=== PATIENT | female | born 1990 | race Two or more races ===

== ENCOUNTER 2024-08-22 18:05 | Outpatient (CLI) | payer MEDICAID, SELFPAY ==
[2024-08-22 18:26] VITALS: BMI 31.1
[2024-08-22 18:32] VITALS: RESP 16; TEMP 36.6
[2024-08-22 18:33] VITALS: BP 123/79; PULSE 98
[2024-08-22 18:36] VITALS: PULSE 94; O2SAT 99
--- NOTE | 2024-08-22 19:23 | OB.TRI.NOTE ---
HPI - General General Date of Admission: 08/22/24 Date of Service: 08/22/24 Chief Complaint: Abdominal pain HPI Narrative YAEL VERMA, is a 34 F who presents presents c/o abdominal pain. Nausea and emesis now. [place]. Patient notes that she has been on methadone this . 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 She states her last 3 years ago she used Percocet intermittently during the but she did not have any withdrawal during the when she was not using Percocet and neither did the . However, between pregnancies her Percocet use escalated and then she began using fentanyl and during this she started in a methadone treatment program in [place]. However 7 days ago she took her last dose of methadone in [place] and started traveling to [place]. She had some Percocet and Xanax that were prescribed for her per her report that she finished about 3 days ago. 2 days ago she had 1 last dose of methadone that she had brought with her and she took that. She took that because she was starting to have some withdrawal symptoms. Patient states she was seen 2 weeks ago for some abdominal pain and kidney stones and threatened labor. Patient reports she was 1 cm and 30% effaced. Patient states she has had care in [place] including 28-week labs and she does not have the results of the 28-week labs but reports that she did do the Glucola challenge and have the blood work drawn. Past medical history significant for colitis but she is not on any treatment for this. Medullary sponge kidney and kidney stones Medications during the include Xanax, methadone and prenatals Maternal Data Information Final KWAKU: 11/02/24 Gestational age: 29 5/7 [facility] Home Medications ?Medication ?Instructions ?Recorded ?Last Taken ?Type alprazolam 0.25 mg tablet (Xanax) 0.25 mg PO BID PRN anxiety 08/22/24 08/20/24 History methadone 40 mg soluble tablet 140 mg PO DAILY 08/22/24 08/20/24 History Allergy/AdvReac Type Severity Reaction Status Date / Time ketorolac (From Toradol) Allergy Intermediate Hives Verified 08/22/24 18:28 Physical Exam Narrative Awake, alert, no acute distress Abdomen soft, nondistended, gravid, mild tenderness suprapubic Extremities trace edema no clubbing or cyanosis NST FHR Rate Baby A Baseline: 140 Variability:: Moderate Accelerations:: 10 x 10 Decelerations:: Variable NST Reactive:: Appropriate for gestational age Uterine Activity:: no regular ctxs Assessment & Plan (1) 29 weeks gestation of : (2) High risk multigravida in third trimester: (3) Medullary sponge kidney: (4) Opioid use disorder: (5) Abdominal pain affecting , antepartum: PLAN: no evidence of PTL. Clinically consistent with opiod withdrawal. Has h/o chronic kidney stones as well. Will discuss w/ MFM to formulate a plan, possible transport to [facility] d/w her no methadone clinic locally, likely will need to be in treatment program with suboxone will need to establish care for OB care Will determine what labs need to be done after discuss w/ MFM
[2024-08-22 20:00] VITALS: BP 121/74; PULSE 90; RESP 16; TEMP 36.9
--- NOTE | 2024-08-22 20:11 | NURSING ---
Pt refusing transfer via [facility]. Pt requesting transport via [facility]
[2024-08-23 00:23] VITALS: PULSE 84; O2SAT 97
== END 2024-08-22 21:28 | disposition home or self-care (01) ==
LOC: WPOUT 18:21 → WP 18:22
PROVIDERS: Visit Provider Obstetrics & Gynecology
DX: O99.891 Other specified diseases and conditions complicating pregnancy (principal); F11.99 Opioid use, unspecified with unspecified opioid-induced disorder; Z3A.29 29 weeks gestation of pregnancy; Q61.5 Medullary cystic kidney; O99.323 Drug use complicating pregnancy, third trimester; O26.893 Other specified pregnancy related conditions, third trimester; R10.9 Unspecified abdominal pain; Z87.442 Personal history of urinary calculi; Z87.19 Personal history of other diseases of the digestive system
CPT/HCPCS: 59025; 59050; 99221; G0378

== ENCOUNTER 2024-12-29 09:57 | Emergency (ER) | payer MEDICAID, SELFPAY ==
[2024-12-29 09:58] VITALS: BP 119/87; PULSE 63; RESP 18; TEMP 37; O2SAT 100; BMI 31.2
[2024-12-29 10:31] LABS: Mucous, Urine 0 SEEN /hpf (<or=2+); Red Blood Cells-Urine 0 SEEN /hpf (0-5)
--- NOTE | 2024-12-29 10:39 | ED.VIS.FEGU ---
HPI HPI - Female History of Present Illness Chief Complaint: Female C/O Informant: patient Narrative Narrative: Patient is a 34-year-old female presenting from urgent care for pelvic pain. She states been going on for the past 3 days. Started as more of a pelvic pressure and discomfort associated with urination but she denies any specific dysuria. Denies any hematuria. States its became more severe with a pinching and stabbing sensation. States the pain is now constant. She went to urgent care where she had a urinalysis that showed 2+ leukocyte esterase but otherwise was not particularly abnormal and given her degree of pain patient was sent to the ER for further evaluation. She states she has been having normal bowel movements. Denies any associated fever, chills, nausea or vomiting. Denies any abnormal vaginal bleeding or discharge. Has not had any recent intercourse. She is 2 months . Notes she has had sex since delivery with 1 partner. She states she does not think she has an STD but is technically possible as I do not live together. She is chronic back pain but denies any acute change in that. Did not taking her symptoms prior to arrival. States she has never anything like this before. No other complaints or concerns reported at this time. [facility] Home Medications Medication Instructions Recorded Last Taken Type alprazolam 0.25 mg tablet (Xanax) 0.25 mg PO BID PRN anxiety 08/22/24 08/20/24 History methadone 40 mg soluble tablet 140 mg PO DAILY 08/22/24 08/20/24 History buprenorphine 8 mg-naloxone 2 mg 0 ea sublingual 12/29/24 Unknown History sublingual film phenazopyridine 200 mg tablet 200 mg PO TID PRN pain 6 doses #6 12/29/24 Unknown Rx (Pyridium) tabs sertraline 100 mg tablet 100 mg PO DAILY 12/29/24 Unknown History sulfamethoxazole 800 1 tab PO BID 5 days #10 tabs 12/29/24 Unknown Rx mg-trimethoprim 160 mg tablet (Bactrim DS) Allergy/AdvReac Type Severity Reaction Status Date / Time ketorolac (From Toradol) Allergy Intermediate Hives Verified 12/29/24 10:06 Social History Smoking Status: Former smoker ROS ROS ED Constitutional Constitutional ED: Denies chills or fever(s) Gastrointestinal Gastrointestinal: Reports abdominal pain; Denies constipation, diarrhea, nausea or vomiting Musculoskeletal Musculoskeletal: Denies arthralgias or myalgias Integumentary Denies rash Neurologic Neurologic: Denies weakness Hematologic/Lymphatic Hematologic/Lymphatic: Denies easy bleeding or easy bruising EXAM Physical Exam Const Vital Signs: 12/29/24 09:58 12/29/24 11:57 12/29/24 13:00 Temperature 98.6 F Temperature Source Oral Pulse Rate 63 77 80 Respiratory Rate 18 16 Blood Pressure 119/87 H 117/73 112/78 Blood Pressure Mean 97 87 89 Pulse Ox 100 97 99 Oxygen Delivery Method Room Air Positive well nourished and well developed General Appearance ED: well developed and NAD HEENT Reports moist mucous membranes Neck supple Chest Wall inspection of chest normal Resp normal respiratory effort and clear to auscultation bilaterally Cardio regular rate and regular rhythm GI soft to palpation, non-distended and no masses Auscultation: normoactive bowel sounds Palpation: tender suprapubic; Negative for guarding Narrative: Chaperoned pelvic exam performed External genitalia normal. On speculum exam there is physiologic white discharge. No cervical motion tenderness but there is tenderness palpation of the bladder and adnexa bilaterally. Back/Spine no CVA tenderness Extremity normal to inspection Neuro oriented x3 Sensorium / Orientation: alert Psych mental status grossly normal Skin no rashes or lesions noted and no wounds MDM MDM MDM Narrative Medical decision making narrative: Patient is evaluated for worsening pelvic pain. She is approximately 2 months . Differential includes urinary tract infection, pyelonephritis, pelvic inflammatory disease, tubo-ovarian abscess, ovarian torsion, ruptured ovarian cyst. She does not report any systemic symptoms overall well-appearing. Vital signs are normal. Patient is on buprenorphine and at baseline. Is given dose of morphine with no significant relief of her pain. Discussed that opioid pain medications will probably be ineffective because of her buprenorphine. She does verbalize understanding of this. Is given Tylenol. CBC shows mild anemia the hemoglobin 11.7 which is nonspecific. She is not any signs of active bleeding. BMP largely normal. Urinalysis does not show any bacteria only 25 leukocyte Estrace. test is negative lower suspicion for ectopic . Pelvic ultrasound obtained which does not show any acute abnormalities. No signs of torsion. No free fluid. Lower suspicion for tubo-ovarian abscess or PID based on pelvic exam and ultrasound. I discussed with patient that the exact cause of her pain is not clear. Workup relatively inconclusive at this time. Patient is offered CT abdomen pelvis for further evaluation but this time states that she would rather just follow-up outpatient. Given her history of medullary sponge disease and pain over her bladder will treat empirically for urinary tract infection even though urinalysis is not particularly impressive for UTI. Will send off her urine culture. Will also prescribe peridium. Patient is given first dose of Bactrim and pretty him in the emergency room. Given return precautions. Counseled on taking Tylenol and she can tolerated NSAIDs at home for pain. 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 Discharged home in stable condition Lab Data Attestation: I reviewed the patient's lab results. Labs: Laboratory Results - last 24 hr 12/29/24 12/29/24 10:26 11:15 WBC 6.8 RBC 4.40 Hgb 11.7 L Hct 36.6 L MCV 83.2 MCH 26.6 L MCHC 32.0 RDW Std Deviation 47.8 H RDW Coeff of Mellissa 15.9 H Plt Count 251 MPV 10.9 Immature Gran % (Auto) 0.300 Neut % (Auto) 61.3 Lymph % (Auto) 28.3 [place] % (Auto) 7.8 Eos % (Auto) 1.6 Baso % (Auto) 0.7 Absolute Neuts (auto) 4.2 Absolute Lymphs (auto) 1.93 Nucleated RBC % 0 Sodium 139 Potassium 4.4 Chloride 103 Carbon Dioxide 27.2 Anion Gap 9 BUN 11 Creatinine 0.64 L Estim Creat Clear Calc 131.19 Est GFR (MDRD) Non-Af 121 BUN/Creatinine Ratio 17.8 Glucose 60 L Calcium 9.5 Urine Color Yellow Urine Clarity Clear Urine pH 6.5 Ur Specific [place] 1.010 Urine Protein Negative Urine Glucose (UA) Normal Urine Ketones Negative Urine Occult Blood Negative Urine Nitrite Negative Urine Bilirubin Negative Urine Urobilinogen Normal Ur Leukocyte Esterase 25 H Urine RBC 0 SEEN Urine WBC 0-5 SEEN Ur Squamous Epith Cells 0-5 SEEN Urine Bacteria 0 SEEN Urine Mucus 0 SEEN Urine Test Negative Radiography Diagnostic Testing: Clinical Impression(s) from Imaging Studies Transvaginal US 12/29/24 11:11 IMPRESSION: No acute abnormality is identified on this pelvic ultrasound. [facility] Dis[facility] Plan Triage Chief Complaint: Female C/O ED Provider: Avis Martel Dx/Rx/DC Orders Clinical Impression: Pelvic pain, Medullary sponge kidney Instructions: ED Pelvic Pain, Unknown Cause Prescriptions: New sulfamethoxazole-trimethoprim [Bactrim DS] 800-160 mg tablet 1 tab PO BID 5 Days Qty: 10 0RF phenazopyridine [Pyridium] 200 mg tablet 200 mg PO TID PRN (Reason: pain) Qty: 6 0RF No Action alprazolam [Xanax] 0.25 mg tablet 0.25 mg PO BID PRN (Reason: anxiety) methadone 40 mg tablet,soluble 140 mg PO DAILY sertraline 100 mg tablet 100 mg PO DAILY buprenorphine-naloxone 8-2 mg film 0 ea sublingual Primary Care Provider: Care Physician,No Primary Referrals: Chrystal Baugh MD [Med Staff - Active Staff] - Care Physician,No Primary [Primary Care Provider] - Activity Restrictions/Additional Instructions: Your urinalysis was not highly consistent with urinary tract infection given your symptoms and your history of medullary sponge kidney will treat you with antibiotics. Urine culture was sent. Take Tylenol as needed for pain. If you can tolerate [id number] ibuprofen/Aleve may also take that for pain. If your symptoms worsen please return the emergency room for further evaluation. Print Language: Turkmen Disposition Disposition: Home, Self Care
[2024-12-29 10:45] LABS: Color, Urine Yellow (Yellow); Glucose, Dipstick Normal (Normal); Ketone-Dipstick Negative (Negative); Leukocyte Esterase-Dipstick 25 /ul (Negative); Nitrite-Dipstick Negative (Negative); Occult Blood-Urine Negative /ul (Negative); Protein-Dipstick Negative (Negative); Specific Gravity, Urine 1.010 (1.002-1.030); Urine Bilirubin Dipstick Negative (Negative)
[2024-12-29 10:57] LABS: Squamous Epithelial Cells - UA 0-5 SEEN /hpf (5-10)
--- NOTE | 2024-12-29 11:11 | US_ITS ---
PROCEDURE: TRANSVAGINAL NON- 12/29/2024 REASON FOR EXAM: PELVIC PAIN TECHNIQUE: TRANSVAGINAL NON- COMPARISON: None FINDINGS: The uterus measures 10.4 x 5.6 x 4.7 cm. The uterus is anteverted. There is no uterine fibroid or mass. The endometrium measures 0.5 cm. Nabothian cysts are noted. The right ovary measures 2.4 x 2.3 x 1.7 cm and shows multiple normal-appearing subcentimeter follicles. The left ovary measures 2.6 x 2.8 x 1.7 cm and has a dominant follicle measuring 1.4 cm. There is normal flow documented in the right and left ovary. No adnexal mass or free fluid is identified. US/Transvaginal Non- IMPRESSION: No acute abnormality is identified on this pelvic ultrasound. Reading Location: [facility]
[2024-12-29 11:24] LABS: Hematocrit 36.6 % (37-47); Hemoglobin 11.7 g/dL (12.0-15.0); Immature Granulocytes Count 0.020 X10^3/uL (0.0-0.0); Mean Corp Hgb Conc 32.0 g/dL (32-36); Mean Corpuscular Volume 83.2 fL (81-99); Mean Platelet Vol. 10.9 fl (6.2-12.0); NRBC Flagged by Analyzer 0 % (0-5); Platelet Count 251 K/mm3 (150-450); RBC Distribution Width CV 15.9 % (11.6-14.6); RBC Distribution Width SD 47.8 fl (35.1-43.9); Red Blood Count 4.40 M/mm3 (4.2-5.4); White Blood Count 6.8 K/mm3 (4.4-11.0)
[2024-12-29 11:26] LABS: Internal QC Validated? YES +Cl - CLEAR BKGD; Pregnancy, Urine Negative Negative
[2024-12-29 11:27] LABS: Record Kit Lot#,Urine Preg 0000962302
[2024-12-29 11:49] LABS: Anion Gap 9 (5-15); BUN 11 mg/dL (4-19); BUN/Creat Ratio 17.8 RATIO (10-20); Calcium,Total 9.5 mg/dL (7.6-11.0); Carbon Dioxide 27.2 mmol/L (21.0-32.0); Chloride 103 mmol/L (98-108); Estimated Creatinine Clearance 131.19 ml/min (50-250); Glucose 60 mg/dL (70-99); Potassium 4.4 mmol/L (3.3-5.1)
[2024-12-29 11:57] VITALS: BP 117/73; PULSE 77; RESP 16; O2SAT 97
[2024-12-29 13:00] VITALS: BP 112/78; PULSE 80; O2SAT 99
[2024-12-29] MEDS: Smz/Tmp Ds Tablet 1 TABLET PO (14:07)
[2024-12-29 14:14] VITALS: BP 127/78; PULSE 78; RESP 16; TEMP 37.1; O2SAT 99
== END 2024-12-29 14:16 | disposition home or self-care (01) ==
PROVIDERS: Emergency Provider Emergency Medicine; Visit Provider Emergency Medicine
DX: R10.2 Pelvic and perineal pain (principal); M54.9 Dorsalgia, unspecified; Z87.891 Personal history of nicotine dependence; G89.29 Other chronic pain; R10.9 Unspecified abdominal pain; Q61.5 Medullary cystic kidney
CPT/HCPCS: 76830; 80048; 81001; 81025; 85025; 87086; 87088; 87210; 87491; 87591; 96374; 96375; 96376; 99283; J2405

== ENCOUNTER 2025-02-04 12:49 | Emergency (ER) | payer MEDICAID, SELFPAY ==
[2025-02-04 12:50] VITALS: BP 114/80; PULSE 77; RESP 16; TEMP 37.4; O2SAT 98; BMI 32.5
[2025-02-04 12:52] VITALS: BP 114/80; PULSE 77; RESP 16; TEMP 37.4; O2SAT 98
--- NOTE | 2025-02-04 13:26 | EX.ED.DYSGE1 ---
HPI History of Present Illness Chief Complaint: Complaint Informant: patient Onset/Context/Timing Onset: Days (4) Context: Gradual Onset Timing: Continuous Quality: Dull, stabbing at times Location: Bilateral flank, right worse than left Worsened by: Nothing Relieved by: Nothing Associated Symptoms Associated Symptoms: Nausea Narrative Narrative: Patient presents with flank pain that has been getting worse over the past 4 days. Patient states it is worse on the right. Patient describes it as dull but stabbing at times. Patient states nothing makes it worse and nothing makes it better. Patient states she has had a history of kidney issues in the past. Patient states she has had ureteral stents placed and removed. Patient states she has had a nephrostomy tube placed and removed in the past. Patient denies any fevers or chills. Patient states she did break into a sweat however. Patient admits to some urinary frequency but denies any dysuria or hematuria. Patient admits to some nausea but denies any vomiting. [facility] Medical History (Updated 02/04/25 @ 16:[address] Neto Boo, ) Medullary sponge kidney Home Medications ?Medication ?Instructions ?Recorded ?Last Taken ?Type alprazolam 0.25 mg tablet (Xanax) 0.25 mg PO BID PRN anxiety 08/22/24 08/20/24 History methadone 40 mg soluble tablet 140 mg PO DAILY 08/22/24 08/20/24 History buprenorphine 8 mg-naloxone 2 mg 0 ea sublingual 12/29/24 Unknown History sublingual film phenazopyridine 200 mg tablet 200 mg PO TID PRN pain 6 doses #6 12/29/24 Unknown Rx (Pyridium) tabs sertraline 100 mg tablet 100 mg PO DAILY 12/29/24 Unknown History sulfamethoxazole 800 1 tab PO BID 5 days #10 tabs 12/29/24 Unknown Rx mg-trimethoprim 160 mg tablet (Bactrim DS) Allergy/AdvReac Type Severity Reaction Status Date / Time ketorolac (From Toradol) Allergy Intermediate Hives Verified 02/04/25 12:49 Surgical History (Updated 02/04/25 @ 13:[address] Neto Boo, DO) H/O insertion of nephrostomy tube H/O placement of ureteral stent Social History Smoking Status: Current some day smoker tobacco type: cigarettes ROS ROS ED Constitutional Constitutional ED: Reports sweats; Denies chills or fever(s) Eyes Eyes: Denies blurry vision or change in vision ENT ENT ED: Reports sore throat; Denies rhinorrhea Cardiovascular Cardiovascular: Denies chest pain or palpitations Respiratory/Chest Respiratory/Chest: Denies cough or dyspnea Gastrointestinal Gastrointestinal: Reports nausea; Denies vomiting Genitourinary Genitourinary ED: Reports urinary frequency; Denies dysuria or hematuria Musculoskeletal Musculoskeletal: Reports back pain; Denies neck pain Integumentary Denies abscess or rash Neurologic Neurologic: Denies headache(s) or weakness Allergic/Immunologic Allergic/Immunologic ED: Denies mouth swelling or urticaria EXAM Physical Exam Const Vital Signs: 02/04/25 12:50 02/04/25 12:52 02/04/25 14:49 Temperature 99.4 F H 99.4 F H 97.7 F L Temperature Source Oral Oral Oral Pulse Rate 77 77 76 Respiratory Rate 16 16 15 Blood Pressure 114/80 114/80 108/72 Blood Pressure Mean 91 91 84 Pulse Ox 98 98 100 Oxygen Delivery Method Room Air Room Air Room Air Positive well nourished and well developed Constitutional Narrative: BMI is 32.6. General Appearance ED: well developed and NAD HEENT Reports moist mucous membranes Neck supple and no JVD Resp normal respiratory effort and clear to auscultation bilaterally Cardio regular rate and regular rhythm GI non-distended Palpation: soft and tender RLQ and RUQ; Negative for guarding or rebound tenderness present Back/Spine no CVA tenderness Extremity normal to inspection Neuro oriented x3, CN's II-XII intact bilaterally and no sensory deficits noted Sensorium / Orientation: alert Motor Exam: strength 5/5 throughout Psych mental status grossly normal MDM MDM MDM Narrative Medical decision making narrative: Differential diagnosis includes ureteral calculus, urinary tract infection, pyelonephritis, ovarian cyst, ectopic , diverticulitis, appendicitis, colitis, and gastroenteritis. CBC will be obtained to assess for leukocytosis and anemia. Comprehensive metabolic profile will be obtained to assess for electrolyte abnormality, renal function, and hepatic function. Serum hCG will be obtained to assess for . Urinalysis will be obtained to assess for urinary tract infection and hematuria. CT scan of the abdomen and pelvis will be obtained to assess for ureteral calculus, pyelonephritis, and ovarian cyst. History & Record Review Additional record(s) reviewed:: Prior outpatient record, Prior ED visit and Prior labs Lab Data Attestation: I reviewed the patient's lab results. Lab results narrative: CBC was reviewed and was within normal limits. Comprehensive metabolic profile was reviewed and was within normal limits. Serum hCG was reviewed and was negative. Urinalysis was reviewed. There is no evidence of urinary tract infection or hematuria. Labs: Laboratory Results - last 24 hr 02/04/25 02/04/25 13:05 13:47 WBC 7.3 RBC 4.47 Hgb 12.1 Hct 37.4 MCV 83.7 MCH 27.1 MCHC 32.4 RDW Std Deviation 47.4 H RDW Coeff of Mellissa 15.5 H Plt Count 145 L MPV 11.4 Immature Gran % (Auto) 0.100 Neut % (Auto) 52.9 Lymph % (Auto) 35.9 [place] % (Auto) 8.1 Eos % (Auto) 1.8 Baso % (Auto) 1.2 H Absolute Neuts (auto) 3.8 Absolute Lymphs (auto) 2.60 Nucleated RBC % 0 Sodium 137 Potassium 4.3 Chloride 103 Carbon Dioxide 22.9 Anion Gap 11 BUN 12 Creatinine 0.61 L Estim Creat Clear Calc 140.62 Est GFR (MDRD) Non-Af 122 BUN/Creatinine Ratio 18.9 Glucose 82 Calcium 9.4 Total Bilirubin 0.18 AST 22 ALT 19 Alkaline Phosphatase 69 Total Protein 7.3 Albumin 4.3 Globulin 3.0 Albumin/Globulin Ratio 1.4 Serum , Qual NEGATIVE Urine Color Yellow Urine Clarity Clear Urine pH 6.5 Ur Specific [place] 1.015 Urine Protein Negative Urine Glucose (UA) Normal Urine Ketones Negative Urine Occult Blood Negative Urine Nitrite Negative Urine Bilirubin Negative Urine Urobilinogen Normal Ur Leukocyte Esterase Negative Urine RBC 0 SEEN Urine WBC 0-5 SEEN Ur Squamous Epith Cells 0-5 SEEN Urine Bacteria 1+ Urine Mucus 0 SEEN Radiography Diagnostic Testing: Clinical Impression(s) from Imaging Studies Abdomen/Pelvis CT 02/04/25 13:33 IMPRESSION: No acute or active inflammatory intra-abdominal pathology identified. Few bilateral subcentimeter nonobstructive renal stones. No ureteral calculi or hydroureteronephrosis on either side. No renal or urinary bladder inflammatory changes. Reading Location: [facility] CT scan of the abdomen pelvis was obtained. There is no acute intra-abdominal abnormality noted. There are few bilateral nonobstructive renal calculi. There is no ureteral calculi or hydronephrosis. There are no inflammatory changes noted. There is no free air or free fluid. This was interpreted by the radiologist and was also independently reviewed by myself. Treatment and Re-Evaluation :: Patient was given IV fluids, morphine, and Zofran. Patient was advised of her findings. Patient was instructed to follow-up with her primary care physician in 5 to 5 days for further evaluation. Patient was instructed to return if worse in any way. Patient agreeable with the plan. All questions were answered. Discharge Plan Triage Chief Complaint: Complaint ED Provider: Neto Boo Dx/Rx/DC Orders Clinical Impression: Acute flank pain, Medullary sponge kidney Instructions: ED Flank Pain with Uncertain Cause Prescriptions: No Action alprazolam [Xanax] 0.25 mg tablet 0.25 mg PO BID PRN (Reason: anxiety) methadone 40 mg tablet,soluble 140 mg PO DAILY sertraline 100 mg tablet 100 mg PO DAILY buprenorphine-naloxone 8-2 mg film 0 ea sublingual sulfamethoxazole-trimethoprim [Bactrim DS] 800-160 mg tablet 1 tab PO BID 5 Days Qty: 10 0RF phenazopyridine [Pyridium] 200 mg tablet 200 mg PO TID PRN (Reason: pain) Qty: 6 0RF Primary Care Provider: Care Physician,No Primary Referrals: Zackery Cote MD [Med Staff - Epidemiology Investigator] - 5-7 Days Care Physician,No Primary [Primary Care Provider] - Print Language: Maori Disposition Disposition: Home, Self Care
--- NOTE | 2025-02-04 13:33 | CT_ITS ---
PROCEDURE: CT ABDOMEN/PELVIS W IV CONT ONLY 02/04/2025 REASON FOR EXAM: FLANK PAIN TECHNIQUE: Procedure Code: [id number] Modality: CT Procedure: ABDOMEN/PELVIS W IV CONT ONLY Coronal and Sagittal reconstructions were provided. CONTRAST: Isovue 300 VOLUME: 98 mL One or more dose reduction techniques were used (e.g., Automated exposure control, adjustment of the mA and/or kV according to patient size, use of iterative reconstruction technique. RADIATION DOSE SUMMARY: DLP: 1170.97 mGycm COMPARISON: None. FINDINGS: Lung bases: Clear. Liver: Unremarkable. Gallbladder: Contracted. No biliary ductal dilatation. Spleen: Unremarkable. Pancreas: Unremarkable. Adrenals: Unremarkable. Kidneys: Symmetric enhancement. Few bilateral subcentimeter nonobstructive renal stones, the largest in the left lower pole measuring 4 mm. No ureteral calculi, perinephric edema or hydroureteronephrosis on either side. Bladder: Unremarkable. No wall thickening or inflammatory changes. Reproductive Organs: Grossly normal appearance of the uterus and adnexae, with small bilateral ovarian cysts/functional follicles. Bowel: Unremarkable. No obstruction or active inflammatory process. Normal appendix. Lymph nodes: No enlarged abdominopelvic lymph nodes. Vasculature: Normal caliber abdominal aorta and IVC. Peritoneum / Retroperitoneum: No free fluid or air. Bones: Unremarkable. CT/Abdomen/Pelvis W IV Cont ONLY IMPRESSION: No acute or active inflammatory intra-abdominal pathology identified. Few bilateral subcentimeter nonobstructive renal stones. No ureteral calculi o r hydroureteronephrosis on either side. No renal or urinary bladder inflammatory changes. Reading Location: [id number]
[2025-02-04 13:51] LABS: Hematocrit 37.4 % (37-47); Hemoglobin 12.1 g/dL (12.0-15.0); Immature Granulocytes Count 0.010 X10^3/uL (0.0-0.0); Mean Corp Hgb Conc 32.4 g/dL (32-36); Mean Corpuscular Volume 83.7 fL (81-99); Mean Platelet Vol. 11.4 fl (6.2-12.0); NRBC Flagged by Analyzer 0 % (0-5); Platelet Count 145 K/mm3 (150-450); RBC Distribution Width CV 15.5 % (11.6-14.6); RBC Distribution Width SD 47.4 fl (35.1-43.9); Red Blood Count 4.47 M/mm3 (4.2-5.4); White Blood Count 7.3 K/mm3 (4.4-11.0)
[2025-02-04 13:53] LABS: Mucous, Urine 0 SEEN /hpf (<or=2+); Red Blood Cells-Urine 0 SEEN /hpf (0-5)
[2025-02-04 13:56] LABS: Color, Urine Yellow (Yellow); Glucose, Dipstick Normal (Normal); Ketone-Dipstick Negative (Negative); Leukocyte Esterase-Dipstick Negative /ul (Negative); Nitrite-Dipstick Negative (Negative); Occult Blood-Urine Negative /ul (Negative); Protein-Dipstick Negative (Negative); Specific Gravity, Urine 1.015 (1.002-1.030); Urine Bilirubin Dipstick Negative (Negative)
[2025-02-04 14:02] LABS: Squamous Epithelial Cells - UA 0-5 SEEN /hpf (5-10)
[2025-02-04] MEDS: 0.9% Normal Saline (1000mL) 1,000 ML 1000 ML IV (14:04)
[2025-02-04 14:21] LABS: AST(SGOT) 22 U/L (<=31); Alanine Aminotransfer ALT/SGPT 19 U/L (<=34); Albumin, Serum 4.3 g/dL (3.5-5.0); Alkaline Phosphatase 69 U/L (35-104); Anion Gap 11 (5-15); BUN 12 mg/dL (4-19); BUN/Creat Ratio 18.9 RATIO (10-20); Calcium,Total 9.4 mg/dL (7.6-11.0); Carbon Dioxide 22.9 mmol/L (21.0-32.0); Chloride 103 mmol/L (98-108); Estimated Creatinine Clearance 140.62 ml/min (50-250); Globulin 3.0 g/dL (2.2-4.2); Glucose 82 mg/dL (70-99); Potassium 4.3 mmol/L (3.3-5.1)
[2025-02-04 14:49] VITALS: BP 108/72; PULSE 76; RESP 15; TEMP 36.5; O2SAT 100
[2025-02-04 15:02] LABS: Internal QC Validated? YES +Cl - CLEAR BKGD; Pregnancy, Serum, hCG Quali. NEGATIVE Negative; Record Kit Lot#, Serum Preg. 962302
[2025-02-04 16:00] VITALS: PULSE 72; RESP 16; O2SAT 98
[2025-02-04 16:26] VITALS: BP 108/72; PULSE 72; RESP 16; TEMP 36.5; O2SAT 98
== END 2025-02-04 16:57 | disposition home or self-care (01) ==
PROVIDERS: Emergency Provider Emergency Medicine; Visit Provider Emergency Medicine
DX: R10.9 Unspecified abdominal pain (principal); Q61.5 Medullary cystic kidney; F17.210 Nicotine dependence, cigarettes, uncomplicated
CPT/HCPCS: 74177; 80053; 81001; 84703; 85025; 96361; 96374; 96375; 99283; Q9967; A4216; J2405

== ENCOUNTER 2025-03-27 11:52 | Emergency (ER) | payer MEDICAID, SELFPAY ==
[2025-03-27 12:04] VITALS: BP 158/100; PULSE 97; RESP 18; TEMP 36.9; O2SAT 100; BMI 35.3
--- OUTSIDE RECORDS SUMMARY | 2025-03-27 12:18 | XMS RPT_ITS | CCD ---
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 Willoughby Attending Provider [phone] Unavailable Primary Care Provider UnavailBAILEE Perales Attending Unavailable Care Physician, No Primary Primary Care Provider Unavailable Dr. Avis Martel DO Emergency Provider Dr. Avis Martel DO Attending Provider Dr. Neto Boo DO Emergency Provider Fartun Licona Attending Unavailable Care Physician, No Primary Primary Care Unava ilable Care Physician, No Primary Primary Care Unava ilable Neto Boo Attending Unavailable Avis Martel Attending Unavailable Care Physician, No Primary Primary Care Unava ilable MANUEL WOODS Attending Unavailable MANUEL WOODS Attending Unavailable MANUEL WOODS Attending Unavailable MANUEL WOODS Attending Unavailable AVE MARIE Admitting Unavailable AVE MARIE Attending Unavailable MARISA العراقي Attending Unavailable CRISP, ILENE Attending Unavailable BRIANNA TIPTON Admitting Unavailable BRIANNA TIPTON Attending Unavailable MANUEL WOODS Attending Unavailable CRISP, Attending Unavailable CRISP, Referring Unavailable CRISP, Attending Unavailable CRISP, Referring Unavailable CRISP, Attending Unavailable CRISP, Referring Unavailable CRISP, Attending Unavailable CRISP, Referring Unavailable AURY ROSARIO Attending Unavailable MANUEL WOODS Attending Unavailable CRISP, IELNE Attending Unavailable MANUEL WOODS Attending Unavailable MANUEL WOODS Attending Unavailable AVE MARIE Admitting Unavailable AVE MARIE Attending Unavailable GEMINI ELISE Admitting Unavailable GEMINI ELISE Attending Unavailable GUADALUPE ORTEGA Consulting Unavailable MANUEL WOODS Consulting Unavailable BRIANNA TIPTON Admitting Unavailable BRIANNA TIPTON Attending Unavailable Allergies Allergy Classification Reported Allergen(s) Allergy Type Date of Onset Reaction(s) Facility (20 sources) Ketorolac trometamol Propensity to adverse reactions 5 [facility] (5 sources) Ketorolac; Translations: [KETOROLAC] Drug Allergy 5 [facility] (20 sources) Ketorolac Allergy to substance 5 [facility] (1 source) Ketorolac Drug Allergy [address] [place] [address] Repository Medications Current Medications Medication Drug Class(es) Dates Sig (Normalized) Sig (Original) acetaminophen 500 mg oral tablet (20 sources) Start: 10-21-2024 End: 10-31-2024 take 2 tablets by mouth every six hours as needed for pain acetaminophen (Tylenol Extra Strength) 500 MG tablet Take 2 tablets (1,000 mg) by mouth every 6 hours as needed for mild pain (1-3) for up to 10 days. 30 tablet 10/21/2024 4:30 PM EDT 10/21/2024 10/31/2024 Active Start: 10-20-2024 End: 10-22-2024 take 1 tablet by mouth every six hours 1,000 mg, Oral, Every 6 hours, First dose (after last modification) on Fri10/20/24 at 1600, Give in addition to any other pain medication ordered at same time for any pain indication. Maximum dose of acetaminophen is 4000 mg from all sources in 24 hours. Alternate ibuprofen and acetaminophen every 3 hours. Give ibuprofen first in the sequence. Start: 10-19-2024 End: 10-20-2024 take 1 tablet by mouth every six hours 650 mg, Oral, Every 6 hours, First dose (after last modification) on Fri10/20/24 at 1000, Give in addition to any other pain medication ordered at same time for any pain indication. Maximum dose of acetaminophen is 4000 mg from all sources in 24 hours. Alternate ibuprofen and acetaminophen every 3 hours. Give ibuprofen first in the sequence. Start: 10-18-2024 End: 10-18-2024 650 mg, Oral, Once, On Fri at 2200, For 1 dose, Maximum dose of acetaminophen is 4000 mg from all sources in 24 hours. Start: 10-18-2024 End: 10-18-2024 1,000 mg, Oral, Once, On Fri10/18/24 at 1245, For 1 dose, Maximum dose of acetaminophen is 4000 mg from all sources in 24 hours. Start: 10-18-2024 End: 10-18-2024 1,000 mg, Oral, Once, On Fri10/18/24 at 1245, For 1 dose, Maximum dose of acetaminophen is 4000 mg from all sources in 24 hours. Start: 10-08-2024 End: 10-08-2024 1,000 mg, Oral, Once, On Fri10/08/24 at 2130, For 1 dose, Maximum dose of acetaminophen is 4000 mg from all sources in 24 hours. Start: 09-24-2024 End: 09-24-2024 1,000 mg, Oral, Once, On Fri09/24/24 at 2245, For 1 dose, Maximum dose of acetaminophen is 4000 mg from all sources in 24 hours. Start: 08-23-2024 End: 08-30-2024 take 1 tablet by mouth every six hours as needed for pain 1,000 mg, Oral, Every 6 hours PRN, mild pain (1-3), Starting on Fri08/23/24 at 0104, Maximum dose of acetaminophen is 4000 mg from all sources in 24 hours. ALPRAZolam 0.25 mg oral tablet (3 sources) Benzodiazepine Start: 08-22-2024 take 1 tablet by mouth twice daily as needed for anxiety Alprazolam (Xanax) 0.25 mg tablet Active 0.25 mg PO TWICE A DAY as needed for anxiety August 22, 2024 12:00am 1.5 ml buprenorphine 200 mg/ml prefilled syringe (20 sources) Partial Opioid Agonist Start: 03-10-2025 End: 04-09-2025 inject 1.5 mL by subcutaneous injection every month buprenorphine ER (Sublocade) 300 MG/1.5ML injection Indications: Severe opioid use disorder on maintenance therapy (HCC) Inject 1.5 mL (1 each) under the skin every month to absorb continually. 1.5 mL 03/10/2025 04/09/2025 Active Start: 08-31-2024 End: 09-07-2024 buprenorphine (Subtex) 8 MG Indications: Severe opioid use disorder (HCC) Place 2.5 tablets (20 mg) under the tongue daily for 7 doses. 18 tablet 08/31/2024 1:45 PM EDT 08/31/2024 09/07/2024 Discontinued Start: 08-30-2024 End: 09-28-2024 buprenorphine SL (SUBUTEX) 8 mg subl 09/21/2024 Active busPIRone hydrochloride 10 mg oral tablet (1 source) Start: 03-10-2025 End: 04-09-2025 take 1 tablet by mouth twice daily busPIRone (Buspar) 10 MG tablet Indications: Anxiety and depression Take 1 tablet (10 mg) by mouth 2 times daily. 60 tablet 03/10/2025 04/09/2025 Active escitalopram 10 mg oral tablet (1 source) Serotonin Reuptake Inhibitor Start: 03-10-2025 End: 04-09-2025 take 1 tablet by mouth once daily escitalopram (Lexapro) 10 MG tablet Indications: Anxiety and depression Take 1 tablet (10 mg) by mouth daily. 30 tablet 03/10/2025 04/09/2025 Active fosfomycin 3000 mg powder for oral solution (12 sources) Start: 10-14-2024 End: 10-22-2024 take 3 g by mouth once fosfomycin (Monurol) 3 g packet Indications: UTI due to extended-spectrum beta lactamase (ESBL) producing Escherichia coli Take 3 g by mouth Once for 1 dose. 3 g 10/14/2024 10/22/2024 Discontinued (Stop taking at discharge) Start: 09-23-2024 End: 09-25-2024 3 g, Oral, Once, On 09/24 at 2245, For 1 dose, Suspected Indication (Select all that apply): Urinary Tract Infection Start: 08-30-2024 End: 08-30-2024 3 g, Oral, Once, On 08/30 at 1545, For 1 dose, Suspected Indication (Select all that apply): Urinary Tract Infection Start: 08-30-2024 End: 08-30-2024 3 g, Oral, Once, On Mon 08/30 at 1545, For 1 dose, Suspected Indication (Select all that apply): Urinary Tract Infection Start: 08-30-2024 End: 08-30-2024 take 3 g by mouth once fosfomycin (Monurol) 3 g pac ket Take 3 g by mouth Once for 1 dose. 3 g 08/30/2024 08/30/2024 Discontinued (Stop taking at discharge) ibuprofen 600 mg oral tablet (8 sources) Nonsteroidal Anti-inflammatory Drug Start: 10-21-2024 End: 11-05-2024 take 1 tablet by mouth every six hours as needed for pain ibuprofen 600 MG tablet Take 1 tablet (600 mg) by mouth every 6 hours as needed for mild pain (1-3) for up to 15 days. 60 tablet 10/21/2024 4:30 PM EDT 10/21/2024 11/05/2024 Active Start: 10-20-2024 End: 10-22-2024 take 1 tablet by mouth every six hours 600 mg, Oral, Every 6 hours, First dose (after last modification) on Fri10/20/24 at 1200, Alternate ibuprofen and acetaminophen every 3 hours. Give ibuprofen first in the sequence. Start: 10-19-2024 End: 10-20-2024 take 1 tablet by mouth every six hours as needed for pain and pain and pain 600 mg, Oral, Every 6 hours PRN, mild pain (1-3), moderate pain (4-6), severe pain (7-10), Starting on Fri10/19/24 at 0014, Alternate ibuprofen and acetaminophen every 3 hours. Give ibuprofen first in the sequence. lidocaine 0.05 mg/mg medicated patch (20 sources) Antiarrhythmic, Amide Local Anesthetic Start: 10-20-2024 End: 10-22-2024 1 patch, TransDERmal, Administer over 12 Hours, 2 times daily, First dose on Fri10/20/24 at 0645, Apply patch to back. Patch may remain in place for up to 12 hours in any 24 hour period. Start: 10-19-2024 End: 10-20-2024 apply 1 dose transdermal route once daily, then apply 1 dose transdermal route every twelve hours 1 patch, TransDERmal, Administer over 12 Hours, Daily, First dose on Fri10/19/24 at 1345, Apply patch to back. Patch may remain in place for up to 12 hours in any 24 hour period. Start: 09-24-2024 End: 09-25-2024 apply 1 dose transdermal route once daily, then apply 1 dose transdermal route every twelve hours 1 patch, TransDERmal, Administer over 12 Hours, Daily, First dose (after last modification) on Fri09/24/24 at 2245, Apply patch to affected area. Patch may remain in place for up to 12 hours in any 24 hour period. Start: 08-30-2024 End: 11-20-2024 apply 1 dose transdermal route once daily, then apply 1 dose transdermal route every twelve hours lidocaine (Lidoderm) 5 % patch Apply 1 patch topically daily for 10 days. Remove & discard patch within 12 hours or as directed by . 10 patch 09/25/2024 10/08/2024 Discontinued (Stop taking at discharge) Start: 08-23-2024 End: 08-30-2024 apply 1 dose transdermal route once daily, then apply 1 dose transdermal route every twelve hours 1 patch, TransDERmal, Administer over 12 Hours, Daily, First dose on Fri08/27/24 at 1845, Apply patch to left leg. Patch may remain in place for up to 12 hours in any 24 hour period. nystatin [id number] unt/ml topical cream (6 sources) Polyene Antifungal Start: 01-07-2025 End: 02-06-2025 nystatin (Mycostatin) cream Apply topically 2 times daily as needed (itching, irritation). 15 g 01/07/2025 02/06/2025 Active Start: 12-04-2024 End: 01-05-2025 nystatin (Mycostatin) cream Apply topically twice a day. 12/04/2024 01/05/2025 Discontinued (Reorder) Start: 12-04-2024 nystatin (MYCO STATIN) cream Apply to affected area two times a day. 30 g 12/04/2024 Active ondansetron 4 mg oral tablet (20 sources) Serotonin-3 Receptor Antagonist Start: 01-07-2025 End: 03-10-2025 take 2 tablets by mouth every eight hours as needed for nausea ondansetron (Zofran) 4 MG tablet Indications: Severe opioid use disorder on maintenance therapy (HCC) Take 2 tablets (8 mg) by mouth every 8 hours as needed for nausea or vomiting. 30 tablet 03/10/2025 Active Start: 08-30-2024 End: 01-05-2025 take 2 tablets by mouth every eight hours as needed for nausea ondansetron (Zofran) 4 MG tablet Indications: Severe opioid use disorder on maintenance therapy (HCC) Take 2 tablets (8 mg) by mouth every 8 hours as needed for nausea or vomiting. 30 tablet 11/22/2024 01/05/2025 Discontinued (Reorder) Start: 08-23-2024 End: 08-30-2024 take 4 mg intravenously every eight hours as needed for nausea and vomiting 4 mg, IntraVENous, Every 8 hours PRN, nausea, vomiting, Starting on 08/23/24 at 0038, 1st Line. If inadequate response within 60 minutes, proceed to next-line agent or contact provider if no further options ordered. Patient should allow tablet to dissolve on tongue. Do not remove from blister pack until just before administering. phenazopyridine hydrochloride 200 mg oral tablet (2 sources) Start: 12-29-2024 take 1 tablet by mouth three times daily as needed for pain Phenazopyridine (Pyridium) 200 mg tablet Active 200 mg PO THREE TIMES A DAY as needed for pain 6 0 December 29, 2024 1:52pm sulfamethoxazole 800 mg / trimethoprim 160 mg oral tablet (2 sources) Dihydrofolate Reductase Inhibitor Antibacterial, Sulfonamide Antimicrobial Start: 12-29-2024 Sulfamethoxazole-Tri methoprim (Bactrim Ds) 800-160 mg tablet Active 1 {tbl} PO TWICE A DAY 10 5 0 December 29, 2024 12:00am Completed/Discontinued Medications Medication Drug Class(es) Dates Sig (Normalized) Sig (Original) aspirin 81 mg chewable tablet (20 sources) Platelet Aggregation Inhibitor, Nonsteroidal Anti-inflammatory Drug Start: 08-30-2024 End: 08-30-2025 aspirin 81 MG chewable tablet Chew 2 tablets (162 mg) daily. 60 tablet 11 08/30/2024 11/22/2024 Discontinued (Stop taking at discharge) benzethonium chloride 2 mg/ml / benzocaine 200 mg/ml topical spray (2 sources) Standardized Chemical Allergen Start: 10-19-2024 End: 10-22-2024 buprenorphine 8 mg / naloxone 2 mg sublingual film (20 sources) Partial Opioid Agonist, Opioid Antagonist Start: 12-29-2024 Buprenorphine-Nalo xone 8-2 mg film Active 0 NMA SL December 29, 2024 12:00am Start: 11-22-2024 End: 04-07-2025 buprenorphine-naloxone (Subo xone) 8-2 MG per sublingual film Indications: Severe opioid use disorder on maintenance therapy (HCC) Place 1 Film under the tongue 2 times daily for 7 days. 14 Film 03/02/2025 03/10/2025 Discontinued (Reorder) Start: 10-20-2024 End: 10-22-2024 2 Film, SubLINGual, Daily, F irst dose (after last modification) on Fri10/20/24 at 0900 Start: 10-19-2024 1 Film, SubLIN Gual, Once, On Fri10/19/24 at 2100, For 1 dose Start: 10-19-2024 End: 11-22-2024 buprenorphine-naloxone (Subo xone) 8-2 MG SL tablet Indications: Severe opioid use disorder on maintenance therapy (HCC) Place 2.5 tablets under the tongue daily for 28 days. 70 tablet 11/22/2024 11/22/2024 Discontinued (Therapy completed) Start: 09-28-2024 End: 10-22-2024 buprenorphine-naloxone (Subo xone) 8-2 MG per sublingual film Indications: Severe opioid use disorder on maintenance therapy (HCC) Place 1 Film under the tongue 2 times daily for 14 days. 28 Film 10/05/2024 10/22/2024 Discontinued (Stop taking at discharge) Start: 08-29-2024 End: 08-30-2024 1 Film, SubLINGual, 2 times daily, First dose on 08/29/24 at 1215 calcium chloride 0.0014 meq/ml / potassium chloride 0.004 meq/ml / sodium chloride 0.103 meq/ml / sodium lactate 0.028 meq/ml injectable solution (8 sources) Start: 10-18-2024 End: 10-22-2024 take 125 mL intravenously every hour 125 mL/hr, IntraVENous, Continuous, Starting on 10/18/24 at 1015, Pre-Delivery Start: 08-29-2024 End: 08-29-2024 500 mL, IntraVENous, at 250 mL/hr, Administer over 2 Hours, Once, On 08/29/24 at 1345, For 1 dose Start: 08-26-2024 End: 08-27-2024 500 mL, IntraVENous, at 250 mL/hr, Administer over 2 Hours, Once, On Fri08/27/24 at 1145, For 1 dose cephalexin 500 mg oral capsule (4 sources) Cephalosporin Antibacterial Start: 08-26-2024 End: 08-30-2024 take 1 capsule by mouth four times daily cephalexin (Keflex) 500 MG capsule Take 1 capsule (500 mg) by mouth 4 times daily for 3 days. 12 capsule 08/30/2024 08/30/2024 Discontinued (Stop taking at discharge) chlordiazePOXIDE hydrochloride 5 mg oral capsule (6 sources) Benzodiazepine Start: 08-25-2024 End: 08-26-2024 take 1 capsule by mouth every six hours 5 mg, Oral, Every 6 hours, First dose (after last modification) on Fri08/25/24 at 1300 Start: 08-24-2024 End: 08-25-2024 take 1 capsule by mouth every six hours 10 mg, Oral, Every 6 hours, First dose (after last modification) on Fri08/24/24 at 1215 Start: 08-23-2024 End: 08-24-2024 take 1 capsule by mouth every six hours 25 mg, Oral, Every 6 hours, First dose on Fri08/23/24 at 1215 chlorhexidine (Hibiclens) 4 % solution 1 Application (2 sources) Start: 10-18-2024 End: 10-19-2024 1 Application, Topical, Daily, First dose on Fri10/18/24 at 1015, Pre-Delivery, Use solution to clean abdomen upon admission then once daily until delivered cyclobenzaprine hydrochloride 10 mg oral tablet (8 sources) Muscle Relaxant Start: 10-20-2024 End: 10-22-2024 take 5 mg by mouth three times daily 5 mg, Oral, 3 times daily, First dose on Fri10/20/24 at 0900 Start: 10-19-2024 End: 10-19-2024 take 5 mg by mouth once 5 mg, Oral, Once, On 10/07 at 1345, For 1 dose Start: 08-27-2024 End: 08-30-2024 take 10 mg by mouth three times daily as needed for muscle spasms 10 mg, Oral, 3 times daily PRN, muscle spasms, Starting on Fri08/27/24 at 1302 Start: 08-23-2024 End: 08-27-2024 take 5 mg by mouth three times daily as needed for muscle spasms 5 mg, Oral, 3 times daily PRN, muscle spasms, Starting on Fri08/23/24 at 0038 dicyclomine hydrochloride 10 mg oral capsule (2 sources) Anticholinergic Start: 08-23-2024 End: 08-30-2024 take 10 mg by mouth four times daily as needed 10 mg, Oral, 4 times daily PRN, GI upset, Starting on Fri08/23/24 at 0038 diphenhydrAMINE hydrochloride 25 mg oral tablet (2 sources) Histamine-1 Receptor Antagonist Start: 08-23-2024 End: 08-30-2024 take 1 tablet by mouth every six hours as needed 25 mg, Oral, Every 6 hours PRN, itching, Starting on Fri08/23/24 at 0038 docusate sodium 100 mg oral capsule (2 sources) Start: 10-19-2024 End: 10-22-2024 take 100 mg by mouth twice daily as needed for constipation 100 mg, Oral, 2 times daily PRN, constipation, Vaginal Delivery, Starting on Fri10/19/24 at 0532, Do not crush or break. 0.4 ml enoxaparin sodium 100 mg/ml prefilled syringe (2 sources) Low Molecular Weight Heparin Start: 08-25-2024 End: 08-30-2024 inject 40 mg by subcutaneous injection every twenty-four hours 40 mg, SubCUTAneous, Every 24 hours, First dose on Fri08/25/24 at 1100, Indication of Use: Prophylaxis-DV T/PE famotidine 20 mg oral tablet (4 sources) Histamine-2 Receptor Antagonist Start: 10-19-2024 End: 10-22-2024 Start: 08-26-2024 End: 08-30-2024 take 20 mg by mouth twice daily 20 mg, Oral, 2 times d aily, First dose on Fri08/26/24 at 1615 ferrous sulfate 325 mg oral tablet (2 sources) Start: 10-19-2024 End: 10-22-2024 hydrOXYzine pamoate 25 mg oral capsule (4 sources) Antihistamine Start: 10-18-2024 End: 10-18-2024 take 25 mg by mouth once 25 mg, Oral, Once, On Fri10/18/24 at 1245, For 1 dose Start: 10-18-2024 End: 10-18-2024 take 25 mg by mouth once 25 mg, Oral, Once, On 06/02 at 1245, For 1 dose Start: 08-23-2024 End: 08-30-2024 take 1 capsule by mouth every six hours as needed for anxiety 25 mg, Oral, Every 6 hours PRN, anxiety, Starting on Fri08/23/24 at 0038 lanolin 1000 mg/ml topical cream (2 sources) Start: 10-19-2024 End: 10-22-2024 levonorgestrel 0.628696 mg/hr intrauterine system (2 sources) Progestin, Progestin-containing Intrauterine Device Start: 10-18-2024 End: 10-18-2024 1 each, IntraUTERine, Once, On Fri10/18/24 at 1145, For 1 dose 1 ml LORazepam 2 mg/ml injection (2 sources) Benzodiazepine Start: 08-27-2024 End: 08-27-2024 1 mg, IntraVENous, Once, On Fri08/27/24 at 1500, For 1 dose, For IV doses dilute dose with 1ml NS. methadone hydrochloride 10 mg/ml oral solution (9 sources) Opioid Agonist Start: 08-25-2024 End: 08-25-2024 take 140 mg by mouth every twenty-four hours 140 mg, Oral, Every 24 hours, First dose (after last modification) on Fri08/25/24 at 0945 Start: 08-23-2024 End: 08-24-2024 take 140 mg by mouth once daily 140 mg, Oral, Daily, F irst dose on Fri08/23/24 at 1030 Start: 08-22-2024 take 1 tablet by once daily Methadone 40 mg tablet,soluble Active 140 mg PO DAILY 0 August 22, 2024 12:00am End: 08-30-2024 methadone (Dolophine) 10 MG tablet Take 140 mg by mouth daily. 08/30/2024 Discontinued (Stop taking at discharge) 1 ml naloxone hydrochloride 0.4 mg/ml injection (4 sources) Opioid Antagonist Start: 10-18-2024 End: 10-22-2024 0.4 mg, IntraVENous, Every 5 min PRN, opioid reversal, respiratory depression, Starting on Fri10/18/24 at 1005, +++ For RR Start: 08-23-2024 End: 08-30-2024 0.4 mg, IntraVENous, Every 5 min PRN, opioid reversal, respiratory depression, Starting on Fri08/23/24 at 1026, +++ For RR ondansetron ODT (Zofran-ODT) disintegrating tablet 4 mg (2 sources) Start: 10-19-2024 End: 10-22-2024 take 1 tablet by mouth every eight hours as needed for nausea and vomiting ondansetron ODT (Zofran-ODT) disintegrating tablet 4 mg oxyCODONE hydrochloride 5 mg oral tablet (9 sources) Opioid Agonist Start: 10-20-2024 End: 11-22-2024 take 1 tablet by mouth every six hours as needed for pain oxyCODONE (Roxicodone) 5 MG immediate release tablet Indications: care following vaginal delivery Take 1 tablet (5 mg) by mouth every 6 hours as needed for severe pain (7-10) for up to 3 days. 12 tablet 10/21/2024 4:30 PM EDT 10/21/2024 11/22/2024 Discontinued (Therapy completed) Start: 10-19-2024 End: 10-19-2024 take 5 mg by mouth once as needed for pain 5 mg, Oral, Once PRN, severe pain (7-10), Starting on Fri10/19/24 at 0532, For 1 dose, , Indications: Acute Pain oxytocin (Pitocin) 30 units in 500 mL infusion (8 sources) Start: 10-18-2024 End: 10-20-2024 125 norberto-units/min (125 mL/ hr), IntraVENous, Continuous PRN, bleeding, Starting on Fri10/18/24 at 2345, For 48 hours, , For Immediate Post Use Only. Give after delivery of placenta and initial 30 unit bolus. Bag 2 of 2: 125cc/hr (125 mu/min) for an additional infusion of 500cc (30 units). Start: 10-18-2024 End: 10-22-2024 1-20 norberto-units/min (1-20 m L/hr), IntraVENous, Continuous, Starting on Fri10/18/24 at 1345, Begin infusion at 1 norberto-unit/min (1 nroberto-unit per min = 1 mL per hour) and increase by 1 norberto-unit/min after 30 minutes. Then increase by 2 norberto-units/min as needed, no faster than every 30 minutes, until labor is achieved. Labor is defined as contractions every 2-3 minutes with cervical changes or [place] units (MVU) greater than 200 in a 10-minute window. Maximum infusion rate: 20 norberto-unit/min. Contact provider if maximum rate does not achieve desired response. Provider may order alternative titration goal or other clinically appropriate goal of titration rate (s). Smaller titration increments of 1 norberto-units/min, not faster than every 30 minutes, may be used when approaching therapeutic goal. Start: 10-18-2024 End: 10-22-2024 1-2 norberto-units/min (1-2 mL/ hr), IntraVENous, Continuous, Starting on Fri10/18/24 at 1145, Begin infusion at 1 norberto-unit/min (1 norberto-unit per min = 1 mL per hour) and increase by 1 norberto-unit/min after 30 minutes. Maintain at 2 norberto-unit/min until judd bulb comes out. Notify provider when judd bulb comes out. Start: 10-18-2024 End: 10-22-2024 250-999 norberto-units/min (250 -999 mL/hr), IntraVENous, Continuous PRN, bleeding, Starting on Fri10/18/24 at 1003, For Immediate Post Use Only. Give after delivery of placenta. Bag 1 of 2: Bolus for bag to infuse at 999 ml/hour for 15 minutes (15 units in 250cc). After initial bolus then decrease rate to 250cc/hr for 1 hour. Then discontinue Vit-Fe Fumarate-FA ( Vitamins) 28-0.8 MG tablet (20 sources) Start: 08-30-2024 End: 11-22-2024 take 1 tablet by mouth once daily Vit-Fe Fumarate-FA ( Vitamins) 28-0.8 MG tablet Take 1 tablet by mouth daily. 30 tablet 11 08/30/2024 11/22/2024 Discontinued (Therapy completed) Start: 08-30-2024 End: 10-22-2024 take 1 tablet by mouth once daily Vit-Fe Fumarate-FA ( Vitamins) 28-0.8 MG tablet Take 1 tablet by mouth daily. 30 tablet 11 08/30/2024 10/22/2024 Discontinued (Stop taking at discharge) Start: 08-30-2024 End: 08-30-2025 take 1 tablet by mouth once daily Vit-Fe Fumarate-FA ( Vitamins) 28-0.8 MG tablet Take 1 tablet by mouth daily. 30 tablet 11 08/30/2024 08/30/2025 Suspended Start: 08-30-2024 End: 08-30-2025 take 1 tablet by mouth once daily Vit-Fe Fumarate-FA ( Vitamins) 28-0.8 MG tablet Take 1 tablet by mouth daily. 30 tablet 11 08/30/2024 08/30/2025 Active vitamin tablet (2 sources) Start: 08-23-2024 End: 08-30-2024 take 1 tablet by mouth once daily 1 tablet, Oral, Daily, First dose on Fri08/23/24 at 0900 promethazine hydrochloride 25 mg oral tablet (2 sources) Phenothiazine Start: 08-23-2024 End: 08-30-2024 take 1 tablet by mouth every six hours as needed for nausea and vomiting 12.5 mg, Oral, Every 6 hours PRN, nausea, vomiting, 2nd line, Starting on Fri08/23/24 at 0038 QUEtiapine 50 mg oral tablet (20 sources) Atypical Antipsychotic Start: 08-30-2024 End: 11-22-2024 take 1 tablet by mouth once daily as needed for sleep QUEtiapine (SEROquel) 50 MG tablet Indications: Anxiety and depression Take 1 tablet (50 mg) by mouth Nightly as needed (Insomnia/sleep). 30 tablet 10/19/2024 11/22/2024 Discontinued (Therapy completed) Start: 08-28-2024 End: 08-30-2024 take 50 mg by mouth once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 small bilateral ovarian cysts/functional follicles. Bowel: Unremarkable. No obstruction or active inflammatory process. Normal appendix. Lymph nodes: No enlarged abdominopelvic lymph nodes. Vasculature: Normal caliber abdominal aorta and IVC. Peritoneum / Retroperitoneum: No free fluid or air. Bones: Unremarkable. CT/Abdomen/Pelvis W IV Cont ONLY IMPRESSION: No acute or active inflammatory intra-abdominal pathology identified. Few bilateral subcentimeter nonobstructive renal stones. No ureteral calculi or hydroureteronephrosis on either side. No renal or urinary bladder inflammatory changes. Reading Location: [id number] CC: Dr. Neto Boo DO; No Primary Care Physician Formula Bottler: Signed Normal [facility] Absolute lymphocyte countOrd ered By: Neto Boo on 02-04-2025 Lymphocytes Auto (Unsp spec) [#/Vol] 2.60 10*3/uL 0.83-4.51 [facility] Absolute neutrophil countOrd ered By: Neto Boo on 02-04-2025 Neutrophils (Bld) [#/Vol] 3.8 10*3/uL 2.0-7.7 [facility] Anion gap in Serum or Plasma Ordered By: Neto Boo on 02-04-2025 Anion gap [Moles/Vol] 11 mmol/L 5-15 [facility] Automated lymphocyte count a s percentage of total leukocytesOrdered By: Neto Boo on 02-04-2025 Lymphocytes/100 WBC Auto (Unsp spec) 35.9 % 19-41 [facility] BUN/creatinine ratioOrdered By: Neto Boo on 02-04-2025 Urea nitrogen/Creatinine [Mass ratio] 18.9 mg/mg 10-20 [facility] Basophil percentageOrdered B y: Neto Boo on 02-04-2025 Basophils/100 WBC (Bld) 1.2 % High 0-[address] [facility] Bilirubin Test strip Ql (U)O rdered By: Neto Boo on 02-04-2025 Bilirubin Ql (U) Negative Negative [facility] Bilirubin, totalOrdered By: Neto Boo on 02-04-2025 Bilirubin [Mass/Vol] 0.18 mg/dL 0.00-1.30 [facility] CBC W/Diff, Automatedon 01-08 Absolute Lymph 2.60 X10 3/uL Normal 0.83-4.51 [facility] Comment on above: Performed By: #### M 100.0500, M8200.2203 #### [facility] Laboratory [address] [place], [address] Absolute Neut 3.8 X10 3/uL Normal 2.0-7.7 [facility] Comment on above: Performed By: #### M 100.0500, M8200.2203 #### [facility] Laboratory [address] [place], [address] Basophils/100 WBC (Bld) 1.2 % High 0-[address] [facility] Comment on above: Performed By: #### M 100.0500, M8200.2202 #### [facility] Laboratory [address] [place], [address] Eosinophils/100 WBC (Bld) 1.8 % Normal 0-5 [facility] Comment on above: Performed By: #### M 100.0500, M8200.2203 #### [facility] Laboratory [address] [place], [address] Erythrocyte distribution width (RBC) [Ratio] 15.5 % High 11.6-14.6 [facility] Comment on above: Performed By: #### M 100.0500, M8200.2203 #### [facility] Laboratory [address] [place], [address] Hematocrit (Bld) [Volume fraction] 37.4 % Normal 37-47 [facility] Comment on above: Performed By: #### M 100.0500, M8200.2203 #### [facility] Laboratory [address] [place], [address] Hemoglobin (Bld) [Mass/Vol] 12.1 g/dL Normal 12.0-15.0 [facility] Comment on above: Performed By: #### M 100.0500, M8200.2202 #### [facility] Laboratory [address] [place], [address] IG% 0.100 Normal 0.0-0.9 [facility] Comment on above: Result Comment: IG% - Immature Granulocytes (promyelocytes, myelocytes and metamyelocytes) > 1% indicates that a LEFT SHIFT is Present. Performed By: #### M 100.0500, M8200.2202 #### [facility] Laboratory [address] [place], [address] Lymphocytes/100 WBC (Bld) 35.9 % Normal 19-41 [facility] Comment on above: Performed By: #### M 100.0500, M8200.2202 #### [facility] Laboratory [address] [place], [address] MCH (RBC) [Entitic mass] 27.1 pg Normal 27.0-32.0 [facility] Comment on above: Performed By: #### M 100.0500, M8200.2202 #### [facility] Laboratory [address] [place], [address] MCHC (RBC) [Mass/Vol] 32.4 g/dL Normal 32-36 [facility] Comment on above: Performed By: #### M 100.0500, M8200.2202 #### [facility] Laboratory [address] [place], [address] MCV (RBC) [Entitic vol] 83.7 fL Normal 81-[address] [facility] Comment on above: Performed By: #### M 100.0500, M8200.220 #### [facility] Laboratory [address] [place], [address] Monocytes/100 WBC (Bld) 8.1 % Normal 0-10 [facility] Comment on above: Performed By: #### M 100.0500, M8200.220 #### [facility] Laboratory [address] [place], [address] Neutrophils/100 WBC (Bld) 52.9 % Normal 47-70 [facility] Comment on above: Performed By: #### 100.0500, M8200.2202 #### [facility] Laboratory [address] [place], [address] Nucleated RBC (Bld) [#/Vol] 0 10*3/uL Normal 0-5 [facility] Comment on above: Performed By: #### M 100.0500, M8200.2202 #### [facility] Laboratory [address] [place], [address] Platelet mean volume (Bld) [Entitic vol] 11.4 fL Normal 6.2-12.0 [facility] Comment on above: Performed By: #### M 100.0500, M8200.2202 #### [facility] Laboratory [address] [place], [address] Platelets (Bld) [#/Vol] 145 10*3/uL Low 150-450 [facility] Comment on above: Performed By: #### M 100.0500, M8200.2202 #### [facility] Laboratory [address] [place], [address] RBC (Bld) [#/Vol] 4.47 10*6/uL Normal 4.2-5.4 [facility] Comment on above: Performed By: #### M 100.0500, M8200.2202 #### [facility] Laboratory [address] [place], [address] RDW SD 47.4 fl High 35.1-43.9 [facility] Comment on above: Performed By: #### M 100.0500, M8200.220 #### [facility] Laboratory [address] [place], [address] WBC (Bld) [#/Vol] 7.3 10*3/uL Normal 4.4-11.[address] [facility] Comment on above: Performed By: #### M 100.0500, M8200.2202 #### [facility] [address] [place], [address] Carbon dioxide, total [Moles /volume] in Central venous bloodOrdered By: Neto Boo on 02-04-2025 CO2 [Moles/Vol] 22.9 mmol/L 21.0-32.0 [facility] Chloride assayOrdered By: Collin oBo on 02-04-2025 Chloride [Moles/Vol] 103 mmol/L 98-108 [facility] Comprehensive Metabolic Prof ilon 02-04-2025 Albumin [Mass/Vol] 4.3 g/dL Normal 3.5-5.[address] [facility] Comment on above: Performed By: #### M 100.0500, M8200.2202 #### [facility] Laboratory [address] [place], [address] Albumin/Globulin [Mass ratio] 1.4 {ratio} Normal 0.9-2.4 [facility] Comment on above: Performed By: #### M 100.0500, M8200.220 #### [facility] Laboratory [address] [place], [address] ALK PHOS 69 U/L Normal 35-104 [facility] Comment on above: Performed By: #### M 100.0500, M8200.220 #### [facility] Laboratory [address] [place], [address] ALT [Catalytic activity/Vol] 19 U/L Normal <=34 [facility] Comment on above: Performed By: #### M 100.0500, M8200.220 #### [facility] Laboratory [address] [place], [address] AST [Catalytic activity/Vol] 22 U/L Normal <=31 [facility] Comment on above: Performed By: #### 100.0500, M8200.220 #### [facility] Laboratory [address] [place], [address] Bilirubin [Mass/Vol] 0.18 mg/dL Normal 0.00-1.30 [facility] Comment on above: Performed By: #### 100.0500, M8200.2202 #### [facility] Laboratory [address] [place], [address] BUN/CRE 18.9 RATIO Normal 10-20 [facility] Comment on above: Performed By: #### M 100.0500, M8200.220 #### [facility] Laboratory [address] [place], [address] Calcium [Mass/Vol] 9.4 mg/dL Normal 7.6-11.[address] [facility] Comment on above: Performed By: #### M 100.0500, M8200.220 #### [facility] Laboratory [address] [place], [address] Chloride [Moles/Vol] 103 mmol/L Normal 98-108 [facility] Comment on above: Performed By: #### M 100.0500, M8200.220 #### [facility] [address] [place], [address] CO2 [Moles/Vol] 22.9 mmol/L Normal 21.0-32.0 [facility] Comment on above: Performed By: #### M 100.0500, M8200.2203 #### [facility] Laboratory [address] [place], [address] Creatinine [Mass/Vol] 0.61 mg/dL Low 0.70-1.20 [facility] Comment on above: Performed By: #### M 100.0500, M8200.2203 #### [facility] Laboratory [address] [place], [address] ECRCL 140.62 ml/min Normal 50-250 [facility] Comment on above: Performed By: #### M 100.0500, M8200.3 #### [facility] Laboratory [address] [place], [address] GAP 11 Normal 5-15 [facility] Comment on above: Performed By: #### M 100.0500, M8200.3 #### [facility] Laboratory [address] [place], [address] GFR/1.73 sq M.predicted among non-blacks MDRD (S/P/Bld) [Vol rate/Area] 122 mL/min/{1.73_m2} Normal >60 [facility] Comment on above: Result Comment: mL/m in/1.73m2 CKD-EPI Creatinine Equation (2020) Performed By: #### M 100.0500, M8200.2202 #### [facility] Laboratory [address] [place], [address] Globulin (S) [Mass/Vol] 3.0 g/dL Normal 2.2-4.2 [facility] Comment on above: Performed By: #### M 100.0500, M8200.2203 #### [facility] Laboratory [address] [place], [address] Glucose [Mass/Vol] 82 mg/dL Normal 70-[address] [facility] Comment on above: Performed By: #### M 100.0500, M8200.2203 #### [facility] [address] [place], [address] Potassium [Moles/Vol] 4.3 mmol/L Normal 3.3-5.1 [facility] Comment on above: Result Comment: Hemo lysis present, Results??could be affected. ?? Performed By: #### M 100.0500, M8200.2203 #### [facility] [address] [place], [address] Sodium [Moles/Vol] 137 mmol/L Normal 133-[address] [facility] Comment on above: Performed By: #### M 100.0500, M8200.2203 #### [facility] Laboratory [address] [place], [address] T PROT 7.3 g/dL Normal 5.9-8.4 [facility] Comment on above: Performed By: #### M 100.0500, M8200.2203 #### [facility] Laboratory [address] [place], [address] Urea nitrogen [Mass/Vol] 12 mg/dL Normal 4-19 [facility] Comment on above: Performed By: #### M 100.0500, M8200.2203 #### [facility] [address] [place], [address] Emergency Department Summary on 02-04-2025 Emergency Department Summary [facility] Medical Records Department [address] [place] [address] Emergency Department Summary 02/04/25 MR#: [id number] Acct: [id number] Name: SKYLAR LANDRY Rep #: [id number] : 1990 34 From: Neto Boo DO PCP: Care Physician,No Primary Status:DEP ER Location: ED HPI History of Present Illness Chief Complaint: Complaint Informant: patient Onset/Context/Timing Onset: Days (4) Context: Gradual Onset Timing: Continuous Quality: Dull, stabbing at times Location: Bilateral flank, right worse than left Worsened by: Nothing Relieved by: Nothing Associated Symptoms Associated Symptoms: Nausea Narrative Narrative: Patient presents with flank pain that has been getting worse over the past 4 days. Patient states it is worse on the right. Patient describes it as dull but stabbing at times. Patient states nothing makes it worse and nothing makes it better. Patient states she has had a history of kidney issues in the past. Patient states she has had ureteral stents placed and removed. Patient states she has had a nephrostomy tube placed and removed in the past. Patient denies any fevers or chills. Patient states she did break into a sweat however. Patient admits to some urinary frequency but denies any dysuria or hematuria. Patient admits to some nausea but denies any vomiting. [facility] Medical History (Updated 02/04/25 @ 16:[address] Neto Boo, ) Medullary sponge kidney Home Medications ???Medication ???Instructions ???Recorded ???Last Taken ???Type alprazolam 0.25 mg tablet (Xanax) 0.25 mg PO BID PRN anxiety 08/20/24 History methadone 40 mg soluble tablet 140 mg PO DAILY 08/22/24 08/20/24 History buprenorphine 8 mg-naloxone 2 mg 0 ea sublingual 12/29/24 Unknown H istory sublingual film phenazopyridine 200 mg tablet 200 mg PO TID PRN pain 6 doses #6 12/29/24 Unknown Rx (Pyridium) tabs sertraline 100 mg tablet 100 mg PO DAILY 12/29/24 Unknown H istory sulfamethoxazole 800 1 tab PO BID 5 days #10 tabs 12/29 Unknown Rx mg-trimethoprim 160 mg tablet (Bactrim DS) Allergy/AdvReac Type Severity Reaction Status Date / Time ketorolac (From Toradol) Allergy Intermediate Hives Verified 02/04/25 12:49 Surgical History (Updated 02/04/25 @ 13:[address] Neto Boo, DO) H/O insertion of nephrostomy tube H/O placement of ureteral stent Social History Smoking Status: Current some day smoker tobacco type: cigarettes ROS ROS ED Constitutional Constitutional ED: Reports sweats; Denies chills or fever(s) Eyes Eyes: Denies blurry vision or change in vision ENT ENT ED: Reports sore throat; Denies rhinorrhea Cardiovascular Cardiovascular: Denies chest pain or palpitations Respiratory/Chest Respiratory/Chest: Denies cough or dyspnea Gastrointestinal Gastrointestinal: Reports nausea; Denies vomiting Genitourinary Genitourinary ED: Reports urinary frequency; Denies dysuria or hematuria Musculoskeletal Musculoskeletal: Reports back pain; Denies neck pain Integumentary Denies abscess or rash Neurologic Neurologic: Denies headache(s) or weakness Allergic/Immunologic Allergic/Immunologic ED: Denies mouth swelling or urticaria EXAM Physical Exam Const Vital Signs: 02/04/25 12:50 02/04/25 12:52 02/04/25 14:49 Temperature 99.4 F H 99.4 F H 97.7 F L Temperature Source Oral Oral Oral Pulse Rate 77 77 76 Respiratory Rate 16 16 15 Blood Pressure 114/80 114/80 108/72 Blood Pressure Mean 91 91 84 Pulse Ox 98 98 100 Oxygen Delivery Method Room Air Room Air Room Air Positive well nourished and well developed Constitutional Narrative: BMI is 32.6. General Appearance ED: well developed and NAD HEENT Reports moist mucous membranes Neck supple and no JVD Resp normal respiratory effort and clear to auscultation bilaterally Cardio regular rate and regular rhythm GI non-distended Palpation: soft and tender RLQ and RUQ; Negative for guarding or rebound tenderness present Back/Spine no CVA tenderness Extremity normal to inspection Neuro oriented x3, CN's II-XII intact bilaterally and no sensory deficits noted Sensorium / Orientation: alert Motor Exam: strength 5/5 throughout Psych mental status grossly normal MDM MDM MDM Narrative Medical decision making narrative: Differential diagnosis includes ureteral calculus, urinary tract infection, pyelonephritis, ovarian cyst, ectopic , diverticulitis, appendicitis, colitis, and gastroenteritis. CBC will be obtained to assess for leukocytosis and anemia. Comprehensive metabolic profile will be obtained to assess for electrolyte abnormality, renal function, and hepatic function. Serum hCG will be o (more content not included)... Normal [facility] Eosinophil percentageOrdered By: Neto Boo on 02-04-2025 Eosinophils/100 WBC (Bld) 1.8 % 0-5 [facility] Erythrocyte distribution wid th ratioOrdered By: Neto Boo on 02-04-2025 Erythrocyte distribution width (RBC) [Ratio] 15.5 % High 11.6-14.6 [facility] Erythrocyte distribution wid th standard deviationOrdered By: Neto Boo on 02-04-2025 Erythrocyte distribution width (RBC) [Ratio] 47.4 fl High 35.1-43.9 [facility] Glomerular filtration rate ( GFR) estimation/1.73 sq m using serum, plasma, or whole bOrdered By: Neto Boo on 02-04-2025 GFR/1.73 sq M.predicted among non-blacks MDRD (S/P/Bld) [Vol rate/Area] 122 mL/min/{1.73_m2} >60 [facility] Comment on above: mL/min/1.73m2 CKD-EP I Creatinine Equation (2020) Hematocrit Auto (Bld) [Volum e fraction]Ordered By: Neto Boo on 02-04-2025 Hematocrit (Bld) [Volume fraction] 37.4 % 37-47 [facility] Hemoglobin measurementOrdere d By: Neto Boo 02-04-2025 Hemoglobin (Bld) [Mass/Vol] 12.1 g/dL 12.0-15.0 [facility] Immature granulocytes/100 WB C Auto (Bld)Ordered By: Neto Boo 02-04-2025 Immature granulocytes/100 WBC (Bld) 0.100 % 0.0-0.9 [facility] Comment on above: IG% - Immature Granu locytes (promyelocytes, myelocytes and metamyelocytes) > 1% indicates that a LEFT SHIFT is Present. Ketones Test strip Ql (U)Ord ered By: Neto Boo on 02-04-2025 Ketones Ql (U) Negative Negative [facility] Laboratory - Chemistry and C hemistry - challengeOrdered By: Neto Boo 02-04-2025 AST [Catalytic activity/Vol] 22 U/L <32 [facility] MCV (mean corpuscular volume ) determinationOrdered By: Neto Boo on 08-29-2025 MCV (RBC) [Entitic vol] 83.7 fL 81-[address] [facility] Mean corpuscular hemoglobin (MCH) determinationOrdered By: Neto Boo on 02-04-2025 MCH (RBC) [Entitic mass] 27.1 pg 27.0-32.0 [facility] Mean corpuscular hemoglobin concentration (MCHC) determinationOrdered By: Neto Boo on 02-04-2025 MCHC (RBC) [Mass/Vol] 32.4 g/dL 32-36 [facility] Mean platelet volume determi nationOrdered By: Neto Boo on 02-04-2025 Platelet mean volume (Bld) [Entitic vol] 11.4 fL 6.2-12.0 [facility] Microscopic analysis of urin e for red blood cells (RBC)Ordered By: Neto Boo on 02-04-2025 Microscopic analysis of urine for red blood cells (RBC) 0 SEEN /hpf 0-5 [facility] Monocyte percentageOrdered B y: Neto Boo on 02-04-2025 Monocytes/100 WBC (Bld) 8.1 % 0-[address] [facility] Mucus LM Ql (Urine sed)Order ed By: Neto Boo on 02-04-2025 Mucus Ql (Urine sed) 0 SEEN /hpf [facility] Neutrophil percentageOrdered By: Neto Boo on 02-04-2025 Neutrophils/100 WBC (Bld) 52.9 % 47-70 [facility] Nitrite Test strip Ql (U)Ord ered By: Neto Boo on 02-04-2025 Nitrite Ql (U) Negative Negative [facility] Nucleated red blood cell per centageOrdered By: Neto Boo on 02-04-2025 Nucleated RBC/100 WBC (Bld) [Ratio] 0 % 0-5 [facility] Platelet countOrdered By: Collin Boo on 02-04-2025 Platelets (Bld) [#/Vol] 145 10*3/uL Low 150-450 [facility] Potassium measurement (mass/ volume)Ordered By: Neto Boo on 02-04-2025 Potassium (Unsp spec) [Mass/Vol] 4.3 mmol/L 3.3-5.1 [facility] Comment on above: Hemolysis present, R esults could be affected. ,Serum,hCG Quali.on 02-04-2025 HCG, SERUM QUAL Negative Normal [facility] Comment on above: Performed By: #### M 100.0500, M8200.2203 #### [facility] Laboratory [address] [place], [address] Protein Test strip Ql (U)Ord ered By: Neto Boo on 02-04-2025 Protein Ql (U) Negative Negative [facility] RBC Auto (Bld) [#/Vol]Ordere d By: Neto Boo on 02-04-2025 RBC (Bld) [#/Vol] 4.47 10*6/uL 4.2-5.4 [facility] Serum beta-hCG test, qualita tiveOrdered By: Neto Boo on 02-04-2025 Beta HCG ( test) Ql Negative [facility] Serum creatinine measurement (mass/volume)Ordered By: Neto Boo on 02-04-2025 Creatinine [Mass/Vol] 0.61 mg/dL Low 0.70-1.20 [facility] Serum globulin measurementOr dered By: Neto Boo on 02-04-2025 Globulin (S) [Mass/Vol] 3.0 g/dL 2.2-4.[address] [facility] Serum glucose measurement (m ass/volume)Ordered By: Neto Boo on 02-04-2025 Glucose [Mass/Vol] 82 mg/dL 70-[address] [facility] Serum or plasma alanine maldonado otransferase (ALT) measurementOrdered By: Neto Boo on 02-04-2025 ALT [Catalytic activity/Vol] 19 U/L <35 [facility] Serum or plasma albumin josefina urement (mass/volume)Ordered By: Neto Boo on 02-04-2025 Albumin [Mass/Vol] 4.3 g/dL 3.5-5.[address] [facility] Serum or plasma albumin/glob ulin mass ratioOrdered By: Neto Boo on 02-04-2025 Albumin/Globulin [Mass ratio] 1.4 {ratio} 0.9-2.4 [facility] Serum or plasma alkaline krys sphatase measurementOrdered By: Neto Boo on 02-04-2025 ALP [Catalytic activity/Vol] 69 U/L 35-104 [facility] Serum or plasma calcium josefina urement (mass/volume)Ordered By: Neto Boo on 02-04-2025 Calcium [Mass/Vol] 9.4 mg/dL 7.6-11.[address] [facility] Serum or plasma urea nitroge n measurement (mass/volume)Ordered By: Neto Boo on 02-04-2025 Urea nitrogen [Mass/Vol] 12 mg/dL 4-19 [facility] Sodium levelOrdered By: Neto Boo on 02-04-2025 Sodium [Moles/Vol] 137 mmol/L 133-[address] [facility] Squamous epithelial cells de tection in urine sediment by light microscopyOrdered By: Neto Boo on 02-04-2025 Epithelial cells.squamous LM Ql (Urine sed) 0-5 SEEN /hpf 5-10 [facility] Total proteinOrdered By: Trina Boo on 02-04-2025 Protein [Mass/Vol] 7.3 g/dL 5.9-8.[address] [facility] Urinalysis, Completeon 02-04 BACTERIA 1+ /hpf Normal None Seen [facility] Comment on above: Order Comment: CLEAN CATCH Performed By: #### M 100.0500, M8200.3 #### [facility] Laboratory [address] [place], [address] EPI,SQUAMOUS 0-5 SEEN Normal 5-10 [facility] Comment on above: Order Comment: CLEAN CATCH Performed By: #### M 100.0500, M8200.2203 #### [facility] Laboratory [address] [place], [address] WBC 0-5 SEEN Normal 0-5 [facility] Comment on above: Order Comment: CLEAN CATCH Performed By: #### M 100.0500, M8200.2203 #### [facility] Laboratory [address] [place], [address] Mucus Ql (Urine sed) 0 SEEN Normal [facility] Comment on above: Order Comment: CLEAN CATCH Performed By: #### M 100.0500, M8200.2203 #### [facility] Laboratory [address] [place], [place], [address] RBC 0 SEEN Normal 0-5 [facility] Comment on above: Order Comment: CLEAN CATCH Performed By: #### M 100.0500, M8200.2203 #### [facility] Laboratory [address] [place], [place], [address] Urine clarityOrdered By: Trina oBo on 02-04-2025 Clarity (U) Clear Clear [facility] Urine color determinationOrd ered By: Neto Boo on 02-04-2025 Color (U) Yellow Yellow [facility] Urine glucose detectionOrder ed By: Neto Boo on 02-04-2025 Glucose Ql (U) Normal mg/dl Normal [facility] Urine leukocyte esterase det ection by dipstickOrdered By: Neto Boo on 02-04-2025 Leukocyte esterase Test strip Ql (U) Negative Negative [facility] Urine pHOrdered By: Neto aguila on 02-04-2025 pH (U) 6.5 [pH] 5.0 - 8.0 [facility] Urine sediment bacteria coun t by microscopy (number/high power field)Ordered By: Neto Boo on 02-04-2025 Bacteria LM.HPF (Urine sed) [#/Area] 1 /[HPF] None Seen [facility] Urine specific gravity measu rementOrdered By: Neto Boo on 02-04-2025 Specific gravity (U) [Rel density] 1.015 1.002-1.030 [facility] Urine urobilinogen measureme ntOrdered By: Neto Boo on 02-04-2025 Urobilinogen Ql (U) Normal mg/dl Normal [facility] White blood cell (WBC) count Ordered By: Neto Boo on 02-04-2025 WBC (Bld) [#/Vol] 7.3 10*3/uL 4.4-11.[address] [facility] White blood cell countOrdere d By: Neto Boo on 02-04-2025 White blood cell count 0-5 SEEN /hpf 0-5 [facility] 36on 01-24-2025 36 New Medications Orde red This Visit Medications ondansetron (Zofran) 4 MG tablet Sig: Take 2 tablets (8 mg) by mouth every 8 hours as needed for nausea or vomiting. Dispense: 30 tablet Refill: 0 [place] [address] [facility] [employer] Operator Staff (supporting Manuel Woods MD)21 hours ago (10:03 AM) Skylar Landry would like to cancel the following appointments: Manuel Woods MD in [facility] ([phone]), 01/26/2025 2:00 PM Comments: I saw Dr. otoole last week and she?s going to give me my injection on the at noon. I wanted to thank you for all the help that you have been and I truly appreciate. [place] [address]on 01-07-2025 36 I sent suboxone and SSRI rx in early [place] [address] Attempted to call he r to discuss. No answer. I can send a Suboxone rx in early but her insurance may not allow her to fill it early. Will try to call her again later to discuss [place] [address] New Medications Orde red This Visit Medications buprenorphine-naloxone (Suboxone) 8-2 MG per sublingual film Sig: Place 1 Film under the tongue 2 times daily for 28 days. Dispense: 56 Film Refill: 0 OK to fill early. Patient is going on vacation. sertraline (Zoloft) 100 MG tablet Sig: Take 1 tablet (100 mg) by mouth daily. Dispense: 30 tablet Refill: 0 [facility] 36on 01-05-2025 36 Last visit 12/20/24 Next visit 01/26/25 [place] [address] Returned call to patient, offered 01/20/25 patient does not return back to [place] until 01/20/25 at midnight. Patient scheduled for 01/26/25 at 2pm. Patient requesting a refill until 01/26/25 appointment. Patient is leaving 01/12/2025 and would like to have medication filled before she leaves so it doesn't have to be sent out of state. Please advise. Normal [facility] 36 Can you reschedule h er for 01/20 when she gets back at 2 pm, and if she can't do that then it has to be 01/26 Normal [facility] 36 Please advise, when patient can be scheduled [facility] 36 Skylar Boateng [facility] [employer] Staff (supporting Manuel Woods MD)6 minutes ago (10:18 AM) Skylar Landry would like to cancel the following appointments: Manuel Woods MD in [facility] ([phone]), 01/17/2025 2:30 PM Comments: I will be out of town and I need to reschedule either for sometime this week for an in person or I can do a virtual for this week and then come and see Dr Tran when I get back into town on the I cannot get through to the office, [facility] Urine Cultureon 12-30-2024 URC Below infection leve l. GNR lactose service attendant cafeteria [place] Count 1000-10,000 [facility] Comment on above: Performed By: #### M 100.2200 #### [facility] Laboratory [facility] [place], [address] Absolute lymphocyte countOrd ered By: Avis Martel on 12-29-2024 Lymphocytes Auto (Unsp spec) [#/Vol] 1.93 10*3/uL 0.83-4.51 [facility] Absolute neutrophil countOrd ered By: Avis Martel on 12-29-2024 Neutrophils (Bld) [#/Vol] 4.2 10*3/uL 2.0-7.7 [facility] Anion gap in Serum or Plasma Ordered By: Avis Martel on 12-29-2024 Anion gap [Moles/Vol] 9 mmol/L 5-15 [facility] Automated lymphocyte count a s percentage of total leukocytesOrdered By: Avis Martel on 12-29-2024 Lymphocytes/100 WBC Auto (Unsp spec) 28.3 % 19-41 [facility] BUN/creatinine ratioOrdered By: Avis Martel on 12-29-2024 Urea nitrogen/Creatinine [Mass ratio] 17.8 mg/mg 10- [facility] Basic Metabolic Profile (BMP )on 12-29-2024 BUN/CRE 17.8 RATIO Normal - [facility] Comment on above: Performed By: #### L 500.2500 #### [facility] Laboratory [address] [place], [address] Calcium [Mass/Vol] 9.5 mg/dL Normal 7.6-11.[address] [facility] Comment on above: Performed By: #### L 500.2500 #### [facility] Laboratory [address] [place], [address] Chloride [Moles/Vol] 103 mmol/L Normal 98-108 [facility] Comment on above: Performed By: #### L 500.2500 #### [facility] Laboratory [address] [place], [address] CO2 [Moles/Vol] 27.2 mmol/L Normal 21.0-32.0 [facility] Comment on above: Performed By: #### L 500.2500 #### [facility] Laboratory [address] [place], [address] Creatinine [Mass/Vol] 0.64 mg/dL Low 0.70-1.20 [facility] Comment on above: Performed By: #### L 500.2500 #### [facility] Laboratory [address] [place], [address] ECRCL 131.19 ml/min Normal 50-250 [facility] Comment on above: Performed By: #### L 500.2500 #### [facility] Laboratory [address] [place], [address] GAP 9 Normal 5-15 [facility] Comment on above: Performed By: #### L 500.2500 #### [facility] Laboratory [address] [place], [address] GFR/1.73 sq M.predicted among non-blacks MDRD (S/P/Bld) [Vol rate/Area] 121 mL/min/{1.73_m2} Normal >60 [facility] Comment on above: Result Comment: mL/m in/1.73m2 CKD-EPI Creatinine Equation (2020) Performed By: #### L 500.2500 #### [facility] Laboratory [address] [place], [address] Glucose [Mass/Vol] 60 mg/dL Low 70-[address] [facility] Comment on above: Performed By: #### L 500.2500 #### [facility] Laboratory [address] [place], [address] Potassium [Moles/Vol] 4.4 mmol/L Normal 3.3-5.1 [facility] Comment on above: Performed By: #### L 500.2500 #### [facility] Laboratory [address] [place], [address] Sodium [Moles/Vol] 139 mmol/L Normal 133-[address] [facility] Comment on above: Performed By: #### L 500.2500 #### [facility] Laboratory [address] [place], [address] Urea nitrogen [Mass/Vol] 11 mg/dL Normal 4-19 [facility] Comment on above: Performed By: #### L 500.2500 #### [facility] Laboratory [address] [place], [address] Basophil percentageOrdered B y: Avis Martel on 12-29-2024 Basophils/100 WBC (Bld) 0.7 % 0-[address] [facility] Bilirubin Test strip Ql (U)O rdered By: Avis Martel on 12-29-2024 Bilirubin Ql (U) Negative Negative [facility] CBC W/Diff, Automatedon 12-08 Absolute Lymph 1.93 X10 3/uL Normal 0.83-4.51 [facility] Comment on above: Performed By: #### L 100.0100 #### [facility] Laboratory [address] [place], [address] Absolute Neut 4.2 X10 3/uL Normal 2.0-7.7 [facility] Comment on above: Performed By: #### L 100.0100 #### [facility] Laboratory [address] [place], [address] Basophils/100 WBC (Bld) 0.7 % Normal 0-[address] [facility] Comment on above: Performed By: #### L 100.0100 #### [facility] Laboratory [address] [place], [address] Eosinophils/100 WBC (Bld) 1.6 % Normal 0-5 [facility] Comment on above: Performed By: #### L 100.0100 #### [facility] Laboratory [address] [place], [address] Erythrocyte distribution width (RBC) [Ratio] 15.9 % High 11.6-14.6 [facility] Comment on above: Performed By: #### L 100.0100 #### [facility] Laboratory [address] [place], [address] Hematocrit (Bld) [Volume fraction] 36.6 % Low 37-47 [facility] Comment on above: Performed By: #### L 100.0100 #### [facility] Laboratory [address] [place], [address] Hemoglobin (Bld) [Mass/Vol] 11.7 g/dL Low 12.0-15.0 [facility] Comment on above: Performed By: #### L 100.0100 #### [facility] Laboratory [address] [place], [address] IG% 0.300 Normal 0.0-0.9 [facility] Comment on above: Result Comment: IG% - Immature Granulocytes (promyelocytes, myelocytes and metamyelocytes) > 1% indicates that a LEFT SHIFT is Present. Performed By: #### L 100.0100 #### [facility] Laboratory [address] [place], [address] Lymphocytes/100 WBC (Bld) 28.3 % Normal 19-41 [facility] Comment on above: Performed By: #### L 100.0100 #### [facility] Laboratory [address] [place], [address] MCH (RBC) [Entitic mass] 26.6 pg Low 27.0-32.0 [facility] Comment on above: Performed By: #### L 100.0100 #### [facility] Laboratory [address] [place], [address] MCHC (RBC) [Mass/Vol] 32.0 g/dL Normal 32-36 [facility] Comment on above: Performed By: #### L 100.0100 #### [facility] Laboratory [address] [place], [address] MCV (RBC) [Entitic vol] 83.2 fL Normal 81-99 [facility] Comment on above: Performed By: #### L 100.0100 #### [facility] Laboratory [address] [place], [address] Monocytes/100 WBC (Bld) 7.8 % Normal 0-10 [facility] Comment on above: Performed By: #### L 100.0100 #### [facility] Laboratory [address] [place], [address] Neutrophils/100 WBC (Bld) 61.3 % Normal 47-70 [facility] Comment on above: Performed By: #### L 100.0100 #### [facility] Laboratory [address] [place], [address] Nucleated RBC (Bld) [#/Vol] 0 10*3/uL Normal 0-5 [facility] Comment on above: Performed By: #### L 100.0100 #### [facility] Laboratory [address] [place], [address] Platelet mean volume (Bld) [Entitic vol] 10.9 fL Normal 6.2-12.0 [facility] Comment on above: Performed By: #### L 100.0100 #### [facility] Laboratory [address] [place], [address] Platelets (Bld) [#/Vol] 251 10*3/uL Normal 150-450 [facility] Comment on above: Performed By: #### L 100.0100 #### [facility] Laboratory [address] [place], [address] RBC (Bld) [#/Vol] 4.40 10*6/uL Normal 4.2-5.4 [facility] Comment on above: Performed By: #### L 100.0100 #### [facility] Laboratory [address] [place], [address] RDW SD 47.8 fl High 35.1-43.9 [facility] Comment on above: Performed By: #### L 100.0100 #### [facility] Laboratory [address] [place], [address] WBC (Bld) [#/Vol] 6.8 10*3/uL Normal 4.4-11.[address] [facility] Comment on above: Performed By: #### L 100.0100 #### [facility] Laboratory [address] [place], [address] Carbon dioxide, total [Moles /volume] in Central venous bloodOrdered By: Avis Martel on 12-29-2024 CO2 [Moles/Vol] 27.2 mmol/L 21.0-32.0 [facility] Chloride assayOrdered By: Nghia Martel on 12-29-2024 Chloride [Moles/Vol] 103 mmol/L 98-108 [facility] Emergency Department Summary on 12-29-2024 Emergency Department Summary [facility] Medical Records Department [address] [place] [address] Emergency Department Summary 12/29/24 MR#: [id number] Acct: [id number] Name: SKYLAR LANDRY Rep #: [id number] : 1990 34 From: Avis Martel DO PCP: Care Physician,No Primary Status:REG ER Location: ED HPI HPI - Female History of Present Illness Chief Complaint: Female C/O Informant: patient Narrative Narrative: Patient is a 34-year-old female presenting from urgent care for pelvic pain. She states been going on for the past 3 days. Started as more of a pelvic pressure and discomfort associated with urination but she denies any specific dysuria. Denies any hematuria. States its became more severe with a pinching and stabbing sensation. States the pain is now constant. She went to urgent care where she had a urinalysis that showed 2+ leukocyte esterase but otherwise was not particularly abnormal and given her degree of pain patient was sent to the ER for further evaluation. She states she has been having normal bowel movements. Denies any associated fever, chills, nausea or vomiting. Denies any abnormal vaginal bleeding or discharge. Has not had any recent intercourse. She is 2 months . Notes she has had sex since delivery with 1 partner. She states she does not think she has an STD but is technically possible as I do not live together. She is chronic back pain but denies any acute change in that. Did not taking her symptoms prior to arrival. States she has never anything like this before. No other complaints or concerns reported at this time. [facility] Home Medications ???Medication ???Instructions ???Recorded ???Last Taken ???Type alprazolam 0.25 mg tablet (Xanax) 0.25 mg PO BID PRN anxiety 08/20/24 History methadone 40 mg soluble tablet 140 mg PO DAILY 08/22/24 08/20/24 History buprenorphine 8 mg-naloxone 2 mg 0 ea sublingual 12/29/24 Unknown H istory sublingual film phenazopyridine 200 mg tablet 200 mg PO TID PRN pain 6 doses #6 12/29/24 Unknown Rx (Pyridium) tabs sertraline 100 mg tablet 100 mg PO DAILY 12/29/24 Unknown H istory sulfamethoxazole 800 1 tab PO BID 5 days #10 tabs 12/29 Unknown Rx mg-trimethoprim 160 mg tablet (Bactrim DS) Allergy/AdvReac Type Severity Reaction Status Date / Time ketorolac (From Toradol) Allergy Intermediate Hives Verified 12/29/24 10:06 Social History Smoking Status: Former smoker ROS ROS ED Constitutional Constitutional ED: Denies chills or fever(s) Gastrointestinal Gastrointestinal: Reports abdominal pain; Denies constipation, diarrhea, nausea or vomiting Musculoskeletal Musculoskeletal: Denies arthralgias or myalgias Integumentary Denies rash Neurologic Neurologic: Denies weakness Hematologic/Lymphatic Hematologic/Lymphatic: Denies easy bleeding or easy bruising EXAM Physical Exam Const Vital Signs: 12/29/24 09:58 12/29/24 11:57 12/29/24 13:00 Temperature 98.6 F Temperature Source Oral Pulse Rate 63 77 80 Respiratory Rate 18 16 Blood Pressure 119/87 H 117/73 112/78 Blood Pressure Mean 97 87 89 Pulse Ox 100 97 99 Oxygen Delivery Method Room Air Positive well nourished and well developed General Appearance ED: well developed and NAD HEENT Reports moist mucous membranes Neck supple Chest Wall inspection of chest normal Resp normal respiratory effort and clear to auscultation bilaterally Cardio regular rate and regular rhythm GI soft to palpation, non-distended and no masses Auscultation: normoactive bowel sounds Palpation: tender suprapubic; Negative for guarding Narrative: Chaperoned pelvic exam performed External genitalia normal. On speculum exam there is physiologic white discharge. No cervical motion tenderness but there is tenderness palpation of the bladder and adnexa bilaterally. Back/Spine no CVA tenderness Extremity normal to inspection Neuro oriented x3 Sensorium / Orientation: alert Psych mental status grossly normal Skin no rashes or lesions noted and no wounds MDM MDM MDM Narrative Medical decision making narrative: Patient is evaluated for worsening pelvic pain. She is approximately 2 months . Differential includes urinary tract infection, pyelonephritis, pelvic inflammatory disease, tubo- ovarian abscess, ovarian torsion, ruptured ovarian cyst. She does not report any systemic symptoms overall well-appearing. Vital signs are normal. Patient is on buprenorphine and at baseline. Is given dose of morphine with no significant relief of her pain. Discussed that opioid pain medications will probably be ineffective because of her buprenorphine. She does verbalize understanding of this. Is gi (more content not included)... Normal [facility] Eosinophil percentageOrdered By: Avis Martel on 12-29-2024 Eosinophils/100 WBC (Bld) 1.6 % 0-5 [facility] Erythrocyte distribution wid th ratioOrdered By: Avis Martel on 12-29-2024 Erythrocyte distribution width (RBC) [Ratio] 15.9 % High 11.6-14.6 [facility] Erythrocyte distribution wid th standard deviationOrdered By: Avis Martel on 12-29-2024 Erythrocyte distribution width (RBC) [Ratio] 47.8 fl High 35.1-43.9 [facility] Glomerular filtration rate ( GFR) estimation/1.73 sq m using serum, plasma, or whole bOrdered By: Avis Martel on 12-29-2024 GFR/1.73 sq M.predicted among non-blacks MDRD (S/P/Bld) [Vol rate/Area] 121 mL/min/{1.73_m2} >60 [facility] Comment on above: mL/min/1.73m2 CKD-EP I Creatinine Equation (2020) Hematocrit Auto (Bld) [Volum e fraction]Ordered By: Avis Martel on 12-29-2024 Hematocrit (Bld) [Volume fraction] 36.6 % Low 37-47 [facility] Hemoglobin measurementOrdere d By: Avis Martel on 12-29-2024 Hemoglobin (Bld) [Mass/Vol] 11.7 g/dL Low 12.0-15.0 [facility] Immature granulocytes/100 WB C Auto (Bld)Ordered By: Avis Martel on 12-29-2024 Immature granulocytes/100 WBC (Bld) 0.300 % 0.0-0.9 [facility] Comment on above: IG% - Immature Granu locytes (promyelocytes, myelocytes and metamyelocytes) > 1% indicates that a LEFT SHIFT is Present. Ketones Test strip Ql (U)Ord ered By: Avis Martel on 12-29-2024 Ketones Ql (U) Negative Negative [facility] [id number] 12-29-2024 M8200.2203 Pending Chlamydia Trachomatis PCR NEGATIVE for Chlamydia trachomatis N. gonorrhoeae PCR Negative for N. gonorrhoeae Normal [facility] Comment on above: Performed By: #### M 100.0500, M8200.2203 #### [facility] Laboratory [place], [address] MCV (mean corpuscular volume ) determinationOrdered By: Avis Martel on 12-29-2024 MCV (RBC) [Entitic vol] 83.2 fL 81-[address] [facility] Mean corpuscular hemoglobin (MCH) determinationOrdered By: Avis Martel on 12-29-2024 MCH (RBC) [Entitic mass] 26.6 pg Low 27.0-32.0 [facility] Mean corpuscular hemoglobin concentration (MCHC) determinationOrdered By: Avis Martel on 12-29-2024 MCHC (RBC) [Mass/Vol] 32.0 g/dL 32-36 [facility] Mean platelet volume determi nationOrdered By: Avis Martel on 12-29-2024 Platelet mean volume (Bld) [Entitic vol] 10.9 fL 6.2-12.0 [facility] Microscopic analysis of urin e for red blood cells (RBC)Ordered By: Avis Martel on 12-29-2024 Microscopic analysis of urine for red blood cells (RBC) 0 SEEN /hpf 0-5 [facility] Monocyte percentageOrdered B y: Avis Martle on 12-29-2024 Monocytes/100 WBC (Bld) 7.8 % 0-[address] [facility] Mucus LM Ql (Urine sed)Order ed By: Avis Martel on 12-29-2024 Mucus Ql (Urine sed) 0 SEEN /hpf [facility] Neutrophil percentageOrdered By: Avis Martel on 12-29-2024 Neutrophils/100 WBC (Bld) 61.3 % 47-70 [facility] Nitrite Test strip Ql (U)Ord ered By: Avis Martel on 12-29-2024 Nitrite Ql (U) Negative Negative [facility] Nucleated red blood cell per centageOrdered By: Avis Martel on 12-29-2024 Nucleated RBC/100 WBC (Bld) [Ratio] 0 % 0-5 [facility] Platelet countOrdered By: Nghia Martel on 12-29-2024 Platelets (Bld) [#/Vol] 251 10*3/uL 150-450 [facility] Potassium measurement (mass/ volume)Ordered By: Avis Martel on 12-29-2024 Potassium (Unsp spec) [Mass/Vol] 4.4 mmol/L 3.3-5.1 [facility] ,Urineon 12-29-2024 Beta HCG ( test) Ql (U) Negative Normal [facility] Comment on above: Result Comment: Very dilute urine specimens, as indicated by a low specific gravity, may not contain traffic representative levels of hCG. If is still suspected, a first morning urine specimen should be collected 48 hours later and tested. Performed By: #### L 400.7600 #### [facility] Laboratory [address] [place] [address], [address] Protein Test strip Ql (U)Ord ered By: Avis Martel on 12-29-2024 Protein Ql (U) Negative Negative [facility] RBC Auto (Bld) [#/Vol]Ordere d By: Avis Martel on 12-29-2024 RBC (Bld) [#/Vol] 4.40 10*6/uL 4.2-5.4 [facility] Serum creatinine measurement (mass/volume)Ordered By: Avis Martel on 12-29-2024 Creatinine [Mass/Vol] 0.64 mg/dL Low 0.70-1.20 [facility] Serum glucose measurement (m ass/volume)Ordered By: Avis Martel on 12-29-2024 Glucose [Mass/Vol] 60 mg/dL Low 70-[address] [facility] Serum or plasma calcium josefina urement (mass/volume)Ordered By: Avis Martel on 12-29-2024 Calcium [Mass/Vol] 9.5 mg/dL 7.6-11.[address] [facility] Serum or plasma urea nitroge n measurement (mass/volume)Ordered By: Avis Martel on 12-29-2024 Urea nitrogen [Mass/Vol] 11 mg/dL 4-19 [facility] Sodium levelOrdered By: Junito Martel on 12-29-2024 Sodium [Moles/Vol] 139 mmol/L 133-[address] [facility] Squamous epithelial cells de tection in urine sediment by light microscopyOrdered By: Avis Martel on 12-29-2024 Epithelial cells.squamous LM Ql (Urine sed) 0-5 SEEN /hpf 5-10 [facility] Transvaginal Non-on 12-29-2024 Transvaginal Non- [facility] [address] [place], [place] [address] Transvaginal Non- MR#: [id number] Acct: [id number] Name: SKYLAR LANDRY Rep #: [id number] : 1990 F 34 From: Dallin Beltran MD PCP: Care Physician,No Primary Status: REG ER Study: Transvaginal Non- Date of Exam: Exam# [id number] Ordering Dr: Avis Martel DO PROCEDURE: TRANSVAGINAL NON- 12/29/2024 REASON FOR EXAM: PELVIC PAIN TECHNIQUE: TRANSVAGINAL NON- COMPARISON: None FINDINGS: The uterus measures 10.4 x 5.6 x 4.7 cm. The uterus is anteverted. There is no uterine fibroid or mass. The endometrium measures 0.5 cm. Nabothian cysts are noted. The right ovary measures 2.4 x 2.3 x 1.7 cm and shows multiple normal-appearing subcentimeter follicles. The left ovary measures 2.6 x 2.8 x 1.7 cm and has a dominant follicle measuring 1.4 cm. There is normal flow documented in the right and left ovary. No adnexal mass or free fluid is identified. US/Transvaginal Non- IMPRESSION: No acute abnormality is identified on this pelvic ultrasound. Reading Location: [facility] CC: Dr. Avis Martel, DO; No Primary Care Physician Formula Bottler: Signed Normal [facility] Trichomonas vaginalis detect ion by wet preparationOrdered By: Avis Martel on 12-29-2024 T. vaginalis Wet prep Ql (Unsp spec) [facility] Urinalysis, Completeon 12-29 WBC 0-5 SEEN Normal 0-5 [facility] Comment on above: Order Comment: CLEAN CATCH Performed By: #### L 400.0001 #### [facility] Laboratory [address] [place], [address] EPI,SQUAMOUS 0-5 SEEN Normal 5-10 [facility] Comment on above: Order Comment: CLEAN CATCH Performed By: #### L 400.0001 #### [facility] Laboratory [address] [place], [address] BACTERIA 0 SEEN Normal None Seen [facility] Comment on above: Order Comment: CLEAN CATCH Performed By: #### L 400.0001 #### [facility] Laboratory [address] [place], [address] Mucus Ql (Urine sed) 0 SEEN Normal [facility] Comment on above: Order Comment: CLEAN CATCH Performed By: #### L 400.0001 #### [facility] Laboratory [address] [place], [address] RBC 0 SEEN Normal 0-5 [facility] Comment on above: Order Comment: CLEAN CATCH Performed By: #### L 400.0001 #### [facility] Laboratory [address] [place], [address] Urine clarityOrdered By: Ermelinda Martel on 12-29-2024 Clarity (U) Clear Clear [facility] Urine color determinationOrd ered By: Avis Martel on 12-29-2024 Color (U) Yellow Yellow [facility] Urine cultureOrdered By: Ermelinda Martel on 12-29-2024 Bacteria identified Cx Nom (U) GNR lactose service attendant cafeteria Abnormal [facility] Urine glucose detectionOrder ed By: Avis Martel on 12-29-2024 Glucose Ql (U) Normal mg/dl Normal [facility] Urine leukocyte esterase det ection by dipstickOrdered By: Avis Martel on 12-29-2024 Leukocyte esterase Test strip Ql (U) 25 /ul High Negative [facility] Urine pHOrdered By: Avis giron on 12-29-2024 pH (U) 6.5 [pH] 5.0 - 8.0 [facility] Urine testOrdered By: Avis Martel on 12-29-2024 HCG ( test) Ql (U) Negative [facility] Comment on above: Very dilute urine sp ecimens, as indicated by a low specificgravity, may not contain traffic representative levels of hCG. If is still suspected, a first morning urinespecimen should be collected 48 hours later and tested. Urine sediment bacteria coun t by microscopy (number/high power field)Ordered By: Avis Martel on 12-29-2024 Bacteria LM.HPF (Urine sed) [#/Area] 0 /[HPF] None Seen [facility] Urine specific gravity measu rementOrdered By: Avis Martel on 12-29-2024 Specific gravity (U) [Rel density] 1.010 1.002-1.030 [facility] Urine urobilinogen measureme ntOrdered By: Avis Martel on 12-29-2024 Urobilinogen Ql (U) Normal mg/dl Normal [facility] Wet Prep Trichamonason 12-29 WP Motile Trichomonas NONE SEEN WBC 2+ Normal [facility] Comment on above: Performed By: #### M 100.0500, M8200.2203 #### [facility] Laboratory [address] [place] [address]. [place], [address] White blood cell (WBC) count Ordered By: Avis Martel on 12-29-2024 WBC (Bld) [#/Vol] 6.8 10*3/uL 4.4-11.[address] [facility] White blood cell countOrdere d By: Avis Martel on 12-29-2024 White blood cell count 0-5 SEEN /hpf 0-5 [facility] Progress Noteon 12-20-2024 Progress Note MEDICATION ASSISTED TREATMENT BUPRENORPHINE FOLLOW-UP VISIT Patient: Skylar Landry __ Patient was seen today via Telehealth by agreement and consent. I used the following Telehealth technology: Audio and video capabilities. Patient location: Patient Location: Home. This patient encounter is appropriate and reasonable under the circumstances: transportation issues and Behavioral Health . The patient has been advised of the potential risks and limitations of this mode of treatment (including but not limited to the absence of in-person examination) and has agreed to be treated in a remote fashion in spite of them. Any and all of the patient's/patient's family's questions on this issue have been answered and I have made no promises or guarantees to the patient. The patient has also been advised to contact this office for worsening conditions or problems, and seek emergency medical treatment and/or call 911 if the patient deems either necessary. The patient stated that they are currently in the [facility]. If the patient is a minor, permission has been obtained by the parent or guardian for the patient to receive medical care at this visit. SUBJECTIVE Chief Complaint Patient presents with Addiction Problem Skylar Landry, a 34 y.o. female, returns for a follow-up medication-assisted treatment appointment. She was discharged from the hospital on 08/30/24. Stabilized on bupe 8 mg BID. Had microinduction process to transfer to bupe from methadone (140 mg). Last methadone dose given on 08/29/24. Dose was increased to 20 mg after hospitalization at [facility]. Now taking 20 mg consistently. Feels she needs to take that amount to deal with night time symptoms she was still experiencing. No longer feels like she is going thru methadone withdrawal. Interim History No issues with Suboxone. Taking as prescribed. No missed doses. Occasional thoughts of using. Remains in contact with who is in early recovery himself but living in [place]. This seems to be impetus for any thoughts/cravings. Denies drug use since leaving hospital. Was abusing benzos and fentanyl prior to coming to hospital. Denies smoking cigarettes/THC at all. Otherwise she is doing great. Has been dealing with URI type symptoms. No official diagnosis. Baby hasn't been sick. She has been excessively fatigued. Has noticied cold extremities recently too. Assessment at [facility] completed. She would be required to switch to Sublocade but doesn't want to do that while or breast feeding so will continue seeing me. She will not engage in their inpatient program. She may enroll in our CD IOP at some point but has unreliable transportation. Lives in a stable environment now. Planning on staying in [place] after delivery. Her MIL is here with her today. [employer] investigated and is closing their investigation. No CSB involvement. Zoloft: describes positive benefit from SSRI. Not taking Seroquel anymore. Denies any negative side effects. Feels Zoloft helps with mood and sleep. Shared decision making regarding the use of these psychotropic medications while made, and she wants to continue Zoloft for now. Denies post depression. MAT Response Dose: Suboxone 20 mg daily. Start Date: 08/23/24. Compliance: Taking as directed. No missed doses. Side Effects: No. Drug Cravings: Yes. Sporadic thoughts Withdrawal Symptoms: No. Ready to Taper Off MAT: No. Substance Use History Sober Date: 08/23/24. Intensive Outpatient Program: never; planning on entering in our CD IOP after delivery. Inpatient Drug Rehab: never. 12-Step Meeting Attendance: never. Psychiatric History Diagnoses: depression, anxiety, bipolar 2, ptsd Medications: zoloft 50 mg Psychiatrist: [facility]. Counselor: denies. Past Medical History Past Medical History: Diagnosis Date Anxiety Colitis Depression Drug use affecting in third trimester 08/28/2024 Adm for detox on PNU from 08/23/23 MAT positive for Benzos, Methadone, Opiates, and fentanyl Patient desired transition off methadone and was discharged with Subutex 8 mg BID Patient to follow with [facility] Needs scheduled for ANFS: NST weekly Indication for care in labor and delivery, antepartum 10/18/2024 Kidney disease Kidney stone Medullary sponge kidney of both kidneys Pain of left lower extremity 08/30/2024 Polysubstance abuse (HCC)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 Jazmyn Practice: Addiction Chief Complaint/Reason for Call: please assist, pt is in a lot of pain and states she spoke with yesterday, she is in pateint Best time of day caller can be reached: any Patient advised that office/PCP has 24-48 business hours to return their call: No [facility] COMPLETE URINALYSIS WITH REF MENG TO CULTUREon 10-20-2024 BACTERIA (#/HPF) IN URINE Few Abnormal Negative [facility] Comment on above: Performed By: #### L [id number] ####Tight Rope Walker: JANAE COLLINS ([id number])[facility] ([facility])[address] [place] [address] BILIRUBIN, TOTAL PRESENCE IN URINE Negative Normal Negative [facility] Comment on above: Performed By: #### L [id number] ####Tight Rope Walker: JANAE COLLINS ([id number])[facility] ([facility])[address] [place] [address] Clarity (U) Clear Normal Clear [facility] Comment on above: Performed By: #### L [id number] ####Tight Rope Walker: JANAE COLLINS ([id number])[facility])[address] [place] [address] Color (U) Colorless Normal Lt. Yellow [facility] Comment on above: Performed By: #### L [id number] ####Tight Rope Walker: JANAE COLLINS ([id number])[facility] ([facility])[address] [place] [address] GLUCOSE (MG/DL) IN URINE Normal Normal Normal (<70 ) [facility] Comment on above: Performed By: #### L [id number] ####Tight Rope Walker: JANAE COLLINS ([id number])[facility] ([facility])[address] [place] [address] HEMOGLOBIN PRESENCE IN URINE 1.0 mg/dL Abnormal Negative [facility] Comment on above: Performed By: #### L [id number] ####Tight Rope Walker: JANAE COLLINS ([id number])[facility] ([facility])[address] [place] [address] Ketones Ql (U) Negative Normal Negative [facility] Comment on above: Performed By: #### L [id number] ####Tight Rope Walker: JANAE COLLINS ([id number])[facility] ([facility])[address] [place] [address] LEUKOCYTE ESTERASE PRESENCE IN URINE BY TEST STRIP 250 Gayle/uL Abnormal Negative [facility] Comment on above: Performed By: #### L [id number] ####Tight Rope Walker: JANAE COLLINS ([id number])[facility] ([facility])[address] [place] [address] [place] MUCUS (#/LPF) IN URINE SEDIMENT Few Normal Negative [facility] Comment on above: Performed By: #### L [id number] ####Tight Rope Walker: JANAE COLLINS ([id number])[facility])[address] [place] [address] NITRITE PRESENCE IN URINE Negative Normal Negative [facility] Comment on above: Performed By: #### L [id number] ####Tight Rope Walker: JANAE COLLINS ([id number])[facility])[address] [place] [address] pH (U) 7.5 [pH] Normal 5.0-8.0 [facility] Comment on above: Performed By: #### L [id number] ####Tight Rope Walker: JANAE COLLINS ([id number])[facility] ([facility])[address] [place] [address] Protein (U) [Mass/Vol] Negative Normal Negative [facility] Comment on above: Performed By: #### L [id number] ####Tight Rope Walker: JANAE COLLINS ([id number])[facility])[address] [place] [address] [place] RBC (#/HPF) IN URINE SEDIMENT 11-25 Abnormal 0-2 [facility] Comment on above: Performed By: #### L [id number] ####Tight Rope Walker: JANAE COLLINS ([id number])[facility])[address] [place] [address] Specific gravity (U) [Rel density] 1.010 Normal 1.005-1.030 [facility] Comment on above: Result Comment: TAMARA Mcdowell COMMENTS: This specimen has been reflexed to urine culture. Performed By: #### L [id number] ####Tight Rope Walker: JANAE COLLINS ([id number])[facility])[address] [place] [address] SQUAMOUS EPITHELIAL CELLS (#/HPF) IN URINE SEDIMENT 3-5 Normal 3-5 [facility] Comment on above: Performed By: #### L [id number] ####Tight Rope Walker: JANAE COLLINS ([id number])[facility] ([facility])[address] [place] [address] UROBILINOGEN (MG/DL) IN URINE Normal Normal Normal (0-1) [facility] Comment on above: Performed By: #### L [id number] ####Tight Rope Walker: JANAE COLLINS ([id number])[facility] ([facility])[address] [place] [address] WBC (LEUKOCYTE) (#/HPF) IN URINE SEDIMENT 11-25 Abnormal 0-5 [facility] Comment on above: Performed By: #### L [id number] ####Tight Rope Walker: JANAE COLLINS ([id number])[facility] ([facility])[address] [place] [address] No Panel Informationon 10-20 Extra Tube Hold for add-ons. [facility] Comment on above: Auto resulted. [facility] Progress Noteon 10-20-2024 Progress Note Evaluated patient at bedside for continued back pain. Upon entering the room patient not in acute distress. States her pain is mostly on her left side, radiates to the right side when she moves or leans against something. The pain started when her epidural was placed in labor, states they were poking her nerves and she still has this sensation which is very painful. She denies fevers/chills. Moderately tender to palpation on exam. Epidural site and back examined which are unremarkable, no bruising or hematoma noted. Neuro exam wnl with normal ROM in upper and lower extremities. Reached out to ADM who recommended PRN oxycodone. Patient initially hesitant to take oxycodone but is now agreeable because the pain is too bad. Dr. Tipton updated. Tylenol also modified to 1000 mg q6h PRN. BP 116/64 Pulse 98 Temp 36.3 ?C (97.3 ?F) (Temporal) Resp 18 Ht 5' 4 (1.626 m) Wt 200 lb (90.7 kg) BMI 34.33 kg/m? [facility] Progress Note Nutrition rescreen completed. Patient assigned a level 1. MARILYN Tinajero [facility] Progress Note VAGINAL DELIVERY POST DAY # 2 Skylar Landry, 34 y.o. This patient was seen & examined today. Complicated by: Problem List[1] Patient doing well,. Endorses increased pain along back. Reports being unable to walk overnight 2/2 pain. Denies fevers, chills, shortness of breath, chest pain, nausea/vomiting, headaches, and vision changes. Lochia light. Voiding spontaneously. Passing flatus, absent bowel movement. Vital Signs: Vitals: 10/19/24 0121 10/19/24 0813 10/19/24200210/20/24 0332 BP: 134/78 122/82 107/69 97/66 BP Location: Right arm Left arm Patient Position: Sitting Lying Pulse: 109 92 103 98 Resp: 18 16 16 20 Temp: 36.6 ?C (97.9 ?F) 36.7 ?C (98.1 ?F) 36.5 ?C (97.7 ?F) 36.2 ?C (97.2 ?F) TempSrc: Temporal Temporal Temporal Temporal SpO2: 99% 100% 100% 98% Weight: Height: Physical Exam: GENERAL APPEARANCE: alert, well-appearing ABDOMEN : soft, non-distended, appropriately tender to palpation EXTREMITIES: no edema or tenderness NEUROLOGIC: A&Ox3, no focal neurological deficits Lab: Lab Results Component Value Date HGB 11.6 (L) 10/18/2024 Lab Results Component Value Date HCT 35.8 10/18/2024 LABOR DELIVERY ??? SCD's ONLY (labor through ambulation) SCD's PLUS Prophylactic Anticoagulation until discharge SCD's PLUS Prophylactic Anticoagulation for 6 weeks SCD's PLUS Therapeutic Anticoagulation for 6 weeks Vaginal Delivery [] BMI >= 40 kg/m2 Delivery All patients Vaginal Delivery [] BMI >= 40 kg/m2 AND [] Antepartum hospitalization >= 72 hours within the past month Delivery 1 Major Risk Factor: [] BMI >= 35 kg/m2 [] Low Risk Thrombophilia [] PPH+RBCs, IR, or operation [] Infection+Antibiotics [] Antepartum hospitalization >= 72 hours within the past month [] PMH: Sickle Cell, SLE, Cardiac Dz, Active IBD, Active Cancer, Nephrotic Syndrome OR 2 Minor Risk Factors: [] Multiple gestation [] Age > 40 [] PPH >= 1,000cc [] (+)FMH of VTE [] Smoker [] Preeclampsia [] BMI >= 40 kg/m2 AND [] Low Risk Thrombophilia OR ANY OF THE FOLLOWING: [] High Risk Thrombophilia without prior VTE [] Low Risk Thrombophilia with (+)FMH of VTE [] Any single prior VTE ANY OF THE FOLLOWING: [] Already on LMWH/UFH [] Multiple prior VTE [] High Risk Thrombophilia with prior VTE Low Risk Thrombophilia: FVL (heterozygous), Prothrombin (heterozygous), Protein C, Protein S High Risk Thrombophilia: FVL (homozygous), Prothrombin (homozygous), FVL+Prothrombin (heterozygous), Antithrombin III, APLS Assessment/Plan: Skylar Landry is PPD # 2 s/p Care - Female - breast feeding - contraception: s/p Liletta post delivery - encourage ambulation - VTE prophylaxis: Not Indicated Uncontrolled Pain - Oxy 5mg give overnight - plan for Lucrecia Tylenol, Ibuprofen - will trial PRN Flexaril, Lidocaine patch this AM Substance Use - Suboxone 16mg daily - Addiction Medicine consulted - plan to follow-up outpatient on 11/22 for MAT Depression Anxiety - mood and behavior appropriate - Seroquel 50mg nightly - Zoloft 50mg daily Disposition: Continue current care. Based on my clinical assessment, this patient is safe for self discharge (does not need transport by wheelchair) if she so chooses. Provider's Name: MD Qing Conner MD 10/20/2024, 6:16 AM [1] Patient Active Problem List Diagnosis Polysubstance abuse (HCC) Anxiety and depression Drug use affecting in third trimester Pain of left lower extremity Urinary tract infection Encounter for monitoring Suboxone maintenance therapy Supervision of high risk due to social problems, third trimester Indication for care in labor and delivery, antepartum Severe opioid use disorder on maintenance therapy (HCC) [facility] URINE CULTUREon 10-20-2024 Bacteria identified Cx Nom (U) URINE CULTURE (A) Reference ESCHERICHIA COLI 10,000-50,000 CFU/mL Escherichia coli (A) This phenotype is suggestive of an ESBL-producing organism. Treatment with beta-lactam antibiotics other than carbapenems may not be effective. Organism: ESCHERICHIA COLI Antibiotic ROCIO Interpretation Status Amoxicillin / Clavulanate R F Ampicillin R F Ampicillin / Sulbactam R F Aztreonam 16 ug/ml R F Cefazolin R F Cefepime R F Ceftriaxone >=64 ug/ml R F Ciprofloxacin >=4 ug/ml R F Ertapenem <=0.12 ug/ml S F Gentamicin <=1 ug/ml S F Levofloxacin >=8 ug/ml R F Meropenem <=0.25 ug/ml S F Nitrofurantoin 128 ug/ml R F Piperacillin / Tazobactam R F Trimethoprim / Sulfamethoxazole >=320 ug/ml R F [ S = SUSCEPTIBLE R = RESISTANT I = INTERMEDIATE S-DD = Susceptible-dose dependent NS = Non-susceptible NO = No Interpretation ] Normal [facility] Comment on above: Performed By: #### L [id number] #### Tight Rope Walker: JAANE COLLINS ([id number]) [facility] ([address] Urinalysis complete panel (U )Ordered By: Elise Christianson on 10-20-2024 Bacteria LM.HPF (Urine sed) [#/Area] Few Abnormal Negative /HPF [facility] Bilirubin Ql (U) Negative Negative mg/dL [facility] Clarity (U) Clear Clear [facility] Color (U) Colorless Lt. Yellow [facility] Epithelial cells.squamous LM.HPF (Urine sed) [#/Area] 3-5 [facility] Glucose Ql (U) Normal Normal (<70) mg/dL [facility] Hemoglobin Ql (U) 1.0 mg/dL Abnormal Negative [facility] Interpretation and review of laboratory results Abnormal [facility] Ketones (U) [Mass/Vol] Negative Negat rio mg/dL [facility] Leukocyte esterase Test strip Ql (U) 250 Abnormal Negative Gayle/uL [facility] Mucus LM.HPF (Urine sed) [#/Area] Few Negative /LPF [facility] Nitrite Ql (U) Negative Negative [facility] pH (U) 7.5 [pH] 5.0 - 8.0 pH [facility] Protein (U) [Mass/Vol] Negative Negat rio mg/dL [facility] RBC LM.HPF (Urine sed) [#/Area] 05-03 Abnormal [facility] Specific gravity (U) [Rel density] 1.01 1.005 - 1.030 [facility] Urobilinogen (U) [Mass/Vol] Normal Normal (0-1) mg/dL [facility] WBC LM.HPF (Urine sed) [#/Area] 05-03 Abnormal [facility] This specimen has be en reflexed to urine culture. [facility] [id number] 10-19-2024 [id number] Spoke to patient aft er delivery regarding MAT Suboxone has been continued while admitted She is requesting to take Suboxone all at once in the AM. Will order 8 mg x 1 tonight to complete today's dose, then 16 mg daily starting in AM. Sent rx to [facility] for Suboxone tablets, Seroquel, and Zoloft. She will need these in hand before discharge. She has follow up in my office for MAT ([address]) on 11/22 @ 2:15 PM Please contact me directly for any issues related to this patients recovery Normal [facility] [id number] Date: 10/19/2024 Name: Skylar Landry : 1990 [facility] Patient Information Primary Caregiver: Self Accompanied by/Relationship: S/O;Family Marital Status: Single Support System: SO/Family Jewish/Cultural Factors: none Activities of Daily Living Communication: See demographics Living Arrangements Current Residence: Private residence Lives With: S/O; Family Support System: S/O; Family Income Information Income Source: Not Employed Financial Resource Strain How hard is it for you to pay for the very basics like food, housing, medical care and heating? N/A Housing Stability In the last 12 months, was there a time when you did not have a steady place to sleep or slept in a alf (including now)? No Transportation Needs Has the lack of Transportation kept you from medical appointments? No In the past 12 months, has the lack of transportation kept you from meetings, work, or from getting things needed for daily living? No Food Insecurity Within the past 12 months, have you worried that your food would run out before you got the money to buy more? No Stress Do you feel stress - tense, restless, nervous, or anxious, or unable to sleep at night because you mind is troubled all the time? Mood stable Referral To Financial Resources: N/A Community Resources: Admission folder given upon admission to PP Unit Social Work:Hx of MILLIE CLP: N/A Medical Information 34 year old admitted for IOL Vaginal delivery. Hx of MILLIE. In [facility] program. Reviewed Eat, Sleep and Console. Discharge Plan Home or Community Resources: Admission folder given upon admission to PP unit Equipment: N/A Education Given: Discussion on the A. B. C's of safe sleep. Always place your baby on his or her back to sleep, use a firm sleep surface and your baby should not sleep in an adult bed, on a couch or chair. Keep soft objects, toys and loose bedding out of your baby's sleep area. Instructed to place infant in hospital crib in room if feeling tired or drowsy for safety. Reviewed depression. It is common to have blues. This is a normal response to many of the hormonal changes, stress and lack of sleep that go with raising a and physically recovering from the . Don't hesitate to talk to your provider with any concerns. There are resources in your home going booklet. To help prevent germs from spreading to you and your baby, make sure everyone washes their hands before they handle your . Avoid crowds, and keep away from sick people, anyone who is sick with a cough or fever, including family members. Post- warning signs information reviewed with patient per nurse with discharge Additional Information: Patient is independent and has insurance. She is prepared with her baby supplies. To be discharged to home. Denies any concerns at this time. Mental Health Services: Resources in discharge folder Equipment: Developmental Delay: N/A Children's Services: Referral by social work [facility] 42 10-19-2024 42 Patient called for latch assistance but upon arrival to room receiving formula. Attempted to latch . opens mouth wide and latched onto left breast but no nutritive sucking noted. becomes shallow then fell asleep at breast. Multiple attempts to latch . Encouraged patient to offer breast first, then pump and supplement if no latch. Encouraged patient to offer 2-10 ml per feeding due to infant less than 24 hours. Patient verbalized understanding. Normal [facility] 42 Patient called for latch assistance. recently received formula about 1 hour ago, about 20 ml. Encouraged patient to call 2-3 hours from last feeding, when infant showing feeding cues. Patient verbalized understanding. Patient received Spectra S2. Reviewed pump with patient during visit. Also reviewed hospital breast pump during visit and observed first few minutes of pumping session. Encouraged patient to pump each time receives formula and use pumped breast milk first. Reviewed feeding plan and goals. Reviewed pump operation, settings frequency and duration. Discussed milk storage guidelines and cleaning of breast pump parts. Towels, basin and dish soap provided to pt for cleaning purposes. All questions answered. Pt verbalizes understanding, and denies questions. Normal [facility] 42 Initial visit with . This is patient's fourth . Patient states she did not breast feed her other infants. Patient shown how to call for a breast pump from [facility]. Patient states infant latched after delivery but latch was painful. has received formula since. Encouraged patient to call for assistance with next feeding. Encouraged patient to wake every three hours to feed. Skin to skin and hand expression in between feeds. Discussed output parameters in the first 24 hours. Patient shown how to call for on wall touch pad. Patient verbalized understanding. Normal [facility] Nursing Noteon 10-19-2024 Nursing Note Patient refusing seroquel 50 mg at this time. Normal [facility] Progress Noteon 10-19-2024 Progress Note VAGINAL DELIVERY POST DAY # 1 Skylar Landry is a 34 y.o. who was seen and examined today. Today she is doing well without any chief complaint. Her lochia is moderate. She denies headache, chest pain, vision changes, and shortness of breath. She is ambulating well. She is tolerating solids. Vital Signs: Vitals: 10/18/24 2330 10/18/24 2345 10/19/24 0000 10/19/24 0121 BP: 121/75 128/77 128/64 134/78 BP Location: Right arm Patient Position: Sitting Pulse: 109 Resp: 18 Temp: 36.6 ?C (97.9 ?F) TempSrc: Temporal SpO2: 99% Weight: Height: Physical Exam: GENERAL APPEARANCE: alert, well appearing, in no apparent distress ABDOMEN : benign non-tender, without masses or organomegaly palpable UTERUS : normal size, well involuted, firm, non-tender EXTREMITIES: no redness or tenderness in the calves or thighs, no edema NEUROLOGIC: alert, oriented, normal speech, no focal findings or movement disorder noted Lab: Lab Results Component Value Date HGB 11.6 (L) 10/18/2024 Lab Results Component Value Date HCT 35.8 10/18/2024 Lab Results Component Value Date ABO A 10/18/2024 ABSCREEN NEG 10/18/2024 RH POS 10/18/2024 No results found for: RUBELLAIGGQT LABOR DELIVERY ??? SCD's ONLY (labor through ambulation) SCD's PLUS Prophylactic Anticoagulation until discharge SCD's PLUS Prophylactic Anticoagulation for 6 weeks SCD's PLUS Therapeutic Anticoagulation for 6 weeks Vaginal Delivery [] BMI >= 40 kg/m2 Delivery All patients Vaginal Delivery [] BMI >= 40 kg/m2 AND [] Antepartum hospitalization >= 72 hours within the past month Delivery 1 Major Risk Factor: [] BMI >= 35 kg/m2 [] Low Risk Thrombophilia [] PPH+RBCs, IR, or operation [] Infection+Antibiotics [] Antepartum hospitalization >= 72 hours within the past month [] PMH: Sickle Cell, SLE, Cardiac Dz, Active IBD, Active Cancer, Nephrotic Syndrome OR 2 Minor Risk Factors: [] Multiple gestation [] Age > 40 [] PPH >= 1,000cc [] (+)FMH of VTE [] Smoker [] Preeclampsia [] BMI >= 40 kg/m2 AND [] Low Risk Thrombophilia OR ANY OF THE FOLLOWING: [] High Risk Thrombophilia without prior VTE [] Low Risk Thrombophilia with (+)FMH of VTE [] Any single prior VTE ANY OF THE FOLLOWING: [] Already on LMWH/UFH [] Multiple prior VTE [] High Risk Thrombophilia with prior VTE Low Risk Thrombophilia: FVL (heterozygous), Prothrombin (heterozygous), Protein C, Protein S High Risk Thrombophilia: FVL (homozygous), Prothrombin (homozygous), FVL+Prothrombin (heterozygous), Antithrombin III, APLS Assessment/Plan: Skylar Landry is a 34 y.o. PPD # 1 s/p at 39w4d Care - Doing well, VSS - Female - breast feeding - Contraception: S/p Postplacental Liletta - Encourage ambulation - VTE Prophylaxis: Not Indicated Hx substance use Admitted to [facility] in august 2024 for detox, at that time MAT + for Benzos, Methadone, Opiates, and Fentanyl - compliant on Subutex 8mg BID - followed in [facility] cent[facility] - MAT on admit +ve only for Subutex Depression/Anxiety - Seroquel 50mg nightly - Zoloft 50mg daily - mood continues to be stable Disposition: Continue current care. Based on my clinical assessment, this patient is safe for self discharge (does not need transport by wheelchair) if she so chooses. Provider's Name: MD Wyatt Conner MD 10/19/2024, 5:41 AM [facility] BLOOD TYPE AND SCREEN GELon 10-18-2024 ABO GROUPING A Normal [facility] Comment on above: Order Comment: Speci men is valid for 3 days - nurse to verify valid specimen. Performed By: #### L [id number] #### Tight Rope Walker: JANAE COLLINS ([id number]) [address] RH TYPE IN BLOOD Positive [facility] Comment on above: Order Comment: Speci men is valid for 3 days - nurse to verify valid specimen. Performed By: #### L [id number] #### Tight Rope Walker: JANAE COLLINS ([id number]) [facility]) [address] [place] [address] Blood type and Crossmatch pa pilar (Bld)on 10-18-2024 ABO group Nom (Bld) A [facility] Blood group antibody screen GEL Ql Negative [facility] D Ag Ql (RBC) Positive [facility] CBC (HEMOGRAM)on 10-18-2024 Erythrocyte distribution width (RBC) [Ratio] 13.4 % Normal 11.5-15.0 [facility] Comment on above: Performed By: #### L [id number] #### Tight Rope Walker: JANAE COLLINS ([id number]) [facility]) [address] [place] [address] Hematocrit (Bld) [Volume fraction] 35.8 % Normal 35.0-47.0 [facility] Comment on above: Performed By: #### L [id number] #### Tight Rope Walker: JANAE COLLINS ([id number]) [facility] ([facility]) [address] [place] [address] Hemoglobin (Bld) [Mass/Vol] 11.6 g/dL Low 11.7-16.0 [facility] Comment on above: Performed By: #### L [id number] #### Tight Rope Walker: JANAE COLLINS ([id number]) [facility]) [address] [place] [address] MCH (RBC) [Entitic mass] 27.0 pg Normal 26.0-34.0 [facility] Comment on above: Performed By: #### L [id number] #### Tight Rope Walker: JANAE COLLINS ([id number]) [facility]) [address] [place] [address] MCHC 32.4 % Normal 30.5-36.0 [facility] Comment on above: Performed By: #### L [id number] #### Tight Rope Walker: JANAE COLLINS ([id number]) [facility]) [address] [place] [address] MCV (RBC) [Entitic vol] 83.4 fL Normal 77.0-99.0 [facility] Comment on above: Performed By: #### L [id number] #### Tight Rope Walker: JANAE COLLINS ([id number]) [facility]) [address] [place] [address] Platelet mean volume (Bld) [Entitic vol] 11.9 fL Normal 9.0-12.7 [facility] Comment on above: Performed By: #### L [id number] #### Tight Rope Walker: JANAE COLLINS ([id number]) [facility] ([facility]) [address] [place] [address] Platelets (Bld) [#/Vol] 188 10*3/uL Normal 140-440 [facility] Comment on above: Performed By: #### L [id number] #### Tight Rope Walker: JANAE COLLINS ([id number]) [facility] ([facility]) [address] [place] [address] RBC (Bld) [#/Vol] 4.29 10*6/uL Normal 3.80-5.20 [facility] Comment on above: Performed By: #### L [id number] #### Tight Rope Walker: JANAE COLLINS ([id number]) [facility] ([facility]) [address] [place] [address] WBC (Bld) [#/Vol] 10.0 10*3/uL Normal 3.6-10.7 [facility] Comment on above: Performed By: #### L [id number] #### Tight Rope Walker: JANAE COLLINS ([id number]) [facility] ([facility]) [address] [place] [address] CBC panel Auto (Bld)on 10-18 Erythrocyte distribution width (RBC) [Ratio] 13.4 % 11.5 - 15.0 % [facility] Hematocrit (Bld) [Volume fraction] 35.8 % 35.0 - 47.0 % [facility] Hemoglobin (Bld) [Mass/Vol] 11.6 g/dL Low 11.7 - 16.0 g/dL [facility] Interpretation and review of laboratory results Abnormal [facility] MCH (RBC) [Entitic mass] 27 pg 26. 0 - 34.0 pg [facility] MCHC (RBC) [Mass/Vol] 32.4 % 30.5 - 36.0 % [facility] MCV (RBC) [Entitic vol] 83.4 fL 77.0 - 99.0 fL [facility] Platelet mean volume (Bld) [Entitic vol] 11.9 fL 9.0 - 12.7 fL [facility] Platelets (Bld) [#/Vol] 188 10*3/uL 140 - 440 10*3/uL [facility] RBC (Bld) [#/Vol] 4.29 10*6/uL 3.80 - 5.2 0 10*6/uL [facility] WBC (Bld) [#/Vol] 10 10*3/uL 3.6 - 10.7 10*3/uL [facility] Labor and Delivery Noteon Labor and Delivery Note ------- Attestation signed by Brianna Tipton MD at 10/19/2024 6:28 AM Procedures or Surgery: I was present for all miranda elements of the procedure or surgery as described in the resident note. Skylar Landry was seen in the Obstetrics ED. Please see chart note for details. Follow up: Keep next scheduled visit Vaginal Delivery Note Department of Obstetrics and Gynecology Patient: Skylar Landry : 1990 Date of delivery: 10/18/24 Pre-operative Diagnosis: Skylar Landry at 39w3d 1. Term 2. History Substance Use 3. 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 Brianna Tipton, Dr. Brandie Brown, Dr. Guillermina Harmon Information: Description: Normal Meconium Noted: Yes: terminal Anesthesia: epidural anesthesia Complications: None Medications Given: None Application and Delivery: Skylar Landry at 39w3d admitted for elective induction of labor. She was known to be GBS negative and received no prophylaxis. Her cervix was found to be 2 cm dilated on admission. She was given a 60 ml judd bulb for cervical ripening. Once the judd bulb expelled, pitocin was titrated per protocol. Artificial rupture of membranes yielded clear fluid. She received an epidural for pain control. She progressed to complete and felt the urge to push. She pushed for approximately 10 minutes. After pushing with contractions the head delivered Cephalic, occiput anterior over an intact perineum. A nuchal cord was present and reduced. The anterior, then posterior shoulder delivered easily and atraumatically followed by the rest of the . The was placed on the maternal abdomen and attended by the RN for evaluation. The was stimulated and dried. The cord was clamped and cut after one minute. The delivery of the placenta was spontaneous and appeared intact. Pitocin was started. The vagina was swept of all clots and debris. The perineum and vagina were evaluated. No lacerations were found. All counts were correct. Mother and baby tolerated procedure well. A Liletta IUD was placed, see separate procedure note. There were no uterotonic medications required during delivery. EBL: 200ml QBL: 200ml VTE Prophylaxis: Not Indicated LABOR DELIVERY ??? SCD's ONLY (labor through ambulation) SCD's PLUS Prophylactic Anticoagulation until discharge SCD's PLUS Prophylactic Anticoagulation for 6 weeks SCD's PLUS Therapeutic Anticoagulation for 6 weeks Vaginal Delivery [] BMI >= 40 kg/m2 Delivery All patients Vaginal Delivery [] BMI >= 40 kg/m2 AND [] Antepartum hospitalization >= 72 hours within the past month Delivery 1 Major Risk Factor: [] BMI >= 35 kg/m2 [] Low Risk Thrombophilia [] PPH+RBCs, IR, or operation [] Infection+Antibiotics [] Antepartum hospitalization >= 72 hours within the past month [] PMH: Sickle Cell, SLE, Cardiac Dz, Active IBD, Active Cancer, Nephrotic Syndrome OR 2 Minor Risk Factors: [] Multiple gestation [] Age > 40 [] PPH >= 1,000cc [] (+)FMH of VTE [] Smoker [] Preeclampsia [] BMI >= 40 kg/m2 AND [] Low Risk Thrombophilia OR ANY OF THE FOLLOWING: [] High Risk Thrombophilia without prior VTE [] Low Risk Thrombophilia with (+)FMH of VTE [] Any single prior VTE ANY OF THE FOLLOWING: [] Already on LMWH/UFH [] Multiple prior VTE [] High Risk Thrombophilia with prior VTE Low Risk Thrombophilia: FVL (heterozygous), Prothrombin (heterozygous), Protein C, Protein S High Risk Thrombophilia: FVL (homozygous), Prothrombin (homozygous), FVL+Prothrombin (heterozygous), Antithrombin III, APLS Specimen: Cord Blood, Cord Gases Blood Type and Rh: A Rubella Immunity Status: Immune BRANDIE BROWN, DO 10/18/2024, 10:41 PM Normal [facility] Laboratory - Drug toxicology Ordered By: Domenico Chaparro on 10-18-2024 Amphetamines Ql (U) Negative Negative [facility] Barbiturates screen method Nom (U) Negative Negative [facility] Benzodiazepines screen method Nom (U) Negative Negative [facility] Cocaine Ql (U) Negative Negative [facility] Ethanol [Mass/Vol] Negative Negative [facility] Methadone Ql (U) Negative Negative [facility] Opiates Screen Ql (U) Negative Negative [facility] Laboratory - Microbiology an d Antimicrobial susceptibilityOrdered By: Sivan Gee on 10-18-2024 Reagin Ab RPR Ql (S) Non-Reactive Nonreactive S [facility] MEDICATION ASSISTED TREATMEN T PANELon 10-18-2024 Amphetamines Ql (U) Negative Normal Negative [facility] Comment on above: Performed By: #### L [id number] #### Tight Rope Walker: JANAE COLLINS ([phone]) [facility] ([facility]) [address] [place] [address] BARBITURATES Negative Normal Negative [facility] Comment on above: Performed By: #### L [id number] #### Tight Rope Walker: JANAE COLLINS ([phone]) [facility] ([facility]) [address] [place] [address] Benzodiazepines Ql (U) Negative Normal Negative [facility] Comment on above: Performed By: #### L [id number] #### Tight Rope Walker: JANAE COLLINS ([phone]) [facility] [address] [place] [address] BUPRENORPHINE SCREEN Positive Abnormal Negative [facility] Comment on above: Performed By: #### L [id number] #### Tight Rope Walker: JANAE COLLINS ([phone]) [facility] [address] [place] [address] Cocaine Ql (U) Negative Normal Negative [facility] Comment on above: Performed By: #### L [id number] #### Tight Rope Walker: JANAE COLLINS ([phone]) [facility] ([facility]) [address] [place] [address] ETHANOL-ETOHO Negative Normal Negative [facility] Comment on above: Result Comment: TAMARA R COMMENTS: The expected value for the drugs listed above is Negative. The following drugs or drug groups have been screened for by Immunoassay at the following thresholds: Amphetamine class(1000ng/mL) Barbituates(200ng/mL) Benzodiazepines(200ng/mL) Cocaine(300ng/mL) Ethanol (50 ng/mL) Methadone(300ng/mL) Opiates(300ng/mL) Oxycodone(100ng/mL) PCP(25ng/mL) Buprenorphine(5ng/mL) THC(50ng/mL) Fentanyl(1ng/mL) Positive results are NOT confirmed by a more specific alternative method unless requested. If confirmation is needed, request confirmation under separate order. NOTE: These results are for medical treatment only. Analysis performed using non-forensic procedures. Performed By: #### L [id number] #### Tight Rope Walker: JANAE COLLINS ([phone]) [facility] [address] [place] [address] FENTANYL Negative Normal Negative [facility] Comment on above: Performed By: #### L [id number] #### Tight Rope Walker: JANAE COLLINS ([phone]) [facility] ([facility]) [address] [place] [address] Methadone Ql (U) Negative Normal Negative [facility] Comment on above: Performed By: #### L [id number] #### Tight Rope Walker: JANAE COLLINS ([phone]) [facility] ([facility]) [address] [place] [address] Opiates Ql (U) Negative Normal Negative [facility] Comment on above: Performed By: #### L [id number] #### Tight Rope Walker: JANAE COLLINS ([phone]) [facility] ([facility]) [address] [place] [address] OXYCODONE/OXYMORPHONE Negative Normal Negative [facility] Comment on above: Performed By: #### L [id number] #### Tight Rope Walker: JANAE COLLINS ([phone]) [facility] [address] [place] [address] PCP Negative Normal Negative [facility] Comment on above: Performed By: #### L [id number] #### Tight Rope Walker: JANAE COLLINS ([phone]) [facility] ([facility]) [address] [place] [address] THC-MTTHC Negative Normal Negative [facility] Comment on above: Performed By: #### L [id number] #### Tight Rope Walker: JANAE COLLINS ([phone]) [facility] ([facility]) [address] [place] [address] No Panel InformationOrdered By: Domenico Chaparro on 10-18-2024 BUPRENORPHINE SCREEN Positive Abnormal Negative [facility] FENTANYL Negative Negative [facility] Interpretation and review of laboratory results Abnormal [facility] OXYCODONE/OXYMORPHONE Negative Negative [facility] PCP Negative Negative [facility] THC Negative Negative [facility] The expected value f or the drugs listed above is Negative. The following drugs or drug groups have been screened for by Immunoassay at the following thresholds: Amphetamine class(1000ng/mL) Barbituates(200ng/mL) Benzodiazepines(200ng/m L) Cocaine(300ng/mL) Ethanol (50 ng/mL) Methadone(300ng/mL) Opiates(300ng/mL) Oxycodone(100ng/mL) PCP(25ng/mL) Buprenorphine(5ng/mL) THC(50ng/mL) Fentanyl(1ng/mL) Positive results are NOT confirmed by a more specific alternative method unless requested. If confirmation is needed, request confirmation under separate order. NOTE: These results are for medical treatment only. Analysis performed using non-forensic procedures. [facility] RPR WITH REFLEX QUANTon 10-07 RPR Non-Reactive Normal Nonreactive [facility] Comment on above: Performed By: #### L [id number] ####Tight Rope Walker: JANAE COLLINS ([phone])[facility] ([facility] Reagin Ab RPR Ql (S)Ordered By: Sivan Gee on 10-18-2024 Interpretation and review of laboratory results Normal [facility] Progress Noteon 10-14-2024 Progress Note Positive urin yamilex philip, previously EBSL. Will send another dose of fosfomycin Normal [facility] 37on 10-12-2024 37 Your Third Trimester: Care Instructions As you enter the final months and weeks of , the reality of having a baby may start to set in. This is a good time to set up a safe nursery and find quality registered nurse maternal child if needed. Doing this stuff ahead of time will allow you to focus on caring for and enjoying your new baby. Your growing baby is putting more pressure on your bladder. So you may need to urinate more often. Hemorrhoids are also common. Pelvic pain and discomfort are unfortunately very common at this stage. But it is important to know when to call your doctor, or come to labor and delivery. Learn about labor Watch for signs of labor. You may be going into labor if: You have about 6 or more contractions in 1 hour, even after you have had a glass of water and are resting. You have a low, dull backache that does not go away when you change your position. You have pain or pressure in your pelvis that comes and goes in a pattern. You have intestinal cramping or flu-like symptoms, with or without diarrhea. You notice an increase or change in your vaginal discharge. Discharge may be heavy, mucus-like, watery, or streaked with blood. Your water breaks. If you think you have labor: Drink 2 or 3 glasses of water or juice. Not drinking enough fluids can cause contractions. Stop what you are doing, and empty your bladder. Then you can lie down on your left side. Contractions can be weak or strong. Record your contractions for an hour. Time a contraction from the start of one contraction to the start of the next one. Single or several strong contractions without a pattern are called Raudel-Cruz contractions. They are practice contractions but not the start of labor. They often stop if you change what you are doing, rest, or hydrate Call your doctor if you have regular contractions. Pay attention to your baby's movements You should feel your baby move several times every day. Your baby now turns less, and kicks and jabs more. Your baby sleeps 20 to 45 minutes at a time and is more active at certain times of day. If your doctor wants you to count your baby's kicks: Empty your bladder, and lie on your side or relax in a comfortable chair. Write down your start time. Pay attention only to your baby's movements. Count any movement except hiccups. After you have counted 10 movements, write down your stop time. Write down how many minutes it took for your baby to move 10 times. If an hour goes by and you have not recorded 10 movements, have something to eat or drink and then count for another hour. If you do not record 10 movements in either hour, call your doctor. Consider Experts recommend that women breastfeed for 1 year or longer. Breast milk may help protect your child from some health problems. Breastfed babies are less likely than formula-fed babies to: Get ear infections, colds, diarrhea, and pneumonia. Be obese or get diabetes later in life. Women who breastfeed have less bleeding after the . Their uteruses also shrink back faster. Some women who breastfeed lose weight faster. Making milk coates calories. can lower your risk of breast cancer, ovarian cancer, and osteoporosis. Decide about circumcision for boys. As you make this decision, it may help to think about your personal, anabaptist, and family traditions. You get to decide if you will keep your son's penis natural or if he will be circumcised. If you decide that you would like to have your baby circumcised, talk with your doctor. You can share your concerns about pain. And you can discuss your preferences for anesthesia. Group B Strep Group B strep infection is caused by a type of bacteria. It's a different kind of bacteria than the kind that causes strep throat. At 36 weeks, you can expect your doctor to collect a Group B Strep Vaginal swab. GBS is a common bacteria that can live in the vagina and rectum. This is not and STD. You may have this kind of bacteria in your body. Sometimes it may cause an infection, but most of the time it doesn't make you sick or cause symptoms. But if you pass the bacteria to your baby during the , it can cause serious health problems for your baby. If you have this bacteria, you will get antibiotics when you are in labor. Antibiotics help prevent problems for a baby. After , doctors will watch and may test your baby. If your baby tests positive for Group B strep, he or she will get antibiotics. If you plan to breastfeed your baby, don't worry. It will be safe to breastfeed. Tell your doctor if you are allergic to any antibiotic. If your water breaks, go to the hospital right away. Tell the doctors and nurses at the hospital that you tested positive for group B strep. Your doctor will give you antibiotics to help protect your baby from infection. What To Expect If you hav (more content not included)... Normal [facility] Progress Noteon 10-12-2024 Progress Note Stable. Continue Zol oft and Seroquel. No SI or HI Normal [facility] Progress Note Stable. Currently taking Subtex 8 mg BID. No recent drug use. Follows with Cent[facility] Had NST today Normal [facility] Progress Note Patient doing well, denies OB sx. Urine collected today s/p tx for E. Coli UTI Passed 1 hour GTT GBS was negative s/p TDAP and COVID vaccine Induction scheduled 10/18 Discussed return precautions Normal [facility] Progress Note Bander Hand- declines Normal [facility] Progress Note --- Attestation signed by Ave Marie MD at 10/13/2024 10:54 AM [facility]: This [facility] by the resident. I reviewed and agree with the care provided by the resident during or immediately following the visit including the patient's medical history, the resident's finding in the physical exam, patient's diagnosis and treatment plan. Assessment and Plan: Supervision of high risk due to social problems, third trimester Patient doing well, denies OB sx. Urine collected today s/p tx for E. Coli UTI Passed 1 hour GTT GBS was negative s/p TDAP and COVID vaccine Induction scheduled 10/18 Discussed return precautions Drug use affecting in third trimester Stable. Currently taking Subtex 8 mg BID. No recent drug use. Follows with Cent[facility] Had NST today Anxiety and depression Stable. Continue Zoloft and Seroquel. No SI or HI Chief Complaint Patient presents with Routine Visit 34 y.o. yo at 38w4d Here today for MARLENY No acute complaints. Reports irregular ctx. Denies DFM/VB/LOF ROS: + pelvic pain PE: Vitals: 10/12/24 1315 BP: 126/77 Pulse: 91 Body mass index is 34.5 kg/m?. PE: Gen: NAD, A&Ox3 HEENT: NC/AT, EOMI Abd: nontender, uterus palpable on exam Skin: warm/dry BLE: without edema, nontender Follow up for induction date 10/18. Normal [facility] Progress Note Patient presents for obstetrical ultrasound 38w4d for Nurse visit Skylar denies Headache Right upper quadrant pain Vision changes Chest pain Shortness of breath Vaginal bleeding Leaking of fluid Contractions LMP (LMP Unknown) 34 y.o. with no concerns today Skylar was instructed to keep her scheduled visit Normal [facility] URINE CULTUREon 10-12-2024 Bacteria identified Cx Nom (U) URINE CULTURE Reference Normal urogenital yari present ESCHERICHIA COLI 10,000-50,000 CFU/mL Escherichia coli (A) This phenotype is suggestive of an ESBL-producing organism. Treatment with beta-lactam antibiotics other than carbapenems may not be effective. Organism: ESCHERICHIA COLI Antibiotic ROCIO Interpretation Status Amoxicillin / Clavulanate R F Ampicillin R F Ampicillin / Sulbactam R F Aztreonam 16 ug/ml R F Cefazolin R F Cefepime R F Ceftriaxone >=64 ug/ml R F Ciprofloxacin >=4 ug/ml R F Ertapenem <=0.12 ug/ml S F Gentamicin <=1 ug/ml S F Levofloxacin >=8 ug/ml R F Meropenem <=0.25 ug/ml S F Nitrofurantoin 128 ug/ml R F Piperacillin / Tazobactam R F Trimethoprim / Sulfamethoxazole >=320 ug/ml R F [ S = SUSCEPTIBLE R = RESISTANT I = INTERMEDIATE S-DD = Susceptible-dose dependent NS = Non-susceptible NO = No Interpretation ] Normal [facility] Comment on above: Performed By: #### L [id number] #### Tight Rope Walker: JANAE COLLINS ([phone]) [facility] ([address] 36on 10-11-2024 36 Name of caller: Trey ibanez Contact phone number: [phone] Relationship to Patient: patient Provider: Dr. العراقي Practice: [facility] Chief Complaint/Reason for Call: Patient called in regarding induction scheduled on 10/18. States she was seen at L&D on 10/08 and was advised to call the office today to see if there is any sooner inductions open for this weekend. Patient requesting call back to discuss. Please Advise Best time of day caller can be reached: any Patient advised that office/PCP has 24-48 business hours to return their call: No Normal [facility] S. agalactiae DNA SANDEE+probe Ql (Unsp spec)on 10-09-2024 Group B Strep Screen Not detected Not Detected [facility] Interpretation and review of laboratory results Normal [facility] Methodology: real-ti me PCR [facility] 36on 10-08-2024 36 S: Patient spoke wit h [facility] nurse regarding laboring- contractions B: Onset of symptoms/concern 15 minutes A: Pt 38w0d Reports having contractions and fluid leaking small amount of clear fluid and white mucus discharge. Contractions are 8 minutes apart and patient was timing from end of one contraction to the beginning of the next. Reports she has a history of quick delivery's one delivery was within 45 mins Denies urge to push, anything hanging out of vagina, bleeding, decreased movement. R: [facility] nurse advise patient to present to L&D and have another adult drive her. Patient in agreement. Reason for Disposition [1] First baby (primipara) AND [2] contractions > 5 minutes apart OR for < 2 hours [1] History of rapid prior delivery AND [2] contractions < 10 minutes apart Protocols used: - [id number] Normal [facility] GROUP B STREP SCREEN BY PCRo n 10-08-2024 GROUP B STREP SCREEN BY PCR GROUP B STREP SCREEN BY PCR Reference Not Detected Not Detected ORDER COMMENTS: Methodology: real-time PCR Normal [facility] Comment on above: Performed By: #### L [id number] #### Tight Rope Walker: JANAE COLLINS ([phone]) [facility] [address] [place] [address] No Panel Informationon 10-08 FERN PATTERN Fern pattern [facility] Interpretation and review of laboratory results Normal [facility] Nitrazine Paper Test POC Negative [facility] POC Nitrazine Lot Number [id number] [facility] Progress Noteon 10-08-2024 Progress Note --- Attestation signed by Ave Marie MD at 10/08/2024 10:20 PM Hospital Care (Independent): I independently saw and evaluated the patient. I agree with the findings and plan of care as documented in the resident's note. Skylar Landry was seen in the Obstetrics ED. Please see chart note for details. Follow up: Keep next scheduled visit Department of Obstetrics and Gynecology Labor and Delivery Triage Note CHIEF CONCERN: r/o Labor/ROM HISTORY OF PRESENT ILLNESS: The patient is a 34 y.o. at 38w0d who presents with the above chief concern. Presenting to triage for contractions that started around 5 this evening and increased dampness in her underwear. She was seen in clinic today and called 2cm per Dr. العراقي. Denies any large gush of fluid. Denies DFM/VB Estimated Due Date: Estimated Date of Delivery: 10/22/24 CARE: Complicated by: anxiety, depression, substance use, UTI DETAILED OB HISTORY: OB History 7 Para 3 Term 2 1 AB 3 Living 3 SAB 1 IAB 2 Ectopic Multiple Live Births 3 Obstetric Comments Plans to formula feed OB History Para Term AB Living 7 3 2 1 3 3 SAB IAB Ectopic Multiple Live Births 1 2 3 # Outcome Date GA Lbr Zen/2nd Weight Sex Type Anes PTL Lv 7 Current 6 01/13/23 35w0d M Vag-Spont RAQUEL Comments: per pt, induced at around 35wks (unsure exact GA) d/t kidney stones Complications: Kidney stone complicating 5 Term 09/19/15 M Vag-Spont EPI RAQUEL 4 Term 09/21/10 M Vag-Spont EPI RAQUEL Comments: Nephrostomy tube during 3 IAB Comments: pt unsure of year, IAB in G2 closely after G1 in 2010 2 IAB Comments: pt unsure of exact year, IAB in G3 1 SAB Comments: pt unsure of exact year, reports miscarriage in G5 Obstetric Comments Plans to formula feed PAST MEDICAL HISTORY: Past Medical History: Diagnosis Date Anxiety Colitis Depression Kidney disease Kidney stone Medullary sponge kidney of both kidneys PAST SURGICAL HISTORY: Past Surgical History: Procedure Laterality Date DILATION AND CURETTAGE (HISTORICAL) 2022 IR NEPHROSTOMY TUBE PLACEMENT STENT INSERTION (HISTORICAL) 2023 kidneys MEDICATIONS: Prior to Admission medications Medication Sig Start Date End Date Taking? Authorizing Provider buprenorphine-naloxone (Suboxone) 8-2 MG per sublingual film Place 1 Film under the tongue 2 times daily for 14 days. 10/05/24 10/19/24 Yes Manuel Woods MD lidocaine (Lidoderm) 5 % patch Apply 1 patch topically daily. Remove & discard patch within 12 hours or as directed by . 08/30/24 Yes Mercedez Villegas DO QUEtiapine (SEROquel) 50 MG tablet Take 1 tablet (50 mg) by mouth Nightly as needed (Insomnia/sleep). 10/05/24 11/04/24 Yes Manuel Woods MD sertraline (Zoloft) 50 MG tablet Take 1 tablet (50 mg) by mouth daily. 10/05/24 11/04/24 Yes Manuel Woods MD aspirin 81 MG chewable tablet Chew 2 tablets (162 mg) daily. Patient not taking: Reported on 10/08/2024 08/30/24 08/30/25 Mercedez Villegas DO lidocaine (Lidoderm) 5 % patch Apply 1 patch topically daily for 10 days. Remove & discard patch within 12 hours or as directed by . 09/25/24 10/05/24 Xu Underwood MD ondansetron (Zofran) 4 MG tablet Take 8 mg by mouth every 8 hours as needed for nausea or vomiting. Patient not taking: Reported on 10/08/2024 Historical Provider, Vit-Fe Fumarate-FA ( Vitamins) 28-0.8 MG tablet Take 1 tablet by mouth daily. Patient not taking: Reported on 10/08/2024 08/30/24 08/30/25 Mercedez Villegas DO buprenorphine-naloxone (Suboxone) 8-2 MG per sublingual film Place 1 Film under the tongue 2 times daily for 7 days. 09/28/24 10/05/24 Manuel Woods MD QUEtiapine (SEROquel) 50 MG tablet Take 1 tablet (50 mg) by mouth Nightly as needed (Insomnia/sleep). 09/14/24 10/05/24 Manuel Woods MD sertraline (Zoloft) 50 MG tablet Take 1 tablet (50 mg) by mouth daily. 09/07/24 10/05/24 Manuel Woods MD REVIEW OF SYSTEMS: Pertinent items are noted in HPI. APPEARANCE: Pain: yes with contractions, overall comfortable between contractions PHYSICAL EXAM: Vital Signs: VS wnl-reviewed/Respiratio ns normal effort Vitals: 10/08/24 1920 BP: 128/80 Pulse: 100 Resp: 18 Temp: 36.9 ?C (98.5 ?F) TempSrc: Oral SpO2: 100% General: alert and oriented, no acute distress Abdomen: soft, NT, ND, no rebound/guarding Uterus: gravid/non-tender Speculum Exam: no pooling of fluid seen, Nitrizine test is negative, Ferning test is negative Membranes: Intact Cervix: /-3, very posterior, thick LE Edema: trace RESULTS: heart rate: Category I Contraction frequency: irregular NST (more content not included)... [facility] Progress Note Doing well, but has been having some contractions SVE /-3 GBS sent Reviewed labor precautions Scheduled for IOL on 10/18/24 [facility] Progress Note ANFS reviewed with patient Scheduled for centering on Friday10/12/24 [facility] Progress Note A supervisor tellers was offe red to be present during her exam. The patient: Declined [facility] Progress Note --- Attestation signed by Kenny Rivas MD at 11/04/2024 2:44 PM (Updated) [facility]: This [facility] by the resident. I reviewed and agree with the care provided by the resident during or immediately following the visit including the patient's medical history, the resident's finding in the physical exam, patient's diagnosis and treatment plan. Assessment and Plan: Drug use affecting in third trimester ANFS reviewed with patient Scheduled for centering on Friday10/12/24 Supervision of high risk due to social problems, third trimester Doing well, but has been having some contractions SVE /-3 GBS sent Reviewed labor precautions Scheduled for IOL on 10/18/24 Chief Complaint Patient presents with Routine Visit 34 y.o. yo at 38w0d Here today for MARLENY No acute complaints. Denies DFM/VB/CTX/LOF ROS: No pelvic pain PE: Vitals: 10/08/24 1245 BP: 111/76 Pulse: 98 Body mass index is 33.47 kg/m?. PE: Gen: NAD, A&Ox3 HEENT: NC/AT, EOMI Abd: nontender, uterus palpable on exam Skin: warm/dry BLE: without edema, non-tender Follow-up 10/12/24 for centering and MARLENY [facility] 36on 10-06-2024 36 S: Patient spoke wit h [facility] nurse regarding problem. B: Onset of symptoms/concern 10/06/2024. A: Patient is x36 weeks . She reports moderate abdominal pain for the past x4 hours, states pain becoming unbearable, feels like baby is moving in weird positions that's making it painful for her. Patient mentions that she's unsure if she's having contractions, feels like she is having some here and there, but nothing too concerning. Patient is ok when she is laying down and not moving, but when she gets up, she becomes short of breath and it's very painful. She has pressure to pelvic and ribs. She denies vaginal bleeding or LOF. Patient unsure of what to do. R: Paged enterprise resource planning consultant provider Dr. White via secure chat- advises If her pain is not relieved by tylenol, heating pad, showering, bathing and other conservative measures she can come to OB triage. Thanks. IF the pain is coming and going it is most likely contractions and she can come in if they are increasing or around every 5 minutes. Informed patient of provider's instructions, she verbalized understanding. No further needs at this time. Patient instructed to call back with new or worsening symptoms. Reason for Disposition [1] MILD abdominal pain (e.g., doesn't interfere with normal activities) or tightening AND [2] constant AND [3] present > 2 hours Protocols used: - Abdominal Pain Greater Than 20 Weeks [id number] Normal [facility] Laboratory - Drug toxicology Ordered By: Vibha Jaimes on 10-05-2024 Amphetamines Ql (U) Negative Negative [facility] Barbiturates screen method Nom (U) Negative Negative [facility] Benzodiazepines screen method Nom (U) Negative Negative [facility] Cocaine Ql (U) Negative Negative [facility] Ethanol [Mass/Vol] Negative Negative [facility] Methadone Ql (U) Negative Negative [facility] Opiates Screen Ql (U) Negative Negative [facility] MEDICATION ASSISTED TREATMEN T PANELon 10-05-2024 Amphetamines Ql (U) Negative Normal Negative [facility] Comment on above: Performed By: #### L [id number] ####Tight Rope Walker: JANAE COLLINS ([id number])[facility] ([facility])[address] [place] [address] BARBITURATES Negative Normal Negative [facility] Comment on above: Performed By: #### L [id number] ####Tight Rope Walker: JANAE COLLINS ([id number])[facility] ([facility])[address] [place] [address] Benzodiazepines Ql (U) Negative Normal Negative [facility] Comment on above: Performed By: #### L [id number] ####Tight Rope Walker: JANAE COLLINS ([id number])[facility])[address] [place] [address] BUPRENORPHINE SCREEN Positive Abnormal Negative [facility] Comment on above: Performed By: #### L [id number] ####Tight Rope Walker: JANAE COLLINS ([id number])[facility] ([facility])[address] [place] [address] Cocaine Ql (U) Negative Normal Negative [facility] Comment on above: Performed By: #### L [id number] ####Tight Rope Walker: JANAE COLLINS ([id number])[facility])[address] [place] [address] ETHANOL-ETOHO Negative Normal Negative [facility] Comment on above: Result Comment: TAMARA R COMMENTS: The expected value for the drugs listed above is Negative. The following drugs or drug groups have been screened for by Immunoassay at the following thresholds: Amphetamine class(1000ng/mL) Barbituates(200ng/mL) Benzodiazepines(200ng/mL) Cocaine(300ng/mL) Ethanol (50 ng/mL) Methadone(300ng/mL) Opiates(300ng/mL) Oxycodone(100ng/mL) PCP(25ng/mL) Buprenorphine(5ng/mL) THC(50ng/mL) Fentanyl(1ng/mL) Positive results are NOT confirmed by a more specific alternative method unless requested. If confirmation is needed, request confirmation under separate order. NOTE: These results are for medical treatment only. Analysis performed using non-forensic procedures. Performed By: #### L [id number] ####Tight Rope Walker: JANAE COLLINS ([id number])[facility])[address] [place] [address] FENTANYL Negative Normal Negative [facility] Comment on above: Performed By: #### L [id number] ####Tight Rope Walker: JANAE COLLINS ([id number])[facility])[address] [place] [address] Methadone Ql (U) Negative Normal Negative [facility] Comment on above: Performed By: #### L [id number] ####Tight Rope Walker: JANAE COLLINS ([id number])[facility])[address] [place] [address] Opiates Ql (U) Negative Normal Negative [facility] Comment on above: Performed By: #### L [id number] ####Tight Rope Walker: JANAE COLLINS ([id number])[facility])[address] [place] [address] OXYCODONE/OXYMORPHONE Negative Normal Negative [facility] Comment on above: Performed By: #### L [id number] ####Tight Rope Walker: JANAE COLLINS ([id number])[facility] ([facility])[address] [place] [address] PCP Negative Normal Negative [facility] Comment on above: Performed By: #### L [id number] ####Tight Rope Walker: JANAE COLLINS ([id number])[facility] ([facility])[address] [place] [address] THC-MTTHC Negative Normal Negative [facility] Comment on above: Performed By: #### L [id number] ####Tight Rope Walker: JANAE COLLINS ([id number])[facility])[address] [place] [address] No Panel InformationOrdered By: Vibha Jaimes on 10-05-2024 BUPRENORPHINE SCREEN Positive Abnormal Negative [facility] FENTANYL Negative Negative [facility] Interpretation and review of laboratory results Abnormal [facility] OXYCODONE/OXYMORPHONE Negative Negative [facility] PCP Negative Negative [facility] THC Negative Negative [facility] The expected value f or the drugs listed above is Negative. The following drugs or drug groups have been screened for by Immunoassay at the following thresholds: Amphetamine class(1000ng/mL) Barbituates(200ng/mL) Benzodiazepines(200ng/m L) Cocaine(300ng/mL) Ethanol (50 ng/mL) Methadone(300ng/mL) Opiates(300ng/mL) Oxycodone(100ng/mL) PCP(25ng/mL) Buprenorphine(5ng/mL) THC(50ng/mL) Fentanyl(1ng/mL) Positive results are NOT confirmed by a more specific alternative method unless requested. If confirmation is needed, request confirmation under separate order. NOTE: These results are for medical treatment only. Analysis performed using non-forensic procedures. [facility] Office Visiton 10-05-2024 Follow-up visit [id number] Skylar Landry 1990 F Date Provider Department Center 10/05/2024 [facility] [place] Family History Problem Relation Age of Onset No Known Problems Paternal Grandmother Cancer Maternal Grandmother Cancer Maternal Grandfather Kidney disease Father Comments: kindey problem unknown Cancer Mother Ovarian cancer Mother Infertility Half-Sister Other Half-Sister Comments: Andrade Mass Other Son Comments: Ear tube placement No Known Problems Son Asthma Son Family Status - Relation Status Age at Paternal Grandfather Paternal Grandmother Alive Maternal Grandmother Maternal Grandfather Father Alive Mother Alive Half-Sister Alive Half-Sister Alive Son Alive Son Alive Son Alive Level of Service:76685 NC OFFICE/OUTPATIENT ESTABLISHED MOD MDM 30 MIN Reason for Visit and Comments: Addiction Problem [977350] [facility] Progress Noteon 10-05-2024 Progress Note Urine specimen collected, labeled and sent to lab. Normal [facility] Progress Note MEDICATION ASSISTED TREATMENT BUPRENORPHINE FOLLOW-UP VISIT Patient: Skylar Landry __ I saw this patient in person at the [facility] program. SUBJECTIVE Chief Complaint Patient presents with Addiction Problem Skylar Landry, a 34 y.o. female, returns for a follow-up medication-assisted treatment appointment. She was discharged from the hospital on 08/30/24. Stabilized on bupe 8 mg BID. Had microinduction process to transfer to bupe from methadone (140 mg). Last methadone dose given on 08/29/24. Dose was increased to 20 mg after hospitalization at [facility]. Now taking 20 mg consistently. Feels she needs to take that amount to deal with night time symptoms she was still experiencing. No longer feels like she is going thru methadone withdrawal. Interim History ~35w5d . Denies any illicit drug use since leaving hospital. Assessment at [facility] completed. She would be required to switch to Sublocade but doesn't want to do that while so will continue seeing me. She will not engage in their inpatient program. She may enroll in our CD IOP after delivery. Was switched to Suboxone instead of Subutex. Wasn't able to come to last visit due to scheduling conflict, and then her home pharmacy didn't have Subutex in stock. She was ok with switch. I called her to discuss. Does not feel it is negatively affecting her recovery. Feels the same, and feels stable. Denies drug use since leaving hospital. Was abusing benzos and fentanyl prior to coming to hospital. Started on opioids at the age of 14 2/2 to CKD/nephrolithiasis. Still deals with kidney stones and pain related to it. Says she had to be induced during previous for this reason. Denies pain now. No longer on Keflex. However, CKD may be reason that methadone/benzos was still positive on UDS. Discussed this with patient at length. She did provide urine sample last visit on 09/21 but it was only sent for culture and not UDS for some reason. I discussed with CM. Denies smoking cigarettes/THC at all. Lives in a stable environment now. Planning on staying in [place] after delivery. Zoloft/Seroquel: describes positive benefit from both. Wants refills today. Denies any negative side effects. Feels they help mood and sleep. Shared decision making regarding the use of these psychotropic medications while made, and she wants to continue them. MAT Response Dose: Subutex 20 mg daily. Start Date: 08/23/24. Compliance: Taking as directed. No missed doses. Side Effects: No. Drug Cravings: No. Withdrawal Symptoms: No. Ready to Taper Off MAT: No. Substance Use History Sober Date: 08/23/24. Intensive Outpatient Program: never; planning on entering in our CD [facility] after delivery. Inpatient Drug Rehab: never. 12-Step Meeting Attendance: never. Psychiatric History Diagnoses: depression, anxiety, bipolar 2, ptsd Medications: zoloft 50 mg, seroquel 50 mg nightly Psychiatrist: denies. Counselor: denies. Past Medical History Past Medical History: Diagnosis Date Anxiety Colitis Depression Kidney disease Kidney stone Medullary sponge kidney of both kidneys Social Drivers of Health Intimate Partner Violence: Not At Risk (09/07/2024) Humiliation, Afraid, Rape, and Kick questionnaire Fear of Current or Ex-Partner: No Emotionally Abused: No Physically Abused: No Sexually Abused: No Social Connections: Socially Isolated (09/07/2024) Social Connection and Isolation Panel [NHANES] Frequency of Communication with Friends and Family: Twice a week Frequency of Social Gatherings with Friends and Family: Never Attends Jewish Services: Never Active Member of Clubs or Organizations: No Attends Club or Organization Meetings: Never Marital Status: Never Alcohol Use: Not At Risk (09/07/2024) AUDIT-C Frequency of Alcohol Consumption: Never Average Number of Drinks: Patient does not drink Frequency of Binge Drinking: Never Tobacco Use: Low Risk (09/24/2024) Patient History Smoking Tobacco Use: Never Smokeless Tobacco Use: Never Passive Exposure: Never Financial Resource Strain: High Risk (09/07/2024) Overall Financial Resource Strain (CARDIA) Difficulty of Paying Living Expenses: Very hard Depression: At risk (08/22/2024) PHQ-2 PHQ-2 Score: 6 Depression: Medium Risk (09/07/2024) Wilbur Depression Scale Last EPDS Total Score: 8 Last EPDS Self Harm Result: Never Stress: No Stress Concern Present (09/07/2024) [place] [employer] - Occupational Stress Questionnaire Feeling of Stress : Not at all Physical Activity: Inactive (09/07/2024) Exercise Vital Sign Days of Exercise per Week: 0 days Minutes of Exercise per Session: 0 min Food Insecurity: Food Insecurity Present (09/07/2024) Hunger Vital Sign Worried A (more content not included)... [facility] Progress Note Patient presents for obstetrical ultrasound 35w6d for Nurse visit Skylar denies Headache Right upper quadrant pain Vision changes Chest pain Shortness of breath Vaginal bleeding Leaking of fluid Contractions There were no vitals taken for this visit. 34 y.o. with no concerns today Skylar was instructed to keep her scheduled visit [facility] 36on 09-29-2024 36 We are unable to petey ch your patient to schedule their therapy. We have made 3 attempts to schedule patient, Skylar Landry. 1st attempt: PR Slides Message/Email sent the date after Referral was received. 2nd attempt: Text message sent 3 days from date Referral was received. 3rd attempt: Telephone attempt 6 days from date Referral was received. 09/29/24 LR [facility] [id number] 29 Addended by: MANUEL THOMAS on: 09/28/2024 12:14 PM Modules accepted: Orders [facility] 36on 09-28-2024 36 Called pharmacy and spoke to travis, switched to suboxone. Called patient and notified her of change. [place] [address] Name of caller: Trey ibanez Contact phone number: [phone] Relationship to Patient: [facility] Provider: Manuel Woods MD Practice: [facility]al [facility] Chief Complaint/Reason for Call: Travis is following up o recent order for buprenorphine (Subtex) 8 MG , stating that they do not carry this medication in stock. Travis states that there is a history of patient getting this from [facility] retail pharmacy, and did not know if patient would like to fill it there, or to have Dr Woods send an order for Suboxone instead. Please advise. Best time of day caller can be reached: any Patient advised that office/PCP has 24-48 business hours to return their call: Yes [place] [address] New Medications Orde red This Visit Medications buprenorphine-naloxone (Suboxone) 8-2 MG per sublingual film Sig: Place 1 Film under the tongue 2 times daily for 7 days. Dispense: 14 Film Refill: 0 Pharmacy didn't carry subutex so switching to suboxone. Pharmacy ok with it. [facility] 36 Spoke to patient jus t now. She is not able to attend [facility] today. Has another doctor's appointment at the same time today. She will come next week, 10/05/24. I will send a 1 week Subutex rx. Of note, [facility] and was told they only prescribe Sublocade, so she will continue seeing me for the time being until she can safely transition to Sublocade post-. She denies relapsing since last visit and has been taking Subutex as prescribed. I'll send rx to [facility]. Also of note, she did come to OB triage on 09/24 - that note was reviewed. Almita, can you cancel today's appointment at [facility] and let ACCOUNTING FILE CLERK know she won't be coming today too. [place] [address] Patient is calling i n checking status of med refill adv patient provider does have 24-48 hours to respond to messages , patient is concerned because the RX runs out today and she is . Patient also stated that she might go to the center program today where provider will be. [facility] 36 Name of caller: Trey Landry Contact phone number: [phone] Relationship to Patient: patient Provider: Dr Woods Practice: [facility] Chief Complaint/Reason for Call: Patient states she is not going to be able to make her appointment today unless it is absolutely necessary as she is an hour away. Patient is calling to check status of buprenorphine (Subtex) 8 MG. Please advise as soon as possible as patient states she will call again in an hour if she has not heard anything. Pharmacy verified Best time of day caller can be reached: Any Patient advised that office/PCP has 24-48 business hours to return their call: Yes [facility] 36on 09-27-2024 36 Medication name: buprenorphine (Subtex) 8 MG Medication dosage: 8 mg (Miligrams Monthly quantity needed: 14 How many day supply requesting: unknown Medication route: oral (PO) Medication administration time(s): Patient Sig: Place 1 tablet (8 mg) under the tongue 2 times daily for 7 days. If taking medication PRN, reason for taking medication: N/A If this is a controlled substance do you receive this or any other controlled medication from any other doctor or facility: No Ordering provider: Dr. Woods Date of last office visit: unknown Date of next office visit: 09/28/2024 Date of last refill: (see medication tab): 09/21/24 Updated/Validated preferred pharmacy: Yes Patient instructed to contact the pharmacy prior to picking up the medication: Yes [facility] 36on 09-24-2024 36 S: Patient spoke tamir [facility] nurse regarding problem. B: Onset of symptoms/concern 09/24/2024. A: Patient is x34 weeks . Patient reports she was seen in office on Friday and she is having severe kidney pain x4 days. Pain is located to bilateral lower back, states she has history of kidney disease, but pain is different. Patient been nauseous daily due to pain, also has pain with urination. Patient checked her labs and seen abnormal urine culture, wants to know if she needs treatment. R: Paged enterprise resource planning consultant provider Dr. White via secure chat- advises Hi there! If she is having n/v with kidney pain she should come to OB triage oh H2 at [facility]. Informed patient of provider's instructions, she verbalized understanding. No further needs at this time. Patient instructed to call back with new or worsening symptoms. Reason for Disposition [1] Caller has URGENT medicine question about med that PCP or specialist prescribed AND [2] triager unable to answer question Protocols used: Medication Question [id number] Normal [facility] CBC (HEMOGRAM)on 09-24-2024 Erythrocyte distribution width (RBC) [Ratio] 13.6 % Normal 11.5-15.0 [facility] Comment on above: Performed By: #### L [id number] #### Tight Rope Walker: JANAE COLLINS ([id number]) [facility]) [address] [place] [address] Hematocrit (Bld) [Volume fraction] 32.3 % Low 35.0-47.0 [facility] Comment on above: Performed By: #### L [id number] #### Tight Rope Walker: JANAE COLLINS ([id number]) [facility]) [address] [place] [address] Hemoglobin (Bld) [Mass/Vol] 10.5 g/dL Low 11.7-16.0 [facility] Comment on above: Performed By: #### L [id number] #### Tight Rope Walker: JANAE COLLINS ([id number]) [facility]) [address] [place] [address] MCH (RBC) [Entitic mass] 27.5 pg Normal 26.0-34.0 [facility] Comment on above: Performed By: #### L [id number] #### Tight Rope Walker: JANAE COLLINS ([id number]) [facility]) [address] [place] [address] MCHC 32.5 % Normal 30.5-36.0 [facility] Comment on above: Performed By: #### L [id number] #### Tight Rope Walker: JANAE [id number]) [facility] [address] [place] [address] MCV (RBC) [Entitic vol] 84.6 fL Normal 77.0-99.0 [facility] Comment on above: Performed By: #### L [id number] #### Tight Rope Walker: JANAE COLLINS ([id number]) [facility] ([facility]) [address] [place] [address] Platelet mean volume (Bld) [Entitic vol] 10.5 fL Normal 9.0-12.7 [facility] Comment on above: Performed By: #### L [id number] #### Tight Rope Walker: JANAE COLLINS ([id number]) [facility] ([facility]) [address] [place] [address] Platelets (Bld) [#/Vol] 272 10*3/uL Normal 140-440 [facility] Comment on above: Performed By: #### L [id number] #### Tight Rope Walker: JANAE COLLINS ([id number]) [facility] ([facility]) [address] [place] [address] RBC (Bld) [#/Vol] 3.82 10*6/uL Normal 3.80-5.20 [facility] Comment on above: Performed By: #### L [id number] #### Tight Rope Walker: JANAE COLLINS ([id number]) [facility] ([facility]) [address] [place] [address] WBC (Bld) [#/Vol] 10.7 10*3/uL Normal 3.6-10.7 [facility] Comment on above: Performed By: #### L [id number] #### Tight Rope Walker: JANAE COLLINS ([id number]) [facility]) [address] [place] [address] CBC panel Auto (Bld)on 09-24 Erythrocyte distribution width (RBC) [Ratio] 13.6 % 11.5 - 15.0 % [facility] Hematocrit (Bld) [Volume fraction] 32.3 % Low 35.0 - 47.0 % [facility] Hemoglobin (Bld) [Mass/Vol] 10.5 g/dL Low 11.7 - 16.0 g/dL [facility] Interpretation and review of laboratory results Abnormal [facility] MCH (RBC) [Entitic mass] 27.5 pg 26. 0 - 34.0 pg [facility] MCHC (RBC) [Mass/Vol] 32.5 % 30.5 - 36.0 % [facility] MCV (RBC) [Entitic vol] 84.6 fL 77.0 - 99.0 fL [facility] Platelet mean volume (Bld) [Entitic vol] 10.5 fL 9.0 - 12.7 fL [facility] Platelets (Bld) [#/Vol] 272 10*3/uL 140 - 440 10*3/uL [facility] RBC (Bld) [#/Vol] 3.82 10*6/uL 3.80 - 5.2 0 10*6/uL [facility] WBC (Bld) [#/Vol] 10.7 10*3/uL 3.6 - 10.7 10*3/uL [facility] COMPREHENSIVE METABOLIC PANE Baron 09-24-2024 Albumin [Mass/Vol] 2.4 g/dL Low 3.5-5.0 [facility] Comment on above: Performed By: #### L [id number] #### Tight Rope Walker: JANAE COLLINS ([id number]) [facility]) [address] [place] [address] ALP [Catalytic activity/Vol] 152 U/L High 40-150 [facility] Comment on above: Performed By: #### L [id number] #### Tight Rope Walker: JANAE COLLINS ([id number]) [facility] ([facility]) [address] [place] [address] ALT [Catalytic activity/Vol] 7 U/L Normal <30 [facility] Comment on above: Performed By: #### L [id number] #### Tight Rope Walker: JANAE COLLINS ([id number]) [facility] ([facility]) [address] [place] [address] Anion gap [Moles/Vol] 11 mmol/L Normal 3-13 [facility] Comment on above: Performed By: #### L [id number] #### Tight Rope Walker: JANAE COLLINS ([id number]) [facility] ([facility]) [address] [place] [address] AST [Catalytic activity/Vol] 17 U/L Normal <34 [facility] Comment on above: Performed By: #### L [id number] #### Tight Rope Walker: JANAE COLLINS ([id number]) [facility]) [address] [place] [address] Bilirubin [Mass/Vol] 0.1 mg/dL Normal <1.2 [facility] Comment on above: Performed By: #### L [id number] #### Tight Rope Walker: JANAE COLLINS ([id number]) [facility] ([facility]) [address] [place] [address] Calcium [Mass/Vol] 8.8 mg/dL Normal 8.4-10.2 [facility] Comment on above: Performed By: #### L [id number] #### Tight Rope Walker: JANAE COLLINS ([id number]) [facility]) [address] [place] [address] [place] Chloride [Moles/Vol] 106 mmol/L Normal 98-107 [facility] Comment on above: Performed By: #### L [id number] #### Tight Rope Walker: JANAE COLLINS ([id number]) [facility] [address] [place] [address] [place] CO2 [Moles/Vol] 16 mmol/L Low 22-29 [facility] Comment on above: Performed By: #### L [id number] #### Tight Rope Walker: JANAE COLLINS ([id number]) [facility] [address] [place] [address] [place] Creatinine [Mass/Vol] 0.60 mg/dL Normal 0.57-1.11 [facility] Comment on above: Performed By: #### L [id number] #### Tight Rope Walker: JANAE [id number]) [facility] ([facility] GLOMERULAR FILTRATION RATE ML/MIN/1.73 SQ M.PREDICTED >90.0 Normal >60.0 [facility] Comment on above: Result Comment: Calc ulation based on the Chronic Kidney Disease Epidemiology Collaboration (CKD-EPI) equation refit without adjustment for race Performed By: #### L [id number] #### Tight Rope Walker: JANAE COLLINS ([id number]) [facility]) [address] [place] [address] Glucose [Mass/Vol] 117 mg/dL High 74-100 [facility] Comment on above: Performed By: #### L [id number] #### Tight Rope Walker: JANAE COLLINS ([id number]) [address] Potassium [Moles/Vol] 3.7 mmol/L Normal 3.5-5.1 [facility] Comment on above: Result Comment: [facility] potassium values may be up to 0.5 mmol/L lower than serum values. Performed By: #### L [id number] #### Tight Rope Walker: JANAE COLLINS ([id number]) [facility]) [address] [place] [address] Protein [Mass/Vol] 6.3 g/dL Low 6.4-8.3 [facility] Comment on above: Performed By: #### L [id number] #### Tight Rope Walker: JANAE COLLINS ([id number]) [place] [address] [place] Sodium [Moles/Vol] 133 mmol/L Low 136-145 [facility] Comment on above: Performed By: #### L [id number] #### Tight Rope Walker: JANAE [id number]) [address] Urea nitrogen [Mass/Vol] 10 mg/dL Normal 8-21 [facility] Comment on above: Performed By: #### L [id number] #### Tight Rope Walker: JANAE [id number]) [facility] [address] [place] [address] Comprehensive metabolic 1998 panelon 09-24-2024 Albumin [Mass/Vol] 2.4 g/dL Low 3.5 - 5.0 g/dL [facility] ALP [Catalytic activity/Vol] 152 U/L High 40 - 150 U/L [facility] ALT [Catalytic activity/Vol] 7 U/L NINF - 30 U/L [facility] Anion gap [Moles/Vol] 11 mmol/L 3 - 13 mmol/L [facility] AST [Catalytic activity/Vol] 17 U/L NINF - 34 U/L [facility] Bilirubin [Mass/Vol] 0.1 mg/dL NINF - 1.2 mg/dL [facility] Calcium [Mass/Vol] 8.8 mg/dL 8.4 - 10. 2 mg/dL [facility] Chloride [Moles/Vol] 106 mmol/L 98 - 10 7 mmol/L [facility] CO2 [Moles/Vol] 16 mmol/L Low 22 - 29 mmol/L [facility] Creatinine [Mass/Vol] 0.6 mg/dL 0.57 - 1.11 mg/dL [facility] GFR/1.73 sq M.predicted (S/P/Bld) [Vol rate/Area] - PINF [facility] Comment on above: Calculation based on the Chronic Kidney Disease Epidemiology Collaboration (CKD-EPI) equation refit without adjustment for race Glucose [Mass/Vol] 117 mg/dL High 74 - 100 mg/dL [facility] Interpretation and review of laboratory results Abnormal [facility] Potassium [Moles/Vol] 3.7 mmol/L 3.5 - 5.1 mmol/L [facility] Comment on above: Plasma potassium mikey ues may be up to 0.5 mmol/L lower than serum values. Protein [Mass/Vol] 6.3 g/dL Low 6.4 - 8.3 g/dL [facility] Sodium [Moles/Vol] 133 mmol/L Low 136 - 145 mmol/L [facility] Urea nitrogen [Mass/Vol] 10 mg/dL 8 - 21 mg/d L [facility] Progress Noteon 09-24-2024 Progress Note --- Attestation signed by Ave Marie MD at 09/25/2024 12:07 AM Hospital Care (Independent): I independently saw and evaluated the patient. I agree with the findings and plan of care as documented in the resident's note. Skylar Landry was seen in the Obstetrics ED. Please see chart note for details. Follow up: Keep next scheduled visit Department of Obstetrics and Gynecology Labor and Delivery Triage Note CHIEF CONCERN: Lower back pain HISTORY OF PRESENT ILLNESS: The patient is a 34 y.o. at 34w2d who presents with the above chief concern. The patient presents with increasingly worse lower back pain. She then said she opened her MyChart and saw that she had a urinary tract infection, called the call center, and was told to present to OB triage for further evaluation. The patient has a history of kidney stones in prior pregnancies. She mentions that she does not have dysuria, she just feels different when she urinates. She has not taken any medicine for her pain. She denies fever/chills, hematuria, decreased movement, contractions Estimated Due Date: Estimated Date of Delivery: 11/03/24 CARE: Complicated by: substance abuse DETAILED OB HISTORY: OB History 7 Para 3 Term 2 1 AB 3 Living 3 SAB 1 IAB 2 Ectopic Multiple Live Births 3 Obstetric Comments Plans to formula feed OB History Para Term AB Living 7 3 2 1 3 3 SAB IAB Ectopic Multiple Live Births 1 2 3 # Outcome Date GA Lbr Zen/2nd Weight Sex Type Anes PTL Lv 7 Current 6 01/13/23 35w0d M Vag-Spont RAQUEL Comments: per pt, induced at around 35wks (unsure exact GA) d/t kidney stones Complications: Kidney stone complicating 5 Term 09/19/15 M Vag-Spont EPI RAQUEL 4 Term 09/21/10 M Vag-Spont EPI RAQUEL Comments: Nephrostomy tube during 3 IAB Comments: pt unsure of year, IAB in G2 closely after G1 in 2010 2 IAB Comments: pt unsure of exact year, IAB in G3 1 SAB Comments: pt unsure of exact year, reports miscarriage in G5 Obstetric Comments Plans to formula feed PAST MEDICAL HISTORY: Past Medical History: Diagnosis Date Anxiety Colitis Depression Kidney disease Kidney stone Medullary sponge kidney of both kidneys PAST SURGICAL HISTORY: Past Surgical History: Procedure Laterality Date DILATION AND CURETTAGE (HISTORICAL) 2022 IR NEPHROSTOMY TUBE PLACEMENT STENT INSERTION (HISTORICAL) 2023 kidneys SOCIAL HISTORY: History of substance abuse MEDICATIONS: Prior to Admission medications Medication Sig Start Date End Date Taking? Authorizing Provider aspirin 81 MG chewable tablet Chew 2 tablets (162 mg) daily. 08/30/24 08/30/25 Yes Mercedez Villegas DO buprenorphine (Subtex) [address] 1 tablet (8 mg) under the tongue 2 times daily for 7 days. 09/21/24 09/28/24 Yes Manuel Woods MD Vit-Fe Fumarate-FA ( Vitamins) 28-0.8 MG tablet Take 1 tablet by mouth daily. 08/30/24 08/30/25 Yes Mercedez Villegas DO QUEtiapine (SEROquel) 50 MG tablet Take 1 tablet (50 mg) by mouth Nightly as needed (Insomnia/sleep). 09/14/24 10/14/24 Yes Manuel Woods MD sertraline (Zoloft) 50 MG tablet Take 1 tablet (50 mg) by mouth daily. 09/07/24 10/07/24 Yes Manuel Woods MD fosfomycin (Monurol) 3 g packet Take 3 g by mouth Once for 1 dose. 09/23/24 09/24/24 Denia Arteaga MD lidocaine (Lidoderm) 5 % patch Apply 1 patch topically daily. Remove & discard patch within 12 hours or as directed by . 08/30/24 Mercedez Villegas DO ondansetron (Zofran) 4 MG tablet Take 8 mg by mouth every 8 hours as needed for nausea or vomiting. Historical Provider, buprenorphine (Subtex) [address] 1 tablet (8 mg) under the tongue 2 times daily for 7 days. 09/14/24 09/21/24 Manuel Woods MD REVIEW OF SYSTEMS: Per HPI APPEARANCE: Pain: No PHYSICAL EXAM: Vital Signs: Vitals: 09/24/24 2127 BP: 127/80 Pulse: 119 Resp: 18 Temp: 37.1 ?C (98.7 ?F) TempSrc: Oral Weight: 200 lb (90.7 kg) Height: 5' 4 (1.626 m) Physical Exam Constitutional: Appearance: Normal appearance. Genitourinary: Vulva normal. Pulmonary: Effort: Pulmonary effort is normal. Abdominal: Tenderness: There is no abdominal tenderness. There is no right CVA tenderness or left CVA tenderness. Neurological: General: No focal deficit present. Mental Status: She is alert. Psychiatric: Mood and Affect: Mood normal. Behavior: Behavior normal. Cervix: Closed RESULTS: heart rate: Category I Contraction frequency: none NST: Reactive Procedures GENERAL LABS: Recent Results (from the past 24 hours) Comprehensive metabolic panel Collection Time: 04 (more content not included)... [facility] 29on 09-21-2024 29 Addended by: MARYCARMEN JAIME on: 09/21/2024 01:49 PM Modules accepted: Orders [facility] 29 Addended by: ROMY ARTEAGA on: 09/23/2024 08:40 AM Modules accepted: Orders [facility] Office Visiton 09-21-2024 Follow-up visit [id number] Skylar Landry 1990 F Date Provider Department Center 09/21/2024 [id number] WOODS [facility] None Family History Problem Relation Age of Onset No Known Problems Paternal Grandmother Cancer Maternal Grandmother Cancer Maternal Grandfather Kidney disease Father Comments: kindey problem unknown Cancer Mother Ovarian cancer Mother Infertility Half-Sister Other Half-Sister Comments: [place] Mass Other Son Comments: Ear tube placement No Known Problems Son Asthma Son Family Status - Relation Status Age at Paternal Grandfather Paternal Grandmother Alive Maternal Grandmother Maternal Grandfather Father Alive Mother Alive Half-Sister Alive Half-Sister Alive Son Alive Son Alive Son Alive Level of Service:63616 NC OFFICE/OUTPATIENT ESTABLISHED MOD MDM 30 MIN Reason for Visit and Comments: Addiction Problem [541427] [facility] Progress Noteon 09-21-2024 Progress Note Doing well Having raudel cruz Request SVE 1, thick, posterior, firm labor precautions provided [facility] Progress Note Continue Subutex 8mg BID per addiction medicine Continue centering [facility] Progress Note ANFS scheduled, reviewed dates with patient [facility] Progress Note Follow up urine cult ure ordered [facility] Progress Note MEDICATION ASSISTED TREATMENT BUPRENORPHINE FOLLOW-UP VISIT Patient: Skylar Landry __ I saw this patient in person at the [facility]. SUBJECTIVE Chief Complaint Patient presents with Addiction Problem Skylar Landry, a 34 y.o. female, returns for a follow-up medication-assisted treatment appointment. She was discharged from the hospital on 08/30/24. Stabilized on bupe 8 mg BID. Had microinduction process to transfer to bupe from methadone (140 mg). Last methadone dose given on 08/29/24. Dose was increased to 20 mg after hospitalization at [facility]. Now taking 20 mg consistently. Feels she needs to take that amount to deal with night time symptoms she was still experiencing. No longer feels like she is going thru methadone withdrawal. Interim History ~33w5d . Denies any illicit drug use since leaving hospital. [facility] to [facility]/22. She may end up going into inpatient treatment there for duration of . Will let our CM know after assessment. However, most likely, will engage in their outpatient counseling program only and continue coming to our [facility] program for MAT. Denies drug use since leaving hospital. Was abusing benzos and fentanyl prior to coming to hospital. Started on opioids at the age of 14 2/2 to CKD/nephrolithiasis. Still deals with kidney stones and pain related to it. Says she had to be induced during previous for this reason. Denies pain now. No longer on Keflex. However, CKD may be reason that methadone/benzos still positive on UDS. Discussed this with patient at length. Denies smoking cigarettes/THC. MAT Response Dose: Subutex 20 mg daily. Start Date: 08/23/24. Compliance: Taking as directed. No missed doses. Side Effects: No. Drug Cravings: Yes. Withdrawal Symptoms: No. Ready to Taper Off MAT: No. Substance Use History Sober Date: 08/23/24. Intensive Outpatient Program: never; planning on entering in our [facility]. Inpatient Drug Rehab: never. 12-Step Meeting Attendance: never. Psychiatric History Diagnoses: depression, anxiety, bipolar 2, ptsd Medications: zoloft 50 mg, seroquel 50 mg nightly Psychiatrist: isabela. Counselor: isabela. Past Medical History Past Medical History: Diagnosis Date Anxiety Colitis Depression Kidney disease Kidney stone Medullary sponge kidney of both kidneys Social Drivers of Health Intimate Partner Violence: Not At Risk (09/07/2024) Humiliation, Afraid, Rape, and Kick questionnaire Fear of Current or Ex-Partner: No Emotionally Abused: No Physically Abused: No Sexually Abused: No Social Connections: Socially Isolated (09/07/2024) Social Connection and Isolation Panel [NHANES] Frequency of Communication with Friends and Family: Twice a week Frequency of Social Gatherings with Friends and Family: Never Attends Jewish Services: Never Active Member of Clubs or Organizations: No Attends Club or Organization Meetings: Never Marital Status: Never Alcohol Use: Not At Risk (09/07/2024) AUDIT-C Frequency of Alcohol Consumption: Never Average Number of Drinks: Patient does not drink Frequency of Binge Drinking: Never Tobacco Use: Low Risk (09/07/2024) Patient History Smoking Tobacco Use: Never Smokeless Tobacco Use: Never Passive Exposure: Never Financial Resource Strain: High Risk (09/07/2024) Overall Financial Resource Strain (CARDIA) Difficulty of Paying Living Expenses: Very hard Depression: At risk (08/22/2024) PHQ-2 PHQ-2 Score: 6 Depression: Medium Risk (09/07/2024) Wilbur Depression Scale Last EPDS Total Score: 8 Last EPDS Self Harm Result: Never Stress: No Stress Concern Present (09/07/2024) [place] [employer] - Occupational Stress Questionnaire Feeling of Stress : Not at all Physical Activity: Inactive (09/07/2024) Exercise Vital Sign Days of Exercise per Week: 0 days Minutes of Exercise per Session: 0 min Food Insecurity: Food Insecurity Present (09/07/2024) Hunger Vital Sign Worried About Running Out of Food in the Last Year: Sometimes true Ran Out of Food in the Last Year: Sometimes true Transportation Needs: Unmet Transportation Needs (09/07/2024) PRAPARE - Transportation Lack of Transportation (Medical): Yes Lack of Transportation (Non-Medical): Yes Housing Stability: High Risk (09/07/2024) Housing Stability Vital Sign Unable to Pay for Housing in the Last Year: Yes Number of Times Moved in the Last Year: 3 Homeless in the Last Year: No Utilities: Not At Risk (09/07/2024) [facility] Utilities Threatened with loss of utilities: No Recent Concern: Utilities - At Risk (08/22/2024) [facility] Utilities Threatened with loss of utilities: Yes OBJECTIVE Last Urine Drug Screen (09/14/24) +benzos, methadone, bupe (benzo confirmation +n (more content not included)... Normal [facility] Progress Note --- Attestation signed by Ave Marie MD at 09/21/2024 2:15 PM [facility]: [facility] by the resident. I reviewed and agree with the care provided by the resident during or immediately following the visit including the patient's medical history, the resident's finding in the physical exam, patient's diagnosis and treatment plan. Assessment and Plan: Urinary tract infection Follow up urine culture ordered Drug use affecting in third trimester ANFS scheduled, reviewed dates with patient Polysubstance abuse ([facility]) ([facility]) Continue Subutex 8mg BID per addiction medicine Continue centering Supervision of high risk due to social problems, third trimester Doing well Having raudel cruz Request SVE 1, thick, posterior, firm labor precautions provided No chief complaint on file. 34 y.o. yo at 33w6d Here today for MARLENY No acute complaints. Denies DFM/VB/CTX/LOF ROS: No pelvic pain PE: BP 107/62 PE: Gen: NAD, A&Ox3 HEENT: NC/AT, EOMI Abd: nontender, uterus palpable on exam Skin: warm/dry BLE: without edema, non-tender ASA Indications High Risk Indication for Daily ASA: N/A Two Moderate Risk Indication for Daily ASA: N/A ASA prescribed: No, Not Indicated 1 week centering , 2 wk MARLENY Normal [facility] Progress Note Patient presents for obstetrical ultrasound 33w6d for Nurse visit Skylar denies Headache Right upper quadrant pain Vision changes Chest pain Shortness of breath Vaginal bleeding Leaking of fluid Contractions There were no vitals taken for this visit. 34 y.o. with no concerns today Skylar was instructed to keep her scheduled visit Normal [facility] URINE CULTUREon 09-21-2024 Bacteria identified Cx Nom (U) URINE CULTURE Reference Normal urogenital yari present ESCHERICHIA COLI >100,000 CFU/mL Escherichia coli (A) This phenotype is suggestive of an ESBL-producing organism. Treatment with beta-lactam antibiotics other than carbapenems may not be effective. Organism: ESCHERICHIA COLI Antibiotic ROCIO Interpretation Status Amoxicillin / Clavulanate R F Ampicillin R F Ampicillin / Sulbactam R F Aztreonam 16 ug/ml R F Cefazolin R F Cefepime R F Ceftriaxone >=64 ug/ml R F Ciprofloxacin >=4 ug/ml R F Ertapenem <=0.12 ug/ml S F Gentamicin <=1 ug/ml S F Levofloxacin >=8 ug/ml R F Meropenem <=0.25 ug/ml S F Nitrofurantoin 128 ug/ml R F Piperacillin / Tazobactam R F Trimethoprim / Sulfamethoxazole >=320 ug/ml R F [ S = SUSCEPTIBLE R = RESISTANT I = INTERMEDIATE S-DD = Susceptible-dose dependent NS = Non-susceptible NO = No Interpretation ] [facility] Comment on above: Performed By: #### L [id number] #### Tight Rope Walker: JANAE COLLINS ([id number]) [facility] ([address] US OB FOLLOW UP TRANSABDOMIN AL APPROACHon 09-21-2024 US OB FOLLOW UP TRANSABDOMINAL APPROACH - OBSTETRICS REPORT (Signed Final 09/21/2024 11:58 am) - PATIENT INFO: ID #: [id number] : [birth year] (34 yrs)(F) Name: SKYLAR GARCÍAITE Visit Date: 09/21/2024 11:36 am - PERFORMED BY: Attending: Eliezer Gonzales MD, HECTOR, FACOG Performed By: Amena Tan RDMS Referred By: ELENA PARK Secondary Phy.: ILENE SZYMANSKI Location: [facility] Visit Type: Outpatient - SERVICE(S) [place] [id number] - INDICATIONS: Opioid dependence, uncomplicated (HCC) F11.20 - VITAL SIGNS: Weight (lb): 196 - EVALUATION: Num Of Fetuses: 1 Heart Rate(bpm): 134 Cardiac Activity: Regular rhythm Lie: Longitudinal Presentation: Cephalic Placenta: Anterior Amniotic Fluid TYREE FV: Within normal limits TYREE Sum(cm) %Tile Largest Pocket(cm) 22.48 85 9.31 RUQ(cm) RLQ(cm) LUQ(cm) LLQ(cm) 9.31 6.03 3.77 3.37 - BIOMETRY: BPD: 88.6 mm G.Age: 35w 6d 92 % OFD: 110.1 mm HC: 319.6 mm G.Age: 36w 0d 70 % AC: 297.4 mm G.Age: 33w 5d 49 % FL: 66 mm G.Age: 34w 0d 43 % LV: 5.12 mm CI: 80.5 % 70 - 86 FL/HC: 20.7 % 19.4 - 21.8 HC/AC: 1.07 0.96 - 1.11 FL/BPD: 74.5 % 71 - 87 FL/AC: 22.2 % 20 - 24 Est. FW: 2380 gm 5 lb 4 oz 51 % - GESTATIONAL AGE: Clinical KWAKU: 33w 6d KWAKU: 11/03/24 U/S Today: 34w 6d KWAKU: 10/27/24 Best: 33w 6d Det. By: Clinical KWAKU KWAKU: 11/03/24 - TARGETED ANATOMY: Central Nervous System Calvarium/Cranial V.: Normal appearance Intracranial Maria Elena: Normal appearance Cavum: Normal appearance Parenchyma: Normal appearance Lateral Ventricles: Normal appearance Choroid Plexus: Normal appearance Cereb./Vermis: Normal appearance Cisterna Magna: Normal appearance Midline Falx: Normal appearance Spine Sacral: Normal appearance Head/Neck Face: Normal appearance Lips: Normal appearance Nasal Bone: Present Palate: Suboptimal views Profile: Normal appearance Orbits/Eyes: Normal appearance Mandible: Suboptimal views Maxilla: Suboptimal views Thorax Thoracic Contour: Normal appearance Lungs: Normal appearance 4 Chamber View: Normal appearance Cardiac Activity: Normal Cardiac Rhythm: Normal Cardiac Situs: Normal appearance Rt Outflow Tract: Normal appearance Lt Outflow Tract: Normal appearance Aortic Arch: Normal appearance Ductal Arch: Normal appearance SVC: Normal appearance Interventr. Septum: Normal appearance Cardiac [place]: Normal appearance Diaphragm: Normal appearance 3 Vessel View: Normal appearance 3 V Trachea View: Normal appearance IVC: Normal Appearance Crossing: Normal appearance Abdomen Ventral Wall: Normal appearance Cord Insertion: Normal appearance Situs: Normal appearance Stomach: Normal appearance Liver: Normal appearance Gallbladder: Normal appearance Lt Kidney: Normal appearance Rt Kidney: Normal appearance Bladder: Normal appearance Adrenals: Normal appearance Bowel: Normal appearance Extremities Rt Humerus: Suboptimal views Rt Forearm: Suboptimal views Rt Hand: Suboptimal views Other Umbilical Cord: Normal 3-vessel Genitalia: Normal appearance Comment: Bilateral ankles - Normal appearance, Bilateral ankles - Sub-optimal views - - Eliezer Gonzales MD, HECTOR, FACOG Electronically Signed Final Report 09/21/2024 11:58 am - IMPRESSION: 1. [place] live intrauterine at 33w 6d. 2. Normal growth; EFW 2380 grams, which is at the 51%tile for gestational age. The AC measures at the 49%tile for gestational age. 3. The amniotic fluid index is 22.48cm, which is within normal limits. 4. Visualized anatomy appears normal as noted above. RECOMMENDATIONS: Follow-up as clinically indicated. Ultrasound is not diagnostic for aneuploidy and will not detect all structural abnormalities, even if multiple exams are performed during a given . Normal ultrasound findings do not guarantee normal outcomes. Normal [facility] US for pregnancyon 5 1. [place] live intrauterine at 33w 6d. 2. Normal growth; EFW 2380 grams, which is at the 51%tile for gestational age. The AC measures at the 49%tile for gestational age. 3. The amniotic fluid index is 22.48cm, which is within normal limits. 4. Visualized anatomy appears normal as noted above. RECOMMENDATIONS: Follow-up as clinically indicated. Ultrasound is not diagnostic for aneuploidy and will not detect all structural abnormalities, even if multiple exams are performed during a given . Normal ultrasound findings do not guarantee normal outcomes. [facility] - OBSTETRICS REPORT (Signed Final 09/21/2024 11:58 am) - PATIENT INFO: ID #: [id number] : [birth year] (34 yrs)(F) Name: SKYLAR GARCÍAITE Visit Date: 09/21/2024 11:36 am - PERFORMED BY: Attending: Eliezer Gonzales MD, HECTOR, FACOG Performed By: Amena Tan RDMS Referred By: ELENA Marcelino Phy.: ILENE SZYMANSKI Location: [facility] Visit Type: Outpatient - SERVICE(S) [place]: [place] [id number] - INDICATIONS: Opioid dependence, uncomplicated (HCC) F11.20 - VITAL SIGNS: Weight (lb): 196 - EVALUATION: Num Of Fetuses: 1 Heart Rate(bpm): 134 Cardiac Activity: Regular rhythm Lie: Longitudinal Presentation: Cephalic Placenta: Anterior Amniotic Fluid TYREE FV: Within normal limits TYREE Sum(cm) %Tile Largest Pocket(cm) 22.48 85 9.31 RUQ(cm) RLQ(cm) LUQ(cm) LLQ(cm) 9.31 6.03 3.77 3.37 - BIOMETRY: BPD: 88.6 mm G.Age: 35w 6d 92 % OFD: 110.1 mm HC: 319.6 mm G.Age: 36w 0d 70 % AC: 297.4 mm G.Age: 33w 5d 49 % FL: 66 mm G.Age: 34w 0d 43 % LV: 5.12 mm CI: 80.5 % 70 - 86 FL/HC: 20.7 % 19.4 - 21.8 HC/AC: 1.07 0.96 - 1.11 FL/BPD: 74.5 % 71 - 87 FL/AC: 22.2 % 20 - 24 Est. FW: 2380 gm 5 lb 4 oz 51 % - GESTATIONAL AGE: Clinical KWAKU: 33w 6d KWAKU: 11/03/24 U/S Today: 34w 6d KWAKU: 10/27/24 Best: 33w 6d Det. By: Clinical KWAKU KWAKU: 11/03/24 - TARGETED ANATOMY: Central Nervous System Calvarium/Cranial V.: Normal appearance Intracranial Maria Elena: Normal appearance Cavum: Normal appearance Parenchyma: Normal appearance Lateral Ventricles: Normal appearance Choroid Plexus: Normal appearance Cereb./Vermis: Normal appearance Cisterna Magna: Normal appearance Midline Falx: Normal appearance Spine Sacral: Normal appearance Head/Neck Face: Normal appearance Lips: Normal appearance Nasal Bone: Present Palate: Suboptimal views Profile: Normal appearance Orbits/Eyes: Normal appearance Mandible: Suboptimal views Maxilla: Suboptimal views Thorax Thoracic Contour: Normal appearance Lungs: Normal appearance 4 Chamber View: Normal appearance Cardiac Activity: Normal Cardiac Rhythm: Normal Cardiac Situs: Normal appearance Rt Outflow Tract: Normal appearance Lt Outflow Tract: Normal appearance Aortic Arch: Normal appearance Ductal Arch: Normal appearance SVC: Normal appearance Interventr. Septum: Normal appearance Cardiac [place]: Normal appearance Diaphragm: Normal appearance 3 Vessel View: Normal appearance 3 V Trachea View: Normal appearance IVC: Normal Appearance Crossing: Normal appearance Abdomen Ventral Wall: Normal appearance Cord Insertion: Normal appearance Situs: Normal appearance Stomach: Normal appearance Liver: Normal appearance Gallbladder: Normal appearance Lt Kidney: Normal appearance Rt Kidney: Normal appearance Bladder: Normal appearance Adrenals: Normal appearance Bowel: Normal appearance Extremities Rt Humerus: Suboptimal views Rt Forearm: Suboptimal views Rt Hand: Suboptimal views Other Umbilical Cord: Normal 3-vessel Genitalia: Normal appearance Comment: (more content not included)... [facility] Carlito Gonzales MD - 09/21/2024 - OBSTETRICS REPORT (Signed Final 09/21/2024 11:58 am) - PATIENT INFO: ID #: [id number] : [birth year] (34 yrs)(F) Name: SKYLAR LANDRY Visit Date: 09/21/2024 11:36 am - PERFORMED BY: Attending: Eliezer Gonzales MD, HECTOR, FACOG Performed By: Amena Tan RDMS Referred By: ELENA Marcelino Phy.: ILENE SZYMANSKI Location: [facility] Visit Type: Outpatient - SERVICE(S) [place]: [place] [address] - INDICATIONS: Opioid dependence, uncomplicated (HCC) F11.20 - VITAL SIGNS: Weight (lb): 196 - EVALUATION: Num Of Fetuses: 1 Heart Rate(bpm): 134 Cardiac Activity: Regular rhythm Lie: Longitudinal Presentation: Cephalic Placenta: Anterior Amniotic Fluid TYREE FV: Within normal limits TYREE Sum(cm) %Tile Largest Pocket(cm) 22.48 85 9.31 RUQ(cm) RLQ(cm) LUQ(cm) LLQ(cm) 9.31 6.03 3.77 3.37 - BIOMETRY: BPD: 88.6 mm G.Age: 35w 6d 92 % OFD: 110.1 mm HC: 319.6 mm G.Age: 36w 0d 70 % AC: 297.4 mm G.Age: 33w 5d 49 % FL: 66 mm G.Age: 34w 0d 43 % LV: 5.12 mm CI: 80.5 % 70 - 86 FL/HC: 20.7 % 19.4 - 21.8 HC/AC: 1.07 0.96 - 1.11 FL/BPD: 74.5 % 71 - 87 FL/AC: 22.2 % 20 - 24 Est. FW: 2380 gm 5 lb 4 oz 51 % - GESTATIONAL AGE: Clinical KWAKU: 33w 6d KWAKU: 11/03/24 U/S Today: 34w 6d KWAKU: 10/27/24 Best: 33w 6d Det. By: Clinical KWAKU KWAKU: 11/03/24 - TARGETED ANATOMY: Central Nervous System Calvarium/Cranial V.: Normal appearance Intracranial Maria Elena: Normal appearance Cavum: Normal appearance Parenchyma: Normal appearance Lateral Ventricles: Normal appearance Choroid Plexus: Normal appearance Cereb./Vermis: Normal appearance Cisterna Magna: Normal appearance Midline Falx: Normal appearance Spine Sacral: Normal appearance Head/Neck Face: Normal appearance Lips: Normal appearance Nasal Bone: Present Palate: Suboptimal views Profile: Normal appearance Orbits/Eyes: Normal appearance Mandible: Suboptimal views Maxilla: Suboptimal views Thorax Thoracic Contour: Normal appearance Lungs: Normal appearance 4 Chamber View: Normal appearance Cardiac Activity: Normal Cardiac Rhythm: Normal Cardiac Situs: Normal appearance Rt Outflow Tract: Normal appearance Lt Outflow Tract: Normal appearance Aortic Arch: Normal appearance Ductal Arch: Normal appearance SVC: Normal appearance Interventr. Septum: Normal appearance Cardiac [place]: Normal appearance Diaphragm: Normal appearance 3 Vessel View: Normal appearance 3 V Trachea View: Normal appearance IVC: Normal Appearance Crossing: Normal appearance Abdomen Ventral Wall: Normal appearance Cord Insertion: Normal appearance Situs: Normal appearance Stomach: Normal appearance Liver: Normal appearance Gallbladder: Normal appearance Lt Kidney: Normal appearance Rt Kidney: Normal appearance Bladder: Normal appearance Adrenals: Normal appearance Bowel: Normal appearance Extremities Rt Humerus: Suboptimal views Rt Forearm: Suboptimal views Rt Hand: Suboptimal views Other Umbilical Cord: Normal 3-vessel Genitalia: Normal appearance Comment: Bilateral ankles - Normal appearance, Bilateral ankles - Sub-optimal views - - Eliezer Gonzales MD, HECTOR, FACOG Electronically Signed Final Report 09/21/2024 11:58 am - IMPRESSION: 1. [place] live intrauterine at 33w 6d. 2. Normal growth; EFW 2380 grams, which is at the 51%tile for gestational age. The AC measures at the 49%tile for gestational age. 3. The amniotic fluid index is 22.48cm, which is within normal limits. 4. Visualized anatomy appears normal as noted above. RECOMMENDATIONS: Follow-up as clinically indicated. Ultrasound is not diagnostic for aneuploidy and will not detect all structural abnormalities, even if multiple exams are performed during a given . Normal ultrasound findings do not guarantee normal outcome (more content not included)... [facility] Study observation (narrative) [facility] US for pregnancyOrdered By: Carlito Gonzales on 09-21-2024 [facility] Work Phone: [phone] 09-15-2024 36 Confirmation of positive UDS done on 09/14/24 for benzodiazepines Fax confirmation scanned into chart Normal [facility] 29on 09-14-2024 29 Addended by: MARYCARMEN JAIME on: 09/14/2024 01:43 PM Modules accepted: Orders Normal [facility] 29 Addended by: PATTI REYES on: 09/15/2024 03:02 PM Modules accepted: Orders Normal [facility] BENZODIAZEPINE CONFIRMATIONo n 09-14-2024 ALPRAZOLAM (UR)-ALPR Not detected Normal Not Detected [facility] Comment on above: Performed By: #### L [id number] #### Tight Rope Walker: JANAE COLLINS ([id number]) [facility]) [address] [place] [address] BENZO. METABOLITES (UR)-METAB Not detected Normal Not Detected [facility] Comment on above: Performed By: #### L [id number] #### Tight Rope Walker: JANAE COLLINS ([id number]) [facility] ([facility]) [address] [place] [address] CHLORDIAZEPOXIDE (UR)-CLDX Not detected Normal Not Detected [facility] Comment on above: Performed By: #### L [id number] #### Tight Rope Walker: JANAE COLLINS ([id number]) [facility] ([facility]) [address] [place] [address] CLONAZEPAM (UR)-CLONA Not detected Normal Not Detected [facility] Comment on above: Performed By: #### L [id number] #### Tight Rope Walker: JANAE COLLINS ([id number]) [facility] ([facility]) [address] [place] [address] DIAZEPAM (UR)-DIAZP Not detected Normal Not Detected [facility] Comment on above: Performed By: #### L [id number] #### Tight Rope Walker: JANAE COLLINS ([id number]) [facility] ([facility]) [address] [place] [address] LORAZEPAM (UR)-LORZ Not detected Normal Not Detected [facility] Comment on above: Performed By: #### L [id number] #### Tight Rope Walker: JANAE COLLINS ([id number]) [facility] [address] [place] [address] NORDIAZEPAM (UR)-MELISSA Detected Normal Not Detected [facility] Comment on above: Performed By: #### L [id number] #### Tight Rope Walker: JANAE COLLINS ([id number]) [facility] ([facility]) [address] [place] [address] OXAZEPAM (UR)-OXAZ Not detected Normal Not Detected [facility] Comment on above: Performed By: #### L [id number] #### Tight Rope Walker: JANAE COLLINS ([id number]) [facility]) [address] [place] [address] REVIEWED BY Frederick Hartman Tech I [facility] Comment on above: Result Comment: TAMARA Mcdowell COMMENTS: The following were tested for in the urine specimen submitted: Alprazolam, Chlordiazepoxide, Clonazepam, Diazepam, Lorazepam, Nordiazepam, and Oxazepam. Specimen confirmed by Gas Chromatography. NOTE: These results are for medical treatment only. Analysis performed using non-forensic procedures. This test has not been cleared by the [place] Food and Drug Administration (FDA). The FDA has determined that such clearance or approval is not necessary. The performance chararcteristics have been determined by the clinical laboratories of [facility]. Performed By: #### L [id number] #### Tight Rope Walker: JANAE COLLINS ([id number]) [facility]) [address] [place] [address] Laboratory - Drug toxicology Ordered By: Luly Lawrence on 09-14-2024 Amphetamines Ql (U) Negative Negative [facility] Barbiturates screen method Nom (U) Negative Negative [facility] Benzodiazepines screen method Nom (U) Positive Abnormal Negative [facility] Cocaine Ql (U) Negative Negative [facility] Ethanol [Mass/Vol] Negative Negative [facility] Methadone Ql (U) Positive Abnormal Negative [facility] Opiates Screen Ql (U) Negative Negative [facility] MEDICATION ASSISTED TREATMEN T PANELon 09-14-2024 Amphetamines Ql (U) Negative Normal Negative [facility] Comment on above: Performed By: #### L [id number] #### Tight Rope Walker: JANAE COLLINS ([id number]) [facility]) [address] [place] [address] BARBITURATES Negative Normal Negative [facility] Comment on above: Performed By: #### L [id number] #### Tight Rope Walker: JANAE COLLINS ([id number]) [facility]) [address] [place] [address] Benzodiazepines Ql (U) Positive Abnormal Negative [facility] Comment on above: Performed By: #### L [id number] #### Tight Rope Walker: JANAE COLLINS ([id number]) [address] BUPRENORPHINE SCREEN Positive Abnormal Negative [facility] Comment on above: Performed By: #### L [id number] #### Tight Rope Walker: JANAE COLLINS ([id number]) [facility]) [address] [place] [address] Cocaine Ql (U) Negative Normal Negative [facility] Comment on above: Performed By: #### L [id number] #### Tight Rope Walker: JANAE COLLINS ([id number]) [address] ETHANOL-ETOHO Negative Normal Negative [facility] Comment on above: Result Comment: TAMARA Mcdowell COMMENTS: The expected value for the drugs listed above is Negative. The following drugs or drug groups have been screened for by Immunoassay at the following thresholds: Amphetamine class(1000ng/mL) Barbituates(200ng/mL) Benzodiazepines(200ng/mL) Cocaine(300ng/mL) Ethanol (50 ng/mL) Methadone(300ng/mL) Opiates(300ng/mL) Oxycodone(100ng/mL) PCP(25ng/mL) Buprenorphine(5ng/mL) THC(50ng/mL) Fentanyl(1ng/mL) Positive results are NOT confirmed by a more specific alternative method unless requested. If confirmation is needed, request confirmation under separate order. NOTE: These results are for medical treatment only. Analysis performed using non-forensic procedures. Performed By: #### L [id number] #### Tight Rope Walker: JANAE COLLINS ([id number]) [facility]) [address] [place] [address] FENTANYL Negative Normal Negative [facility] Comment on above: Performed By: #### L [id number] #### Tight Rope Walker: JANAE COLLINS ([id number]) [facility]) [address] [place] [address] Methadone Ql (U) Positive Abnormal Negative [facility] Comment on above: Performed By: #### L [id number] #### Tight Rope Walker: JANAE COLLINS ([id number]) [facility]) [address] [place] [address] Opiates Ql (U) Negative Normal Negative [facility] Comment on above: Performed By: #### L [id number] #### Tight Rope Walker: JANAE COLLINS ([id number]) [facility] ([facility]) [address] [place] [address] OXYCODONE/OXYMORPHONE Negative Normal Negative [facility] Comment on above: Performed By: #### L [id number] #### Tight Rope Walker: JANAE COLLINS ([id number]) [facility]) [address] [place] [address] PCP Negative Normal Negative [facility] Comment on above: Performed By: #### L [id number] #### Tight Rope Walker: JANAE COLLINS ([id number]) [facility]) [address] [place] [address] THC-MTTHC Negative Normal Negative [facility] Comment on above: Performed By: #### L [id number] #### Tight Rope Walker: JANAE COLLINS ([id number]) [facility]) [address] [place] [address] No Panel InformationOrdered By: Luly Lawrence on 09-14-2024 BUPRENORPHINE SCREEN Positive Abnormal Negative [facility] FENTANYL Negative [facility] Interpretation and review of laboratory results Abnormal [facility] OXYCODONE/OXYMORPHONE Negative Negative [facility] PCP Negative Negative [facility] THC Negative Negative [facility] The expected value f or the drugs listed above is Negative. The following drugs or drug groups have been screened for by Immunoassay at the following thresholds: Amphetamine class(1000ng/mL) Barbituates(200ng/mL) Benzodiazepines(200ng/m L) Cocaine(300ng/mL) Ethanol (50 ng/mL) Methadone(300ng/mL) Opiates(300ng/mL) Oxycodone(100ng/mL) PCP(25ng/mL) Buprenorphine(5ng/mL) THC(50ng/mL) Fentanyl(1ng/mL) Positive results are NOT confirmed by a more specific alternative method unless requested. If confirmation is needed, request confirmation under separate order. NOTE: These results are for medical treatment only. Analysis performed using non-forensic procedures. [facility] Office Visiton 09-14-2024 Follow-up visit [id number] Skylar Landry 1990 F Date Provider Department Center 09/14[facility]2024 [id number] Family History Problem Relation Age of Onset No Known Problems Paternal Grandmother Cancer Maternal Grandmother Cancer Maternal Grandfather Kidney disease Father Comments: kindey problem unknown Cancer Mother Ovarian cancer Mother Infertility Half-Sister Other Half-Sister Comments: And[place] Mass Other Son Comments: Ear tube placement No Known Problems Son Asthma Son Family Status - Relation Status Age at Paternal Grandfather Paternal Grandmother Alive Maternal Grandmother Maternal Grandfather Father Alive Mother Alive Half-Sister Alive Half-Sister Alive Son Alive Son Alive Son Alive Level of Service:65941 NC OFFICE/OUTPATIENT ESTABLISHED MOD MDM 30 MIN Reason for Visit and Comments: Addiction Problem [538761] Normal [facility] Progress Noteon 09-14-2024 Progress Note MEDICATION ASSISTED TREATMENT BUPRENORPHINE FOLLOW-UP VISIT Patient: Skylar Landry __ [facility]. SUBJECTIVE Chief Complaint Patient presents with Addiction Problem Skylar Landry, a 34 y.o. female, returns for a follow-up medication-assisted treatment appointment. She was discharged from the hospital on 08/30/24. Stabilized on bupe 8 mg BID. Had microinduction process to transfer to bupe from methadone (140 mg). Last methadone dose given on 08/29/24. Dose was increased to 20 mg after hospitalization at [facility]. Now taking 20 mg consistently. Feels she needs to take that amount to deal with night time symptoms she was still experiencing. No longer feels like she is going thru methadone withdrawal. Interim History ~32w5d . Denies any illicit drug use since leaving hospital. Assessment at [facility] was rescheduled to 09/22. She may end up going into inpatient treatment there for duration of . Will let our CM know after assessment. Denies drug use since leaving hospital. Started on opioids at the age of14 2/2 to CKD/nephrolithiasis. Still deals with kidney stones and pain related to it. Says she had to be induced during previous for this reason. Denies pain now. No longer on Keflex. Denies smoking cigarettes/THC. Was abusing benzos prior to coming to hospital. M[facility] from [place], [place] for her recovery. Has 2 older children living with family in [place] and she obviously misses them. Anxiety/Depression - tearful today. Taking Zoloft. Wants to establish with counselor. Denies SI/SA. Now says she is taking Seroquel 50 mg nightly. She apparently wasn't taking it at one point after hospitalization but now says she is. Wants refill. Helps with sleep. Denies any side effects. MAT Response Dose: Subutex 20 mg daily. Start Date: 08/23/24. Compliance: Taking as directed. No missed doses. Side Effects: No. Drug Cravings: Yes. Withdrawal Symptoms: No. Ready to Taper Off MAT: No. Substance Use History Sober Date: 08/23/24. Intensive Outpatient Program: never; planning on entering in our [facility]. Inpatient Drug Rehab: never. 12-Step Meeting Attendance: never. Psychiatric History Diagnoses: depression, anxiety, bipolar 2, ptsd Medications: zoloft 50 mg, seroquel 50 mg nightly Psychiatrist: isabela. Counselor: isabela. Past Medical History Past Medical History: Diagnosis Date Anxiety Colitis Depression Kidney disease Kidney stone Medullary sponge kidney of both kidneys Social Drivers of Health Intimate Partner Violence: Not At Risk (09/07/2024) Humiliation, Afraid, Rape, and Kick questionnaire Fear of Current or Ex-Partner: No Emotionally Abused: No Physically Abused: No Sexually Abused: No Social Connections: Socially Isolated (09/07/2024) Social Connection and Isolation Panel [NHANES] Frequency of Communication with Friends and Family: Twice a week Frequency of Social Gatherings with Friends and Family: Never Attends Jewish Services: Never Active Member of Clubs or Organizations: No Attends Club or Organization Meetings: Never Marital Status: Never Alcohol Use: Not At Risk (09/07/2024) AUDIT-C Frequency of Alcohol Consumption: Never Average Number of Drinks: Patient does not drink Frequency of Binge Drinking: Never Tobacco Use: Low Risk (09/07/2024) Patient History Smoking Tobacco Use: Never Smokeless Tobacco Use: Never Passive Exposure: Never Financial Resource Strain: High Risk (09/07/2024) Overall Financial Resource Strain (CARDIA) Difficulty of Paying Living Expenses: Very hard Depression: At risk (08/22/2024) PHQ-2 PHQ-2 Score: 6 Depression: Medium Risk (09/07/2024) Wilbur Depression Scale Last EPDS Total Score: 8 Last EPDS Self Harm Result: Never Stress: No Stress Concern Present (09/07/2024) [place] [employer] - Occupational Stress Questionnaire Feeling of Stress : Not at all Physical Activity: Inactive (09/07/2024) Exercise Vital Sign Days of Exercise per Week: 0 days Minutes of Exercise per Session: 0 min Food Insecurity: Food Insecurity Present (09/07/2024) Hunger Vital Sign Worried About Running Out of Food in the Last Year: Sometimes true Ran Out of Food in the Last Year: Sometimes true Transportation Needs: Unmet Transportation Needs (09/07/2024) PRAPARE - Transportation Lack of Transportation (Medical): Yes Lack of Transportation (Non-Medical): Yes Housing Stability: High Risk (09/07/2024) Housing Stability Vital Sign Unable to Pay for Housing in the Last Year: Yes Number of Times Moved in the Last Year: 3 Homeless in the Last Year: No Utilities: Not At Risk (09/07/2024) [facility] Utilities Threatened with loss of utilities: No Recent Concern: Utilities - At (more content not included)... Normal [facility] Progress Note Pt here for jaya carrero The baby is active. No LOF or bleeding. No contractions. History reviewed - see episode report No nausea or vomiting. PE: See vitals Pt A&OX3, NAD Normal affect Non labored breathing Abd - non tender Ext - No edema Paln- NST and growth scans ordered Reviewed FKC and PTL RTO Normal [facility] MEDICATION ASSISTED TREATMEN T PANELOrdered By: Luly Lawrence on 09-07-2024 Amphetamines Ql (U) Negative Negative [facility] Barbiturates screen method Nom (U) Negative Negative [facility] Benzodiazepines screen method Nom (U) Positive Negative [facility] BUPRENORPHINE SCREEN Positive Negative [facility] Cocaine Ql (U) Negative Negative [facility] Ethanol [Mass/Vol] Negative Negative [facility] FENTANYL Negative Negative [facility] Methadone Ql (U) Positive Negative [facility] Opiates Screen Ql (U) Negative Negative [facility] OXYCODONE/OXYMORPHONE Negative Negative [facility] PCP Negative Negative [facility] THC Negative Negative [facility] The expected value f or the drugs listed above is Negative. The following drugs or drug groups have been screened for by Immunoassay at the following thresholds: Amphetamine class(1000ng/mL) Barbituates(200ng/mL) Benzodiazepines(200ng/m L) Cocaine(300ng/mL) Ethanol (50 ng/mL) Methadone(300ng/mL) Opiates(300ng/mL) Oxycodone(100ng/mL) PCP(25ng/mL) Buprenorphine(5ng/mL) THC(50ng/mL) Fentanyl(1ng/mL) Positive results are NOT confirmed by a more specific alternative method unless requested. If confirmation is needed, request confirmation under separate order. NOTE: These results are for medical treatment only. Analysis performed using non-forensic procedures. [facility] MEDICATION ASSISTED TREATMEN T PANELon 09-07-2024 Amphetamines Ql (U) Negative Normal Negative [facility] Comment on above: Performed By: #### L [id number] ####Tight Rope Walker: JANAE COLLINS ([id number])[facility])[address] [place] [address] BARBITURATES Negative Normal Negative [facility] Comment on above: Performed By: #### L [id number] ####Tight Rope Walker: JANAE COLLINS ([id number])[facility])[address] [place] [address] Benzodiazepines Ql (U) Positive Normal Negative [facility] Comment on above: Performed By: #### L [id number] ####Tight Rope Walker: JANAE COLLINS ([id number])[facility])[address] [place] [address] BUPRENORPHINE SCREEN Positive Normal Negative [facility] Comment on above: Performed By: #### L [id number] ####Tight Rope Walker: JANAE COLLINS ([id number])[facility])[address] [place] [address] Cocaine Ql (U) Negative Normal Negative [facility] Comment on above: Performed By: #### L [id number] ####Tight Rope Walker: JANAE COLLINS ([id number])[address] ETHANOL-ETOHO Negative Normal Negative [facility] Comment on above: Result Comment: TAMARA R COMMENTS: The expected value for the drugs listed above is Negative. The following drugs or drug groups have been screened for by Immunoassay at the following thresholds: Amphetamine class(1000ng/mL) Barbituates(200ng/mL) Benzodiazepines(200ng/mL) Cocaine(300ng/mL) Ethanol (50 ng/mL) Methadone(300ng/mL) Opiates(300ng/mL) Oxycodone(100ng/mL) PCP(25ng/mL) Buprenorphine(5ng/mL) THC(50ng/mL) Fentanyl(1ng/mL) Positive results are NOT confirmed by a more specific alternative method unless requested. If confirmation is needed, request confirmation under separate order. NOTE: These results are for medical treatment only. Analysis performed using non-forensic procedures. Performed By: #### L [id number] ####Tight Rope Walker: JANAE COLLINS ([id number])[facility] ([facility])[address] [place] [address] FENTANYL Negative Normal Negative [facility] Comment on above: Performed By: #### L [id number] ####Tight Rope Walker: JANAE COLLINS ([id number])[facility])[address] [place] [address] Methadone Ql (U) Positive Normal Negative [facility] Comment on above: Performed By: #### L [id number] ####Tight Rope Walker: JANAE COLLINS ([id number])[facility] ([facility])[address] [place] [address] Opiates Ql (U) Negative Normal Negative [facility] Comment on above: Performed By: #### L [id number] ####Tight Rope Walker: JANAE COLLINS ([id number])[facility] ([facility])[address] [place] [address] OXYCODONE/OXYMORPHONE Negative Normal Negative [facility] Comment on above: Performed By: #### L [id number] ####Tight Rope Walker: JANAE COLLINS ([id number])[facility])[address] [place] [address] PCP Negative Normal Negative [facility] Comment on above: Performed By: #### L [id number] ####Tight Rope Walker: JANAE COLLINS ([id number])[facility])[address] [place] [address] THC-MTTHC Negative Normal Negative [facility] Comment on above: Performed By: #### L [id number] ####Tight Rope Walker: JANAE COLLINS ([id number])[facility])[address] [place] [address] Office Visiton 09-07-2024 Follow-up visit [id number] Skylar Landry 1990 F Date Provider Department [facility] 09/07/2024 [facility] None Family History Problem Relation Age of Onset No Known Problems Paternal Grandmother Cancer Maternal Grandmother Cancer Maternal Grandfather Kidney disease Father Comments: kindey problem unknown Cancer Mother Ovarian cancer Mother Infertility Half-Sister Other Half-Sister Comments: Andrade Mass Other Son Comments: Ear tube placement No Known Problems Son Asthma Son Family Status - Relation Status Age at Paternal Grandfather Paternal Grandmother Alive Maternal Grandmother Maternal Grandfather Father Alive Mother Alive Half-Sister Alive Half-Sister Alive Son Alive Son Alive Son Alive Level of Service:04174 NC OFFICE/OUTPATIENT ESTABLISHED MOD MDM 30 MIN Reason for Visit and Comments: Follow-up [735786] Normal [facility] Progress Noteon 09-07-2024 Progress Note Pt here for OB visit . The baby is active. No LOF or bleeding. No contractions. History reviewed - see episode report No nausea or vomiting. PE: See vitals Pt A&OX3, NAD Normal affect Non labored breathing Abd - non tender Ext - No edema Plan- setter automatic spinning lathe today Centering and addiction with Dr. Woods today 3. US and Nob labs complete 4. NST at 32 weeks 5. NOB to be scheduled Normal [facility] Progress Note MEDICATION ASSISTED TREATMENT BUPRENORPHINE FOLLOW-UP VISIT Patient: Skylar Landry __ I saw this patient in person at the [facility]Centering program. SUBJECTIVE Chief Complaint Patient presents with Follow-up Skylar Landry, a 34 y.o. female, returns for a follow-up medication-assisted treatment appointment. She was discharged from the hospital on 08/30/24. Stabilized on bupe 8 mg BID. Had microinduction process to transfer to bupe from methadone (140 mg). Last methadone dose given on 08/29/24. Dose was increased to 20 mg last week. Some days taking 20 mg some days only taking 16. OK with dosage reduction down to 16 mg. Has 4-5 extra tablets remaining she can take if needed. No longer feels like she is going thru methadone withdrawal. Interim History ~31w6d . Have an assessment at [facility] this , 09/09. She may end up going into inpatient treatment there for duration of . Will let our CM know after assessment. Denies drug use since leaving hospital. Started on opioids at the age of12 2/2 to CKD/nephrolithiasis. Still deals with kidney stones and pain related to it. Says she had to be induced during previous for this reason. Denies pain now. No longer on Keflex. Denies smoking cigarettes/THC. Was abusing benzos prior to coming to hospital. Moved to [facility] from [place], [place] for her recovery. Has 2 older children living with family in [place] and she obviously misses them. Anxiety/Depression - tearful today. Taking Zoloft. Wants to establish with counselor. Denies SI/SA. MAT Response Dose: Subutex 20 mg daily. Start Date: 08/23/24. Compliance: Taking as directed. No missed doses. Side Effects: No. Drug Cravings: Yes. Withdrawal Symptoms: No. Ready to Taper Off MAT: No. Substance Use History Sober Date: 08/23/24. Intensive Outpatient Program: never; planning on entering in our [facility]. Inpatient Drug Rehab: never. 12-Step Meeting Attendance: never. Psychiatric History Diagnoses: depression, anxiety, bipolar 2, ptsd Medications: zoloft 50 mg. Psychiatrist: [facility]ana[facility]. Counselor: denies. Past Medical History Past Medical History: Diagnosis Date Anxiety Colitis Depression Kidney disease Kidney stone Medullary sponge kidney of both kidneys Social Drivers of Health Intimate Partner Violence: Not At Risk (08/22/2024) Humiliation, Afraid, Rape, and Kick questionnaire Fear of Current or Ex-Partner: No Emotionally Abused: No Physically Abused: No Sexually Abused: No Social Connections: Not on file Alcohol Use: Not on file Tobacco Use: Low Risk (09/07/2024) Patient History Smoking Tobacco Use: Never Smokeless Tobacco Use: Never Passive Exposure: Never Financial Resource Strain: Not on file Depression: At risk (08/22/2024) PHQ-2 PHQ-2 Score: 6 Depression: Not on file Stress: Not on file Physical Activity: Not on file Food Insecurity: Food Insecurity Present (08/22/2024) Hunger Vital Sign Worried About Running Out of Food in the Last Year: Often true Ran Out of Food in the Last Year: Often true Transportation Needs: Unmet Transportation Needs (08/22/2024) PRAPARE - Transportation Lack of Transportation (Medical): Yes Lack of Transportation (Non-Medical): Yes Housing Stability: High Risk (08/22/2024) Housing Stability Vital Sign Unable to Pay for Housing in the Last Year: Yes Number of Times Moved in the Last Year: 6 Homeless in the Last Year: Yes Utilities: At Risk (08/22/2024) [facility] Utilities Threatened with loss of utilities: Yes OBJECTIVE Last Urine Drug Screen (08/23/24) Negative for illicit drugs & buprenorphine was positive. PHQ Screen Last 3 PHQ-9 Scores No data found in the last 10 encounters. Controlled Substance Monitoring OARRs Reviewed., Possible medication effects, risk of tolerance/dependence & alternative treatments discussed. , Assessed functional status., and Random urine drug screen sent today. Review of Systems Review of Systems Constitutional: Positive for chills and diaphoresis. Gastrointestinal: Positive for bloating and nausea. Psychiatric/Behavioral: Positive for depression and substance abuse. The patient is nervous/anxious. All other systems reviewed and are negative. Vitals There were no vitals taken for this visit. Physical Exam Constitutional: General: She is not in acute distress. Appearance: Normal appearance. She is not ill-appearing. HENT: Mouth/Throat: Mouth: Mucous membranes are moist. Eyes: Extraocular Movements: Extraocular movements intact. Pulmonary: Effort: Pulmonary effort is normal. Neurological: Mental Status: She is alert and oriented to person, place, and time. Psychiatric: Attention and Perception: Attention and perception normal. ASSESSMENT 1. Severe opioid use disorder (HCC) 2. D (more content not included)... Normal [facility] Progress Note desired. Patient plans to formula feed. Did not Bf previous children. Benefits of and baby friendly reviewed. Folder reviewed with patient and all relevant teaching completed. Proof of printed and instructions given to sign up for WIC. TDAP and Flu vaccination encouraged. Patient is active with Mychart. Informed patient on appropriate use of mychart and to not use for medical emergency questions. Informed patient when to seek emergent care and location of OB triage. Transportation is not an issue getting to appointments. Informed patient of provide a ride services through their insurance company. Pt is working on choosing insurance plan. Patient received genetic testing in [place]. VIRGILIO signed for office and hospital. Mailed and faxed records request. May need one more sent for [facility]. Virtual maternity tour completed and hospital information handout given. Future visit appointment scheduled. Pt attending Centering program. All questions answered. Informed pt of [facility] ([facility]), STEFFANY Geller, MANDA at [facility], but a referral is not indicated at this time. SDTX completed and scanned. Reviewed crib/carseat. Normal [facility] 36on 09-01-2024 36 error Normal [facility] Laboratory - Drug toxicology Ordered By: Luly Lawrence on 08-31-2024 Amphetamines Ql (U) Negative Negative [facility] Barbiturates screen method Nom (U) Negative Negative [facility] Benzodiazepines screen method Nom (U) Positive Negative [facility] Cocaine Ql (U) Negative Negative [facility] Ethanol [Mass/Vol] Negative Negative [facility] Methadone Ql (U) Positive Negative [facility] Opiates Screen Ql (U) Negative Negative [facility] MEDICATION ASSISTED TREATMEN T PANELon 08-31-2024 Amphetamines Ql (U) Negative Normal Negative [facility] Comment on above: Performed By: #### L [id number] ####Tight Rope Walker: JANAE COLLINS ([id number])[facility] ([facility])[address] [place] [address] BARBITURATES Negative Normal Negative [facility] Comment on above: Performed By: #### L [id number] ####Tight Rope Walker: JANAE COLLINS ([id number])[facility] ([facility])[address] [place] [address] Benzodiazepines Ql (U) Positive Normal Negative [facility] Comment on above: Performed By: #### L [id number] ####Tight Rope Walker: JANAE COLLINS ([id number])[facility] ([facility])[address] [place] [address] [place] BUPRENORPHINE SCREEN Positive Normal Negative [facility] Comment on above: Performed By: #### L [id number] ####Tight Rope Walker: JANAE COLLINS ([id number])[facility])[address] [place] [address] Cocaine Ql (U) Negative Normal Negative [facility] Comment on above: Performed By: #### L [id number] ####Tight Rope Walker: JANAE COLLINS ([id number])[facility])[address] [place] [address] ETHANOL-ETOHO Negative Normal Negative [facility] Comment on above: Result Comment: ORDE R COMMENTS: The expected value for the drugs listed above is Negative. The following drugs or drug groups have been screened for by Immunoassay at the following thresholds: Amphetamine class(1000ng/mL) Barbituates(200ng/mL) Benzodiazepines(200ng/mL) Cocaine(300ng/mL) Ethanol (50 ng/mL) Methadone(300ng/mL) Opiates(300ng/mL) Oxycodone(100ng/mL) PCP(25ng/mL) Buprenorphine(5ng/mL) THC(50ng/mL) Fentanyl(1ng/mL) Positive results are NOT confirmed by a more specific alternative method unless requested. If confirmation is needed, request confirmation under separate order. NOTE: These results are for medical treatment only. Analysis performed using non-forensic procedures. Performed By: #### L [id number] ####Tight Rope Walker: JANAE COLLINS ([id number])[facility])[address] [place] [address] FENTANYL Positive Normal Negative [facility] Comment on above: Performed By: #### L [id number] ####Tight Rope Walker: JAANE COLLINS ([id number])[facility])[address] [place] [address] Methadone Ql (U) Positive Normal Negative [facility] Comment on above: Performed By: #### L [id number] ####Tight Rope Walker: JANAE COLLINS ([id number])[facility] ([facility])[address] [place] [address] Opiates Ql (U) Negative Normal Negative [facility] Comment on above: Performed By: #### L [id number] ####Tight Rope Walker: JANAE COLLINS ([id number])[facility])[address] [place] [address] OXYCODONE/OXYMORPHONE Negative Normal Negative [facility] Comment on above: Performed By: #### L [id number] ####Tight Rope Walker: JANAE COLLINS ([id number])[facility])[address] [place] [address] PCP Negative Normal Negative [facility] Comment on above: Performed By: #### L [id number] ####Tight Rope Walker: JANAE COLLINS ([id number])[address] THC-MTTHC Negative Normal Negative [facility] Comment on above: Performed By: #### L [id number] ####Tight Rope Walker: JANAE COLLINS ([id number])[address] No Panel InformationOrdered By: Luly Lawrence on 08-31-2024 BUPRENORPHINE SCREEN Positive Negative [facility] FENTANYL Positive Negative [facility] OXYCODONE/OXYMORPHONE Negative Negative [facility] PCP Negative Negative [facility] THC Negative Negative [facility] The expected value f or the drugs listed above is Negative. The following drugs or drug groups have been screened for by Immunoassay at the following thresholds: Amphetamine class(1000ng/mL) Barbituates(200ng/mL) Benzodiazepines(200ng/m L) Cocaine(300ng/mL) Ethanol (50 ng/mL) Methadone(300ng/mL) Opiates(300ng/mL) Oxycodone(100ng/mL) PCP(25ng/mL) Buprenorphine(5ng/mL) THC(50ng/mL) Fentanyl(1ng/mL) Positive results are NOT confirmed by a more specific alternative method unless requested. If confirmation is needed, request confirmation under separate order. NOTE: These results are for medical treatment only. Analysis performed using non-forensic procedures. [facility] Office Visiton 08-31-2024 Follow-up visit [id number] Skylar Landry 1990 F Date Provider Department Center 08/31/2024 [id number]-[id number] [facility]S [facility] None No family history on file Level of Service:48823 NC OFFICE/OUTPATIENT ESTABLISHED MOD MDM 30 MIN Reason for Visit and Comments: Addiction Problem [[id number]] [facility] Progress Noteon 08-31-2024 Progress Note MEDICATION ASSISTED TREATMENT BUPRENORPHINE FOLLOW-UP VISIT Patient: Skylar Landry __ I saw this patient in person at the [facility]Centering program. SUBJECTIVE Chief Complaint Patient presents with Addiction Problem Skylar Landry, a 34 y.o. female, returns for a follow-up medication-assisted treatment appointment. She was discharged from the hospital yesterday. Stabilized on bupe 8 mg BID. Had microinduction process to transfer to bupe from methadone (140 mg). Last methadone dose given on 08/29/24. Still feels like she is having some methadone withdrawal. Interim History ~30w . Denies drug use since leaving hospital. Started on opioids at the age of12 2/2 to CKD/nephrolithiasis. Still deals with kidney stones and pain related to it. Says she had to be induced during previous for this reason. Denies smoking cigarettes/THC. Was abusing benzos prior to coming to hospital. Moved to [facility] from [place], [place] for her recovery. Has 2 older children living with family in [place] and she obviously misses them. Anxiety/Depression - tearful today. Taking Zoloft. Wants to establish with counselor. Denies SI/SA. MAT Response Dose: Subutex 8 mg BID. Start Date: 08/23/24. Compliance: Taking as directed. No missed doses. Side Effects: No. Drug Cravings: Yes. Withdrawal Symptoms: Yes. Ready to Taper Off MAT: No. Substance Use History Sober Date: 08/23/24. Intensive Outpatient Program: never; planning on entering in our [facility]. Inpatient Drug Rehab: never. 12-Step Meeting Attendance: never. Psychiatric History Diagnoses: depression, anxiety, bipolar 2, ptsd Medications: zoloft 50 mg. Psychiatrist: isabela. Counselor: isabela. Past Medical History Past Medical History: Diagnosis Date Anxiety Colitis Depression Kidney disease Kidney stone Social Drivers of Health Intimate Partner Violence: Not At Risk (08/22/2024) Humiliation, Afraid, Rape, and Kick questionnaire Fear of Current or Ex-Partner: No Emotionally Abused: No Physically Abused: No Sexually Abused: No Social Connections: Not on file Alcohol Use: Not on file Tobacco Use: Low Risk (08/22/2024) Patient History Smoking Tobacco Use: Never Smokeless Tobacco Use: Never Passive Exposure: Not on file Financial Resource Strain: Not on file Depression: At risk (08/22/2024) PHQ-2 PHQ-2 Score: 6 Depression: Not on file Stress: Not on file Physical Activity: Not on file Food Insecurity: Food Insecurity Present (08/22/2024) Hunger Vital Sign Worried About Running Out of Food in the Last Year: Often true Ran Out of Food in the Last Year: Often true Transportation Needs: Unmet Transportation Needs (08/22/2024) PRAPARE - Transportation Lack of Transportation (Medical): Yes Lack of Transportation (Non-Medical): Yes Housing Stability: High Risk (08/22/2024) Housing Stability Vital Sign Unable to Pay for Housing in the Last Year: Yes Number of Times Moved in the Last Year: 6 Homeless in the Last Year: Yes Utilities: At Risk (08/22/2024) [facility] Utilities Threatened with loss of utilities: Yes OBJECTIVE Last Urine Drug Screen (08/23/24) Negative for illicit drugs & buprenorphine was positive. PHQ Screen Last 3 PHQ-9 Scores No data found in the last 10 encounters. Controlled Substance Monitoring OARRs Reviewed., Possible medication effects, risk of tolerance/dependence & alternative treatments discussed. , Assessed functional status., and Random urine drug screen sent today. Review of Systems Review of Systems Constitutional: Positive for chills and diaphoresis. Gastrointestinal: Positive for bloating and nausea. Psychiatric/Behavioral: Positive for depression and substance abuse. The patient is nervous/anxious. All other systems reviewed and are negative. Vitals There were no vitals taken for this visit. Physical Exam Constitutional: General: She is not in acute distress. Appearance: Normal appearance. She is not ill-appearing. HENT: Mouth/Throat: Mouth: Mucous membranes are moist. Eyes: Extraocular Movements: Extraocular movements intact. Pulmonary: Effort: Pulmonary effort is normal. Neurological: Mental Status: She is alert and oriented to person, place, and time. Psychiatric: Attention and Perception: Attention and perception normal. Mood and Affect: Affect is tearful. ASSESSMENT 1. Severe opioid use disorder (HCC) 2. Anxiety and depression 3. Drug use affecting in third trimester PLAN Medications Ordered New Medications Ordered This Visit Medications buprenorphine (Subtex) 8 MG Sig: Place 2.5 tablets (20 mg) under the tongue daily for 7 doses. Dispense: 18 tablet Refill: 0 Labs Ordered Orders Placed This Encounter Procedures MEDICATION ASSISTED TREATMENT PANEL Patient Goals (more content not included)... Normal [facility] [id number] 08-30-2024 [id number] Assisted with medication, as medicaid still in process. Per RN Cm, [facility] Cent[facility] program will cover subutex. Spoke to [facility] pharmacist Xu Urbina who states they will approve coverage for keflex, zoloft, and serequel, other meds are over counter and pt would be responsible for these. Spoke to Jose at [facility] [phone] Hospital day 9 at 30 /5 weeks. Patient to be discharge today, [facility]. [facility] [place] to cover Subutex prescription since medicaid has not gone thru. Normal [facility] BLOOD TYPE AND SCREEN GELon 08-30-2024 ABO GROUPING A Normal [facility] Comment on above: Order Comment: HOLD. Specimen is valid for 3 days - nurse to verify valid specimen Performed By: #### L [id number] #### Tight Rope Walker: JANAE COLLINS ([id number]) [facility] ([facility]) [address] [place] [address] RH TYPE IN BLOOD Positive Normal [facility] Comment on above: Order Comment: HOLD. Specimen is valid for 3 days - nurse to verify valid specimen Performed By: #### L [id number] #### Tight Rope Walker: JANAE COLLINS ([id number]) [facility] ([facility]) [address] [place] [address] Blood type and Crossmatch alejandro quezada (Bld)on 08-30-2024 ABO group Nom (Bld) A [facility] Blood group antibody screen GEL Ql Negative [facility] [employer] D Ag Ql (RBC) Positive [facility] Progress Noteon 08-30-2024 Progress Note --- Attestation signed by Huseyin Blanco MD at 08/30/2024 1:37 PM I saw and evaluated the patient. I reviewed the residents evaluation and agree with plan to provide Rx for Subutex with plans to enter the centering program. I did spend --50--minutes coordinating care,providing discussion on patient's medical,psychiatric and chemical dependency history, and discussion of treatment plan ADDICTION MEDICINE PROGRESS NOTE Patient: Skylar Landry __ Problem List: Active Problems: Severe opioid use disorder (HCC) state, incidental Polysubstance abuse (CMS/HCC) (HCC) Anxiety and depression Drug use affecting in third trimester SUBJECTIVE Chief Complaint Patient presents with Other Detox from methadone Last 4 COWS scores per RN assessments 1 - 5 - 6 - 2 Interim History The patient reports she is alright today. She is uncomfortable secondary to the positioning of her fetus. She admits to abdominal pain, mild nausea, and chills since methadone was discontinued and she has only been on Suboxone. However, she denies other withdrawal/physical symptoms. She denies current cravings. Her appetite is intact and she is tolerating fluids. She is sleeping better with the increase in Seroquel. She denies SI/HI/AVH. She intends to follow up with the Centering Program for MAT. Review of Systems Review of Systems Constitutional: Positive for chills. Negative for decreased appetite, diaphoresis and fever. HENT: Negative for congestion. Cardiovascular: Negative for chest pain. Respiratory: Negative for shortness of breath. Musculoskeletal: Negative for muscle cramps, muscle weakness and myalgias. Gastrointestinal: Positive for abdominal pain and nausea. Negative for vomiting. Neurological: Negative for headaches and tremors. Psychiatric/Behavioral: Negative for depression, suicidal ideas and thoughts of violence. The patient does not have insomnia and is not nervous/anxious. OBJECTIVE Vitals Vitals: 08/29/24 1559 08/29/24 2024 08/30/24 0609 08/30/24 0815 BP: 95/65 99/66 93/64 102/64 Pulse: 82 94 90 93 Resp: 16 17 16 16 Temp: 36.9 ?C (98.4 ?F) 36.6 ?C (97.8 ?F) 36.4 ?C (97.6 ?F) 36.8 ?C (98.2 ?F) TempSrc: Temporal Temporal Temporal Temporal SpO2: 98% 98% 97% 98% Weight: Height: Physical Exam Vitals and nursing note reviewed. Constitutional: General: She is not in acute distress. Appearance: She is not ill-appearing or diaphoretic. HENT: Head: Normocephalic and atraumatic. Nose: Nose normal. Mouth/Throat: Mouth: Mucous membranes are moist. Cardiovascular: Rate and Rhythm: Normal rate. Pulmonary: Effort: Pulmonary effort is normal. Abdominal: Tenderness: There is abdominal tenderness. Skin: General: Skin is warm. Neurological: Mental Status: She is alert, oriented to person, place, and time and easily aroused. Motor: No tremor. Psychiatric: Attention and Perception: Attention and perception normal. She does not perceive auditory or visual hallucinations. Mood and Affect: Mood and affect normal. Speech: Speech normal. Behavior: Behavior normal. Behavior is cooperative. Thought Content: Thought content normal. Thought content is not paranoid or delusional. Thought content does not include homicidal or suicidal ideation. Cognition and Memory: Cognition and memory normal. Judgment: Judgment normal. Medications Home Meds Current Outpatient Medications Medication Instructions buprenorphine (SUBTEX) 8 mg, SubLINGual, 2 times daily buprenorphine (SUBTEX) 8 mg, SubLINGual, 2 times daily methadone (DOLOPHINE) 140 mg, Daily QUEtiapine (SEROQUEL) 50 mg, Oral, Nightly PRN [START ON 08/31/2024] sertraline (ZOLOFT) 50 mg, Oral, Daily Scheduled Inpatient Meds buprenorphine-naloxone, 1 Film, SubLINGual, BID cephalexin, 500 mg, Oral, 4x daily enoxaparin, 40 mg, SubCUTAneous, q24h famotidine, 20 mg, Oral, BID Lidocaine, 1 patch, TransDERmal, Daily Lidocaine, 1 patch, TransDERmal, Daily vitamin, 1 tablet, Oral, Daily sertraline, 50 mg, Oral, Daily sodium chloride 0.9%, 10 mL, IntraVENous, 2 times per day PRN Inpatient Meds PRN medications: acetaminophen, cyclobenzaprine, dicyclomine, diphenhydrAMINE, hydrOXYzine pamoate, naloxone, ondansetron, promethazine, QUEtiapine, sodium chloride, sodium chloride 0.9% Continuous Inpatient Infusions Recent Imaging US OB detail anatomy Result Date: 08/23/2024 - OBSTETRICS REPORT (Signed Final 08/23/2024 02:04 pm) - PATIENT INFO: ID #: [id number] : [id number] (32 (more content not included)... Normal [facility] GLUCOSE CHALLENGE SCREEN, [place] EGNANCYon 08-29-2024 Glucose [Mass/Vol] 85 mg/dL Normal <=140 [facility] Comment on above: Result Comment: TAMARA Mcdowell COMMENTS: Values >140 mg/dL constitute a positive screen. Positive screens on patients should be followed by a diagnostic three-hour glucose tolerance test (Glucose Tolerance Test; [id number]). Performed By: #### L [id number] #### Tight Rope Walker: JANAE COLLINS ([phone]) [facility] ([facility]) [address] [place] [address] Laboratory - Chemistry and C hemistry - challengeon 08-29-2024 Glucose 1 Hr post dose glucose [Mass/Vol] 85 mg/dL NINF - 140 mg/dL [facility] No Panel Informationon 08-29 Interpretation and review of laboratory results Normal [facility] Values >140 mg/dL constitute a positive screen. Positive screens on patients should be followed by a diagnostic three-hour glucose tolerance test (Glucose Tolerance Test; CDY759). [facility] Nursing Noteon 08-29-2024 Nursing Note 50 gram glucose drin k given for 1 hr GGT Normal [facility] Progress Noteon 08-29-2024 Progress Note Nutrition update completed. Chart reviewed. Patient to be monitored and followed by the diet field evidence technician. MARILYN Tinajero [facility] Progress Note Chief complaint Chief Complaint Patient presents with Other Detox from methadone Seen for follow up of substance dependence and use and to monitor withdrawals S: Patient seen and examined. Overall symptoms improving. REVIEW OF SYMPTOMS: Patient denies CP or SOB.Denies audio-, visual or tactile hallucinations. Denies dizziness or visual changes. Denies acute pain. Denies rhinorrhea, lacrimation, cough or sore throat. No difficulty ambulating, urinating, swallowing. Denies rash O: Vitals: 08/29/24 0912 BP: 99/67 Pulse: 89 Resp: 16 Temp: 37.1 ?C (98.7 ?F) SpO2: 98% Patient seen and examined. Alert and oriented x 3. NAD. Head: NCAT. Skin: warm, dry Insight and judgement are fair. Denies suicidal or homocidal ideation. Cognition intact. Denies audio, visual or tactile hallucinations. Not responding to internal stimuli, good eye contact. No results found for this or any previous visit (from the past 24 hours). Assessment/Plan: 1- Opioid use disorder the patient was on methadone we discontinued it and we resume the Suboxone after successful titration Today we will put her on 8 mg twice a day and stop the methadone completely 2-benzodiazepine use disorder Patient finished Librium taper Done with the detox from the benzos 3 depression anxiety prescribed Zoloft and Seroquel Will follow Cory Morris MD, MD Addiction Medicine 08/29/2024 at 12:06 PM [facility] MR Lumbar spine WO contrasto n 08-28-2024 Impression: At L4-5 there is a 2-3 mm disc bulge, resulting in slight lateral recess narrowing. Otherwise no central canal stenosis or neural foraminal narrowing at any level. Report Dictated on Electronically Signed By: Rudy Petit MD Electronically Signed Date/Time: 08/28/2024 7:41 AM [facility] Patient Name: SKYLAR LANDRY : 1990 Exam Date/Time: 08/27/2024 16:46 Procedure: MR LUMBAR SPINE WO CONTRAST Ordering Provider: ELISE MEGHAN Reason For Exam: Low back pain for decreased nerve sensitivity and muscle strength Examination: MRI lumbar spine Clinical Indication: Low back pain for decreased nerve sensitivity and muscle strength Comparison: None Findings: Multiplanar multisequence high field strength MRI images were obtained through the lumbar spine without administration of intravenous gadolinium contrast. Five lumbar type vertebra are assumed for purposes of numbering on this examination. The lumbar spine is in normal overall alignment without evidence of spondylolisthesis. The lumbar spine demonstrates grossly normal signal intensity. The conus terminates at a normal L1 level. No abnormal signal is appreciated within the distal cord. T12-L1: No disc bulge or disc protrusion. No central spinal canal stenosis. No neural foraminal narrowing. L1-L2: No disc bulge or disc protrusion. No central spinal canal stenosis. No neural foraminal narrowing. L2-L3: No disc bulge or disc protrusion. No central spinal canal stenosis. No neural foraminal narrowing. L3-L4: No disc bulge or disc protrusion. No central spinal canal stenosis. No neural foraminal narrowing. L4-L5: 2-3 mm disc bulge, resulting in slight lateral recess narrowing. Otherwise no central canal stenosis or neural foraminal narrowing. L5-S1: No disc bulge or disc protrusion. No central spinal canal stenosis. No neural foraminal narrowing. [facility] Rudy Petit MD - 08/28/2024 [facility] Name: [facility] : 1990 [id number] Exam Date/Time: 08/27/2024 16:46 Procedure: MR LUMBAR SPINE WO CONTRAST Ordering Provider: ELISE MEGHAN Reason For Exam: Low back pain for decreased nerve sensitivity and muscle strength Examination: MRI lumbar spine Clinical Indication: Low back pain for decreased nerve sensitivity and muscle strength Comparison: None Findings: Multiplanar multisequence high field strength MRI images were obtained through the lumbar spine without administration of intravenous gadolinium contrast. Five lumbar type vertebra are assumed for purposes of numbering on this examination. The lumbar spine is in normal overall alignment without evidence of spondylolisthesis. The lumbar spine demonstrates grossly normal signal intensity. The conus terminates at a normal L1 level. No abnormal signal is appreciated within the distal cord. T12-L1: No disc bulge or disc protrusion. No central spinal canal stenosis. No neural foraminal narrowing. L1-L2: No disc bulge or disc protrusion. No central spinal canal stenosis. No neural foraminal narrowing. L2-L3: No disc bulge or disc protrusion. No central spinal canal stenosis. No neural foraminal narrowing. L3-L4: No disc bulge or disc protrusion. No central spinal canal stenosis. No neural foraminal narrowing. L4-L5: 2-3 mm disc bulge, resulting in slight lateral recess narrowing. Otherwise no central canal stenosis or neural foraminal narrowing. L5-S1: No disc bulge or disc protrusion. No central spinal canal stenosis. No neural foraminal narrowing. IMPRESSION: Impression: At L4-5 there is a 2-3 mm disc bulge, resulting in slight lateral recess narrowing. Otherwise no central canal stenosis or neural foraminal narrowing at any level. Report Dictated on Electronically Signed By: Rudy Petit MD Electronically Signed Date/Time: 08/28/2024 7:41 AM EDT [facility] MR Lumbar spine WO contrastO rdered By: Rudy Petit on 08-28-2024 [facility] Work Phone: [phone] 08-27-2024 [id number] Met with pt at [facility]. Pt being transitioned now to subutex and will follow with [facility] at [facility] at [place]. States will be able to get up to [facility] weekly. Sw left message with [facility] to check status of medicaid application. [facility] fozev's mother Rosanne will be able to come pick her up at [place]. Sw provided support and encouragement to follow all tx recommendations and OB care. Sw to follow as needed Normal [facility] [phone] Hospital day 6 at 30 /2 weeks. Patient will follow up wit the [facility] for OB and addiction medicine care.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 11.5-15.0 [facility] Comment on above: Performed By: #### L [id number] #### Tight Rope Walker: JANAE COLLINS ([id number]) [facility] ([facility]) [address] [place] [address] Hematocrit (Bld) [Volume fraction] 31.0 % Low 35.0-47.0 [facility] Comment on above: Performed By: #### L [id number] #### Tight Rope Walker: JANAE COLLINS ([id number]) [facility]) [address] [place] [address] Hemoglobin (Bld) [Mass/Vol] 10.5 g/dL Low 11.7-16.0 [facility] Comment on above: Performed By: #### L [id number] #### Tight Rope Walker: JANAE COLLINS ([id number]) [facility] ([facility]) [address] [place] [address] MCH (RBC) [Entitic mass] 28.0 pg Normal 26.0-34.0 [facility] Comment on above: Performed By: #### L [id number] #### Tight Rope Walker: JANAE COLLINS ([id number]) [facility] ([facility]) [address] [place] [address] MCHC 33.9 % Normal 30.5-36.0 [facility] Comment on above: Performed By: #### L [id number] #### Tight Rope Walker: JANAE COLLINS ([id number]) [facility]) [address] [place] [address] MCV (RBC) [Entitic vol] 82.7 fL Normal 77.0-99.0 [facility] Comment on above: Performed By: #### L [id number] #### Tight Rope Walker: JANAE COLLINS ([id number]) [facility] ([facility]) [address] [place] [address] Platelet mean volume (Bld) [Entitic vol] 11.9 fL Normal 9.0-12.7 [facility] Comment on above: Performed By: #### L [id number] #### Tight Rope Walker: JANAE COLLINS ([id number]) [facility]) [address] [place] [address] Platelets (Bld) [#/Vol] 170 10*3/uL Normal 140-440 [facility] Comment on above: Performed By: #### L [id number] #### Tight Rope Walker: JANAE COLLINS ([id number]) [facility]) [address] [place] [address] RBC (Bld) [#/Vol] 3.75 10*6/uL Low 3.80-5.20 [facility] Comment on above: Performed By: #### L [id number] #### Tight Rope Walker: JANAE COLLINS ([id number]) [facility] ([facility]) [address] [place] [address] WBC (Bld) [#/Vol] 13.5 10*3/uL High 3.6-10.7 [facility] Comment on above: Performed By: #### L [id number] #### Tight Rope Walker: JANAE COLLINS ([id number]) [facility]) [address] [place] [address] CBC panel Auto (Bld)on 08-23 Erythrocyte distribution width (RBC) [Ratio] 14.4 % 11.5 - 15.0 % [facility] Hematocrit (Bld) [Volume fraction] 31 % Low 35.0 - 47.0 % [facility] Hemoglobin (Bld) [Mass/Vol] 10.5 g/dL Low 11.7 - 16.0 g/dL [facility] Interpretation and review of laboratory results Abnormal [facility] MCH (RBC) [Entitic mass] 28 pg 26. 0 - 34.0 pg [facility] MCHC (RBC) [Mass/Vol] 33.9 % 30.5 - 36.0 % [facility] MCV (RBC) [Entitic vol] 82.7 fL 77.0 - 99.0 fL [facility] Platelet mean volume (Bld) [Entitic vol] 11.9 fL 9.0 - 12.7 fL [facility] Platelets (Bld) [#/Vol] 170 10*3/uL 140 - 440 10*3/uL [facility] RBC (Bld) [#/Vol] 3.75 10*6/uL Low 3.80 - 5.2 0 10*6/uL [facility] WBC (Bld) [#/Vol] 13.5 10*3/uL High 3.6 - 10.7 10*3/uL [facility] CHLAMYDIA/GONORRHEAon 2024 CHLAMYDIA/GONORRHEA NEISSERIA GONORRHOEA E DNA PROBE Reference Not Detected Not Detected CHLAMYDIA TRACHOMATIS DNA PROBE Reference Not Detected Not Detected ORDER COMMENTS: Methodology: real-time PCR This test is intended for medical purposes only and is not intended for the evaluation of suspected sexual abuse or for other forensic purposes. In certain contexts, culture may be required to meet applicable laws and regulations for diagnosis of C. trachomatis and N. gonorrhoeae infections. Per 2014 CDC recommmendations, this test does not include confirmation of positive results by an alternative nucleic acid target. A negative result does not exclude the possibility of infection. A result of invalid indicates that a new specimen should be collected if clinically indicated. Normal [facility] Comment on above: Performed By: #### L [id number] #### Tight Rope Walker: JANAE COLLINS ([id number]) [facility] ([facility]) [address] [place] [address] COMPREHENSIVE METABOLIC PANE Baron 08-23-2024 Albumin [Mass/Vol] 2.5 g/dL Low 3.5-5.0 [facility] Comment on above: Performed By: #### L [id number] ####Tight Rope Walker: JANAE COLLINS ([id number])[facility] ([facility])[address] [place] [address] ALP [Catalytic activity/Vol] 122 U/L Normal 40-150 [facility] Comment on above: Performed By: #### L [id number] ####Tight Rope Walker: JANAE COLLINS ([id number])[facility] ([facility])[address] [place] [address] ALT [Catalytic activity/Vol] 12 U/L Normal <30 [facility] Comment on above: Performed By: #### L [id number] ####Tight Rope Walker: JANAE COLLINS ([id number])[facility] ([facility])[address] [place] [address] Anion gap [Moles/Vol] 9 mmol/L Normal 3-13 [facility] Comment on above: Performed By: #### L [id number] ####Tight Rope Walker: JNAAE COLLINS ([id number])[facility] ([facility])[address] [place] [address] AST [Catalytic activity/Vol] 18 U/L Normal <34 [facility] Comment on above: Performed By: #### L [id number] ####Tight Rope Walker: JANAE COLLINS ([id number])[facility] ([facility])[address] [place] [address] Bilirubin [Mass/Vol] 0.3 mg/dL Normal <1.2 [facility] Comment on above: Performed By: #### L [id number] ####Tight Rope Walker: JANAE COLLINS ([id number])[facility] ([facility])[address] [place] [address] Calcium [Mass/Vol] 8.6 mg/dL Normal 8.4-10.2 [facility] Comment on above: Performed By: #### L [id number] ####Tight Rope Walker: JANAE COLLINS ([id number])[facility] ([facility])[address] [place] [address] Chloride [Moles/Vol] 104 mmol/L Normal 98-107 [facility] Comment on above: Performed By: #### L [id number] ####Tight Rope Walker: JANAE COLLINS ([id number])[facility])[address] [place] [address] CO2 [Moles/Vol] 21 mmol/L Low 22-29 [facility] Comment on above: Performed By: #### L [id number] ####Tight Rope Walker: JANAE COLLINS ([id number])[facility])[address] [place] [address] Creatinine [Mass/Vol] 0.58 mg/dL Normal 0.57-1.11 [facility] Comment on above: Performed By: #### L [id number] ####Tight Rope Walker: JANAE COLLINS ([id number])[facility] ([facility])[address] [place] [address] GLOMERULAR FILTRATION RATE ML/MIN/1.73 SQ M.PREDICTED >90.0 Normal >60.0 [facility] Comment on above: Result Comment: Calc ulation based on the Chronic Kidney Disease Epidemiology Collaboration (CKD-EPI) equation refit without adjustment for race Performed By: #### L [id number] ####Tight Rope Walker: JANAE COLLINS ([id number])[facility] ([facility])[address] [place] [address] Glucose [Mass/Vol] 84 mg/dL Normal 74-100 [facility] Comment on above: Performed By: #### L [id number] ####Tight Rope Walker: JANAE COLLINS ([id number])[facility])[address] [place] [address] [place] Potassium [Moles/Vol] 3.9 mmol/L Normal 3.5-5.1 [facility] Comment on above: Result Comment: [facility] potassium values may be up to 0.5 mmol/L lower than serum values. Performed By: #### L [id number] ####Tight Rope Walker: JANAE COLLINS ([id number])[facility])[address] [place] [address] Protein [Mass/Vol] 6.4 g/dL Normal 6.4-8.3 [facility] Comment on above: Performed By: #### L [id number] ####Tight Rope Walker: JANAE COLLINS ([id number])[facility] ([facility])[address] [place] [address] Sodium [Moles/Vol] 134 mmol/L Low 136-145 [facility] Comment on above: Performed By: #### L [id number] ####Tight Rope Walker: JANAE COLLINS ([id number])[facility] ([facility])[address] [place] [address] Urea nitrogen [Mass/Vol] 8 mg/dL Normal 8-21 [facility] Comment on above: Performed By: #### L [id number] ####Tight Rope Walker: JANAE COLLINS ([id number])[facility] ([facility])[address] [place] [address] Comprehensive metabolic 1998 panelon 08-23-2024 Albumin [Mass/Vol] 2.5 g/dL Low 3.5 - 5.0 g/dL [facility] ALP [Catalytic activity/Vol] 122 U/L 40 - 150 U/L [facility] ALT [Catalytic activity/Vol] 12 U[facility] - [facility] U/L [facility] Anion gap [Moles/Vol] 9 mmol/L 3 - 13 mmol/L [facility] AST [Catalytic activity/Vol] 18 U/L [facility] - 34 U/L [facility] Bilirubin [Mass/Vol] 0.3 mg/dL NINF - 1.2 mg/dL [facility] Calcium [Mass/Vol] 8.6 mg/dL 8.4 - 10. 2 mg/dL [facility] Chloride [Moles/Vol] 104 mmol/L 98 - 10 7 mmol/L [facility] CO2 [Moles/Vol] 21 mmol/L Low 22 - 29 mmol/L [facility] Creatinine [Mass/Vol] 0.58 mg/dL 0.57 - 1.11 mg/dL [facility] GFR/1.73 sq M.predicted (S/P/Bld) [Vol rate/Area] - PINF [facility] Comment on above: Calculation based on the Chronic Kidney Disease Epidemiology Collaboration (CKD-EPI) equation refit without adjustment for race Glucose [Mass/Vol] 84 mg/dL 74 - 100 mg/dL [facility] Interpretation and review of laboratory results Abnormal [facility] Potassium [Moles/Vol] 3.9 mmol/L 3.5 - 5.1 mmol/L [facility] Comment on above: Plasma potassium mikey ues may be up to 0.5 mmol/L lower than serum values. Protein [Mass/Vol] 6.4 g/dL 6.4 - 8.3 g/dL [facility] Sodium [Moles/Vol] 134 mmol/L Low 136 - 145 mmol/L [facility] Urea nitrogen [Mass/Vol] 8 mg/dL 8 - 21 mg/d L [facility] Consulton 08-23-2024 Consult --- Attestation signed by Cory Morris MD at 08/23/2024 1:10 PM Patient seen and examined by me. Discussed patient with the resident/fellow/MARTHA. Agree with assessment and plan as written. I provided discussion regarding this patient's condition ,chemical dependency, psychiatric and medical history, symptoms and signs , reviewing past detoxification hospitalizations, assessing withdrawal status, evaluating detoxification medications, and discussing lab work and treatment plan ,importance of compliance with the treatment with providing options, as well as documenting on the day of the visit. Cory Morris MD 08/23/24 1:10 PM ADDICTION MEDICINE CONSULTATION H&P Patient: Skylar Landry Admit Date: 08/22/2024 Primary Care Physician: No primary care provider on file. Reason for Consultation: 29 wks , hx fentanyl use, current methadone hasn't taken in 2 days. __ HISTORY OF PRESENT ILLNESS Chief Complaint Patient presents with Other Detox from methadone Skylar Landry is a 34 y.o. year old female with a PMH of kidney stones, colitis, depression, anxiety, that was admitted for withdrawal symptoms as she has been without methadone for a couple days. She is currently 29 weeks . Skylar Landry states that she recently moved from [place], [place] to [place], [place] to be near her partner's family. She was following with [facility] for methadone dosing in [place] and was planning to transfer care to [facility] in [place]. She last dosed on 08/20. She is prescribed 140 mg daily, stating it was increased 1-2 months ago as cravings recently increased. She reports she presented to the ED for kidney pain and has a history of kidney stones, but also needs assistance with her withdrawal symptoms as she has been without methadone. She currently endorses chills, feeling hot, nausea, internal shakiness, and increased anxiety. She initially denies other substance use outside of methadone. After confirming UDS, she admits to using 1.5 g of fentanyl daily and 1 bar of Xanax per day, both last used 2 days ago. She admits to withdrawal symptoms associated from these substances. She denies SI/HI/AVH. On admission, a urine drug screen was positive for fentanyl, methadone, opiates, benzodiazepines, and a serum alcohol level was negative. SUBSTANCE USE HISTORY Brief Substance Use Narrative The patient admits to first using Percocet at age 14 after experiencing kidney stones. She realized it made her feel good and has been using other opiates, notably fentanyl since then. She denies IV drug use. She has history of blackouts associated with her substance use. She has history of overdoses requiring narcan. She denies history of legal problems. She is currently on MAT methadone 140 mg daily through (transitioning care to [place] from [place]). She last dosed on 08/20. She used fentanyl on Sunday 08/20. She admits to using 1 bar of Xanax per day for about 10 years, with the last use being 2 days ago (08/20). Reports history of cannabis use Current Substance Use Alcohol: Denies. Amphetamines: Denies. Benzos: 1 bar of Xanax per day. Cocaine: Denies. Hallucinogens: Denies. Marijuana: Denies. Nicotine: Denies. Opioids: Fentanyl 1.5 g per day, methadone 140 g per day. Treatment History Detoxifications: Reports history. Medication Assisted Treatment: Methadone through . [facility] [] IVDA. [x] Blackouts related to substance use. [] History of withdrawal seizures. [] History of delirium tremens. [x] History of overdoses. [] Legal consequences of substance use. Substance Use Disorder Criteria 2-3 = mild; 4-5 = moderate; 6 or >6 = severe substance use disorder [x] Taking substance in larger amounts and/or for longer than intended. [x] Wanting to cut down or quit but not being able to. [x] Spending a lot of time obtaining the substance. [x] Craving or a strong desire to use substance. [x] Repeatedly doesn't carry out major obligations due to substance use. [x] Using despite recurring social or interpersonal problems. [x] Reducing social, occupational, or recreational activities. [x] Recurrent use in physically hazardous situations. [x] Consistent use despite recurrent physical or psychological difficulties. [x] Tolerance (increased amounts to achieve intoxication or diminished effect). [x] Withdrawal syndrome or the substance is used to avoid withdrawal. REMAINING HISTORY Psychiatric History Current Psychiatrist: Denies Current Medications: Denies Diagnoses: Depression, anxiety, once diagnosed with bipolar disorder (disagrees with this) Previous Medication Tria (more content not included)... Normal [facility] Consult Department of Psychiatry Attending Consult Note Reason for Consult: substance use, depressive symptoms Consulting Physician: Guadalupe Ortega, Ph.D Total Time: 55 minutes IDENTIFYING DATA: The patient is a 34 y.o. female 29 weeks admitted on 08/22/2024 with substance use. History Obtained From: patient, EMR HISTORY OF PRESENT ILLNESS: Pt was asleep, awoke easily, and was alert, oriented, and somewhat participated. Pt non reliable historian at times; changed her responses re: recent substance use (see below); pt reported that she came to [place] from [place] several days ago and ran out of her methadone. Pt does report psychiatric history, and stated that her last psychiatric admission was about 3 years ago. Currently pt denies any SI/HI. At this time, no manic, no psychotic symptoms. Past Psychiatric History: Pt reported previous psychiatric admissions; to me pt vague re: previous suicide attempts, but stated to addiction team multiple past attempts. Pt stated that she was diagnosed with Bipolar disorder in the past (unclear if she was using at that time); hx anxiety/ depression, pt stated that she was not taking any psychotropic medications. Pt is currently not in counseling. Pt reported multiple past traumas. Drug and Alcohol History: Pt reported that she has been on methadone this ; pt stated that she used fentanyl for about 6 months, and then got help early . Pt at first denied any other alcohol and drug use history; pt tox came back positive for opiates, methadone, fentanyl, and benzodiazepines. When asked again re: use, pt stated that she used Xanax a few times, not more than 8 pills in this last week. She denied using fentanyl, but then stated, I was around it and that is why I came to [place]. Social History: Pt reported that she is originally from [place]; she has 3 sons, per pt they are with her grandmother. Pt stated that she has a partner for 1 year; per pt he is still using, and pt came up to [place] and is staying with his parents (he is still in [place]). Pt stated that she is motivated for treatment. MENTAL STATUS EXAM Mental Status Exam: Appearance: hospital gown Behavior: sleepy, somewhat cooperative Activity normal Speech: brief responses Mood: tired , Affect: congruent with mood Associations: goal directed Thought content: within normal limits Thought process: organized Orientation: oriented in all spheres Attention: fair Concentration: fair Insight: fair Judgment: fair Suicidal Intentions: no Suicidal Plan: no Impression : Polysubstance Abuse Anxiety/ Depression, provisional PLAN: Somewhat limited intake due to sleepiness and also pt being a vague historian. Session focused on sobriety issues, decreasing depressive and anxiety symptoms, and supportive intervention. No SI/HI, pt is very future oriented. Discussed with the pt various treatment options including assessment for medications and outpatient follow up. Addiction medicine and Social work following. ER services reviewed. Safety planning was discussed in detail. Pt to call 911 or go directly to nearest ER for any suicidal or homicidal thoughts. D/W pt effects of alcohol and drugs on mood. Encouraged sobriety. Pt voiced understanding of all treatment plans. Thank you for consulting our services. Normal [facility] GROUP B STREP SCREEN BY PCRo n 08-23-2024 GROUP B STREP SCREEN BY PCR GROUP B STREP SCREEN BY PCR Reference Not Detected Not Detected ORDER COMMENTS: Methodology: real-time PCR Normal [facility] Comment on above: Performed By: #### L [id number] #### Tight Rope Walker: JANAE COLLINS ([id number]) [facility] ([facility]) [address] [place] [address] HBV surface Ab IA Qnon 08-23 Interpretation: <8.0 Non-Reactive 8.0-11.9 Equivocal >= 12.0 Ab Detected Note: If an equivocal result is interpreted, an antibody status is unable to be determined. Collect new specimen if clinically indicated. [facility] HEPATITIS B CORE ANTIBODY, T OTAL - BKR QUESTon 08-23-2024 QUEST HEPATITIS B CORE AB TOTAL Non-Reactive Normal Nonreactive [facility] Comment on above: Result Comment: Test Performed by [employer], [employer] [facility], [address] [place] [address] Efrain Hill M.D., Ph.D., Director of Laboratories , [facility] [id number] Performed By: #### L [id number] ####[employer] ([facility])[address] [place] [address] [place] HEPATITIS B SURFACE ANTIBODY on 08-23-2024 HEPATITIS B VIRUS SURFACE AB <8.0 Normal [facility] Comment on above: Result Comment: ORDE R COMMENTS: Interpretation: <8.0 Non-Reactive 8.0-11.9 Equivocal >= 12.0 Ab Detected Note: If an equivocal result is interpreted, an antibody status is unable to be determined. Collect new specimen if clinically indicated. Performed By: #### L [id number] #### Tight Rope Walker: JANAE COLLINS ([phone]) [facility] ([facility]) [address] [place] [address] HEPATITIS B SURFACE ANTIGENo n 08-23-2024 HEPATITIS B VIRUS SURFACE AG Not detected Normal Not Detected [facility] Comment on above: Performed By: #### L [id number] #### Tight Rope Walker: JANAE COLLISN ([phone]) [facility] ([facility]) [address] [place] [address] HEPATITIS C ANTIBODYon 08-23 HCV Ab IA Ql Not detected Normal Not Detected [facility] Comment on above: Result Comment: Shona ents with DETECTED Hepatitis C Ab results should have a new specimen submitted for supplemental testing with a Hepatitis C Quantitative RNA assay (viral load), if clinically indicated. Performed By: #### L [id number] #### Tight Rope Walker: JANAE COLLINS ([phone]) [facility] ([facility]) [address] [place] [address] HIV 1+2 Ab+HIV1 p24 Ag IA Ql on 08-23-2024 Interpretation and review of laboratory results Normal [facility] HIV1,2 COMBO ANTIGEN-ANTIBOD Y SCREENon 08-23-2024 HIV 1,2 COMBO ANTIGEN/ANTIBODY Non-Reactive Normal Nonreactive [facility] Comment on above: Result Comment: The specimen was non-reactive for HIV-1 and HIV-2 antibodies and p24 antigen using an FDA-cleared 4th generation HIV test. Based on this non-reactive screen result, further reflexive testing was not indicated and was, therefore, not performed. Performed By: #### L [id number] #### Tight Rope Walker: JANAE COLLINS ([phone]) [facility] ([facility]) [address] [place] [address] Laboratory - Blood bankon ABO group Nom (Bld) A [facility] D Ag Ql (RBC) Positive [facility] Laboratory - Drug toxicology Ordered By: Monica Ratliff on 08-23-2024 Amphetamines Ql (U) Negative Negative [facility] Barbiturates screen method Nom (U) Negative Negative [facility] Benzodiazepines screen method Nom (U) Positive Negative [facility] Cocaine Ql (U) Negative Negative [facility] Ethanol [Mass/Vol] Negative Negative [facility] Methadone Ql (U) Positive Negative [facility] Opiates Screen Ql (U) Positive Negative [facility] Laboratory - Microbiology an d Antimicrobial susceptibilityon 08-23-2024 HIV 1+2 Ab+HIV1 p24 Ag IA Ql Non-Reactive Nonreactive [facility] Comment on above: The specimen was non -reactive for HIV-1 and HIV-2 antibodies and p24 antigen using an FDA-cleared 4th generation HIV test. Based on this non-reactive screen result, further reflexive testing was not indicated and was, therefore, not performed. HBV surface Ab IA Qn mIU/mL [facility] HBV surface Ag IA Ql Not detected Not Detected [facility] HCV Ab IA Ql Not detected Not Detected [facility] Comment on above: Patients with DETECT ED Hepatitis C Ab results should have a new specimen submitted for supplemental testing with a Hepatitis C Quantitative RNA assay (viral load), if clinically indicated. Laboratory - Microbiology an d Antimicrobial susceptibilityOrdered By: Darcy Null on 08-23-2024 Reagin Ab RPR Ql (S) Non-Reactive Nonreactive S [facility] MEDICATION ASSISTED TREATMEN T PANELon 08-23-2024 Amphetamines Ql (U) Negative Normal Negative [facility] Comment on above: Performed By: #### L [id number] ####Tight Rope Walker: JANAE COLLINS ([id number])[facility] ([facility])[address] [place] [address] BARBITURATES Negative Normal Negative [facility] Comment on above: Performed By: #### L [id number] ####Tight Rope Walker: JANAE COLLINS ([id number])[facility] ([facility])[address] [place] [address] [place] Benzodiazepines Ql (U) Positive Normal Negative [facility] Comment on above: Performed By: #### L [id number] ####Tight Rope Walker: JANAE COLLINS ([id number])[facility] ([facility])[address] [place] [address] BUPRENORPHINE SCREEN Negative Normal Negative [facility] Comment on above: Performed By: #### L [id number] ####Tight Rope Walker: JANAE COLLINS ([id number])[facility] ([facility])[address] [place] [address] Cocaine Ql (U) Negative Normal Negative [facility] Comment on above: Performed By: #### L [id number] ####Tight Rope Walker: JANAE COLLINS ([phone])[facility])[address] [place] [address] ETHANOL-ETOHO Negative Normal Negative [facility] Comment on above: Result Comment: ORDE R COMMENTS: The expected value for the drugs listed above is Negative. The following drugs or drug groups have been screened for by Immunoassay at the following thresholds: Amphetamine class(1000ng/mL) Barbituates(200ng/mL) Benzodiazepines(200ng/mL) Cocaine(300ng/mL) Ethanol (50 ng/mL) Methadone(300ng/mL) Opiates(300ng/mL) Oxycodone(100ng/mL) PCP(25ng/mL) Buprenorphine(5ng/mL) THC(50ng/mL) Fentanyl(1ng/mL) Positive results are NOT confirmed by a more specific alternative method unless requested. If confirmation is needed, request confirmation under separate order. NOTE: These results are for medical treatment only. Analysis performed using non-forensic procedures. Performed By: #### L [id number] ####Tight Rope Walker: JANAE COLLINS ([phone])[facility] ([facility])[address] [place] [address] FENTANYL Positive Normal Negative [facility] Comment on above: Performed By: #### L [id number] ####Tight Rope Walker: JANAE COLLINS ([id number])[facility] ([facility])[address] [place] [address] Methadone Ql (U) Positive Normal Negative [facility] Comment on above: Performed By: #### L [id number] ####Tight Rope Walker: JANAE COLLINS ([id number])[facility] ([facility])[address] [place] [address] Opiates Ql (U) Positive Normal Negative [facility] Comment on above: Performed By: #### L [id number] ####Tight Rope Walker: JANAE COLLINS ([id number])[facility] ([facility])[address] [place] [address] OXYCODONE/OXYMORPHONE Negative Normal Negative [facility] Comment on above: Performed By: #### L [id number] ####Tight Rope Walker: JANAE COLLINS ([id number])[facility])[address] [place] [address] PCP Negative Normal Negative [facility] Comment on above: Performed By: #### L [id number] ####Tight Rope Walker: JANAE COLLINS ([id number])[facility] ([facility])[address] [place] [address] THC-MTTHC Negative Normal Negative [facility] Comment on above: Performed By: #### L [id number] ####Tight Rope Walker: JANAE COLLINS ([id number])[facility] ([facility])[address] [place] [address] N. gonorrhoeae DNA SANDEE+probe Ql (Cervical mucus)on 08-23-2024 C. trachomatis DNA SANDEE+probe Ql (Unsp spec) Not detected Not Detected [facility] Interpretation and review of laboratory results Normal [facility] N gonorrhoeae, DNA Probe Not detected Not Detec luciano [facility] Methodology: real-ti me PCR This test is intended for medical purposes only and is not intended for the evaluation of suspected sexual abuse or for other forensic purposes. In certain contexts, culture may be required to meet applicable laws and regulations for diagnosis of C. trachomatis and N. gonorrhoeae infections. Per 2014 CDC recommmendations, this test does not include confirmation of positive results by an alternative nucleic acid target. A negative result does not exclude the possibility of infection. A result of invalid indicates that a new specimen should be collected if clinically indicated. [facility] No Panel Informationon 08-23 1. [place] live intrauterine at 29w 5d. 2. The estimated weight (EFW) is 1494 grams, which is at the 54% for this gestational age. The AC measures at 51%. 3. The amniotic fluid index is 12.9cm, which is within normal limits. 4. Detailed anatomic evaluation was typical, with limitations as noted in body of report. Limitations are secondary to late gestational age. 5. [facility] 01/14 . RECOMMENDATIONS 1. Plan per inpatient team. 2. Follow up as clinically indicated. Ultrasound is not diagnostic for aneuploidy and will not detect all structural abnormalities, even if multiple exams are performed during a given . Normal ultrasound findings do not guarantee normal outcomes. 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 Tone: Observed F. Movement: Observed Score: 88 F. Breathing: Observed - BIOMETRY: BPD: 75.5 mm G.Age: 30w 2d 56 % OFD: 101.7 mm HC: 282.8 mm G.Age: 31w 0d 54 % AC: 257.6 mm G.Age: 29w 6d 51 % FL: 56.7 mm G.Age: 29w 5d 36 % HUM: 50.2 mm G.Age: 29w 3d 44 % CER: 38.5 mm G.Age: 31w 4d 87 % LV: 2.57 mm CI: 74.2 % 70 - 86 FL/HC: 20.0 % 19.2 - 21.4 HC/AC: 1.10 0.99 - 1.21 FL/BPD: 75.1 % 71 - 87 FL/AC: 22.0 % 20 - 24 Est. FW: 1494 gm 3 lb 5 oz 54 % - GESTATIONAL AGE: Clinical KWAKU: 29w 5d KWAKU: 11/03/24 U/S Today: 30w 2d KWAKU: 10/30/24 Best: 29w 5d Det. By: Clinical KWAKU KWAKU: 11/03/24 - TARGETED ANATOMY: Central Nervous System Calvarium/Cranial V.: Normal appearance Intracranial Maria Elena: Normal appearance Cavum: Suboptimal views Parenchyma: Normal appearance Lateral Ventricles: Normal appearance Choroid Plexus: Normal appearance Cereb./Vermis: Normal appearance Cisterna Magna: Normal appearance Corpus Callosum: Normal appearance Midline Falx: Normal appearance Spine Cervical: Normal appearance Thoracic: Normal appearance Lumbar: Normal appearance Sacral: Suboptimal views Head/Neck Face: Normal appearance Lips: Normal appearance Neck: Normal appearance Nasal Bone: Suboptimal views Palate: Suboptimal views Profile: Suboptimal views Orbits/Eyes: Normal appearance Mandible: Normal appearance Maxilla: Suboptimal views Thorax Thoracic Contour: Normal appearance Lungs: Normal appearance 4 Chamber View: Normal appearance Cardiac Activity: Normal Cardiac Rhythm: Normal Cardiac Situs: Normal appearance Rt Outflow Tract: Suboptimal views Lt Outflow Tract: Suboptimal views Aortic Arch: Normal appearance Ductal Arch: Normal appearance SVC: Normal appearance Interventr. Septum: Suboptimal views Cardiac [place]: Normal appearance Diaphragm: Normal appearance 3 Vessel View: Suboptimal views 3 V Trachea View: Suboptimal views IVC: Normal Appearance Crossing: Suboptimal views Abdomen Ventral Wall: Normal appearance Cord Insertion: Normal appearance Situs: (more content not included)... [facility] Carlito Gonzales MD - 08/23/2024 - OBSTETRICS REPORT (Signed Final 08/23/2024 02:04 pm) - PATIENT INFO: ID #: [id number] : [birth year] (34 yrs)(F) Name: SKYLAR LANDRY Visit Date: 08/23/2024 10:29 am - PERFORMED BY: Attending: Eliezer Gonzales MD, HECTOR, FACOG Performed By: Som Miller Referred By: ELENA PARK Location: [facility] IP Visit Type: Inpatient - Hospital - SERVICE(S) PROVIDED: US Level II complete (Targeted OB) 50538 BPP w/out NST 88581 - INDICATIONS: Drug use complicating , O99.320 unspecified trimester Other psychoactive substance abuse, 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 Tone: Observed F. Movement: Observed Score: 01/14 F. Breathing: Observed - BIOMETRY: BPD: 75.5 mm G.Age: 30w 2d 56 % OFD: 101.7 mm HC: 282.8 mm G.Age: 31w 0d 54 % AC: 257.6 mm G.Age: 29w 6d 51 % FL: 56.7 mm G.Age: 29w 5d 36 % HUM: 50.2 mm G.Age: 29w 3d 44 % CER: 38.5 mm G.Age: 31w 4d 87 % LV: 2.57 mm CI: 74.2 % 70 - 86 FL/HC: 20.0 % 19.2 - 21.4 HC/AC: 1.10 0.99 - 1.21 FL/BPD: 75.1 % 71 - 87 FL/AC: 22.0 % 20 - 24 Est. FW: 1494 gm 3 lb 5 oz 54 % - GESTATIONAL AGE: Clinical KWAKU: 29w 5d KWAKU: 11/03/24 U/S Today: 30w 2d KWAKU: 10/30/24 Best: 29w 5d Det. By: Clinical KWAKU KWAKU: 11/03/24 - TARGETED ANATOMY: Central Nervous System Calvarium/Cranial V.: Normal appearance Intracranial Maria Elena: Normal appearance Cavum: Suboptimal views Parenchyma: Normal appearance Lateral Ventricles: Normal appearance Choroid Plexus: Normal appearance Cereb./Vermis: Normal appearance Cisterna Magna: Normal appearance Corpus Callosum: Normal appearance Midline Falx: Normal appearance Spine Cervical: Normal appearance Thoracic: Normal appearance Lumbar: Normal appearance Sacral: Suboptimal views Head/Neck Face: Normal appearance Lips: Normal appearance Neck: Normal appearance Nasal Bone: Suboptimal views Palate: Suboptimal views Profile: Suboptimal views Orbits/Eyes: Normal appearance Mandible: Normal appearance Maxilla: Suboptimal views Thorax Thoracic Contour: Normal appearance Lungs: Normal appearance 4 Chamber View: Normal appearance Cardiac Activity: Normal Cardiac Rhythm: Normal Cardiac Situs: Normal appearance Rt Outflow Tract: Suboptimal views Lt Outflow Tract: Suboptimal views Aortic Arch: Normal appearance Ductal Arch: Normal appearance SVC: Normal appearance Interventr. Septum: Suboptimal views Cardiac [place]: Normal appearance Diaphragm: Normal appearance 3 Vessel View: Suboptimal views 3 V Trachea View: Suboptimal views IVC: Normal Appearance Crossing: Suboptimal views Abdomen Ventral Wall: Normal appearance Cord Insertion: Normal appearance Situs: Normal appearance Stomach: Normal appearance Lt Kidney: Normal appearance Rt Kidney: Normal appearance Bladder: Normal appearance Extremities Lt Humerus: Normal appearance Rt Humerus: Suboptimal views Lt Forearm: Normal appearance Rt Forearm: Suboptimal views Lt Hand: Normal appearance Rt Hand: Suboptimal views Lt Femur: Normal appearance Rt Femur: Normal appearance Lt Lower Leg: Normal appearance Rt Lower Leg: Normal appearance Lt Foot: Normal appearance Rt Foot: Normal appearance Other Umbilical Cord: Normal 3-vessel Genitalia: Suboptimal views Comment: Renal arteries and Bilateral Ankles - suboptimal views - - Eliezer Gonzales MD, HECTOR, FACOG Electronically Signed Final Report 08/23/2024 02:04 pm - IMPRESSION: 1. [place] live intrauterine at 29w 5d. 2. The estim (more content not included)... [facility] Interpretation and review of laboratory results Normal [facility] Rubella IgG 5.4 0.900 - PINF RFIDeas [employer] Interpretation Table : <0.900 Antibody NOT Detected >=0.900 AND <1.000 Antibody Equivocal >=1.000 Antibody Detected [employer] Extra Tube Hold for add-ons. [facility] Comment on above: Auto resulted. [facility] Radiology Study observation (narrative) [facility] Interpretation and review of laboratory results Normal [facility] No Panel InformationOrdered By: Carlito Gonzales on 08-23-2024 [facility] Work Phone: No Panel InformationOrdered By: Monica Ratliff on 08-23-2024 BUPRENORPHINE SCREEN Negative Negative [facility] FENTANYL Positive Negative [facility] OXYCODONE/OXYMORPHONE Negative Negative [facility] PCP Negative Negative [facility] THC Negative Negative [facility] The expected value f or the drugs listed above is Negative. The following drugs or drug groups have been screened for by Immunoassay at the following thresholds: Amphetamine class(1000ng/mL) Barbituates(200ng/mL) Benzodiazepines(200ng/m L) Cocaine(300ng/mL) Ethanol (50 ng/mL) Methadone(300ng/mL) Opiates(300ng/mL) Oxycodone(100ng/mL) PCP(25ng/mL) Buprenorphine(5ng/mL) THC(50ng/mL) Fentanyl(1ng/mL) Positive results are NOT confirmed by a more specific alternative method unless requested. If confirmation is needed, request confirmation under separate order. NOTE: These results are for medical treatment only. Analysis performed using non-forensic procedures. [facility] Progress Noteon 08-23-2024 Progress Note --- Attestation signed by Carlito Gonzales MD at 08/23/2024 2:12 PM (Updated) Hospital Care (Independent): I independently saw and evaluated the patient. I agree with the findings and plan of care as documented in the resident's note. Skylar Landry is a 34 y.o. at 29w5d who is admitted for treatment of MILLIE. BP 108/67 Pulse 94 Temp 36.3 ?C (97.4 ?F) (Temporal) Resp 16 SpO2 97% MILLIE --patient reports that she has history of substance use disorder, most recently in treatment in [facility]. She reports that she is maintained on methadone 140 mg daily. Notably, the patient has since moved from [place] to [place] and plans to be here for the foreseeable future. Her last dose in [place] was on August 20. 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 She is experiencing some withdrawal symptoms this morning. We will have her seen by the addiction medicine service and otherwise plan for adjuvant therapy. Her goal is to administer her scheduled methadone after confirmation this morning. We will otherwise work to get her a local treatment center for methadone dosing. Her MAT panel was positive for benzos, methadone, opiates and fentanyl. CLP --patient is requesting CLP consult this morning. Likely she does have dual diagnosis and is quite reasonable. Will plan to have her seen by the service this morning. Kidney disorder --I note the patient has a history of medullary sponge kidney. She also has a reported history of nephrolithiasis. She has a nonobstructive 7 mm stone on retroperitoneal ultrasound. Her examination is benign this morning. I am somewhat uncertain that her pain is related to her underlying kidney disease. think that as we gain control of withdrawal symptoms, this will help our diagnostic process. She otherwise has normal creatinine during this admission. FWB -- BPP 01/14; reassuring status thusfar. Candidate for BMZ and magnesium sulfate for neuroprotection if indicated. PPBC --not discussed --we will work to get her prenatals from [place]. [facility] We did draw labs with this admission. Genetic screening deferred pending receipt of records from [place]. Vaccinations --not discussed DVT ppx --okay for Lovenox; SCDs in interim. Mango MOYERA FACOG Maternal- Medicine Maternal Medicine Service Resident Progress Note 08/23/2024 6:21 AM 08/22/2024 Hospital Day: 2 Skylar Landry, 34 y.o. 29w5d Patient has been seen and examined. Pt resting comfortably this AM and not disturbed. Vitals: 08/22/24 2354 08/23/24 0200 08/23/24 0300 08/23/24 0359 BP: 96/60 108/66 Patient Position: Lying Pulse: 96 86 (!) 232 94 Resp: 20 22 Temp: 36.6 ?C (97.8 ?F) 36.4 ?C (97.5 ?F) TempSrc: Temporal Temporal SpO2: 100% 98% FHT: 140, moderate variability Accels: absent Decels: present spontaneous @ 0506 & 0523 Contractions: Rare Physical Exam: Gen: NAD, resting comfortably in bed HEENT: Normocephalic, Atraumatic Resp: No increased WOB, no respiratory distress Card: Regular rate Medications: Current Facility-Administered Medications Medication Dose Route Frequency Provider Last Rate Last Admin acetaminophen (Tylenol) 500 MG tablet - Pyxis ADS Override Pull acetaminophen (Tylenol) tablet 1,000 mg 1,000 mg Oral q6h PRN Lacey Gemma, DO 1,000 mg at 08/23/24 0106 cyclobenzaprine (Flexeril) tablet 5 mg 5 mg Oral TID PRN Lacey Gemma, DO dicyclomine (Bentyl) capsule 10 mg 10 mg Oral 4x daily PRN Lacey Gemma, DO diphenhydrAMINE (BENADryl) tablet/capsule 25 mg 25 mg Oral q6h PRN Lacey Gemma, DO hydrOXYzine pamoate (Vistaril) capsule 25 mg 25 mg Oral q6h PRN Lacey Gemma, DO 25 mg at 08/23/24 0242 ondansetron (Zofran) injection 4 mg 4 mg IntraVENous q8h PRN Lacey Gemma, DO 4 mg at 08/23/24 0348 vitamin tablet 1 tablet Oral Daily Lacey Gemma, DO promethazine (Phenergan) tablet 12.5 mg 12.5 mg Oral q6h PRN Lacey Gemma, DO sodium chloride 0.9 % infusion 5-250 mL/hr IntraVENous PRN Lacey Gemma, DO sodium chloride 0.9% (NS) flush 10 mL 10 mL IntraVENous 2 times per day Lacey Gemma, DO sodium chloride 0.9% (NS) flush 10 mL 10 mL IntraVENous PRN Lacey Gemma, DO Assessment/Plan: Skylar Landry is a 34 y.o. 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 Normal [facility] QUANTIFERON - PLUS PURPLE ASHISH Traore 08-23-2024 MITOGEN MINUS NIL (CALCULATED) 4.69 IU/mL Normal [facility] Comment on above: Performed By: #### L [id number] ####Tight Rope Walker: JANAE COLLINS ([id number])[facility] ([address] NIL 0.04 IU/mL Normal [facility] Comment on above: Result Comment: TAMARA Mcdowell COMMENTS: QuantiFERON-TB Gold Plus is a qualitative indirect chemiluminescence immunoassay test for M tuberculosis infection and is intended for use in conjunction with risk assessment, radiography, and other medical and diagnostic evaluations. The QuantiFERON-TB Gold Plus result is determined by subtracting the Nil value from either TB antigen value. The Mitogen tube serves as a control for the test. The TB1-NIL tube specifically detects CD4+ lymphocyte reactivity; the TB2-NIL tube can detect both CD4+ and CD8+ lymphocyte reactivity. An overall Negative result does not completely rule out TB infection. A false-positive result in the absence of other clinical evidence of TB infection is not uncommon and may be due to infection from some nontuberculosis mycobacteria (M. kansasii, M. szulgai, or M. marinum). Clinical research suggests a QuantiFERON-TB Gold Plus interpretation of Positive with TB1 minus Nil and TB2 minus Nil values <1.00 may represent a false-positive result in the absence of other clinical evidence, especially in low-risk individuals. An overall indeterminate result is inconclusive and should not be viewed as low or intermediate infection. Indeterminate results can be caused by low Mitogen or high Nil values. Low mitogen results may occur due to a low lymphocyte count, reduced lymphocyte activity, inability of the patient's lymphocytes to generate IFN-gamma, or inappropriate handling of the tubes. High values for the Nil tube may occur due to heterophile antibody effects or nonspecific, circulating IFN-gamma in the patient's blood sample. When clinically indicated, indeterminate tests should be repeated on a new specimen. Performed By: #### L [id number] ####Tight Rope Walker: JANAE COLLINS ([id number])[facility])[address] [place] [address] QUANTIFERON - TB GOLD TEST Negative Normal Negative [facility] Comment on above: Performed By: #### L [id number] ####Tight Rope Walker: JANAE COLLINS ([id number])[facility])[address] [place] [address] TB1 MINUS NIL (CALCULATED) 0.00 IU/mL Normal [facility] Comment on above: Performed By: #### L [id number] ####Tight Rope Walker: JANAE COLLINS ([id number])[facility])[address] [place] [address] TB2 MINUS NIL (CALCULATED) 0.01 IU/mL Normal [facility] Comment on above: Performed By: #### L [id number] ####Tight Rope Walker: JANAE COLLINS ([id number])[facility])[address] [place] [address] RPR WITH REFLEX QUANTon 08-07 RPR Non-Reactive Normal Nonreactive [facility] Comment on above: Performed By: #### L [id number] #### Tight Rope Walker: JANAE COLLINS ([id number]) [facility]) [address] [place] [address] [place] RUBELLA ANTIBODY, IGGon 08-07 RUBELLA IMMUNE STATUS (LIAISON XL) 5.400 Normal >=0.900 [facility] Comment on above: Result Comment: TAMARA Mcdowell COMMENTS: Interpretation Table: <0.900 Antibody NOT Detected >=0.900 AND <1.000 Antibody Equivocal >=1.000 Antibody Detected Performed By: #### L [id number] #### Tight Rope Walker: JANAE COLLINS ([id number]) [address] Reagin Ab RPR Ql (S)Ordered By: Darcy Null on 08-23-2024 Interpretation and review of laboratory results Normal [facility] T. vaginalis DNA SANDEE+probe Q l (Genital specimen)on 08-23-2024 Interpretation and review of laboratory results Normal [facility] Trichomonas vaginalis Not detected Not Detected [facility] Methodology: real-ti me PCR A negative result does not completely rule out infection with T. vaginalis. Results should be interpreted in conjunction with other clinical data. This test has not been validated for use with self-collected vaginal swab specimens from patients. This test is intended for medical purposes only and is not intended for the evaluation of suspected sexual abuse or for other forensic purposes. [facility] TRICHOMONAS VAGINALIS PCRon 08-23-2024 TRICHOMONAS VAGINALIS PCR TRICHOMONAS VAGINALIS PCR Reference Not Detected Not Detected ORDER COMMENTS: Methodology: real-time PCR A negative result does not completely rule out infection with T. vaginalis. Results should be interpreted in conjunction with other clinical data. This test has not been validated for use with self-collected vaginal swab specimens from patients. This test is intended for medical purposes only and is not intended for the evaluation of suspected sexual abuse or for other forensic purposes. Normal [facility] Comment on above: Performed By: #### L [id number] #### Tight Rope Walker: JANAE COLLINS ([id number]) [facility]) [address] [place] [address] URINE CULTUREon 08-23-2024 Bacteria identified Cx Nom (U) URINE CULTURE Reference Multiple species present; probable contamination; repeat suggested [ S = SUSCEPTIBLE R = RESISTANT I = INTERMEDIATE S-DD = Susceptible-dose dependent NS = Non-susceptible NO = No Interpretation ] Normal [facility] Comment on above: Performed By: #### L [id number] #### Tight Rope Walker: JANAE COLLINS ([id number]) [facility]) [address] [place] [id number] [facility] US BIOPHYSICAL PROFILE WO NON STRESS TESTINGon 08-23-2024 US BIOPHYSICAL PROFILE WO NON STRESS TESTING - OBSTETRICS REPORT (Signed Final 08/23/2024 02:04 pm) - PATIENT INFO: ID #: [id number] : [birth year] (34 yrs)(F) Name: SKYLAR GARCÍAITE Visit Date: 08/23/2024 10:29 am - PERFORMED BY: Attending: Eliezer Gonzales MD, HECTOR, FACOG Performed By: Som Miller Referred By: ELENA PARK Location: [facility] IP Visit Type: Inpatient - Hospital - SERVICE(S) PROVIDED: US Level II complete (Targeted OB) 84669 BPP w/out NST 82094 - INDICATIONS: Drug use complicating , O99.320 unspecified trimester Other psychoactive substance abuse, 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 Tone: Observed F. Movement: Observed Score: 01/14 F. Breathing: Observed - BIOMETRY: BPD: 75.5 mm G.Age: 30w 2d 56 % OFD: 101.7 mm HC: 282.8 mm G.Age: 31w 0d 54 % AC: 257.6 mm G.Age: 29w 6d 51 % FL: 56.7 mm G.Age: 29w 5d 36 % HUM: 50.2 mm G.Age: 29w 3d 44 % CER: 38.5 mm G.Age: 31w 4d 87 % LV: 2.57 mm CI: 74.2 % 70 - 86 FL/HC: 20.0 % 19.2 - 21.4 HC/AC: 1.10 0.99 - 1.21 FL/BPD: 75.1 % 71 - 87 FL/AC: 22.0 % 20 - 24 Est. FW: 1494 gm 3 lb 5 oz 54 % - GESTATIONAL AGE: Clinical KWAKU: 29w 5d KWAKU: 11/03/24 U/S Today: 30w 2d KWAKU: 10/30/24 Best: 29w 5d Det. By: Clinical KWAKU KWAKU: 11/03/24 - TARGETED ANATOMY: Central Nervous System Calvarium/Cranial V.: Normal appearance Intracranial Maria Elena: Normal appearance Cavum: Suboptimal views Parenchyma: Normal appearance Lateral Ventricles: Normal appearance Choroid Plexus: Normal appearance Cereb./Vermis: Normal appearance Cisterna Magna: Normal appearance Corpus Callosum: Normal appearance Midline Falx: Normal appearance Spine Cervical: Normal appearance Thoracic: Normal appearance Lumbar: Normal appearance Sacral: Suboptimal views Head/Neck Face: Normal appearance Lips: Normal appearance Neck: Normal appearance Nasal Bone: Suboptimal views Palate: Suboptimal views Profile: Suboptimal views Orbits/Eyes: Normal appearance Mandible: Normal appearance Maxilla: Suboptimal views Thorax Thoracic Contour: Normal appearance Lungs: Normal appearance 4 Chamber View: Normal appearance Cardiac Activity: Normal Cardiac Rhythm: Normal Cardiac Situs: Normal appearance Rt Outflow Tract: Suboptimal views Lt Outflow Tract: Suboptimal views Aortic Arch: Normal appearance Ductal Arch: Normal appearance SVC: Normal appearance Interventr. Septum: Suboptimal views Cardiac [place]: Normal appearance Diaphragm: Normal appearance 3 Vessel View: Suboptimal views 3 V Trachea View: Suboptimal views IVC: Normal Appearance Crossing: Suboptimal views Abdomen Ventral Wall: Normal appearance Cord Insertion: Normal appearance Situs: Normal appearance Stomach: Normal appearance Lt Kidney: Normal appearance Rt Kidney: Normal appearance Bladder: Normal appearance Extremities Lt Humerus: Normal appearance Rt Humerus: Suboptimal views Lt Forearm: Normal appearance Rt Forearm: Suboptimal views Lt Hand: Normal appearance Rt Hand: Suboptimal views Lt Femur: Normal appearance Rt Femur: Normal appearance Lt Lower Leg: Normal appearance Rt Lower Leg: Normal appearance Lt Foot: Normal appearance Rt Foot: Normal appearance Other Umbilical Cord: Normal 3-vessel Genitalia: Suboptimal views Comment: Renal arteries and Bilateral Ankles - suboptimal views - - Eliezer Gonzales MD, HECTOR, FACOG Electronically Signed Final Report 08/23/2024 02:04 pm - IMPRESSION: 1. [place] live intrauterine at 29w 5d. 2. The estimated weight (EFW) is 1494 grams, which is at the 54% for this gestational age. The AC measures at 51%. 3. The amn (more content not included)... Normal [facility] US OB DETAIL ANATOMY T RANSABDOMINALon 08-23-2024 US OB DETAIL ANATOMY TRANSABDOMINAL - OBSTETRICS REPORT (Signed Final 08/23/2024 02:04 pm) - PATIENT INFO: ID #: [id number] : [birth year] (34 yrs)(F) Name: SKYLAR LANDRY Visit Date: 08/23/2024 10:29 am - PERFORMED BY: Attending: Eliezer Gonzales MD, HECTOR, FACOG Performed By: Som Miller Referred By: ELENA PARK Location: [facility] IP Visit Type: Inpatient - Hospital - SERVICE(S) PROVIDED: Level II complete (Targeted OB) 60845 BPP w/out NST 46292 - INDICATIONS: Drug use complicating , O99.320 unspecified trimester Other psychoactive substance abuse, 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 Tone: Observed F. Movement: Observed Score: 01/14 F. Breathing: Observed - BIOMETRY: BPD: 75.5 mm G.Age: 30w 2d 56 % OFD: 101.7 mm HC: 282.8 mm G.Age: 31w 0d 54 % AC: 257.6 mm G.Age: 29w 6d 51 % FL: 56.7 mm G.Age: 29w 5d 36 % HUM: 50.2 mm G.Age: 29w 3d 44 % CER: 38.5 mm G.Age: 31w 4d 87 % LV: 2.57 mm CI: 74.2 % 70 - 86 FL/HC: 20.0 % 19.2 - 21.4 HC/AC: 1.10 0.99 - 1.21 FL/BPD: 75.1 % 71 - 87 FL/AC: 22.0 % 20 - 24 Est. FW: 1494 gm 3 lb 5 oz 54 % - GESTATIONAL AGE: Clinical KWAKU: 29w 5d KWAKU: 11/03/24 U/S Today: 30w 2d KWAKU: 10/30/24 Best: 29w 5d Det. By: Clinical KWAKU KWAKU: 11/03/24 - TARGETED ANATOMY: Central Nervous System Calvarium/Cranial V.: Normal appearance Intracranial Maria Elena: Normal appearance Cavum: Suboptimal views Parenchyma: Normal appearance Lateral Ventricles: Normal appearance Choroid Plexus: Normal appearance Cereb./Vermis: Normal appearance Cisterna Magna: Normal appearance Corpus Callosum: Normal appearance Midline Falx: Normal appearance Spine Cervical: Normal appearance Thoracic: Normal appearance Lumbar: Normal appearance Sacral: Suboptimal views Head/Neck Face: Normal appearance Lips: Normal appearance Neck: Normal appearance Nasal Bone: Suboptimal views Palate: Suboptimal views Profile: Suboptimal views Orbits/Eyes: Normal appearance Mandible: Normal appearance Maxilla: Suboptimal views Thorax Thoracic Contour: Normal appearance Lungs: Normal appearance 4 Chamber View: Normal appearance Cardiac Activity: Normal Cardiac Rhythm: Normal Cardiac Situs: Normal appearance Rt Outflow Tract: Suboptimal views Lt Outflow Tract: Suboptimal views Aortic Arch: Normal appearance Ductal Arch: Normal appearance SVC: Normal appearance Interventr. Septum: Suboptimal views Cardiac [place]: Normal appearance Diaphragm: Normal appearance 3 Vessel View: Suboptimal views 3 V Trachea View: Suboptimal views IVC: Normal Appearance Crossing: Suboptimal views Abdomen Ventral Wall: Normal appearance Cord Insertion: Normal appearance Situs: Normal appearance Stomach: Normal appearance Lt Kidney: Normal appearance Rt Kidney: Normal appearance Bladder: Normal appearance Extremities Lt Humerus: Normal appearance Rt Humerus: Suboptimal views Lt Forearm: Normal appearance Rt Forearm: Suboptimal views Lt Hand: Normal appearance Rt Hand: Suboptimal views Lt Femur: Normal appearance Rt Femur: Normal appearance Lt Lower Leg: Normal appearance Rt Lower Leg: Normal appearance Lt Foot: Normal appearance Rt Foot: Normal appearance Other Umbilical Cord: Normal 3-vessel Genitalia: Suboptimal views Comment: Renal arteries and Bilateral Ankles - suboptimal views - - G Wayne Gonzales MD, HECTOR, FACOG Electronically Signed Final Report 08/23/2024 02:04 pm - IMPRESSION: 1. [place] live intrauterine at 29w 5d. 2. The estimated weight (EFW) is 1494 grams, which is at the 54% for this gestational age. The AC measures at 51%. 3. The amn (more content not included)... Normal [facility] US RETROPERITONEALon 025 US RETROPERITONEAL [facility] 1990 [id number] Exam Date/Time: 08/23/2024 01:17 Procedure: US RETROPERITONEAL Ordering Provider: ELISE MEGHAN Reason For Exam: Right CVA ttp Exam type: Ultrasound retroperitoneum. CLINICAL INDICATION: Right CVA ttp COMPARISON: None Technique: Grayscale sonographic images were obtained of the kidneys and bladder. Color Doppler was utilized. FINDINGS: Right Kidney: Size: 10.1 x 4.7 x 5.3 cm Renal Parenchyma: Normal echogenicity and cortical thickness. Hydronephrosis: None Renal Calculi: None Left Kidney: Size: 10.1 x 5.1 x 4.6 cm Renal Parenchyma: Normal echogenicity and cortical thickness. Hydronephrosis: None Renal Calculi: Echogenic focus noted in the lateral pole measuring 7 mm. Obscured due to overlying gravid uterus. IMPRESSION: No acute sonographic process identified. Nonobstructive left renal calculus measuring up to 7 mm. Limited visualization of the bladder due to gravid uterus. Report Dictated on Electronically Signed By: Frandy Lynch MD Electronically Signed Date/Time: 08/23/2024 5:07 AM EDT [facility] US Retroperitoneumon 025 No acute sonographic process identified. Nonobstructive left renal calculus measuring up to 7 mm. Limited visualization of the bladder due to gravid uterus. Report Dictated on Electronically Signed By: Frandy Lynch MD Electronically Signed Date/Time: 08/23/2024 5:07 AM EDT [facility] Patient Name: SKYLAR LANDRY : 1990 Exam Date/Time: 08/23/2024 01:17 Procedure: US RETROPERITONEAL Ordering Provider: ELISE MEGHAN Reason For Exam: Right CVA ttp Exam type: Ultrasound retroperitoneum. CLINICAL INDICATION: Right CVA ttp COMPARISON: None Technique: Grayscale sonographic images were obtained of the kidneys and bladder. Color Doppler was utilized. FINDINGS: Right Kidney: Size: 10.1 x 4.7 x 5.3 cm Renal Parenchyma: Normal echogenicity and cortical thickness. Hydronephrosis: None Renal Calculi: None Left Kidney: Size: 10.1 x 5.1 x 4.6 cm Renal Parenchyma: Normal echogenicity and cortical thickness. Hydronephrosis: None Renal Calculi: Echogenic focus noted in the lateral pole measuring 7 mm. Obscured due to overlying gravid uterus. [facility] Frandy Lynch MD - 08/23/2024 Patient Name: SKYLAR LANDRY : 1990 Exam Date/Time: 08/23/2024 01:17 Procedure: US RETROPERITONEAL Ordering Provider: ELISE MEGHAN Reason For Exam: Right CVA ttp Exam type: Ultrasound retroperitoneum. CLINICAL INDICATION: Right CVA ttp COMPARISON: None Technique: Grayscale sonographic images were obtained of the kidneys and bladder. Color Doppler was utilized. FINDINGS: Right Kidney: Size: 10.1 x 4.7 x 5.3 cm Renal Parenchyma: Normal echogenicity and cortical thickness. Hydronephrosis: None Renal Calculi: None Left Kidney: Size: 10.1 x 5.1 x 4.6 cm Renal Parenchyma: Normal echogenicity and cortical thickness. Hydronephrosis: None Renal Calculi: Echogenic focus noted in the lateral pole measuring 7 mm. Obscured due to overlying gravid uterus. IMPRESSION: No acute sonographic process identified. Nonobstructive left renal calculus measuring up to 7 mm. Limited visualization of the bladder due to gravid uterus. Report Dictated on Electronically Signed By: Frandy Lynch MD Electronically Signed Date/Time: 08/23/2024 5:07 AM EDT [facility] Study [facility]narrative) [facility] RetroperitoneumOrdered By : Frandy Lynch on 08-23-2024 [employer] Work Phone: OB Triage Physician Noteon 0 08-22-2024 OB Triage Physician Note [facility] Medical Records Department [address] [place] [address] OB Triage Physician Note 08/22/241922 MR#: [id number] Acct: [id number] Name: SKYLAR LANDRY Rep #: [id number] : 1990 34 From: Fartun Licona MD PCP: Care Physician,No Primary Status:REG CLI Y Location: AB538-0 HPI - General General Date of Admission: 08/22/24 Date of Service: 08/22/24 Chief Complaint: Abdominal pain HPI Narrative SKYLAR LANDRY, is a 34 F who presents presents c/o abdominal pain. Nausea and emesis now. [place]. Patient notes that she has been on methadone this . 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 She states her last 3 years ago she used Percocet intermittently during the but she did not have any withdrawal during the when she was not using Percocet and neither did the . However, between pregnancies her Percocet use escalated and then she began using fentanyl and during this she started in a methadone treatment program in [place]. However 7 days ago she took her last dose of methadone in [place] and started traveling to [place]. She had some Percocet and Xanax that were prescribed for her per her report that she finished about 3 days ago. 2 days ago she had 1 last dose of methadone that she had brought with her and she took that. She took that because she was starting to have some withdrawal symptoms. Patient states she was seen 2 weeks ago for some abdominal pain and kidney stones and threatened labor. Patient reports she was 1 cm and 30% effaced. Patient states she has had care in [place] including 28-week labs and she does not have the results of the 28-week labs but reports that she did do the Glucola challenge and have the blood work drawn. Past medical history significant for colitis but she is not on any treatment for this. Medullary sponge kidney and kidney stones Medications during the include Xanax, methadone and prenatals Maternal Data Information Final KWAKU: 11/02/24 Gestational age: 29 5/7 [facility] Home Medications ???Medication ???Instructions ???Recorded ???Last Taken ???Type alprazolam 0.25 mg tablet (Xanax) 0.25 mg PO BID PRN anxiety 08/20/24 History methadone 40 mg soluble tablet 140 mg PO DAILY 08/22/24 08/20/24 History Allergy/AdvReac Type Severity Reaction Status Date / Time ketorolac (From Toradol) Allergy Intermediate Hives Verified 08/22/24 18:28 Physical Exam Narrative Awake, alert, no acute distress Abdomen soft, nondistended, gravid, mild tenderness suprapubic Extremities trace edema no clubbing or cyanosis NST FHR Rate Baby A Baseline: 140 Variability:: Moderate Accelerations:: 10 x 10 Decelerations:: Variable NST Reactive:: Appropriate for gestational age Uterine Activity:: no regular ctxs Assessment Plan (1) 29 weeks gestation of : (2) High risk multigravida in third trimester: (3) Medullary sponge kidney: (4) Opioid use disorder: (5) Abdominal pain affecting , antepartum: PLAN: no evidence of PTL. Clinically consistent with opiod withdrawal. Has h/o chronic kidney stones as well. Will discuss w/ MFM to formulate a plan, possible transport to [facility] d/w her no methadone clinic locally, likely will need to be in treatment program with suboxone will need to establish care for OB care Will determine what labs need to be done after discuss w/ MFM 08/22/[id number] Date Fartun Licona MD Cosigner Signature (if applicable): Date CC: Dr. Fartun Licona MD; No Primary Care Physician Signed Normal [facility] Vital Signs Date Time Vital Sign Value Performing Clinician Facility 02-04-2025 16:26-0400 Body temperature 97.7 [degF] No Primary Care Physician [facility] 02-04-2025 16:26-0400 Diastolic blood pressure 72 mm[Hg] No Primary Care Physician [facility] 02-04-2025 16:26-0400 Heart rate 72 /min No Primary Care Physician [facility] 02-04-2025 16:26-0400 Respiratory rate 16 /min No Primary Care Physician [facility] 02-04-2025 16:26-0400 SaO2% (BldA) [Mass fraction] 98 % No Primary Care Physician [facility] 02-04-2025 16:26-0400 Systolic blood pressure 108 mm[Hg] No Primary Care Physician [facility] 02-04-2025 12:50-0400 Body height 162.56 cm No Primary Care Physician [facility] 02-04-2025 12:50-0400 Body mass index (BMI) [Ratio] 32.5 kg/m2 No Primary Care Physician [facility] 02-04-2025 12:50-0400 Body weight 86.13 kg No Primary Care Physician [facility] 12-29-2024 14:14-0400 Body temperature 98.7 [degF] No Primary Care Physician [facility] 12-29-2024 14:14-0400 Diastolic blood pressure 78 mm[Hg] No Primary Care Physician [facility] 12-29-2024 14:14-0400 Heart rate 78 /min No Primary Care Physician [facility] 12-29-2024 14:14-0400 Respiratory rate 16 /min No Primary Care Physician [facility] 12-29-2024 14:14-0400 SaO2% (BldA) [Mass fraction] 99 % No Primary Care Physician [facility] 12-29-2024 14:14-0400 Systolic blood pressure 127 mm[Hg] No Primary Care Physician [facility] 12-29-2024 09:58-0400 Body height 162.56 cm No Primary Care Physician [facility] 12-29-2024 09:58-0400 Body mass index (BMI) [Ratio] 31.2 kg/m2 No Primary Care Physician [facility] 12-29-2024 09:58-0400 Body weight 82.58 kg No Primary Care Physician [facility] 12-04-2024 12:38-0400 Body temperature 97.5 [degF] Bailee Susie KENNEL MANAGER DOG TRACK.CONFERENCE SERVICES COORDINATOR Work Phone: [facility] 12-04-2024 12:38-0400 Body weight 89 kg Bailee Susie KENNEL MANAGER DOG TRACK.CONFERENCE SERVICES COORDINATOR Work Phone: [facility] 12-04-2024 12:38-0400 Diastolic blood pressure 88 mm[Hg] Bailee Susie KENNEL MANAGER DOG TRACK.CONFERENCE SERVICES COORDINATOR Work Phone: [facility] 12-04-2024 12:38-0400 Heart rate 75 /min Bailee Susie KENNEL MANAGER DOG TRACK.CONFERENCE SERVICES COORDINATOR Work Phone: [facility] 12-04-2024 12:38-0400 Respiratory rate 20 /min Bailee Susie KENNEL MANAGER DOG TRACK.CONFERENCE SERVICES COORDINATOR Work Phone: [facility] 12-04-2024 12:38-0400 SaO2% (BldA) [Mass fraction] 100 % Bailee Susie KENNEL MANAGER DOG TRACK.CONFERENCE SERVICES COORDINATOR Work Phone: [facility] 12-04-2024 12:38-0400 Systolic blood pressure 122 mm[Hg] Bailee Susie CONFERENCE SERVICES COORDINATOR Work Phone: [facility] 10-21-2024 20:55-0400 Body temperature 97.39 [degF] Brianna Tipton MD Work Phone: [facility] 10-21-2024 20:55-0400 Diastolic blood pressure 83 mm[Hg] Brianna Tipton MD Work Phone: [facility] 10-21-2024 20:55-0400 Heart rate 100 /min Brianna Tipton MD Work Phone: [facility] 10-21-2024 20:55-0400 Respiratory rate 18 /min Brianna Tipton MD Work Phone: [facility] 10-21-2024 20:55-0400 SaO2% (BldA) [Mass fraction] 100 % Brianna Tipton MD Work Phone: [facility] 10-21-2024 20:55-0400 Systolic blood pressure 124 mm[Hg] Brianna Tipton MD Work Phone: [facility] 10-18-2024 10:30-0400 Body height 162.6 cm Brianna Tipton MD Work Phone: [facility] 10-18-2024 10:30-0400 Body mass index (BMI) [Ratio] 34.33 kg/m2 Brianna Tipton MD Work Phone: [facility] [employer] 10-18-2024 10:30-0400 Body weight 90.72 kg Brianna Tipton MD Work Phone: [facility] 10-12-2024 13:15-0400 Body mass index (BMI) [Ratio] 34.5 kg/m2 Aury Rosario DO Work Phone: [facility] [employer] 10-12-2024 13:15-0400 Body weight 91.17 kg Aury oRsario DO Work Phone: [facility] [employer] 10-12-2024 13:15-0400 Diastolic blood pressure 77 mm[Hg] Aury Rosario DO Work Phone: [facility] [employer] 10-12-2024 13:15-0400 Heart rate 91 /min Aury Rosario DO Work Phone: [facility] [employer] 10-12-2024 13:15-0400 Systolic blood pressure 126 mm[Hg] Aury Rosario DO Work Phone: [facility] [employer] 10-08-2024 19:20-0400 Body temperature 98.49 [degF] Ave Marie MD Work Phone: [facility] [employer] 10-08-2024 19:20-0400 Diastolic blood pressure 80 mm[Hg] Ave Marie MD Work Phone: [facility] [employer] 10-08-2024 19:20-0400 Heart rate 100 /min Ave Marie MD Work Phone: [facility] [employer] 10-08-2024 19:20-0400 Respiratory rate 18 /min Ave Marie MD Work Phone: [facility] [employer] 10-08-2024 19:20-0400 SaO2% (BldA) [Mass fraction] 100 % Ave Marie MD Work Phone: [facility] [employer] 10-08-2024 19:20-0400 Systolic blood pressure 128 mm[Hg] Ave Marie MD Work Phone: [facility] [employer] 10-08-2024 12:45-0400 Body mass index (BMI) [Ratio] 33.47 kg/m2 Marisa Panko DO Work Phone: [facility] [employer] 10-08-2024 12:45-0400 Body weight 88.45 kg Marisa Panko DO Work Phone: [facility] [employer] 10-08-2024 12:45-0400 Diastolic blood pressure 76 mm[Hg] Marisa Panko DO Work Phone: [facility] [employer] 10-08-2024 12:45-0400 Heart rate 98 /min Marisa Panko DO Work Phone: [facility] [employer] 10-08-2024 12:45-0400 Systolic blood pressure 111 mm[Hg] Marisa Panko DO Work Phone: [facility] [employer] 09-24-2024 21:27-0400 Body height 162.[address] Marie MD Work Phone: [facility] [employer] 09-24-2024 21:27-0400 Body mass index (BMI) [Ratio] 34.33 kg/m2 Ave Marie MD Work Phone: [facility] [employer] 09-24-2024 21:27-0400 Body temperature 98.71 [degF] Ave Marie MD Work Phone: [facility] [employer] 09-24-2024 21:27-0400 Body weight 90.[address] Marie MD Work Phone: [facility] [employer] 09-24-2024 21:27-0400 Diastolic blood pressure 80 mm[Hg] Ave Marie MD Work Phone: [facility] [employer] 09-24-2024 21:27-0400 Heart rate 119 /min Ave Marie MD Work Phone: [facility] [employer] 09-24-2024 21:27-0400 Respiratory rate 18 /min Ave Marie MD Work Phone: [facility] [employer] 09-24-2024 21:27-0400 Systolic blood pressure 127 mm[Hg] Ave Marie MD Work Phone: [facility] [employer] 09-14-2024 12:55-0400 Body mass index (BMI) [Ratio] 33.64 kg/m2 Ilene Blaine KENNEL MANAGER DOG TRACK - CONFERENCE SERVICES COORDINATOR Work Phone: [facility] [employer] 09-14-2024 12:55-0400 Body weight 88.91 kg Ilene Blaine KENNEL MANAGER DOG TRACK - CONFERENCE SERVICES COORDINATOR Work Phone: [facility] [employer] 09-14-2024 12:55-0400 Diastolic blood pressure 72 mm[Hg] Ilene Blaine KENNEL MANAGER DOG TRACK - CONFERENCE SERVICES COORDINATOR Work Phone: [facility] [employer] 09-14-2024 12:55-0400 Heart rate 81 /min Ilene Blaine KENNEL MANAGER DOG TRACK - CONFERENCE SERVICES COORDINATOR Work Phone: [facility] [employer] 09-14-2024 12:55-0400 Systolic blood pressure 119 mm[Hg] Ilene Blaine KENNEL MANAGER DOG TRACK - CONFERENCE SERVICES COORDINATOR Work Phone: [facility] [employer] 09-07-2024 12:24-0400 Body mass index (BMI) [Ratio] 32.6 kg/m2 Ilene Blaine KENNEL MANAGER DOG TRACK - CONFERENCE SERVICES COORDINATOR Work Phone: [facility] 09-07-2024 12:24-0400 Body weight 86.14 kg Ilene Blaine KENNEL MANAGER DOG TRACK - CONFERENCE SERVICES COORDINATOR Work Phone: [facility] [employer] 09-07-2024 12:24-0400 Diastolic blood pressure 72 mm[Hg] Ilene Blaine KENNEL MANAGER DOG TRACK - CONFERENCE SERVICES COORDINATOR Work Phone: [facility] [employer] 09-07-2024 12:24-0400 Heart rate 91 /min Ilene Blaine KENNEL MANAGER DOG TRACK - CONFERENCE SERVICES COORDINATOR Work Phone: [facility] [employer] 09-07-2024 12:24-0400 Systolic blood pressure 112 mm[Hg] Ilene Blaine KENNEL MANAGER DOG TRACK - CONFERENCE SERVICES COORDINATOR Work Phone: [facility] [employer] 09-07-2024 11:06-0400 Body mass index (BMI) [Ratio] 32.44 kg/m2 Destiny Valdezc KENNEL MANAGER DOG TRACK - CONFERENCE SERVICES COORDINATOR Work Phone: [facility] [employer] 09-07-2024 11:06-0400 Body weight 85.73 kg Destiny Reza KENNEL MANAGER DOG TRACK - CONFERENCE SERVICES COORDINATOR Work Phone: [facility] [employer] 09-07-2024 11:06-0400 Diastolic blood pressure 73 mm[Hg] Destiny Kelloggc KENNEL MANAGER DOG TRACK - CONFERENCE SERVICES COORDINATOR Work Phone: [facility] 09-07-2024 11:06-0400 Heart rate 86 /min Destiny Kelloggc KENNEL MANAGER DOG TRACK - CONFERENCE SERVICES COORDINATOR Work Phone: [facility] [employer] 09-07-2024 11:06-0400 Systolic blood pressure 108 mm[Hg] Destiny Cobb KENNEL MANAGER DOG TRACK - CONFERENCE SERVICES COORDINATOR Work Phone: [facility] 08-30-2024 13:35-0400 Heart rate 97 /min Gemini Elise DO Work Phone: [facility] 08-30-2024 12:26-0400 Body temperature 98.1 [degF] Gemini Elise DO Work Phone: [facility] 08-30-2024 12:26-0400 Diastolic blood pressure 68 mm[Hg] Gemini Elise DO Work Phone: [facility] 08-30-2024 12:26-0400 Respiratory rate 16 /min Gemini Elise DO Work Phone: [facility] 08-30-2024 12:26-0400 SaO2% (BldA) [Mass fraction] 99 % Gemini Elise DO Work Phone: [facility] 08-30-2024 12:26-0400 Systolic blood pressure 107 mm[Hg] Gemini Elise DO Work Phone: [facility] 08-25-2024 17:25-0400 Body height 162.6 cm Gemini Elise DO Work Phone: [facility] 08-25-2024 17:25-0400 Body mass index (BMI) [Ratio] 31.41 kg/m2 Gemini Elise DO Work Phone: [facility] [employer] 08-25-2024 17:25-0400 Body weight 83.01 kg Gemini Elise DO Work Phone: [facility] 08-22-2024 20:00-0400 Body temperature 98.5 [degF] No Primary Care Physician [facility] 08-22-2024 20:00-0400 Diastolic blood pressure 74 mm[Hg] No Primary Care Physician [facility] 08-22-2024 20:00-0400 Heart rate 90 /min No Primary Care Physician [facility] 08-22-2024 20:00-0400 Respiratory rate 16 /min No Primary Care Physician [facility] 08-22-2024 20:00-0400 Systolic blood pressure 121 mm[Hg] No Primary Care Physician [facility] 08-22-2024 18:36-0400 SaO2% (BldA) [Mass fraction] 99 % No Primary Care Physician [facility] 08-22-2024 18:26-0400 Body height 162.56 cm No Primary Care Physician [facility] 08-22-2024 18:26-0400 Body mass index (BMI) [Ratio] 31.1 kg/m2 No Primary Care Physician [facility] 08-22-2024 18: Body weight 82.46 kg No Primary Care Physician [facility] Encounters Encounter Date Encounter Type Care Provider Facility Start: 03-10-2025 End: 03-10-2025 ambulatory [facility] [employer] [facility] Start: 03-10-2025 End: 03-10-2025 Office outpatient visit 25 minutes Manuel Woods MD Work Phone: [employer] Comment on above: Encounter for monito ring Suboxone maintenance therapy (Primary Dx); Severe opioid use disorder on maintenance therapy (HCC); Severe opioid use disorder, in early remission (HCC); Anxiety and depression Start: 03-02-2025 End: 03-02-2025 Radha Woods MD Work Phone: [employer] Comment on above: Encounter for monito ring Suboxone maintenance therapy (Primary Dx); Severe opioid use disorder on maintenance therapy (HCC) Start: 03-01-2025 End: 03-01-2025 [facility] Start: 02-04-2025 End: 02-04-2025 Emergency department patient visit No Primary Care Physician -Emergency Department Work Phone: Start: 01-24-2025 End: 01-24-2025 Radha Woods MD Work Phone: [employer] Comment on above: Severe opioid use di sorder on maintenance therapy (HCC) Start: 01-07-2025 End: 01-07-2025 Radha Woods MD Work Phone: [employer] Comment on above: Severe opioid use di sorder on maintenance therapy (HCC); Anxiety and depression Start: 01-05-2025 End: 01-07-2025 Radha Woods MD Work Phone: [employer] Comment on above: Severe opioid use di sorder on maintenance therapy (HCC); Anxiety and depression Start: 12-29-2024 End: 12-29-2024 Emergency department patient visit No Primary Care Physician -Emergency Department Work Phone: Start: 12-20-2024 End: 12-20-2024 Office outpatient visit 25 minutes Manuel Woods MD Work Phone: [facility] [employer] Comment on above: Encounter for monito ring Suboxone maintenance therapy (Primary Dx); Severe opioid use disorder on maintenance therapy (HCC); Severe opioid use disorder, in early remission (HCC); Anxiety and depression Start: 12-20-2024 End: 12-20-2024 ambulatory [facility] Start: 12-04-2024 End: 12-04-2024 Patient encounter procedure Bailee Richards JUMANA Work Phone: [facility] Comment on above: Nipple pain (Primary Dx) Start: 12-04-2024 End: 12-04-2024 ambulatory BAILEE RICHARDS Facility:[facility] Start: 11-22-2024 End: 11-22-2024 Office outpatient visit 25 minutes Manuel Woods MD Work Phone: [facility] [employer] Comment on above: Encounter for monito ring Suboxone maintenance therapy (Primary Dx); Severe opioid use disorder on maintenance therapy (HCC); Severe opioid use disorder, in early remission (HCC); Anxiety and depression Start: 11-22-2024 End: 11-22-2024 ambulatory MANUELACACIA WOODS [facility] Start: 10-22-2024 End: 10-23-2024 ambulatory BRIANNA TIPTON [facility] Start: 10-22-2024 End: 10-23-2024 Subsequent hospital visit by physician Brianna Tipton MD Work Phone: [facility] Start: 10-20-2024 End: 11-23-2024 Telephone encounter [facility] Start: 10-18-2024 End: 10-21-2024 Evaluation and management of inpatient Brianna Tipton MD Work Phone: [facility] Comment on above: care foll owing vaginal delivery (Primary Dx); Anxiety and depression; Severe opioid use disorder on maintenance therapy (HCC) Start: 10-14-2024 End: 10-14-2024 Orders Only Aury Rosario DO Work Phone: [facility] [place] [facility] [place] Comment on above: UTI due to extended- spectrum beta lactamase (ESBL) producing Escherichia coli (Primary Dx) Start: 10-12-2024 End: 10-12-2024 ambulatory [facility] Start: 10-12-2024 End: 10-12-2024 Office outpatient visit 15 minutes Aury Rosario Work Phone: [facility] [place] [facility] [place] Comment on above: Acute cystitis witho ut hematuria (Primary Dx); Supervision of high risk due to social problems, third trimester; Drug use affecting in third trimester; Anxiety and depression Start: 10-12-2024 End: 10-12-2024 Subsequent hospital visit by physician Ilene Douglass CNP Work Phone: [facility] Comment on above: 31 weeks gestation o f Start: 10-12-2024 End: 10-12-2024 ambulatory [facility] Start: 10-11-2024 End: 10-18-2024 Telephone encounter Marisa العراقي DO Work Phone: [facility] [place] [facility] [place] Comment on above: Scheduled Induction Start: 10-08-2024 End: 10-08-2024 Subsequent hospital visit by physician Ave Marie MD Work Phone: [facility] OB Triage H2 Start: 10-08-2024 End: 10-12-2024 Patient encounter procedure Catalina Tipton RN [facility] Start: 10-08-2024 End: 10-08-2024 Office outpatient visit 15 minutes Marisa العراقي DO Work Phone: [facility] [place] [facility] [place] Comment on above: Supervision of high risk due to social problems in third trimester (Primary Dx); Drug use affecting in third trimester Start: 10-08-2024 End: 10-12-2024 ambulatory Catalina Tipton RN [facility] Start: 10-06-2024 End: 11-03-2024 ambulatory Sohan Archuleta RN [facility] Start: 10-06-2024 End: 11-03-2024 Patient encounter procedure Sohan Archuleta RN [facility] Start: 10-05-2024 End: 10-05-2024 Office outpatient visit 25 minutes Maneul Woods MD Work Phone: [facility] [place] Comment on above: Encounter for monito ring Suboxone maintenance therapy (Primary Dx); Severe opioid use disorder on maintenance therapy (HCC); Anxiety and depression; Drug use affecting in third trimester Start: 10-05-2024 End: 10-05-2024 ambulatory [facility] Start: 10-05-2024 End: 10-05-2024 Subsequent hospital visit by physician Ilene Ninop TK Douglass CNP Work Phone: [facility] Comment on above: 31 weeks gestation o f Start: 09-29-2024 End: 09-29-2024 Telephone encounter Gemini Elise DO Work Phone: [facility] Clinical Communication Start: 09-28-2024 End: 10-06-2024 Refill Manuel Woods MD Work Phone: [facility] [place] Comment on above: Severe opioid use di sorder on maintenance therapy (HCC) Medication Problem Start: 09-24-2024 End: 09-25-2024 Subsequent hospital visit by physician Ave Marie MD Work Phone: [facility] OB Triage H2 Start: 09-24-2024 End: 10-18-2024 ambulatory Sohan Archuleta RN [facility] Communication Start: 09-24-2024 End: 10-18-2024 Patient encounter procedure Sohan Archuleta RN [facility] Clinical Communication Start: 09-21-2024 End: 09-21-2024 ambulatory MANUEL WOODS [facility] Start: 09-21-2024 End: 09-21-2024 [facility] [place] Comment on above: Urinary tract infect ion without hematuria, site unspecified (Primary Dx); Drug use affecting in third trimester; Anxiety and depression; Polysubstance abuse (HCC) Start: 09-21-2024 End: 09-21-2024 Office outpatient visit 25 minutes Manuel Woods MD Work Phone: [facility] [place] [facility] [place] Comment on above: Encounter for monito ring Suboxone maintenance therapy (Primary Dx); Severe opioid use disorder on maintenance therapy (HCC); Drug use affecting in third trimester; Severe opioid use disorder (HCC); Urinary tract infection without hematuria, site unspecified Start: 09-21-2024 End: 09-21-2024 ambulatory [facility] Start: 09-21-2024 End: 09-21-2024 Subsequent hospital visit by physician Ilene Szymanski KENNEL MANAGER DOG TR[employer] Work Phone: [facility] Comment on above: 31 weeks gestation o f 31 weeks gestation o f ; Severe opioid use disorder (HCC) Start: 09-15-2024 End: 09-15-2024 Orders Only Ilene Blaine KENNEL MANAGER DOG TRACK [employer] Work Phone: [facility] [place] [facility] [place] Comment on above: Severe opioid use di sorder (HCC) (Primary Dx) Start: 09-14-2024 End: 09-14-2024 Office outpatient visit 10 minutes Ilene Blaine [employer] Work Phone: [facility] [place] [facility] [place] Comment on above: 32 weeks gestation o f (Primary Dx); care, subsequent in third trimester 32 weeks gestation o f (Primary Dx); care, subsequent in third trimester; Supervision of high risk due to social problems in third trimester Start: 09-14-2024 End: 09-14-2024 Office outpatient visit 25 minutes Manuel Woods MD Work Phone: [facility] [place] [facility] [place] Comment on above: Encounter for monito ring Suboxone maintenance therapy (Primary Dx); Anxiety and depression; Severe opioid use disorder (HCC); Drug use affecting in third trimester Start: 09-14-2024 End: 09-14-2024 ambulatory [facility] Start: 09-07-2024 End: 09-07-2024 ambulatory [facility] Start: 09-07-2024 End: 09-07-2024 Office outpatient visit 10 minutes Ilene Szymanski KENNEL MANAGER DOG TRACK - CONFERENCE SERVICES COORDINATOR Work Phone: [facility] [employer] Comment on above: 31 weeks gestation o f (Primary Dx) Start: 09-07-2024 End: 09-07-2024 Office outpatient visit 25 minutes Manuel Woods MD Work Phone: [facility] [employer] Comment on above: Severe opioid use di sorder (HCC) (Primary Dx); Drug use affecting in third trimester; Anxiety and depression Start: 09-07-2024 End: 09-07-2024 Office outpatient visit 5 minutes Destiny Cobb KENNEL MANAGER DOG TRACK [employer] Work Phone: [facility] Comment on above: GA: [id number] Start: 09-07-2024 End: 09-07-2024 ambulatory [facility] Start: 08-31-2024 End: 08-31-2024 Office outpatient visit 25 minutes Manuel Woods MD Work Phone: [facility] [employer] Comment on above: Severe opioid use di sorder (HCC) (Primary Dx); Anxiety and depression; Drug use affecting in third trimester Start: 08-31-2024 End: 08-31-2024 ambulatory [facility] Start: 08-30-2024 End: 09-01-2024 Telephone encounter Elena Park DO Work Phone: [facility] [employer] Start: 08-22-2024 End: 08-30-2024 Evaluation and management of inpatient Gemini Bragg Mariana DO Work Phone: [facility] Unit [facility] Comment on above: Substance abuse affe cting , antepartum (HCC) (Primary Dx); Drug use affecting in third trimester; Anxiety and depression; Pain of left lower extremity Start: 08-22-2024 End: 08-22-2024 ambulatory No Primary Care Physician [facility] Work Phone: Start: 08-22-2024 End: 08-22-[address] Fartun Licona MD [facility] Work Phone: Procedures Date Procedure Procedure Detail Performing Clinician Start: 02-04-2025 Urnls dip stick/tabl et reagent auto microscopy No Primary Care Physician Start: 02-04-2025 Computed tomography of abdomen and pelvis with intravenous contrast No Primary Care Physician Start: 02-04-2025 Estimated creatinine clearance No Primary Care Physician Start: 12-29-2024 End: 12-29-2024 Polymerase chain reaction analysis No Primary Care Physician Start: 12-29-2024 Trichomonas vaginali s detection No Primary Care Physician Start: 12-29-2024 Urine culture No Primar y Care Physician Start: 12-29-2024 Estimated creatinine clearance No Primary Care Physician Start: 12-29-2024 Transvaginal echography No Primary Care Physician Start: 12-29-2024 Urnls dip stick/tabl et reagent auto microscopy No Primary Care Physician Start: 11-22-2024 MEDICATION ASSISTED TREATMENT PANEL Manuel Woods MD Work Phone: Start: 10-20-2024 URINE HOLD CUP Natasha Lorenz MD Work Phone: Start: 10-20-2024 Urnls dip stick/tabl et reagent auto microscopy Natasha Lorenz MD Work Phone: Start: 10-18-2024 MEDICATION ASSISTED TREATMENT PANEL Lacey Gemma DO Work Phone: Start: 10-18-2024 Antibody screen MANUEL QUEEN Comment on above: Order Comment: Speci men is valid for 3 days - nurse to verify valid specimen. Performed By: #### L [id number] #### Tight Rope Walker: JANAE COLLINS ([id number]) [facility] ([facility]) [address] [place] [address] Start: 10-18-2024 Blood count complete automated Lacey Gemma DO Work Phone: Start: 10-18-2024 Blood typing serologic abo Lacey Flower DO Work Phone: Start: 10-08-2024 Fern test Sabina zurita DO Work Phone: Start: 10-08-2024 Ph body fluid not el sewhere specified Sabina Dawkins DO Work Phone: Start: 10-08-2024 Iadna streptococcus group b amplified probe tq Marisa العراقي DO Work Phone: Start: 10-05-2024 MEDICATION ASSISTED TREATMENT PANEL Manuel Woods MD Work Phone: Start: 09-24-2024 Comprehensive metabo lic panel Xu Underwood MD Work Phone: Start: 09-21-2024 Us preg uterus real time f/u trnsabdl per fetus Ilene Blaine KENNEL MANAGER DOG TRACK - CONFERENCE SERVICES COORDINATOR Work Phone: Start: 09-14-2024 MEDICATION ASSISTED TREATMENT PANEL Manuel Woods MD Work Phone: Start: 09-07-2024 MEDICATION ASSISTED TREATMENT PANEL Manuel Woods MD Work Phone: Start: 08-31-2024 MEDICATION ASSISTED TREATMENT PANEL Manuel Woods MD Work Phone: Start: 08-30-2024 Antibody screen MANUEL QUEEN Comment on above: Order Comment: HOLD. Specimen is valid for 3 days - nurse to verify valid specimen Performed By: #### L [id number] #### Tight Rope Walker: JANAE COLLINS ([id number]) [facility] ([facility]) [address] [place] [address] Start: 08-30-2024 Blood typing serologic abo Gemini Elise DO Work Phone: Start: 08-29-2024 Glucose post glucose dose Nae Freed DO Work Phone: Start: 08-27-2024 Mri spinal canal lum bar w/o contrast material Mercedez Nwagwu DO Work Phone: Start: 08-26-2024 Antibody screen MANUEL QUEEN Comment on above: Order Comment: HOLD. Specimen is valid for 3 days - nurse to verify valid specimen Performed By: #### L [id number] #### Tight Rope Walker: JANAE COLLINS ([id number]) [facility] ([facility]) [address] [place] [address] Start: 08-26-2024 Blood typing serolog ic rh (d) Lacey Gemma DO Work Phone: Start: 08-23-2024 QUANTIFERON - PLUS G REEN TUBE Elena Park DO Work Phone: Start: 08-23-2024 QUANTIFERON - PLUS P URPLE TUBE Elena Park DO Work Phone: Start: 08-23-2024 QUANTIFERON - PLUS Y ELLOW TUBE Elena Park DO Work Phone: Start: 08-23-2024 QUANTIFERON - PLUS VELEZ TUBE Elena Park DO Work Phone: Start: 08-23-2024 QUANTIFERON TB GOLD Trina cka Park DO Work Phone: Start: 08-23-2024 Ecg routine ecg w/le ast 12 lds trcg only w/o i&r Nakia Cronin DO Work Phone: Start: 08-23-2024 Us preg uterus w/det ail maria elena 1st gestation Lacey Gemma DO Work Phone: Start: 08-23-2024 Culture bacterial quanttative colony count urine Lacey Gemma DO Work Phone: Start: 08-23-2024 MEDICATION ASSISTED TREATMENT PANEL Lacey Gemma DO Work Phone: Start: 08-23-2024 URINE HOLD CUP Lacey Ge mma DO Work Phone: Start: 08-23-2024 Blood count complete automated Lacey Gemma DO Work Phone: Start: 08-23-2024 Antibody screen MANUEL QUEEN Comment on above: Order Comment: HOLD. Specimen is valid for 3 days - nurse to verify valid specimen Performed By: #### L [id number] #### Tight Rope Walker: JANAE COLLINS ([id number]) [facility] ([facility]) [address] [place] [address] Start: 08-23-2024 ABO and Rh group [Ty pe] in Blood by Confirmatory method Lacey Flower DO Work Phone: Start: 08-23-2024 Blood typing serologic abo Lacey Flower DO Work Phone: Start: 08-23-2024 Comprehensive metabo lic panel Lacey Flower DO Work Phone: Start: 08-23-2024 End: 08-23-2024 Iaad ia hepatitis b surface antigen Lacey MosleyMagic Wheels DO Work Phone: Start: 08-23-2024 Us retroperitoneal r eal time w/image complete Lacey Flower DO Work Phone: Plan of Treatment Date Care Activity Detail Author Start: 2067 RSV Immunization for Adults (1 - 1-dose 75+ series) RSV Immunization for Adults (1 - 1-dose 75+ series) [facility] [employer] Start: 2042 Zoster Vaccines (1 of 2) Zoster Vacc corinna (1 of 2) [facility] Start: 08-23-2034 DTaP/Tdap/Td Vaccine s (2 - Td or Tdap) DTaP/Tdap/Td Vaccines (2 - Td or Tdap) [facility] Start: 08-23-2034 Urine microalbumin profile DTaP,Tdap,Td Vaccine (2 - Td or Tdap) [facility] Start: 04-20-2025 Depression Monitoring Depression Mon [facility] [employer] Start: 04-07-2025 End: 04-07-2025 Patient encounter procedure 04/07/2025 1:30 PM EDT Office Visit [facility] [employer] [address] [place] [address] Manuel Woods MD [address] [place] [address] [facility] [employer] Start: 03-15-2025 End: 03-15-2025 Patient encounter procedure 03/15/2025 1:45 PM EDT Office Visit [facility] [place] [address] [place] [id number] Destiny Cobb, KENNEL MANAGER DOG TRACK - CONFERENCE SERVICES COORDINATOR [address] [place] [address] [facility] [place] [place] Start: 03-10-2025 End: 03-10-2026 MEDICATION ASSISTED TREATMENT PANEL MEDICATION ASSISTED TREATMENT PANEL Lab Routine Encounter for monitoring Suboxone maintenance therapy Expected: 03/10/2025 (Approximate), Expires: 03/10/2026 [facility] Work Phone: Comment on above: Expected: 03/10/2025 (Approximate), Expires: 03/10/2026 Start: 03-02-2025 End: 03-02-2026 MEDICATION ASSISTED TREATMENT PANEL MEDICATION ASSISTED TREATMENT PANEL Lab Routine Encounter for monitoring Suboxone maintenance therapy Expected: 03/02/2025 (Approximate), Expires: 03/02/2026 [facility] [employer] [facility] Work Phone: Comment on above: Expected: 03/02/2025 (Approximate), Expires: 03/02/2026 Start: 02-23-2025 Depression Monitoring Depression [facility] Start: 02-07-2025 Influenza vaccination S [facility] Start: 02-04-2025 [facility] Start: 01-26-2025 End: 01-26-2025 Patient encounter procedure 01/26/2025 2:00 PM EDT Office Visit [facility] [place] [address] [place] [address] Manuel Woods MD [address] [place] [address] [facility] [place] Start: 01-17-2025 End: 01-17-2025 Patient encounter procedure 01/17/2025 2:30 PM EDT Office Visit [facility] [place] [address] [place] [address] Manuel Woods MD [address] [place] [address] [facility] Start: 12-29-2024 Chlamydia/Neisseria (PCR) Chlamydia/Neisseria (PCR) [facility] Start: 12-29-2024 End: 12-29-2024 [facility] Start: 12-29-2024 Polymerase chain reaction analysis [facility] Start: 12-20-2024 End: 12-20-2024 Telemedicine consultation with patient 12/20/2024 2:15 PM EDT Telemedicine [facility] [address] [place] [address] Manuel Woods MD [address] [place] [address] [facility] Start: 12-20-2024 End: 12-20-2025 MEDICATION ASSISTED TREATMENT PANEL MEDICATION ASSISTED TREATMENT PANEL Lab Routine Encounter for monitoring Suboxone maintenance therapy Expected: 12/20/2024 (Approximate), Expires: 12/20/2025 [facility] [employer] Work Phone: Comment on above: Expected: 12/20/2024 (Approximate), Expires: 12/20/2025 Start: 11-22-2024 End: 11-22-2024 Patient encounter procedure 11/22/2024 2:15 PM EDT Office Visit [facility] [address] [place] [address] Manuel Woods MD [address] [place] [address] [facility] Start: 11-22-2024 End: 11-22-2025 [facility] and [facility]ab[facility] Work Phone: Comment on above: Expected: 11/22/2024 (Approximate), Expires: 11/22/2025 Start: 11-02-2024 End: 11-02-2024 Patient encounter procedure 11/02/2024 11:30 AM EDT Appointment [facility] [address] [place] [phone] BlaineIlene, KENNEL MANAGER DOG TRACK - CONFERENCE SERVICES COORDINATOR [address] [place] [address] [facility] Start: 10-26-2024 End: 10-26-2024 Patient encounter procedure 10/26/2024 11:00 AM EDT Appointment [facility] [address] [place] [phone] BlaineIlene, KENNEL MANAGER DOG TRACK - CONFERENCE SERVICES COORDINATOR [address] [place] [address] [facility] Start: 10-25-2024 End: 10-25-2024 Patient encounter procedure 10/25/2024 11:30 AM EDT Appointment [facility] [address] [place] [phone] BlaineIlene, KENNEL MANAGER DOG TRACK - CONFERENCE SERVICES COORDINATOR [address] [place] [address] [facility] Start: 10-19-2024 End: 10-19-2024 Patient encounter procedure [facility] Start: 10-18-2024 End: 10-18-2024 Patient encounter procedure 10/18/2024 11:30 AM EDT Appointment [facility] [address] [place] [phone] BlaineIlene, KENNEL MANAGER DOG TRACK - CONFERENCE SERVICES COORDINATOR [address] [place] [address] [facility] Start: 10-12-2024 End: 10-12-2024 Patient encounter procedure [facility] Start: 10-11-2024 End: 10-11-2024 Patient encounter procedure 10/11/2024 11:30 AM EDT Appointment [facility] [address] [place] [phone] Ilene Szymanski, KENNEL MANAGER DOG TRACK - CONFERENCE SERVICES COORDINATOR [address] [place] [address] [facility] Start: 10-05-2024 End: 10-05-2025 MEDICATION ASSISTED TREATMENT [facility] Work Phone: Comment on above: Expected: 10/05/2024 (Approximate), Expires: 10/05/2025 Start: 10-05-2024 End: 10-05-2024 Patient encounter procedure [facility] Start: 10-04-2024 End: 10-04-2024 Patient encounter procedure 10/04/2024 11:30 AM EDT Appointment [facility] [address] [place] [phone] Ilene Szymanski, KENNEL MANAGER DOG TRACK - CONFERENCE SERVICES COORDINATOR [address] [place] [address] [facility] Start: 09-28-2024 End: 09-28-2024 Patient encounter procedure [facility] Start: 09-27-2024 End: 09-27-2024 Patient encounter procedure 09/27/2024 11:30 AM EDT Appointment [facility] [address] [phone] Ilene Szymanski, KENNEL MANAGER DOG TRACK - CONFERENCE SERVICES COORDINATOR [address] [place] [address] [facility] Start: 09-21-2024 End: 09-21-2024 Patient encounter procedure [facility] Start: 09-20-2024 End: 09-20-2024 Patient encounter procedure 09/20/2024 11:30 AM EDT Appointment [facility] [address] [place] [phone] Ilene Szymanski, KENNEL MANAGER DOG TRACK - CONFERENCE SERVICES COORDINATOR [address] [place] [address] [facility] Start: 09-15-2024 End: 09-15-2025 BENZODIAZEPINE CONFIRMATION [facility] Work Phone: Comment on above: Expected: 09/15/2024 (Approximate), Expires: 09/15/2025 Start: 09-13-2024 End: 09-13-2024 Patient encounter procedure 09/13/2024 11:30 AM EDT Appointment [facility] [address] [place] [phone] Ilene Szymanski, KENNEL MANAGER DOG TRACK - CONFERENCE SERVICES COORDINATOR [address] [place], [place] [id number] [facility] Start: 09-07-2024 End: 09-07-2024 Patient encounter procedure 09/07/2024 12:00 PM EDT Office Visit [facility] [place] [place] [facility] [place] [address] [place] [phone] [facility] [place] [facility] [place] Start: 09-07-2024 End: 09-07-2024 ambulatory 09/07/2024 11:00 AM EDT Initial [facility] [place] [facility] [place] [address] [place] [phone] [facility] [place] [facility] [place] Start: 08-31-2024 End: 08-31-2024 Patient encounter procedure 08/31/2024 12:00 PM EDT Office Visit [facility] [place] [facility] [place] [address] [place] [phone] [facility] Start: 08-22-2024 Nonstress test [facility] Start: 08-22-2024 Obstetric monitoring [facility] Start: 08-22-2024 Vital signs measurements [facility] Start: 08-22-2024 [facility] Start: 08-22-2024 Patient discharge [facility] Start: 02-08-2024 Influenza vaccination Influenza Vacc ine (#1) [facility] Start: 2022 Screening for malign ant neoplasm of cervix [facility] Start: 2013 Screening for malign ant neoplasm of cervix [facility] Start: 2011 Hepatitis B Vaccine (1 of 3 - 19+ 3-dose series) Hepatitis B Vaccine (1 of 3 - 19+ 3-dose series) [facility] Start: 2011 Hepatitis B Vaccines (1 of 3 - 19+ 3-dose series) Hepatitis B Vaccines (1 of 3 - 19+ 3-dose series) [facility] Start: 2010 Anxiety Screening Anxiety Screening [facility] Start: 2010 Depression Screening Depression Scre ening [facility] Start: 2010 HIV screening HIV Screening [facility] Start: 2005 Varicella vaccination Varicell a Vaccines (1 of 2 - 13+ 2-dose series) [facility] Start: 1993 MMR Vaccines (1 of 1 - Standard series) MMR Vaccines (1 of 1 - Standard series) [facility] End: 08-24-2024 Bacteria identified in Urine by Culture [facility] Work Phone: Comment on above: STAT (Lab) for 1 Occ urrences starting 08/24/2024 until 08/24/2024, 1 completed Once for 1 Occurrenc es starting 08/24/2024 until 08/24/2024, 1 completed Bacteria identified in Urine by Culture [facility] Work Phone: Comment on above: Ordered: 09/21/2024 Bacteria identified in Urine by Culture Urine culture Microbiology Routine Acute cystitis without hematuria 10/12/2024 2:36 PM EDT [facility] Work Phone: End: 10-20-2024 Bacteria identified in Urine by Culture [facility] Work Phone: Comment on above: STAT (Lab) for 1 Occ urrences starting 10/20/2024 until 10/20/2024 Once for 1 Occurrenc es starting 10/20/2024 until 10/20/2024, 1 completed End: 12-07-2024 Nonstress test nonstress test Procedures Routine 31 weeks gestation of Once a week for 8 Occurrences starting 09/07/2024 until 12/07/2024 [facility] Comment on above: Once a week for 8 Oc currences starting 09/07/2024 until 12/07/2024 End: 09-21-2024 Nonstress test nonstress test Procedures Routine 31 weeks gestation of Once for 1 Occurrences starting 09/21/2024 until 09/21/2024 [employer] Work Phone: Comment on above: Once for 1 Occurrenc es starting 09/21/2024 until 09/21/2024 End: 10-05-2024 Nonstress test nonstress test Procedures Routine 31 weeks gestation of Once for 1 Occurrences starting 10/05/2024 until 10/05/2024 [employer] Work Phone: Comment on above: Once for 1 Occurrenc es starting 10/05/2024 until 10/05/2024 End: 10-12-2024 Nonstress test nonstress test Procedures Routine 31 weeks gestation of Once for 1 Occurrences starting 10/12/2024 until 10/12/2024 [employer] Work Phone: Comment on above: Once for 1 Occurrenc es starting 10/12/2024 until 10/12/2024 Patient Education [facility] Work Phone: Patient referral [facility] Work Phone: Streptococcus agalac tiae DNA [Presence] in Unspecified specimen by SANDEE with probe detection Group B Strep Screen PCR Microbiology Routine Supervision of high risk due to social problems in third trimester 10/08/2024 3:03 PM EDT [employer] Work Phone: Urine culture [facility] End: 08-24-2024 Urine Hold Cup Urine Hold Cup Lab STAT Once for 1 Occurrences starting 08/24/2024 until 08/24/2024 [facility] [employer] Comment on above: Once for 1 Occurrenc es starting 08/24/2024 until 08/24/2024 End: 01-07-2025 US for US OB follow up transabdominal approach Imaging Routine 31 weeks gestation of Every 4 weeks for 2 Occurrences starting 09/07/2024 until 01/07/2025 [employer] Work Phone: Comment on above: Every 4 weeks for 2 Occurrences starting 09/07/2024 until 01/07/2025 End: 01-15-2025 US for US OB follow up transabdominal approach Imaging Routine Severe opioid use disorder (HCC) Every 4 weeks for 2 Occurrences starting 09/15/2024 until 01/15/2025 [employer] Work Phone: Comment on above: Every 4 weeks for 2 Occurrences starting 09/15/2024 until 01/15/2025 End: 09-21-2024 US for US OB follow up transabdominal approach Imaging Routine 31 weeks gestation of Once for 1 Occurrences starting 09/21/2024 until 09/21/2024 [employer] Work Phone: Comment on above: Once for 1 Occurrenc es starting 09/21/2024 until 09/21/2024 Immunizations Immunization Date Immunization Notes Care Provider Fa [facility] 10-19-2024 diphtheria, tetanus toxoids and acellular pertussis vaccine, unspecified formulation Brianna Tipton MD Work Phone: [facility] [employer] 10-19-2024 measles, mumps and r ubella virus vaccine Brianna Tipton MD Work Phone: [facility] [employer] 08-23-2024 COVID-19, mRNA, LNP- S, PF, 50 mcg/0.5 mL Gemini Elise DO Work Phone: [facility] [employer] 08-23-2024 tetanus toxoid, redu victoriano diphtheria toxoid, and acellular pertussis vaccine, adsorbed Gemini Elise DO Work Phone: [facility] [employer] Payers Date Payer Category Payer Medicaid [id number] 2024 Self-pay 2024 Medicaid [id number] 2024 Medicaid HMO [id number] 2024 Medicaid [id number] Unknown [id number] Unknown [id number] Unknown [id number] Social History Date Type Detail Facility Start: 08-22-2024 End: 09-07-2024 Tobacco smoking status NHIS Never smoked tobacco [facility] Start: 08-22-2024 End: 09-07-2024 Tobacco use and exposure Smokeless tobacco non-user [facility] Start: 08-23-2024 End: 12-20-2024 Alcoholic beverage intake Ex-drinker (finding) [facility] Start: 08-22-2024 End: 10-18-2024 History of Social function [facility] Start: 08-22-2024 End: 10-18-2024 [facility] [employer] [facility] Has the [employer], or [employer] threatened to shut off services in your home in past 12Mo Yes [facility] Within the last year , have you been afraid of your partner or ex-partner? No [facility] (I/We) worried wheth er (my/our) food would run out before (I/we) got money to buy more. Often true [facility] In the past 12 month s, has lack of transportation kept you from medical appointments or from getting medications? Yes [facility] Start: 01-30-2024 [place] Start: 1990 Sex assigned at Not on file S [facility] Start: 08-22-2024 End: 08-22-2024 Sex Female (finding) [facility] Work Phone: Start: 1990 Sex Assigned At Female [facility] Are you now , , , , never or living with a partner? Never [facility] How often to you hav e a drink containing alcohol? Never [facility] How hard is it for y ou to pay for the very basics like food, housing, medical care, and heating Very hard [facility] Do you feel stress - tense, restless, nervous, or anxious, or unable to sleep at night because your mind is troubled all the time - these days [OSQ] Not at all [facility] (I/We) worried wheth er (my/our) food would run out before (I/we) got money to buy more. Sometimes true [facility] (I/We) worried wheth er (my/our) food would run out before (I/we) got money to buy more. Never true [facility] Start: 12-29-2024 Tobacco smoking stat [facility] Ex-smoker (finding) [facility] Start: 02-04-2025 Tobacco smoking stat [facility] Current some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 discussed with patient that the exact cause of her pain is not clear. Workup relatively inconclusive at this time. Patient is offered CT abdomen pelvis for further evaluation but this time states that she would rather just follow-up outpatient. Given her history of medullary sponge disease and pain over her bladder will treat empirically for urinary tract infection even though urinalysis is not particularly impressive for UTI. Will send off her urine culture. Will also prescribe peridium. Patient is given first dose of Bactrim and pretty him in the emergency room. Given return precautions. Counseled on taking Tylenol and she can tolerated NSAIDs at home for pain. 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 Discharged home in stable condition Lab Data Attestation: I reviewed the patient's lab results. Labs: Laboratory Results - last 24 hr 12/29/24 12/29/24 10:26 11:15 WBC 6.8 RBC 4.40 Hgb 11.7 L Hct 36.6 L MCV 83.2 MCH 26.6 L MCHC 32.0 RDW Std Deviation 47.8 H RDW Coeff of Mellissa 15.9 H Plt Count 251 MPV 10.9 Immature Gran % (Auto) 0.300 Neut % (Auto) 61.3 Lymph % (Auto) 28.3 Rabun % (Auto) 7.8 Eos % (Auto) 1.6 Baso % (Auto) 0.7 Absolute Neuts (auto) 4.2 Absolute Lymphs (auto) 1.93 Nucleated RBC % 0 Sodium 139 Potassium 4.4 Chloride 103 Carbon Dioxide 27.2 Anion Gap 9 BUN 11 Creatinine 0.64 L Estim Creat Clear Calc 131.19 Est GFR (MDRD) Non-Af 121 BUN/Creatinine Ratio 17.8 Glucose 60 L Calcium 9.5 Urine Color Yellow Urine Clarity Clear Urine pH 6.5 Ur Specific Western 1.010 Urine Protein Negative Urine Glucose (UA) Normal Urine Ketones Negative Urine Occult Blood Negative Urine Nitrite Negative Urine Bilirubin Negative Urine Urobilinogen Normal Ur Leukocyte Esterase 25 H Urine RBC 0 SEEN Urine WBC 0-5 SEEN Ur Squamous Epith Cells 0-5 SEEN Urine Bacteria 0 SEEN Urine Mucus 0 SEEN Urine Test Negative Radiography Diagnostic Testing: Clinical Impression(s) from Imaging Studies Transvaginal US 12/29/24 11:11 IMPRESSION: No acute abnormality is identified on this pelvic ultrasound. Reading Location: [facility] Discharge Plan Triage Chief Complaint: Female C/O ED Provider: Avis Martel Dx/Rx/DC Orders Clinical Impression: Pelvic pain, Medullary sponge kidney Instructions: ED Pelvic Pain, Unknown Cause Prescriptions: New sulfamethoxazole-trimethoprim [Bactrim DS] 800-160 mg tablet 1 tab PO BID 5 Days Qty: 10 0RF phenazopyridine [Pyridium] 200 mg tablet 200 mg PO TID PRN (Reason: pain) Qty: 6 0RF No Action alprazolam [Xanax] 0.25 mg tablet 0.25 mg PO BID PRN (Reason: anxiety) methadone 40 mg tablet,soluble 140 mg PO DAILY sertraline 100 mg tablet 100 mg PO DAILY buprenorphine-naloxone 8-2 mg film 0 ea sublingual Primary Care Provider: Care Physician,No Primary Referrals: Chrystal Baugh MD [Med Staff - Active Staff] - Care Physician,No Primary [Primary Care Provider] - Activity Restrictions/Additional Instructions: Your urinalysis was not highly consistent with urinary tract infection given your symptoms and your history of medullary sponge kidney will treat you with antibiotics. Urine culture was sent. Take Tylenol as needed for pain. If you can tolerate [id number] ibuprofen/Aleve may also take that for pain. If your symptoms worsen please return the emergency room for further evaluation. Print Language: Cuban Disposition Disposition: Home, Self Care What to do if you have Problems For any increased pain, shortness of breath, bleeding, nausea or vomiting, chestpain, or any unexpected problems, contact your Primary Care Provider. Call [facility] ([phone]) or report to the closest Emergency Room. Call 911 if necessary. 12/29/24 [id number] <Electronically signed by Avis Martel DO> Cosigner Signature (if applicable): CC: No Primary Care Physician ~ Signed [facility] Work Phone: [phone]) 223-634507-23-2025 Discharge summary [facility] Medical Records Department [address] [place] [address] Emergency Department Summary 12/29/24 MR#: [id number] Acct: [id number] Name: SKYLAR LANDRY Rep #: [id number] : 1990 34 From: Avis [place] PCP: Care Physician,No Primary Status :REG ER Location: ED HPI HPI - Female History of Present Illness Chief Complaint: Female C/O Informant: patient Narrative Narrative: Patient is a 34-year-old female presenting from urgent care for pelvic pain. She states been going on for the past 3 days. Started as more of a pelvic pressure and discomfort associated with urination but she denies any specific dysuria. Denies any hematuria. States its became more severe with a pinching and stabbing sensation. States the pain is now constant. She went to urgent care where she had a urinalysis that showed 2+ leukocyte esterase but otherwise was not particularly abnormal and given her degree of pain patient was sent to the ER for further evaluation. She states she has been having normal bowel movements. Denies any associated fever, chills, nausea or vomiting. Denies anyabnormal vaginal bleeding or discharge. Has not had any recent intercourse. She is 2 months . Notes she has had sex since delivery with 1 partner. She states she does not think she has an STD butis technically possible as I do not live together. She is chronic back pain but denies any acute change in that. Did not taking her symptoms prior to arrival. States shehas never anything like this before. No other complaints or concerns reported at this time. [facility] Home Medications ?Medication ?Instructions ?Recorded ?Last Taken ?Type alprazolam 0.25 mg tablet (Xanax) 0.25 mg PO BID PRN a nxiety 08/22/24 08/20/24 History methadone 40 mg soluble tablet 140 mg PO DAILY 5 08/20/24 History buprenorphine 8 mg-naloxone 2 mg 0 ea sublingual 12/29 Unknown History sublingual film phenazopyridine 200 mg tablet 200 mg PO TID PRN pain 6 doses #6 12/29/24 Unknown Rx (Pyridium) tabs sertraline 100 mg tablet 100 mg PO DAILY 12/29/24 Unk nown History sulfamethoxazole 800 1 tab PO BID 5 days #10 tabs 12/29/24 Unknown Rx mg-trimethoprim 160 mg tablet (Bactrim DS) Allergy/AdvReac Type Severity Reaction Status Date / Time ketorolac (From Toradol) Allergy Intermediate Hives Verified 12/29/24 10:06 Social History Smoking Status: Former smoker ROS ROS ED Constitutional Constitutional ED: Denies chills or fever(s) Gastrointestinal Gastrointestinal: Reports abdominal pain; Denies constipation, diarrhea, nausea or vomiting Musculoskeletal Musculoskeletal: Denies arthralgias or myalgias Integumentary Denies rash Neurologic Neurologic: Denies weakness Hematologic/Lymphatic Hematologic/Lymphatic: Denies easy bleeding or easy bruising EXAM Physical Exam Const Vital Signs: 12/29/24 09:58 12/29/24 11:57 12/29/24 13:00 Temperature 98.6 F Temperature Source Oral Pulse Rate 63 77 80 Respiratory Rate 18 16 Blood Pressure 119/87 H 117/73 112/78 Blood Pressure Mean 97 87 89 Pulse Ox 100 97 99 Oxygen Delivery Method Room Air Positive well nourished and well developed General Appearance ED: well developed and NAD HEENT Reports moist mucous membranes Neck supple Chest Wall inspection of chest normal Resp normal respiratory effort and clear to auscultation bilaterally Cardio regular rate and regular rhythm GI soft to palpation, non-distended and no masses Auscultation: normoactive bowel sounds Palpation: tender suprapubic; Negative for guarding Narrative: Chaperoned pelvic exam performed External genitalia normal. On speculum exam there is physiologic white discharge. No cervical motion tenderness but there is tenderness palpation of the bladder and adnexa bilaterally. Back/Spine no CVA tenderness Extremity normal to inspection Neuro oriented x3 Sensorium / Orientation: alert Psych mental status grossly normal Skin no rashes or lesions noted and no wounds MDM MDM MDM Narrative Medical decision making narrative: Patient is evaluated for worsening pelvic pain. She is approximately 2 months . Differential includes urinary tract infection, pyelonephritis, pelvic inflammatory disease, tubo-ovarian abscess, ovarian torsion, ruptured ovarian cyst. She does not report any systemic symptoms overall well-appearing. Vital signs are normal. Patient is on buprenorphine and at baseline. Is given dose of morphine with no significant relief of her pain. Discussed that opioid pain medications will probably be ineffective because of her buprenorphine. She does verbalize understanding of this. Is given Tylenol. CBC shows mild anemia the hemoglobin 11.7 which is nonspecific. She is not any signs of active bleeding. BMP largely normal. Urinalysis does not show any bacteria only 25 leukocyte Estrace. Pregnancytest is negative lower suspicion for ectopic . Pelvic ultrasound obtained which does not show any acuteabnormalities. No signs of torsion. No free fluid. Lower suspicion for tubo-ovarian abscess or PID based on pelvic exam and ultrasound. I discussed with patient that the exact cause of her pain is not clear. Workup relatively inconclusive at this time. Patient is offered CT abdomen pelvis for further evaluation but this time states that she would rather just follow-up outpatient. Given her history of medullary sponge disease and pain over her bladder will treat empirically for urinary tract infection even though urinalysis is not particularly impressive for UTI. Will send offher urine culture. Will also prescribe peridium. Patient is given first dose of Bactrim and pretty him in the emergency room. Given return precautions. Counseled on taking Tylenol and she can tolerated NSAIDs at home for pain. 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 Discharged home in stable condition Lab Data Attestation: I reviewed the patient's lab results. Labs: Laboratory Results - last 24 hr 12/29/24 12/29/24 10:26 11:15 WBC 6.8 RBC 4.40 Hgb 11.7 L Hct 36.6 L MCV 83.2 MCH 26.6 L MCHC 32.0 RDW Std Deviation 47.8 H RDW Coeff of Mellissa 15.9 H Plt Count 251 MPV 10.9 Immature Gran % (Auto) 0.300 Neut % (Auto) 61.3 Lymph % (Auto) 28.3 Rabun % (Auto) 7.8 Eos % (Auto) 1.6 Baso % (Auto) 0.7 Absolute Neuts (auto) 4.2 Absolute Lymphs (auto) 1.93 Nucleated RBC % 0 Sodium 139 Potassium 4.4 Chloride 103 Carbon Dioxide 27.2 Anion Gap 9 BUN 11 Creatinine 0.64 L Estim Creat Clear Calc 131.19 Est GFR (MDRD) Non-Af 121 BUN/Creatinine Ratio 17.8 Glucose 60 L Calcium 9.5 Urine Color Yellow Urine Clarity Clear Urine pH 6.5 Ur Specific Western 1.010 Urine Protein Negative Urine Glucose (UA) Normal Urine Ketones Negative Urine Occult Blood Negative Urine Nitrite Negative Urine Bilirubin Negative Urine Urobilinogen Normal Ur Leukocyte Esterase 25 H Urine RBC 0 SEEN Urine WBC 0-5 SEEN Ur Squamous Epith Cells 0-5 SEEN Urine Bacteria 0 SEEN Urine Mucus 0 SEEN Urine Test Negative Radiography Diagnostic Testing: Clinical Impression(s) from Imaging Studies Transvaginal US 12/29/24 11:11 IMPRESSION: No acute abnormality is identified on this pelvic ultrasound. Reading Location: [facility] Discharge Plan Triage Chief Complaint: Female C/O ED Provider: Avis Martel Dx/Rx/DC Orders Clinical Impression: Pelvic pain, Medullary sponge kidney Instructions: ED Pelvic Pain, Unknown Cause Prescriptions: New sulfamethoxazole-trimethoprim [Bactrim DS] 800-160 mg tablet 1 tab PO BID 5 Days Qty: 10 0RF phenazopyridine [Pyridium] 200 mg tablet 200 mg PO TID PRN (Reason: pain) Qty: 6 0RF No Action alprazolam [Xanax] 0.25 mg tablet 0.25 mg PO BID PRN (Reason: anxiety) methadone 40 mg tablet,soluble 140 mg PO DAILY sertraline 100 mg tablet 100 mg PO DAILY buprenorphine-naloxone 8-2 mg film 0 ea sublingual Primary Care Provider: Care Physician,No Primary Referrals: Chrystal Baugh MD [Med Staff - Active Staff] - Care Physician,No Primary [Primary Care Provider] - Activity Restrictions/Additional Instructions: Your urinalysis was not highly consistent with urinary tract infection given your symptoms and yourhistory of medullary sponge kidney will treat you with antibiotics. Urine culture was sent. Take Tylenol as needed for pain. If you can tolerate [id number] ibuprofen/Aleve may also take that for pain. If your symptoms worsen please return the emergency room for further evaluation. Print Language: Cuban Disposition Disposition: Home, Self Care What to do if you have Problems For any increased pain, shortness of breath, bleeding, nausea or vomiting, chestpain, or any unexpected problems, contact your Primary Care Provider. Call [employer] [facility] ([phone]) or report tothe closest Emergency Room. Call 911 if necessary. 12/29/24 1358 Cosigner Signature (if applicable): CC: No Primary Care Physician ~ Signed [facility]07-23-2025 Radiology Diagnostic study note [facility] Imaging Services [address] [place] [address] Transvaginal Non- MR#: [id number] Acct: [id number] Name: SKYLAR LANDRY Rep #: [id number] : 1990 F 34 From: Bradley Beltran MD PCP: Care Physician,No Primary Status: REG ER Study:Transvaginal Non- Date of Exam: 12/29/24 Exam# [id number] Ordering Dr: Estela Martel DO PROCEDURE: TRANSVAGINAL NON- 12/29/2024 REASON FOR EXAM: PELVIC PAIN TECHNIQUE: TRANSVAGINAL NON- COMPARISON: None FINDINGS: The uterus measures 10.4 x 5.6 x 4.7 cm. The uterus is anteverted. There is nouterine fibroid or mass. The endometrium measures 0.5 cm. Nabothian cysts are noted. The right ovary measures 2.4 x 2.3 x 1.7 cm and shows multiple normal-appearing subcentimeter follicles. The left ovary measures 2.6 x 2.8 x 1.7 cm and has a dominant follicle measuring 1.4 cm. There is normal flow documented inthe right and left ovary. No adnexal mass or free fluid is identified. US/Transvaginal Non- IMPRESSION: No acute abnormality is identified on this pelvic ultrasound. Reading Location: [facility] CC: Dr. Avis Martel DO; No Primary Care Physician ~ Formula Bottler: Signed [facility]07-14-2025 History of Present illness Narrative* Manuel Woods MD - 12/20/2024 2:15 PM EDT Images from the original note were not included. MEDICATION ASSISTED TREATMENT BUPRENORPHINE FOLLOW-UP VISIT Patient: Skylar Landry __ Patient was seen today via Telehealth by agreement and consent. I used the following Telehealth technology: Audio and video capabilities. Patient location: [place] Patient Location: Home. This patient encounter is appropriate and reasonable under the circumstances: transportation issues and Behavioral Health . The patient has been advised of the potential risks and limitations of this mode of treatment (including but not limited to the absence of in-person examination) and has agreed to be treated in a remote fashion in spite of them. Any and all of the patient's/patient's family's questions on this issue have been answered and I have made no promises or guarantees to the patient. The patient has also been advised to contact this office for worsening conditions or problems, and seek emergency medical treatment and/or call 911 if the patient deems either necessary. The patient stated that they are currently in the [facility]. If the patient is a minor, permission has been obtained by theparent or guardian for the patient to receive medical care at this visit. SUBJECTIVE Chief Complaint Patient presents with Addiction Problem Skylar Landry, a 34 y.o. female, returns for a follow-up medication-assisted treatment appointment. She was discharged from the hospital on 08/30/24. Stabilized on bupe 8 mg BID. Had microinduction process to transfer to bupe from methadone (140 mg). Last methadone dose given on 08/29/24. Dose was increased to 20 mg after hospitalization at [facility]. Now taking 20 mg consistently. Feels she needs to take that amount to deal with night time symptoms she was still experiencing. No longer feels like she is going thru methadone withdrawal. Interim History No issues with Suboxone. Taking as prescribed. No missed doses. Occasional thoughts of using. Remains in contact with who is in early recovery himself but living in [place]. This seems to be impetus for any thoughts/cravings. Denies drug use since leaving hospital. Was abusing benzos and fentanyl prior to coming to hospital. Denies smoking cigarettes/THC at all. Otherwise she is doing great. Has been dealing with URI type symptoms. No official diagnosis. Baby hasn't been sick. She has beenexcessively fatigued. Has noticied cold extremities recently too. Assessment at [facility] completed. She would be required to switch to Sublocade but doesn't want to do that while or breast feeding so will continue seeing me. She will not engage in their inpatient program. She may enroll in our [facility] IOP at some point but has unreliable transportation. Lives in a stable environment now. Planning on staying in [place] after delivery. Her MIL is here withher today. [facility] investigated and is closing their investigation. No CSB involvement. Zoloft: describes positive benefit from SSRI. Not taking Seroquel anymore. Denies any negative sideeffects. Feels Zoloft helps with mood and sleep. Shared decision making regarding the use of these psychotropic medications while made, and she wants to continue Zoloft for now. Denies post depression. MAT Response Dose: Suboxone 20 mg daily. Start Date: 08/23/24. Compliance: Taking as directed. No missed doses. Side Effects: No. Drug Cravings: Yes. Sporadic thoughts Withdrawal Symptoms: No. Ready to Taper Off MAT: No. Substance Use History Sober Date: 08/23/24. Intensive Outpatient Program: never; planning on entering in our [facility] IOP after delivery. Inpatient Drug Rehab: never. 12-Step Meeting Attendance: never. Psychiatric History Diagnoses: depression, anxiety, bipolar 2, ptsd Medications: zoloft 50 mg Psychiatrist: isabela. Counselor: isabela. Past Medical History Past Medical History: Diagnosis Date Anxiety Colitis Depression Drug use affecting in third trimester 08/28/2024 Adm for detox on PNU from 08/23/23 MAT positive for Benzos, Methadone, Opiates, and fentanyl Patientdesired transition off methadone and was discharged with Subutex 8 mg BID Patient to follow with [facility] Needs scheduled for ANFS: NST weekly Indication for care in labor and delivery, antepartum 10/18/2024 Kidney disease Kidney stone Medullary sponge kidney of both kidneys Pain of left lower extremity 08/30/2024 Polysubstance abuse (HCC) 08/23/2024 Supervision of high risk due to social problems, third trimester 09/21/2024 34 y.o. , dating by: OB Labs: Rh ?Pos ?Neg Antibody ?Pos ?Neg Rubella ?Immune ?Nonimmune RPR?Reactive ?NonReactive HIV ?Reactive ?NonReactive Hep B ?Pos ?Neg Hep C ?Pos ?Neg GC/CT/Trich ?Pos ?Neg Urine Cx ?Pos ?Neg ESBL, followup ordered Pap ?No Urinary tract infection 08/30/2024 Positive clulture for 50-90K E coli resistant to cefazolin, ESBL news producer - 08/24 Abx stewardship recommended switching to fosfomycin 3g x1 Need to follow up susceptibilities Social Drivers of Health Intimate Partner Violence: Patient Unable To Answer (10/18/2024) Humiliation, Afraid, Rape, and Kick questionnaire Fear of Current or Ex-Partner: Patient unable to answer Emotionally Abused: Patient unable to answer Physically Abused: Patient unable to answer Sexually Abused: Patient unable to answer Social Connections: Socially Isolated (09/07/2024) Social Connection and Isolation Panel [NHANES] Frequency of Communication with Friends and Family: Twice a week Frequency of Social Gatherings with Friends and Family: Never Attends Jewish Services: Never Active Member of Clubs or Organizations: No Attends Club or Organization Meetings: Never Marital Status: Never Alcohol Use: Not At Risk (09/07/2024) AUDIT-C Frequency of Alcohol Consumption: Never Average Number of Drinks: Patient does not drink Frequency of Binge Drinking: Never Tobacco Use: Low Risk (10/08/2024) Patient History Smoking Tobacco Use: Never Smokeless Tobacco Use: Never Passive Exposure: Never Financial Resource Strain: High Risk (09/07/2024) Overall Financial Resource Strain (CARDIA) Difficulty of Paying Living Expenses: Very hard Depression: Not at risk (10/18/2024) PHQ-2 PHQ-2 Score: 0 Recent Concern: Depression - At risk (08/22/2024) PHQ-2 PHQ-2 Score: 6 Depression: Medium Risk (09/07/2024) Wilbur Depression Scale Last EPDS Total Score: 8 Last EPDS Self Harm Result: Never Stress: No Stress Concern Present (09/07/2024) [place] [employer] - Occupational Stress Questionnaire Feeling of Stress : Not at all Physical Activity: Inactive (09/07/2024) Exercise Vital Sign Days of Exercise per Week: 0 days Minutes of Exercise per Session: 0 min Food Insecurity: No Food Insecurity (10/18/2024) Hunger Vital Sign Worried About Running Out of Food in the Last Year: Never true Ran Out of Food in the Last Year: Never true Recent Concern: Food Insecurity - Food Insecurity Present (09/07/2024) Hunger Vital Sign Worried About Running Out of Food in the Last Year: Sometimes true Ran Out of Food in the Last Year: Sometimes true Transportation Needs: No Transportation Needs (10/18/2024) PRAPARE - Transportation Lack of Transportation (Medical): No Lack of Transportation (Non-Medical): No Recent Concern: Transportation Needs - Unmet Transportation Needs (09/07/2024) PRAPARE - Transportation Lack of Transportation (Medical): Yes Lack of Transportation (Non-Medical): Yes Housing Stability: High Risk (10/18/2024) Housing Stability Vital Sign Unable to Pay for Housing in the Last Year: No Number of Times Moved in the Last Year: 4 Homeless in the Last Year: No Utilities: Not At Risk (10/18/2024) [facility] Utilities Threatened with loss of utilities: No Recent Concern: Utilities - At Risk (08/22/2024) [facility] Utilities Threatened with loss of utilities: Yes OBJECTIVE Last Urine Drug Screen (11/22/24) +buprenorphine. (09/14/24) +benzos, methadone, bupe (benzo confirmation +nordiazepam). Denies using any benzos since leaving hospital. UDS has been consistent for benzos/methadone since leaving hospital, but she has denied additional use use. Likely still lingering in body given CKD. Will order confirmation test today if still positive. PHQ Screen Last 3 PHQ-9 Scores No data found in the last 10 encounters. Controlled Substance Monitoring OARRs Reviewed., Possible medication effects, risk of tolerance/dependence & alternative treatments discussed. , Assessed functional status., and Random urine drug screen sent today. Review of Systems Review of Systems Constitutional: Positive for malaise/fatigue. All other systems reviewed and are negative. Vitals LMP (LMP Unknown) Physical Exam Constitutional: General: She is not in acute distress. Appearance: Normal appearance. She is not ill-appearing. HENT: Mouth/Throat: Mouth: Mucous membranes are moist. Eyes: Extraocular Movements: Extraocular movements intact. Pulmonary: Effort: Pulmonary effort is normal. Neurological: Mental Status: She is alert and oriented to person, place, and time. Psychiatric: Attention and Perception: Attention and perception normal. ASSESSMENT 1. Encounter for monitoring Suboxone maintenance therapy 2. Severe opioid use disorder on maintenance therapy (HCC) 3. Severe opioid use disorder, in early remission (HCC) 4. Anxiety and depression PLAN Medications Ordered New Medications Ordered This Visit Medications nystatin (Mycostatin) cream Sig: Apply topically twice a day. sertraline (Zoloft) 100 MG tablet Sig: Take 1 tablet (100 mg) by mouth daily. Dispense: 30 tablet Refill: 0 buprenorphine-naloxone (Suboxone) 8-2 MG per sublingual film Sig: Place 1 Film under the tongue 2 times daily for 28 days. Dispense: 56 Film Refill: 0 Labs Ordered Orders Placed This Encounter Procedures MEDICATION ASSISTED TREATMENT PANEL Standing Status: Future Expected Date: 12/20/2024 Expiration Date: 12/20/2025 Patient Goals Continue 12-step meeting attendance (goal of 2 per week). Actively communicate with sponsor. Take medication as directed. Report any negative side effects or missed doses. Report any illicit drug use to myself/my staff. Keep medicine out of the reach of children. Follow-up with recommended level of care. Enroll in outpatient counseling program thru [facility] when able. Interventions in Session Discussed patient's progress in their 12-step program. Discussed progress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 upon arrival to room receiving formula. Attempted to latch infant. opens mouth wide and latched onto left breast but no nutritive sucking noted. becomes shallow then fell asleep at breast. Multiple attempts to latch . Encouraged patient to offer breast first, then pump and supplement infant if no latch. Encouraged patient to offer 2-10 ml per feeding due to infant less than 24 hours. Patient verbalized understanding. * Note - Jamison Washington RN - 10/19/2024 4:40 PM EDT Patient called for latch assistance. recently received formula about 1 hour ago, about 20 ml. Encouraged patient to call 2-3 hours from last feeding, when showing feeding cues. Patient verbalized understanding. Patient received Spectra S2. Reviewed pump with patient during visit. Also reviewed hospital breastpump during visit and observed first few minutes of pumping session. Encouraged patient to pump each time receives formula and use pumped breast milk first. Reviewed feeding plan and goals. Reviewed pump operation, settings frequency and duration. Discussed milk storage guidelines and cleaning of breast pump parts. Towels, basin and dish soap provided to pt for cleaning purposes. All questions answered. Pt verbalizes understanding, and denies questions. * Note - Jamison Washington RN - 10/19/2024 3:25 PM EDT Initial visit with . This is patient's fourth infant. Patient states she did not breast feed her other infants. Patient shown how to call for a breast pump from [facility]. Patient states latched after delivery but latch was painful. has received formula since. Encouraged patient to call for assistance with next feeding. Encouraged patient to wake infant every three hours to feed. Skin to skin and hand expression in between feeds. Discussed output parameters in the first 24 hours. Patient shown how to call for on wall touch pad. Patient verbalized understanding. * Care Coordination - Manuel Woods MD - 10/19/2024 12:27 PM EDT Spoke to patient after delivery regarding MAT Suboxone has been continued while admitted She is requesting to take Suboxone all at once in the AM. Will order 8 mg x 1 tonight to complete today's dose, then 16 mg daily starting in AM. Sent rx to [facility] for Suboxone tablets, Seroquel, and Zoloft. She will need these in hand before discharge. She has follow up in my office for MAT ([address]) on 11/22 @ 2:15 PM Please contact me directly for any issues related to this patients recovery * Care Coordination - Almita Reeder RN - 10/19/2024 11:01 AM EDT Date: 10/19/2024 Name: Skylar Landry : 1990 [facility] Patient Information Primary Caregiver: Self Accompanied by/Relationship: S/O;Family Marital Status: Single Support System: SO/Family Jewish/Cultural Factors: none Activities of Daily Living Communication: See demographics Living Arrangements Current Residence: Private residence Lives With: S/O; Family Support System: S/O; Family Income Information Income Source: Not Employed Financial Resource Strain How hard is it for you to pay for the very basics like food, housing, medical care and heating? N/A Housing Stability In the last 12 months, was there a time when you did not have a steady place to sleep or slept in ashelter (including now)? No Transportation Needs Has the lack of Transportation kept you from medical appointments? No In the past 12 months, has the lack of transportation kept you from meetings, work, or from gettingthings needed for daily living? No Food Insecurity Within the past 12 months, have you worried that your food would run out before you got the money to buy more? No Stress Do you feel stress - tense, restless, nervous, or anxious, or unable to sleep at night because you mind is troubled all the time? Mood stable Referral To Financial Resources: N/A Community Resources: Admission folder given upon admission to PP Unit Social Work:Hx of MILLIE CLP: N/A Medical Information 34 year old admitted for IOL Vaginal delivery. Hx of MILLIE. In [facility] program. Reviewed Eat, Sleep and Console. Discharge Plan Home or Community Resources: Admission folder given upon admission to PP unit Equipment: N/A Education Given: Discussion on the A. B. C's of safe sleep. Always place your baby on his or her back to sleep, use a firm sleep surface and your baby should not sleep in an adult bed, on a couch or chair. Keep soft objects, toys and loose bedding out of your baby's sleep area. Instructed to place in hospital crib in room if feeling tired or drowsy for infant safety. Reviewed depression. It is common to have blues. This is a normal response to many of the hormonal changes, stress and lack of sleep that go with raising a and physically recovering from the . Don't hesitate to talk to your provider with any concerns. There are resources in your home going booklet. To help prevent germs from spreading to you and your baby, make sure everyone washes their hands before they handle your . Avoid crowds, and keep away from sick people, anyone who is sick with a cough or fever, including family members. Post- warning signs informationreviewed with patient per nurse with discharge Additional Information: Patient is independent and has insurance. She is prepared with her baby supplies. To be discharged to home. Denies any concerns at this time. Mental Health Services: Resources in discharge folder Equipment: Developmental Delay: N/A Children's Services: Referral by social work * L&D Delivery Note - Brandei Brown DO - 10/18/2024 10:41 PM EDT Images from the original note were not included. Vaginal Delivery Note Department of Obstetrics and Gynecology Patient: Skylar Landry : 1990 Date of delivery: 10/18/24 Pre-operative Diagnosis: Skylar [id number] at 39w3d 1. Term 2. History Substance Use 3. 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 Brianna Tipton, Dr. Brandie Brown, Dr. Guillermina Harmon Infant Information: Description: Normal Meconium Noted: Yes: terminal Anesthesia: epidural anesthesia Complications: None Medications Given: None Application and Delivery: Skylar Self133 at 39w3d admitted for elective induction of labor. She was known to be GBSnegative and received no prophylaxis. Her cervix was found to be 2 cm dilated on admission. She wasgiven a 60 ml judd bulb for cervical ripening. Once the judd bulb expelled, pitocin was titrated per protocol. Artificial rupture of membranes yielded clear fluid. She received an epidural for paincontrol. She progressed to complete and felt the urge to push. She pushed for approximately 10 minutes. After pushing with contractions the head delivered Cephalic, occiput anterior over an intact perineum. A nuchal cord was present and reduced. The anterior, then posterior shoulder delivered easily and atraumatically followed by the rest of the . The infant was placed on the maternal abdomen and attended by the RN for evaluation. The was stimulated and dried. The cord was clamped and cut after one minute. The delivery of the placenta was spontaneous and appeared intact. Pitocin was started. The vagina was swept of all clots and debris. The perineum and vagina were evaluated. No lacerations were found. All counts were correct. Motherand baby tolerated procedure well. A Liletta IUD was placed, see separate procedure note. There were no uterotonic medications required during delivery. EBL: 200ml QBL: 200ml VTE Prophylaxis: Not Indicated LABOR DELIVERY ??? SCD's ONLY (labor through ambulation) SCD's PLUS Prophylactic Anticoagulation until discharge SCD's PLUS Prophylactic Anticoagulation for 6 weeks SCD's PLUS Therapeutic Anticoagulation for 6 weeks Vaginal Delivery [] BMI >= 40 kg/m2 Delivery All patients Vaginal Delivery [] BMI >= 40 kg/m2 AND [] Antepartum hospitalization >= 72 hours within the past month Delivery 1 Major Risk Factor: [] BMI >= 35 kg/m2 [] Low Risk Thrombophilia [] PPH+RBCs, IR, or operation [] Infection+Antibiotics [] Antepartum hospitalization >= 72 hours within the past month [] PMH: Sickle Cell, SLE, Cardiac Dz, Active IBD, Active Cancer, Nephrotic Syndrome OR 2 Minor Risk Factors: [] Multiple gestation [] Age > 40 [] PPH >= 1,000cc [] (+)FMH of VTE [] Smoker [] Preeclampsia [] BMI >= 40 kg/m2 AND [] Low Risk Thrombophilia OR ANY OF THE FOLLOWING: [] High Risk Thrombophilia without prior VTE [] Low Risk Thrombophilia with (+)FMH of VTE [] Any single prior VTE ANY OF THE FOLLOWING: [] Already on LMWH/UFH [] Multiple prior VTE [] High Risk Thrombophilia with prior VTE Low Risk Thrombophilia: FVL (heterozygous), Prothrombin (heterozygous), Protein C, Protein S High Risk Thrombophilia: FVL (homozygous), Prothrombin (homozygous), FVL+Prothrombin (heterozygous), Antithrombin III, APLS Specimen: Cord Blood, Cord Gases Blood Type and Rh: A Rubella Immunity Status: Immune BRANDIE BROWN DO 10/18/2024, 10:41 PM Cosigned by Brianna Tipton MD at 10/19/2024 6:28 AM EDT Associated attestation - Brianna Tipton MD - 10/19/2024 6:28 AM EDT Procedures or Surgery: I was present for all miranda elements of the procedure or surgery as described in the resident note. Skylar Landry was seen in the Obstetrics ED. Please see chart note for details. Follow up: Keep next scheduled visit documented in this [facility] Delivery Discharge Summary Admission on 10/18/2024 9:29 AM Reason for admission: IOL - RR Intrapartum Course: Skylar Landry is a 34y s/p uncomplicated at 39w4d admitted for IOL-RR. Labor induced with Judd Balloon, oxytocin, and AROM. Patient progressed to complete and delivered. A Liletta IUD was placed after . course was complicated by uncontrolled pain. ADM was consulted for history of substance abuse and recommended oxycodone prn. Her pain was better controlled on PPD#3. Stable for discharge at this time. 39w4d PC-01 Indications for Delivery: Was patient delivered between 37w0d - 43w5laohbr? No Surgical Operations & Procedures: Date of delivery: 10/18/24 Delivery Type: Vaginal, Spontaneous Delivery Anesthesia: Epidural Laceration(s): n/a Delivery Complications: none EBL: 200 cc Pertinent Findings & Procedures: Information for the patient's : Kevin Landry [[id number]] female 7 lb 3.7 oz (3.28 kg)Apgars: Information for the patient's : Kevin Landry [[id number]] Course: Uncomplicated Infant: Without abnormality Blood Type/Rh: A Antibody Screen: Beg Rubella: Vaccine given post Contraception: IUD : yes VTE Prophylaxis: Not Indicated Meds: Medication List START taking these medications acetaminophen 500 MG tablet Commonly known as: Tylenol Extra Strength Take 2 tablets (1,000 mg) by mouth every 6 hours as needed for mild pain (1-3) for up to 10 days. buprenorphine-naloxone 8-2 MG SL tablet Commonly known as: Suboxone Place 2 tablets under the tongue daily. Replaces: buprenorphine-naloxone 8-2 MG per sublingual film ibuprofen 600 MG tablet Take 1 tablet (600 mg) by mouth every 6 hours as needed for mild pain (1-3) for up to 15 days. oxyCODONE 5 MG immediate release tablet Commonly known as: Roxicodone Take 1 tablet (5 mg) by mouth every 6 hours as needed for severe pain (7-10) for up to 3 days. CHANGE how you take these medications lidocaine 5 % patch Commonly known as: Lidoderm Apply 1 patch topically Daily as needed for mild pain (1-3). Remove & discard patch within 12 hours or as directed by MD. What changed: when to take this reasons to take this CONTINUE taking these medications QUEtiapine 50 MG tablet Commonly known as: SEROquel Take 1 tablet (50 mg) by mouth Nightly as needed (Insomnia/sleep). sertraline 50 MG tablet Commonly known as: Zoloft Take 1 tablet (50 mg) by mouth daily. STOP taking these medications aspirin 81 MG chewable tablet buprenorphine-naloxone 8-2 MG per sublingual film Commonly known as: Suboxone Replaced by: buprenorphine-naloxone 8-2 MG SL tablet fosfomycin 3 g packet Commonly known as: Monurol ondansetron 4 MG tablet Commonly known as: Zofran Vitamins 28-0.8 MG tablet Where to Get Your Medications These medications were sent to [facility] [address] [place] [address] Hours: Friday to Friday 10 am to 6 pm acetaminophen 500 MG tablet buprenorphine-naloxone 8-2 MG SL tablet ibuprofen 600 MG tablet lidocaine 5 % patch oxyCODONE 5 MG immediate release tablet QUEtiapine 50 MG tablet sertraline 50 MG tablet Activity: Activity as tolerated Diet: Regular diet If a patient meets criteria for hypertension, make sure the following are done prior to discharge: [] Order a blood pressure kit through [facility] (or the patient's own pharmacy on the weekend) [] Order the blood pressure log through [facility] [] Place a telephone encounter for a 72 hour blood pressure check. Specify that this will be a virtual visit. [] Include blood pressure dot phrase (.sumobhypertension) in discharge instructions [x] Check here if the patient does NOT meet criteria for hypertension Follow up Care: Follow up appointment in 4 weeks with [facility] Condition on discharge: Stable Discharge to: Home Discharge date: 10/21/24 Discharge Dx: s/p , Opioid use disorder on Subutex, Depresson/Anxiety, Uncontrolled pain(resolved) Instructions to Patient:: Pelvic Rest (no intercourse, tampons, douching, etc) x 6 weeks Specific discharge instruction printed Indication for care in labor and delivery, antepartum [O75.9] Problem List[1] Comments: Home care, Follow-up care and control were reviewed. Signs and symptoms of mastitis and Post Depression were reviewed. The patient is to notify her physician if any of these occur. Sabina Dawkins DO on 10/21/2024 at 2:51 PM [1] Patient Active Problem List Diagnosis Polysubstance abuse (HCC) Anxiety and depression Drug use affecting in third trimester Pain of left lower extremity Urinary tract infection Encounter for monitoring Suboxone maintenance therapy Supervision of high risk due to social problems, thi (more content not included)...[facility]05-15-2025 Hospital course Narrative* Sabina Dawkins DO - 10/21/2024 2:41 PM EDT Images from the original note were not included. Department of Obstetrics and Gynecology Delivery Discharge Summary Admission on 10/18/2024 9:29 AM Reason for admission: IOL - RR Intrapartum Course: Skylar Landry is a 34y s/p uncomplicated at 39w4d admitted for IOL-RR. Labor induced with Judd Balloon, oxytocin, and AROM. Patient progressed to complete and delivered. A Liletta IUD was placed after . course was complicated by uncontrolled pain.ADM was consulted for history of substance abuse and recommended oxycodone prn. Her pain was bettercontrolled on PPD#3. Stable for discharge at this time. 39w4d PC-01 Indications for Delivery: Was patient delivered between 37w0d - [id number]? No Surgical Operations & Procedures: Date of delivery: 10/18/24 Delivery Type: Vaginal, Spontaneous Delivery Anesthesia: Epidural Laceration(s): n/a Delivery Complications: none EBL: 200 cc Pertinent Findings & Procedures: Information for the patient's : Kevin Landry [[id number]] female 7 lb 3.7 oz (3.28 kg)Apgars: Information for the patient's : Kevin Landry [[id number]] Course: Uncomplicated : Without abnormality Blood Type/Rh: A Antibody Screen: Beg Rubella: Vaccine given post Contraception: IUD : yes VTE Prophylaxis: Not Indicated Meds: Medication List START taking these medications acetaminophen 500 MG tablet Commonly known as: Tylenol Extra Strength Take 2 tablets (1,000 mg) by mouth every 6 hours as needed for mild pain (1-3) for up to 10 days. buprenorphine-naloxone 8-2 MG SL tablet Commonly known as: Suboxone Place 2 tablets under the tongue daily. Replaces: buprenorphine-naloxone 8-2 MG per sublingual film ibuprofen 600 MG tablet Take 1 tablet (600 mg) by mouth every 6 hours as needed for mild pain (1-3) for up to 15 days. oxyCODONE 5 MG immediate release tablet Commonly known as: Roxicodone Take 1 tablet (5 mg) by mouth every 6 hours as needed for severe pain (7-10) for up to 3 days. CHANGE how you take these medications lidocaine 5 % patch Commonly known as: Lidoderm Apply 1 patch topically Daily as needed for mild pain (1-3). Remove & discard patch within 12 hours or as directed by MD. What changed: when to take this reasons to take this CONTINUE taking these medications QUEtiapine 50 MG tablet Commonly known as: SEROquel Take 1 tablet (50 mg) by mouth Nightly as needed (Insomnia/sleep). sertraline 50 MG tablet Commonly known as: Zoloft Take 1 tablet (50 mg) by mouth daily. STOP taking these medications aspirin 81 MG chewable tablet buprenorphine-naloxone 8-2 MG per sublingual film Commonly known as: Suboxone Replaced by: buprenorphine-naloxone 8-2 MG SL tablet fosfomycin 3 g packet Commonly known as: Monurol ondansetron 4 MG tablet Commonly known as: Zofran Vitamins 28-0.8 MG tablet Where to Get Your Medications These medications were sent to [facility] [address] [place], [place] [id number] Hours: Friday to Friday 10 am to 6 pm acetaminophen 500 MG tablet buprenorphine-naloxone 8-2 MG SL tablet ibuprofen 600 MG tablet lidocaine 5 % patch oxyCODONE 5 MG immediate release tablet QUEtiapine 50 MG tablet sertraline 50 MG tablet Activity: Activity as tolerated Diet: Regular diet If a patient meets criteria for hypertension, make sure the following are done prior to discharge: [] Order a blood pressure kit through [facility] (or the patient's own pharmacy on the weekend) [] Order the blood pressure log through [facility] [] Place a telephone encounter for a 72 hour blood pressure check. Specify that this will be a virtual visit. [] Include blood pressure dot phrase (.sumobhypertension) in discharge instructions [x] Check here if the patient does NOT meet criteria for hypertension Follow up Care: Follow up appointment in 4 weeks with [facility] Condition on discharge: Stable Discharge to: Home Discharge date: 10/21/24 Discharge Dx: s/p , Opioid use disorder on Subutex, Depresson/Anxiety, Uncontrolled pain(resolved) Instructions to Patient:: Pelvic Rest (no intercourse, tampons, douching, etc) x 6 weeks Specific discharge instruction printed Indication for care in labor and delivery, antepartum [O75.9] Problem List[1] Comments: Home care, Follow-up care and control were reviewed. Signs and symptoms of mastitis and Post Depression were reviewed. The patient is to notify her physician if any of these occur. Sabina Dawkins DO on 10/21/2024 at 2:51 PM [1] Patient Active Problem List Diagnosis Polysubstance abuse (HCC) Anxiety and depression Drug use affecting in third trimester Pain of left lower extremity Urinary tract infection Encounter for monitoring Suboxone maintenance therapy Supervision of high risk due to social problems, third trimester Indication for care in labor and delivery, antepartum Severe opioid use disorder on maintenance therapy (HCC) Cosigned by Felecia Olivo DO at 10/21/2024 6:05 PM EDT documented in this [facility]05-15-2025 Note* Care Coordination - KAEL Richard - 10/21/2024 10:34 AM EDT Follow up call to [facility] to check status of referral. Spoke to Cat Floyd who states referral opened and assigned to Angelia Rousseauhon [phone]. Sw called and spoke to worker. She will reach out to mother of baby/mob and likely come meet with her later today. Sw met with mob at bedside to inform her that referral was opened and someone would be in contact with her. Sw provided mob with name and number of worker. DO NOT DC UNTIL [id number] Note* Care Coordination - KAEL Richard - 10/21/2024 10:34 AM EDT Follow up call to [facility] to check status of referral. Spoke to Cat Floyd who states referral opened and assigned to Angelia Streetwthon [phone]. Jossie called and spoke to worker. She will reach out to mother of baby/mob and likely come meet with her later today. Sw met with mob at bedside to inform her that referral was opened and someone would be in contact with her. Sw provided mob with name and number of worker. DO NOT DC UNTIL [id number] NoteFollow up call to [facility] to check status of referral. Spoke to Cat Floyd who states referral opened and assigned to Angelia Streetwthon [phone]. Sw called and spoke to worker. She will reach out to mother of baby/mob and likely come meet with her later today. Jossie met with mob at bedside to inform her that referral was opened and someone would be in contact with her. Jossie provided mob with name and number of worker. DO NOT DC UNTIL [facility]05-15-2025 History of Present illness Narrative* Sabina Dawkins, - 10/21/2024 5:45 AM EDT Images from the original note were not included. VAGINAL DELIVERY POST DAY # 3 Skylar Garcíaite, 34 y.o. This patient was seen & examined today. Her was complicated by: Problem List[1] Today she is doing well. She reports significant improvement in her pain this morning, rated 3/10. Denies any issue with urination. Her lochia is light. She denies Headache, Chest Pain, Vision Changes, and Shortness of Breath. She is ambulating well. She is tolerating solids. Vital Signs: Vitals: 10/19/24200210/20/24 0332 10/20/24 0756 10/20/242003 BP: 107/69 97/66 116/64 104/70 BP Location: Left arm Right arm Patient Position: Lying Sitting Pulse: 103 98 98 98 Resp: 16 20 18 17 Temp: 36.5 C (97.7 F) 36.2 C (97.2 F) 36.3 C (97.3 F) 36.2 C (97.1 F) TempSrc: Temporal Temporal Temporal Temporal SpO2: 100% 98% 99% 95% Weight: Height: Physical Exam: GENERAL APPEARANCE: alert, well appearing, in no apparent distress ABDOMEN : benign non-tender, without masses or organomegaly palpable NEUROLOGIC: alert, oriented, normal speech, no focal findings or movement disorder noted UTERUS : normal size, well involuted, firm, non-tender Lab: Lab Results Component Value Date HGB 11.6 (L) 10/18/2024 Lab Results Component Value Date HCT 35.8 10/18/2024 A+ LABOR DELIVERY ??? SCD's ONLY (labor through ambulation) SCD's PLUS Prophylactic Anticoagulation until discharge SCD's PLUS Prophylactic Anticoagulation for 6 weeks SCD's PLUS Therapeutic Anticoagulation for 6 weeks Vaginal Delivery [] BMI >= 40 kg/m2 Delivery All patients Vaginal Delivery [] BMI >= 40 kg/m2 AND [] Antepartum hospitalization >= 72 hours within the past month Delivery 1 Major Risk Factor: [] BMI >= 35 kg/m2 [] Low Risk Thrombophilia [] PPH+RBCs, IR, or operation [] Infection+Antibiotics [] Antepartum hospitalization >= 72 hours within the past month [] PMH: Sickle Cell, SLE, Cardiac Dz, Active IBD, Active Cancer, Nephrotic Syndrome OR 2 Minor Risk Factors: [] Multiple gestation [] Age > 40 [] PPH >= 1,000cc [] (+)FMH of VTE [] Smoker [] Preeclampsia [] BMI >= 40 kg/m2 AND [] Low Risk Thrombophilia OR ANY OF THE FOLLOWING: [] High Risk Thrombophilia without prior VTE [] Low Risk Thrombophilia with (+)FMH of VTE [] Any single prior VTE ANY OF THE FOLLOWING: [] Already on LMWH/UFH [] Multiple prior VTE [] High Risk Thrombophilia with prior VTE Low Risk Thrombophilia: FVL (heterozygous), Prothrombin (heterozygous), Protein C, Protein S High Risk Thrombophilia: FVL (homozygous), Prothrombin (homozygous), FVL+Prothrombin (heterozygous), Antithrombin III, APLS Assessment/Plan: Skylar Landry is PPD # 3 s/p Care - Female - breast feeding - Contraception: S/p Postplacental Liletta - Encourage ambulation - VTE Prophylaxis: Not Indicated Uncontrolled Pain - ADM recommend PRN oxycodone 5mg q6hr PRN - tylenol 1000mg q6hr - Motrin 600mg q6hr - pain this morning has significantly improved since yesterday, rated 3/10 pain and located along lower back - UA showing possible UTI, will wait for culture to start treatment if indicated Substance use - ADM following - Subutex 16mg daily - follow up with ADM on 11/22 scheduled Depression/Anxiety - mood stable - continue seroquel 50mg nightly - continue zoloft 50mg daily Disposition: Potential for discharge today if pain continues to be well controlled Provider's Name: MD Sabina Conner DO 10/21/2024, 5:53 AM [1] Patient Active Problem List Diagnosis Polysubstance abuse (HCC) Anxiety and depression Drug use affecting in third trimester Pain of left lower extremity Urinary tract infection Encounter for monitoring Suboxone maintenance therapy Supervision of high risk due to social problems, third trimester Indication for care in labor and delivery, antepartum Severe opioid use disorder on maintenance therapy (HCC) Cosigned by Felecia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 more? No Stress Do you feel stress - tense, restless, nervous, or anxious, or unable to sleep at night because you mind is troubled all the time? Mood stable Referral To Financial Resources: N/A Community Resources: Admission folder given upon admission to PP Unit Social Work:Hx of MILLIE CLP: N/A Medical Information 34 year old admitted for IOL Vaginal delivery. Hx of MILLIE. In [facility] program. Reviewed Eat, Sleep and Console. Discharge Plan Home or Community Resources: Admission folder given upon admission to PP unit Equipment: N/A Education Given: Discussion on the A. B. C's of safe sleep. Always place your baby on his or her back to sleep, use a firm sleep surface and your baby should not sleep in an adult bed, on a couch or chair. Keep soft objects, toys and loose bedding out of your baby's sleep area. Instructed to place infant in hospital crib in room if feeling tired or drowsy for safety. Reviewed depression. It is common to have blues. This is a normal response to many of the hormonal changes, stress and lack of sleep that go with raising a and physically recovering from the . Don't hesitate to talk to your provider with any concerns. There are resources in your home going booklet. To help prevent germs from spreading to you and your baby, make sure everyone washes their hands before they handle your . Avoid crowds, and keep away from sick people, anyone who is sick with a cough or fever, including family members. Post- warning signs informationreviewed with patient per nurse with discharge Additional Information: Patient is independent and has insurance. She is prepared with her baby supplies. To be discharged to home. Denies any concerns at this time. Mental Health Services: Resources in discharge folder Equipment: Developmental Delay: N/A Children's Services: [facility] social work [id number] Discharge [facility]* Discharge Instructions* Wyatt Pineda MD - 10/19/2024 6:13 AM EDT Images from the original note were not included. Thank you for allowing us to care of you at [facility]. This time can be one of many emotional ups and downs and many changes in your life. In these first weeks try to take good care of yourself because you will likely feel very tired. It may take 4 to 6 weeks to feel like yourself again, and possibly longer if you had a . FOLLOW-UP: Your follow-up care is a miranda part of your treatment and safety. Follow-up with your OB providerin 4weeks or as specified by your OB provider. If you had high blood pressure, visit your OB provider within 3-5 days after being home. Most women's blood pressure will return to pre- levels after delivery. However, some patients continueto have problems with their blood pressure, and some even get worse. Very high blood pressure can lead to seizures or stroke which can be life threatening. If ordered by your provider, take your blood pressure at home and call your OB provider if you have a high reading. Your OB provider can write you a prescription for a blood pressure monitor if you do not have one. Be sure to make and go to all appointments, and call your OB provider if you are having problems. It's also a good idea to know your test results and keep a list of the medicines you take. BLEEDING Vaginal bleeding will decrease in amount over the next few weeks. Bleeding may machine operator hop picker and then decrease again around 7-10 days . Use pads instead of tampons for the bloody flow that may last as long as 2 weeks. You will notice that as your activity increases, your flow may increase. Call your provider if you are saturating one maxi pad in an hour & passing large clots for 3 hours or more. ACTIVITY NO SEXUAL activity for 6 weeks or until advised by your OB provider; Nothing in vagina: intercourse, tampons, or douching. Begin to think about your reproductive life plan. Talk to your OB provider about if and when you would like to get in the future. The recommendation for safe pregnancyspacing is 18-24 months. Showering is okay; NO tub baths, swimming, or hot tubs. Gradually increase your activity. Resume exercise regimen only after advised by your )OB provider. Avoid lifting anything heavier than ten pounds or a gallon of milk for six weeks. Avoid driving 1 week for vaginal delivery and 2 weeks for section, or longer if you are onprescription pain medicine unless otherwise instructed by your OB provider. Rise slowly from a lying to sitting and then a standing position. Climb stairs carefully. You may feel tired or have a lack of energy. You may continue your vitamin to replenish nutrients post-delivery. Nap when whenever you can to catch up on sleep. EMOTIONS You may feel shirley, sad, teary, & overwhelmed for the first 2 weeks ; however, feelings of depression may occur any time within the first year after delivery. Contact your OBprovider if you feel you may be showing signs of depression, or have thoughts of harmingyourself or or anyone.. WOUND CARE For Vaginal Delivery: Shower daily, and cleanse your perineum (bottom) with mild soap from front to back. Use the plasticsquirt bottle until bleeding stops each time you use the restroom instead of wiping with toilet paper. Ease soreness of hemorrhoids and the area between your vagina and rectum with ice compresses or witch ho pads. If used, stitches will dissolve in 4-6 weeks on their own. You may use a sitz bath or soak in a clean tub with drain open and water running for comfort. Kegel exercises will help restore bladder control. To do these tighten your muscles as if you were stopping your urine flow. Hold for a few seconds and then relax. Do these throughout the day. For Section Delivery: Keep your incision clean and dry. If you had steri-strips you may remove these once they start falling off. If you have ryanne they need to be removed 3-10 daysafter delivery. If you have steri-strips, remove after 7 - 10 days. Do not wear clothing that irritates the incision line. If your incision is in a crease that is not dry, use a hair-dryer to dry the area 3 times a day. If you develop fever, shaking chills, redness, swelling, drainage or discharge from your wound, or if your wound looks like it is coming apart call your provider immediately. BREAST CARE If you develop a warm, red, tender area on your breast or develop a fever contact your OB provider.If your breasts become engorged ask your provider because treatment can vary according to your needs. DIET & CONSTIPATION Eat a well-balanced diet focusing on foods high in fiber and protein such as: whole grain cereals and breads, fruits and vegetables and legumes (eg, beans, lentils) Drink 8-10 glasses of fluids daily, especially water. Limit caffeine. To avoid constipation you may take a mild rngi-nlb-biwrytu stool softener (such as colace) as recommended by your OB provider. SWELLING Try to keep your legs elevated when you are sitting or lying down. Stay hydrated and take walks. If you had high blood pressure, weigh yourself at the same time each day. Write down your weight and take the record to your OB provider appointment. MEDICATIONS Take all medications prescribed for you exactly as ordered. Don't take any drugs not prescribed to you or over the counter medicines unless recommended by yourprovider. Don't smoke. WHEN TO CALL THE OB PROVIDER Signs of infection, including fever and chills Increased bleeding: soaking more than one pad an hour or passing clots the size of an egg or larger. Wounds that become red, swollen or drain pus Vaginal discharge that smells foul New pain, swelling, or tenderness in your legs Pain that you can't control with the medications you've been given Pain, burning, urgency or frequency of urination, or persistent bleeding in the urine Cough, shortness of breath, or serious difficulty catching your breath Chest pain or pain in the upper right area of your belly Headache (very painful) or vision changes like blurry or double vision, seeing spots or 'auras' Swelling that is worse or weight gain of more than 3 pounds in 3 days Depression, suicidal thoughts, or feelings of harming someone else Breasts that are hot, red and accompanied by fever Any cracking or bleeding from the nipple or areola (the dark-colored area of the breast) SAVE YOUR LIFE: Get Care for these POST- Warning Signs: Call 911 if you have: Pain in chest Obstructed breathing or shortness of breath Seizures Thoughts of hurting yourself or your baby Call your healthcare provider if you have: (if you can't reach your healthcare provider, call 911 or go to an emergency room) Bleeding, soaking through one pad/hour, or blood clots the size of an egg or bigger Incision that is not healing Red or swollen leg, that is painful or warm to touch Temperature of 100.4 F or higher Headache that does not get better, even after taking medicine, or bad headache with vision changes. Contact your healthcare provider and tell them: I delivered on and I am having ____(specific warning signs) In case of an emergency, call 911 immediately. documented in this [facility]05-12-2025 Note Attestation signed by Brianna Tipton MD at 10/19/2024 6:28 AM Procedures or Surgery: I was present for all miranda elements of the procedure or surgery as described in the resident note. Skylar Frantz was seen in the Obstetrics ED. Please see chart note for details. Follow up: Keep next scheduled visit Immediate IUD Insertion Procedure Note Pre-operative Diagnosis: ; Desires Long Acting Reversible Contraception Post-operative Diagnosis: same Indications: undesired fertility Procedure Details Pt immediately and elects for immediate placement of Liletta IUD. Pt received comprehensive counseling regarding risks, benefits, alternatives to Liletta IUD including but not limited to risk of uterine perforation, cervical laceration, IUD expulsion at a higher rate of approximately 25% in the immediate period, abnormal bleeding, cramping, IUD malplacement requiring possible further surgery, uterine infection, and in the rare case of an increased risk of ectopic . Patient requests to proceed with IUD placement, and informed consent was signed. Under sterile conditions and after confirming no contraindications to IUD placement, a ring forcep was used to grasp the IUD along the vertical stem carefully not to place too much force on the device. The device was inserted to the level of the fundus and was confirmed under US guidance. Forceps were then turned 90 degrees and swept to the uterine side wall, and slowly removed with care to not dislodge the device. Strings were trimmed to approximately 10 cm prior to insertion. IUD Information: Liletta IUD Lot #: [id number] Exp Date: 09/2028 Condition: Stable Complications: None Plan: The patient was advised to call for any fever or for prolonged or severe pain or bleeding. She was advised to use OTC analgesics as needed for mild to moderate pain. She will follow up in 2-4 weeks for follow up and IUD surveillance. She is instructed to adhere to pelvic rest for [address] Tipton was present for the procedure. BRANDIE BROWN DO 10/18/2024, 10:44 [facility] [id number] Procedure note* Brandie Brown DO - 10/18/2024 10:44 PM EDT Immediate IUD Insertion Procedure Note Pre-operative Diagnosis: ; Desires Long Acting Reversible Contraception Post-operative Diagnosis: same Indications: undesired fertility Procedure Details Pt immediately and elects for immediate placement of Liletta IUD. Pt receivedcomprehensive counseling regarding risks, benefits, alternatives to Liletta IUD including but not limited to risk of uterine perforation, cervical laceration, IUD expulsion at a higher rate of approxi mately 25% in the immediate period, abnormal bleeding, cramping, IUD malplacement requiring possible further surgery, uterine infection, and in the rare case of an increased riskof ectopic . Patient requests to proceed with IUD placement, and informed consent was signed. Under sterile conditions and after confirming no contraindications to IUD placement, a ring forcep was used to grasp the IUD along the vertical stem carefully not to place too much force on the device. The device was inserted to the level of the fundus and was confirmed under US guidance. Forceps were then turned 90 degrees and swept to the uterine side wall, and slowly removed with care to not dislodge the device. Strings were trimmed to approximately 10 cm prior to insertion. IUD Information: Osvaldo IUD Lot #: [id number] Exp Date: 09/2028 Condition: Stable Complications: None Plan: The patient was advised to call for any fever or for prolonged or severe pain or bleeding. She was advised to use OTC analgesics as needed for mild to moderate pain. She will follow up in 2-4 weeks for follow up and IUD surveillance. She is instructed to adhere to pelvic rest for [address] Tipton was present for the procedure. BRANDIE BROWN DO 10/18/2024, 10:44 PM Cosigned by Brianna Tipton MD at 10/19/2024 6:28 AM EDT Associated attestation - Brianna Tipton MD - 10/19/2024 6:28 AM EDT Procedures or Surgery: I was present for all miranda elements of the procedure or surgery as described in the resident note. Skylar Frantz was seen in the Obstetrics ED. Please see chart note for details. Follow up: [phone] 344-236005-12-2025 Procedure note* Brandie Brown DO - 10/18/2024 10:44 PM EDT Immediate IUD Insertion Procedure Note Pre-operative Diagnosis: ; Desires Long Acting Reversible Contraception Post-operative Diagnosis: same Indications: undesired fertility Procedure Details Pt immediately and elects for immediate placement of Liletta IUD. Pt receivedcomprehensive counseling regarding risks, benefits, alternatives to Liletta IUD including but not limited to risk of uterine perforation, cervical laceration, IUD expulsion at a higher rate of approxi mately 25% in the immediate period, abnormal bleeding, cramping, IUD malplacement requiring possible further surgery, uterine infection, and in the rare case of an increased riskof ectopic . Patient requests to proceed with IUD placement, and informed consent was signed. Under sterile conditions and after confirming no contraindications to IUD placement, a ring forcep was used to grasp the IUD along the vertical stem carefully not to place too much force on the device. The device was inserted to the level of the fundus and was confirmed under US guidance. Forceps were then turned 90 degrees and swept to the uterine side wall, and slowly removed with care to not dislodge the device. Strings were trimmed to approximately 10 cm prior to insertion. IUD Information: Liletta IUD Lot #: [id number] Exp Date: 09/2028 Condition: Stable Complications: None Plan: The patient was advised to call for any fever or for prolonged or severe pain or bleeding. She was advised to use OTC analgesics as needed for mild to moderate pain. She will follow up in 2-4 weeks for follow up and IUD surveillance. She is instructed to adhere to pelvic rest for [address] Tipton was present for the procedure. BRANDIE BROWN DO 10/18/2024, 10:44 PM Cosigned by Brianna Tipton MD at 10/19/2024 6:28 AM EDT Associated attestation - Brianna Tipton MD - 10/19/2024 6:28 AM EDT Procedures or Surgery: I was present for all miranda elements of the procedure or surgery as described in the resident note. Skylar Landry was seen in the Obstetrics ED. Please see chart note for details. Follow up: Keep next scheduled visit documented in this [facility]05-12-2025 Labor and delivery summary note* L&D Delivery Note - Brandie Brown DO - 10/18/2024 10:41 PM EDT Images from the original note were not included. Vaginal Delivery Note Department of Obstetrics and Gynecology Patient: Skylar Landry : 1990 Date of delivery: 10/18/24 Pre-operative Diagnosis: Skylar Hernandez at 39w3d 1. Term 2. History Substance Use 3. 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 Brianna Tipton, Dr. Brandie Brown, Dr. Guillermina Harmon Infant Information: Description: Normal Meconium Noted: Yes: terminal Anesthesia: epidural anesthesia Complications: None Medications Given: None Application and Delivery: Skylar [id number] at 39w3d admitted for elective induction of labor. She was known to be GBSnegative and received no prophylaxis. Her cervix was found to be 2 cm dilated on admission. She wasgiven a 60 ml judd bulb for cervical ripening. Once the judd bulb expelled, pitocin was titrated per protocol. Artificial rupture of membranes yielded clear fluid. She received an epidural for paincontrol. She progressed to complete and felt the urge to push. She pushed for approximately 10 minutes. After pushing with contractions the head delivered Cephalic, occiput anterior over an intact perineum. A nuchal cord was present and reduced. The anterior, then posterior shoulder delivered easily and atraumatically followed by the rest of the . The was placed on the maternal abdomen and attended by the RN for evaluation. The was stimulated and dried. The cord was clamped and cut after one minute. The delivery of the placenta was spontaneous and appeared intact. Pitocin was started. The vagina was swept of all clots and debris. The perineum and vagina were evaluated. No lacerations were found. All counts were correct. Motherand baby tolerated procedure well. A Liletta IUD was placed, see separate procedure note. There were no uterotonic medications required during delivery. EBL: 200ml QBL: 200ml VTE Prophylaxis: Not Indicated LABOR DELIVERY ??? SCD's ONLY (labor through ambulation) SCD's PLUS Prophylactic Anticoagulation until discharge SCD's PLUS Prophylactic Anticoagulation for 6 weeks SCD's PLUS Therapeutic Anticoagulation for 6 weeks Vaginal Delivery [] BMI >= 40 kg/m2 Delivery All patients Vaginal Delivery [] BMI >= 40 kg/m2 AND [] Antepartum hospitalization >= 72 hours within the past month Delivery 1 Major Risk Factor: [] BMI >= 35 kg/m2 [] Low Risk Thrombophilia [] PPH+RBCs, IR, or operation [] Infection+Antibiotics [] Antepartum hospitalization >= 72 hours within the past month [] PMH: Sickle Cell, SLE, Cardiac Dz, Active IBD, Active Cancer, Nephrotic Syndrome OR 2 Minor Risk Factors: [] Multiple gestation [] Age > 40 [] PPH >= 1,000cc [] (+)FMH of VTE [] Smoker [] Preeclampsia [] BMI >= 40 kg/m2 AND [] Low Risk Thrombophilia OR ANY OF THE FOLLOWING: [] High Risk Thrombophilia without prior VTE [] Low Risk Thrombophilia with (+)FMH of VTE [] Any single prior VTE ANY OF THE FOLLOWING: [] Already on LMWH/UFH [] Multiple prior VTE [] High Risk Thrombophilia with prior VTE Low Risk Thrombophilia: FVL (heterozygous), Prothrombin (heterozygous), Protein C, Protein S High Risk Thrombophilia: FVL (homozygous), Prothrombin (homozygous), FVL+Prothrombin (heterozygous), Antithrombin III, APLS Specimen: Cord Blood, Cord Gases Blood Type and Rh: A Rubella Immunity Status: Immune BRANDIE BROWN DO 10/18/2024, 10:41 PM Cosigned by Brianna Tipton MD at 10/19/2024 6:28 AM EDT Associated attestation - Brianna Tipton MD - 10/19/2024 6:28 AM EDT Procedures or Surgery: I was present for all miranda elements of the procedure or surgery as described in the resident note. Skylar Landry was seen in the Obstetrics ED. Please see chart note for details. Follow up: Keep [id number] NotePatient: Skylar Landry Procedure Information Anesthesia Start Date/Time: 10/18/24 1445 Procedure: Labor Analgesia Relevant Problems Neuro/Psych (+) Anxiety and depression Other (+) Supervision of high risk due to social problems, third trimester Clinical information reviewed: Allergies Meds Physical Exam Airway Mallampati: II TM distance: >3 FB Neck ROM: full Mouth Open: normal Cardiovascular Dental dentition normal Pulmonary Abdominal shrimp peeling machine tender Evaluation Anesthesia Plan patient is NPO appropriate Any family history or previous problems with anesthesia no ASA 2 epidural Any family history or previous problems with anesthesia no The patient is not a current smoker. Anesthetic plan and risks discussed with patient. Additional Equipment [facility]05-12-2025 NoteEpidural Block Time Out: 10/18/2024 2:49 PM Patient location during procedure: OB Start time: 10/18/2024 2:45 PM End time: 10/18/2024 3:49 PM Reason for block: labor analgesia Staffing Performed: TRANSPORT COMPANY MANAGER Resident/TRANSPORT COMPANY MANAGER: Deborah Fernandez APRN - MAMI Other Staff: Rosalba Rubalcava CRNA Preanesthetic Checklist Completed: patient identified, IV checked, site marked, risks and benefits discussed, surgical consent, monitors and equipment checked, pre-op evaluation, timeout performed, IV bolus and anesthesia consent given Block Placement Patient position: sitting Prep: ChloraPrep Sterility prep: cap, drape, gloves, hand and mask Sedation level: no sedation Patient monitoring: continuous pulse oximetry Approach: midline Location: lumbar Lumbar location: L3-L4 Epidural Loss of resistance technique: saline Guidance: landmark technique Needle Needle type: Exaprotectvaldo Needle gauge: 17 G Needle length: 9 cm Needle insertion depth: 7 cm Catheter type: multi-orifice Catheter size: 19 G Catheter at skin depth: 12 cm Catheter securement method: clear occlusive dressing, liquid medical adhesive, surgical tape and stabilization device Test dose: negative Medications Administered lidocaine-EPINEPHrine (Xylocaine W/EPI) 1.5 %-[id number] injection - Epidural 3 mL - 10/18/2024 3:31:00 PM ropivacaine (Naropin) 0.2 % epidural bolus - Epidural 10 mL - 10/18/2024 3:35:00 PM Assessment Sensory level: T10 Block outcome: pain improved Number of attempts: 3 or more Procedure assessment: patient tolerated procedure well with no immediate complications Additional Notes Attempted x2 by Noe Rubalcava, unsuccessful, encountering bone. Attempted x1 by me at level L3-4 [facility] NoteLabor Progress Note Date: 10/18/2024 Time: 12:26 PM Subjective: Skylar Landry is a 34 y.o. female at 39w3d admitted for IOL-RR Complications: Substance Use SVE on admission: GBS: []Pos [x]Neg []Unknown Cx: FHT: Category 1 Mariano Colon: irregular FHT: Baseline of 120s with Moderate variability, accelerations Present. No clinically significant decelerations present. Interventions: FB placed at this time. LD pitocin ordered. Last BP: normotensive. out at this time per RN. Regular Pitocin ordered and to be titrated. LD Pit currently at 2 ml/hr. FHT with periods of off the monitor, overall reassuring with moderate variability and accels present. Contractions irregular. BP NT. Plan to assess for AROM at next SVE. Late note due to patient care. Patient now with epidural. Pit at 4 ml/hr, continue titrating. BP NT. Soumya q2-4min. FHT cat II for intermittent decels, FHT overall reassuring with moderate variability and accels present. AROM not yet performed due to acuity on floor. Will sign out to night team shortly. Cx: FHT: Cat I Mariano Colon:q 3-5 mins A/P: 1. IOL-RR: Cat I FHT with baseline 130, moderate variability, spontaneous accelerations, and no decelerations. BP normotensive since last note time. Pitocin at 6 cc/hr, continue to titrate per protocol. Patient comfortable with epidural. AROM'd for clear fluid at this time. [facility] STEPHANIE, 10/18/2024 7:31 PM Cx:6/80/-3 per RN FHT: Cat II Mariano Colon:q 2 mins A/P: 1. IOL-RR: Cat II FHT due to intermittent variable decelerations over past 30 minutes, remains reassuring with baseline 140, moderate variability, spontaneous accelerations. BP normotensive since last note time. Pitocin at 8 cc/hr, continue to titrate per protocol. Will continue position changes, anticipate continued cervical change. [facility] SANDOVALNA STEPHANIE, 10/18/2024 9:04 PM Cx:9-10/100/-2 FHP: defer FHT: CatII Mariano Colon:2min FHR Cat II 2/2 intermittent variable decelerations but overall reassuring with a baseline of 140s 's, moderate variability, accelerations present. Pitocin at 8cc/hr. Continue to titrate per protocol. BP's normotensive. Will recheck in approximately 30 minutes or earlier if patient feels increasing pressure. Continue to monitor. [facility] Guillermina Harmon, 10/18/2024 9:57 PM Pt delivered, see delivery not for more details.[facility] 10-18-2024 History and physical note* Sabina Dawkins DO - 10/18/2024 10:37 AM EDT Obstetrical History and Physical CHIEF CONCERN: IOL-RR HISTORY OF PRESENT ILLNESS: The patient is a 34 y.o. at 39w3d Patient presents with a chief complaint as above and is being admitted for induction Denies DFM/VB/LOF/STRICKLAND/EpigastricPain/Visual changes Estimated Due Date: Estimated Date of Delivery: 10/22/24 CARE: Complications: See below PAST OB HISTORY: OB History Para Term AB Living 7 3 2 1 3 3 SAB IAB Ectopic Multiple Live Births 1 2 3 # Outcome Date GA Lbr Zen/2nd Weight Sex Type Anes PTL Lv 7 Current 6 01/13/23 35w0d M Vag-Spont RAQUEL Comments: per pt, induced at around 35wks (unsure exact GA) d/t kidney stones Complications: Kidney stone complicating 5 Term 09/19/15 M Vag-Spont EPI RAQUEL 4 Term 09/21/10 M Vag-Spont EPI RAQUEL Comments: Nephrostomy tube during 3 IAB Comments: pt unsure of year, IAB in G2 closely after G1 in 2010 2 IAB Comments: pt unsure of exact year, IAB in G3 1 SAB Comments: pt unsure of exact year, reports miscarriage in G5 Obstetric Comments Plans to formula feed Detailed OB History G1 SAB G2 IAB G3 IAB G4 TSVD G5 TSVD G6 (induction due to kidney stone) G7 Current Past Medical History: Past Medical History: Diagnosis Date Anxiety Colitis Depression Kidney disease Kidney stone Medullary sponge kidney of both kidneys Past Surgical History: Past Surgical History: Procedure Laterality Date DILATION AND CURETTAGE (HISTORICAL) 2022 IR NEPHROSTOMY TUBE PLACEMENT STENT INSERTION (HISTORICAL) 2023 kidneys Allergies: Ketorolac and Toradol [ketorolac tromethamine] Medications Prior to Admission: Medications Prior to Admission Medication Sig Dispense Refill Last Dose/Taking buprenorphine-naloxone (Suboxone) 8-2 MG per sublingual film Place 1 Film under the tongue 2 times daily for 14 days. 28 Film 0 10/17/2024 Morning QUEtiapine (SEROquel) 50 MG tablet Take 1 tablet (50 mg) by mouth Nightly as needed (Insomnia/sleep). 30 tablet 0 10/17/2024 Evening sertraline (Zoloft) 50 MG tablet Take 1 tablet (50 mg) by mouth daily. 30 tablet 0 10/17/2024 Morning aspirin 81 MG chewable tablet Chew 2 tablets (162 mg) daily. (Patient not taking: Reported on 10/18/2024) 60 tablet 11 Unknown [] fosfomycin (Monurol) 3 g packet Take 3 g by mouth Once for 1 dose. 3 g 0 lidocaine (Lidoderm) 5 % patch Apply 1 patch topically daily. Remove & discard patch within 12 hours or as directed by MD. (Patient not taking: Reported on 10/18/2024) 30 patch 2 Unknown ondansetron (Zofran) 4 MG tablet Take 8 mg by mouth every 8 hours as needed for nausea or vomiting.(Patient not taking: Reported on 10/18/2024) Unknown Vit-Fe Fumarate-FA ( Vitamins) 28-0.8 MG tablet Take 1 tablet by mouth daily. (Patient not taking: Reported on 10/18/2024) 30 tablet 11 Unknown REVIEW OF SYSTEMS: Const: Negative HEENT: Negative Resp: Negative CVS: Negative GI: Negative : Negative MSK: Negative Breast: Negative Skin: Negative Heme/Lymph:Negative Endo: Negative Neuro: Negative Psych: Negative PHYSICAL EXAM: Vitals: 10/18/24 1030 BP: 114/71 Pulse: 101 Resp: 20 Temp: 37.1 C (98.8 F) TempSrc: Oral SpO2: 99% Weight: 200 lb (90.7 kg) Height: 5' 4 (1.626 m) General appearance: awake, alert, cooperative, no apparent distress, and appears stated age Neurologic: Awake, alert, oriented to name, place and time. Lungs: No increased work of breathing, good air exchange Abdomen: Soft, non tender, gravid, consistent with her gestational age Cervix: 2/70/-3 Contraction frequency: irritable toco Labs: CBC: Lab Results Component Value Date WBC 10.0 10/18/2024 RBC 4.29 10/18/2024 HGB 11.6 (L) 10/18/2024 HCT 35.8 10/18/2024 MCV 83.4 10/18/2024 MCH 27.0 10/18/2024 MCHC 32.4 10/18/2024 RDW 13.4 10/18/2024 PLT 188 10/18/2024 MPV 11.9 10/18/2024 Blood Type: A + Group B Strep: Lab Results Component Value Date GROUPBSTREP Not Detected 10/08/2024 Fetus: EFW: 2380 gm 5 lb 4 oz 51% with AC 49% per 09/21 US Presentation: vertex by U/S Mckeon Score: 4 0 1 2 3 Position Posterior Mid Anterior - Consistency Firm Medium Soft - Effacement 0-30% 40-50% 60-70% 80% or > Dilation 0cm 1-2cm 3-4cm 5cm or > Station -3 -2 -1, 0 +1, +2 LABOR DELIVERY ??? SCD's ONLY (labor through ambulation) SCD's PLUS Prophylactic Anticoagulation until discharge SCD's PLUS Prophylactic Anticoagulation for 6 weeks SCD's PLUS Therapeutic Anticoagulation for 6 weeks Vaginal Delivery [] BMI >= 40 kg/m2 Delivery All patients Vaginal Delivery [] BMI >= 40 kg/m2 AND [] Antepartum hospitalization >= 72 hours within the past month Delivery 1 Major Risk Factor: [] BMI >= 35 kg/m2 [] Low Risk Thrombophilia [] PPH+RBCs, IR, or operation [] Infection+Antibiotics [] Antepartum hospitalization >= 72 hours within the past month [] PMH: Sickle Cell, SLE, Cardiac Dz, Active IBD, Active Cancer, Nephrotic Syndrome OR 2 Minor Risk Factors: [] Multiple gestation [] Age > 40 [] PPH >= 1,000cc [] (+)FMH of VTE [] Smoker [] Preeclampsia [] BMI >= 40 kg/m2 AND [] Low Risk Thrombophilia OR ANY OF THE FOLLOWING: [] High Risk Thrombophilia without prior VTE [] Low Risk Thrombophilia with (+)FMH of VTE [] Any single prior VTE ANY OF THE FOLLOWING: [] Already on LMWH/UFH [] Multiple prior VTE [] High Risk Thrombophilia with prior VTE Low Risk Thrombophilia: FVL (heterozygous), Prothrombin (heterozygous), Protein C, Protein S High Risk Thrombophilia: FVL (homozygous), Prothrombin (homozygous), FVL+Prothrombin (heterozygous), Antithrombin III, APLS ASSESSMENT AND PLAN: IOL-RR Admission: Admit to L&D FHR: Category 1 Celestone: not indicated Pain control plan: desires epidural Delivery Plan: FB, Pitocin, AROM GBS: GBS negative, No indication for GBS prophylaxis LARC: Liletta IUD consented and ordered Intrapartum SCDs: Not Indicated VTE Prophylaxis: Not Indicated Hx substance use - [facility] august 2024 for detox, at that time MAT + for Benzos, Methadone, Opiates, and Fentanyl - compliant on Subutex 8mg BID - followed in [facility] centering - MAT consented for and collected on admission Depression/Anxiety - Seroquel 50mg nightly - Zoloft 50mg daily - mood stable on admission Discussed with Dr Neil, who agrees with plan. Sabina Dawkins DO 10/18/2024, 11:08 AM Cosigned by Brianna Tipton MD at 10/18/2024 11:49 AM EDT [id number] NoteObstetrical History and Physical CHIEF CONCERN: IOL-RR HISTORY OF PRESENT ILLNESS: The patient is a 34 y.o. at 39w3d Patient presents with a chief complaint as above and is being admitted for induction Denies DFM/VB/LOF/STRICKLAND/EpigastricPain/Visual changes Estimated Due Date: Estimated Date of Delivery: 10/22/24 CARE: Complications: See below PAST OB HISTORY: OB History Para Term AB Living 7 3 2 1 3 3 SAB IAB Ectopic Multiple Live Births 1 2 3 # Outcome Date GA Lbr Zen/2nd Weight Sex Type Anes PTL Lv 7 Current 6 01/13/23 35w0d M Vag-Spont RAQUEL Comments: per pt, induced at around 35wks (unsure exact GA) d/t kidney stones Complications: Kidney stone complicating 5 Term 09/19/15 M Vag-Spont EPI RAQUEL 4 Term 09/21/10 M Vag-Spont EPI RAQUEL Comments: Nephrostomy tube during 3 IAB Comments: pt unsure of year, IAB in G2 closely after G1 in 2010 2 IAB Comments: pt unsure of exact year, IAB in G3 1 SAB Comments: pt unsure of exact year, reports miscarriage in G5 Obstetric Comments Plans to formula feed Detailed OB History G1 SAB G2 IAB G3 IAB G4 TSVD G5 TSVD G6 (induction due to kidney stone) G7 Current Past Medical History: Past Medical History: Diagnosis Date Anxiety Colitis Depression Kidney disease Kidney stone Medullary sponge kidney of both kidneys Past Surgical History: Past Surgical History: Procedure Laterality Date DILATION AND CURETTAGE (HISTORICAL) 2022 IR NEPHROSTOMY TUBE PLACEMENT STENT INSERTION (HISTORICAL) 2023 kidneys Allergies: Ketorolac and Toradol [ketorolac tromethamine] Medications Prior to Admission: Medications Prior to Admission Medication Sig Dispense Refill Last Dose/Taking buprenorphine-naloxone (Suboxone) 8-2 MG per sublingual film Place 1 Film under the tongue 2 times daily for 14 days. 28 Film 0 10/17/2024 Morning QUEtiapine (SEROquel) 50 MG tablet Take 1 tablet (50 mg) by mouth Nightly as needed (Insomnia/sleep). 30 tablet 0 10/17/2024 Evening sertraline (Zoloft) 50 MG tablet Take 1 tablet (50 mg) by mouth daily. 30 tablet 0 10/17/2024 Morning aspirin 81 MG chewable tablet Chew 2 tablets (162 mg) daily. (Patient not taking: Reported on 10/18/2024) 60 tablet 11 Unknown [] fosfomycin (Monurol) 3 g packet Take 3 g by mouth Once for 1 dose. 3 g 0 lidocaine (Lidoderm) 5 % patch Apply 1 patch topically daily. Remove & discard patch within 12 hours or as directed by MD. (Patient not taking: Reported on 10/18/2024) 30 patch 2 Unknown ondansetron (Zofran) 4 MG tablet Take 8 mg by mouth every 8 hours as needed for nausea or vomiting. (Patient not taking: Reported on 10/18/2024) Unknown Vit-Fe Fumarate-FA ( Vitamins) 28-0.8 MG tablet Take 1 tablet by mouth daily. (Patient not taking: Reported on 10/18/2024) 30 tablet 11 Unknown REVIEW OF SYSTEMS: Const: Negative HEENT: Negative Resp: Negative CVS: Negative GI: Negative : Negative MSK: Negative Breast: Negative Skin: Negative Heme/Lymph:Negative Endo: Negative Neuro: Negative Psych: Negative PHYSICAL EXAM: Vitals: 10/18/24 1030 BP: 114/71 Pulse: 101 Resp: 20 Temp: 37.1 ?C (98.8 ?F) TempSrc: Oral SpO2: 99% Weight: 200 lb (90.7 kg) Height: 5' 4 (1.626 m) General appearance: awake, alert, cooperative, no apparent distress, and appears stated age Neurologic: Awake, alert, oriented to name, place and time. Lungs: No increased work of breathing, good air exchange Abdomen: Soft, non tender, gravid, consistent with her gestational age Cervix: 2/70/-3 Contraction frequency: irritable toco Labs: CBC: Lab Results Component Value Date WBC 10.0 10/18/2024 RBC 4.29 10/18/2024 HGB 11.6 (L) 10/18/2024 HCT 35.8 10/18/2024 MCV 83.4 10/18/2024 MCH 27.0 10/18/2024 MCHC 32.4 10/18/2024 RDW 13.4 10/18/2024 PLT 188 10/18/2024 MPV 11.9 10/18/2024 Blood Type: A + Group B Strep: Lab Results Component Value Date GROUPBSTREP Not Detected 10/08/2024 Fetus: EFW: 2380 gm 5 lb 4 oz 51% with AC 49% per 09/21 US Presentation: vertex by U/S Mckeon Score: 4 0 1 2 3 Position Posterior Mid Anterior - Consistency Firm Medium Soft - Effacement 0-30% 40-50% 60-70% 80% or > Dilation 0cm 1-2cm 3-4cm 5cm or > Station -3 -2 -1, 0 +1, +2 LABOR DELIVERY ??? SCD's ONLY (labor through ambulation) SCD's PLUS Prophylactic Anticoagulation until discharge SCD's PLUS Prophylactic Anticoagulation for 6 weeks SCD's PLUS Therapeutic Anticoagulation for 6 weeks Vaginal Delivery [] BMI >= 40 kg/m2 Delivery All patients Vaginal Delivery [] BMI >= 40 kg/m2 AND [] Antepartum hospitalization >= 72 hours within the past month Delivery 1 Major Risk Factor: [] BMI >= 35 kg/m2 [] Low Risk Thrombophilia [] PPH+RBCs, IR, or operation [] Infection+A (more content not included)...[facility]05-12-2025 History and physical note* Sabina Dawkins DO - 10/18/2024 10:37 AM EDT Obstetrical History and Physical CHIEF CONCERN: IOL-RR HISTORY OF PRESENT ILLNESS: The patient is a 34 y.o. at 39w3d Patient presents with a chief complaint as above and is being admitted for induction Denies DFM/VB/LOF/STRICKLAND/EpigastricPain/Visual changes Estimated Due Date: Estimated Date of Delivery: 10/22/24 CARE: Complications: See below PAST OB HISTORY: OB History Para Term AB Living 7 3 2 1 3 3 SAB IAB Ectopic Multiple Live Births 1 2 3 # Outcome Date GA Lbr Zen/2nd Weight Sex Type Anes PTL Lv 7 Current 6 01/13/23 35w0d M Vag-Spont RAQUEL Comments: per pt, induced at around 35wks (unsure exact GA) d/t kidney stones Complications: Kidney stone complicating 5 Term 09/19/15 M Vag-Spont EPI RAQUEL 4 Term 09/21/10 M Vag-Spont EPI RAQUEL Comments: Nephrostomy tube during 3 IAB Comments: pt unsure of year, IAB in G2 closely after G1 in 2010 2 IAB Comments: pt unsure of exact year, IAB in G3 1 SAB Comments: pt unsure of exact year, reports miscarriage in G5 Obstetric Comments Plans to formula feed Detailed OB History G1 SAB G2 IAB G3 IAB G4 TSVD G5 TSVD G6 (induction due to kidney stone) G7 Current Past Medical History: Past Medical History: Diagnosis Date Anxiety Colitis Depression Kidney disease Kidney stone Medullary sponge kidney of both kidneys Past Surgical History: Past Surgical History: Procedure Laterality Date DILATION AND CURETTAGE (HISTORICAL) 2022 IR NEPHROSTOMY TUBE PLACEMENT STENT INSERTION (HISTORICAL) 2023 kidneys Allergies: Ketorolac and Toradol [ketorolac tromethamine] Medications Prior to Admission: Medications Prior to Admission Medication Sig Dispense Refill Last Dose/Taking buprenorphine-naloxone (Suboxone) 8-2 MG per sublingual film Place 1 Film under the tongue 2 times daily for 14 days. 28 Film 0 10/17/2024 Morning QUEtiapine (SEROquel) 50 MG tablet Take 1 tablet (50 mg) by mouth Nightly as needed (Insomnia/sleep). 30 tablet 0 10/17/2024 Evening sertraline (Zoloft) 50 MG tablet Take 1 tablet (50 mg) by mouth daily. 30 tablet 0 10/17/2024 Morning aspirin 81 MG chewable tablet Chew 2 tablets (162 mg) daily. (Patient not taking: Reported on 10/18/2024) 60 tablet 11 Unknown [] fosfomycin (Monurol) 3 g packet Take 3 g by mouth Once for 1 dose. 3 g 0 lidocaine (Lidoderm) 5 % patch Apply 1 patch topically daily. Remove & discard patch within 12 hours or as directed by MD. (Patient not taking: Reported on 10/18/2024) 30 patch 2 Unknown ondansetron (Zofran) 4 MG tablet Take 8 mg by mouth every 8 hours as needed for nausea or vomiting.(Patient not taking: Reported on 10/18/2024) Unknown Vit-Fe Fumarate-FA ( Vitamins) 28-0.8 MG tablet Take 1 tablet by mouth daily. (Patient not taking: Reported on 10/18/2024) 30 tablet 11 Unknown REVIEW OF SYSTEMS: Const: Negative HEENT: Negative Resp: Negative CVS: Negative GI: Negative : Negative MSK: Negative Breast: Negative Skin: Negative Heme/Lymph:Negative Endo: Negative Neuro: Negative Psych: Negative PHYSICAL EXAM: Vitals: 10/18/24 1030 BP: 114/71 Pulse: 101 Resp: 20 Temp: 37.1 C (98.8 F) TempSrc: Oral SpO2: 99% Weight: 200 lb (90.7 kg) Height: 5' 4 (1.626 m) General appearance: awake, alert, cooperative, no apparent distress, and appears stated age Neurologic: Awake, alert, oriented to name, place and time. Lungs: No increased work of breathing, good air exchange Abdomen: Soft, non tender, gravid, consistent with her gestational age Cervix: 2/70/-3 Contraction frequency: irritable toco Labs: CBC: Lab Results Component Value Date WBC 10.0 10/18/2024 RBC 4.29 10/18/2024 HGB 11.6 (L) 10/18/2024 HCT 35.8 10/18/2024 MCV 83.4 10/18/2024 MCH 27.0 10/18/2024 MCHC 32.4 10/18/2024 RDW 13.4 10/18/2024 PLT 188 10/18/2024 MPV 11.9 10/18/2024 Blood Type: A + Group B Strep: Lab Results Component Value Date GROUPBSTREP Not Detected 10/08/2024 Fetus: EFW: 2380 gm 5 lb 4 oz 51% with AC 49% per 09/21 US Presentation: vertex by U/S Mckeon Score: 4 0 1 2 3 Position Posterior Mid Anterior - Consistency Firm Medium Soft - Effacement 0-30% 40-50% 60-70% 80% or > Dilation 0cm 1-2cm 3-4cm 5cm or > Station -3 -2 -1, 0 +1, +2 LABOR DELIVERY ??? SCD's ONLY (labor through ambulation) SCD's PLUS Prophylactic Anticoagulation until discharge SCD's PLUS Prophylactic Anticoagulation for 6 weeks SCD's PLUS Therapeutic Anticoagulation for 6 weeks Vaginal Delivery [] BMI >= 40 kg/m2 Delivery All patients Vaginal Delivery [] BMI >= 40 kg/m2 AND [] Antepartum hospitalization >= 72 hours within the past month Delivery 1 Major Risk Factor: [] BMI >= 35 kg/m2 [] Low Risk Thrombophilia [] PPH+RBCs, IR, or operation [] Infection+Antibiotics [] Antepartum hospitalization >= 72 hours within the past month [] PMH: Sickle Cell, SLE, Cardiac Dz, Active IBD, Active Cancer, Nephrotic Syndrome OR 2 Minor Risk Factors: [] Multiple gestation [] Age > 40 [] PPH >= 1,000cc [] (+)FMH of VTE [] Smoker [] Preeclampsia [] BMI >= 40 kg/m2 AND [] Low Risk Thrombophilia OR ANY OF THE FOLLOWING: [] High Risk Thrombophilia without prior VTE [] Low Risk Thrombophilia with (+)FMH of VTE [] Any single prior VTE ANY OF THE FOLLOWING: [] Already on LMWH/UFH [] Multiple prior VTE [] High Risk Thrombophilia with prior VTE Low Risk Thrombophilia: FVL (heterozygous), Prothrombin (heterozygous), Protein C, Protein S High Risk Thrombophilia: FVL (homozygous), Prothrombin (homozygous), FVL+Prothrombin (heterozygous), Antithrombin III, APLS ASSESSMENT AND PLAN: IOL-RR Admission: Admit to L&D FHR: Category 1 Celestone: not indicated Pain control plan: desires epidural Delivery Plan: FB, Pitocin, AROM GBS: GBS negative, No indication for GBS prophylaxis LARC: Osvaldo IUD consented and ordered Intrapartum SCDs: Not Indicated VTE Prophylaxis: Not Indicated Hx substance use - admitted [facility] august 2024 for detox, at that time MAT + for Benzos, Methadone, Opiates, and Fentanyl - compliant on Subutex 8mg BID - followed in [facility] centering - MAT consented for and collected on admission Depression/Anxiety - Seroquel 50mg nightly - Zoloft 50mg daily - mood stable on admission Discussed with Dr Tipton, who agrees with plan. Sabina Dawkins DO 10/18/2024, 11:08 AM Cosigned by Brianna Tipton MD at 10/18/2024 11:49 AM EDT documented in this [facility]05-08-2025 History of Present illness Narrative* Aury Rosario DO - 10/14/2024 8:16 AM EDT Positive urin culture, previously EBSL. Will send another dose of fosfomycin documented in this [facility]05-06-2025 Evaluation + Plan note* Assessment & Plan Note - Aury Rosario DO - 10/12/2024 2:15 PM EDT Associated Problem(s): Anxiety and depression Stable. Continue Zoloft and Seroquel. No SI or HI [id number] Evaluation + Plan note* Assessment & Plan Note - Aury Rosario DO - 10/12/2024 2:15 PM EDTAssociated Problem(s): Drug use affecting in third trimester Stable. Currently taking Subtex 8 mg BID. No recent drug use. Follows with [facility] Had NST today [facility] [id number] Miscellaneous Notes* Assessment & Plan Note - Aury Rosario DO - 10/12/2024 2:15 PM EDTAssociated Problem(s): Anxiety and depression Stable. Continue Zoloft and Seroquel. No SI or HI * Assessment & Plan Note - Aury Rosario DO - 10/12/2024 2:15 PM EDT Associated Problem(s): Drug use affecting in third trimester Stable. Currently taking Subtex 8 mg BID. No recent drug use. Follows with [facility] Had NST today * Assessment & Plan Note - Aury Rosario DO - 10/12/2024 2:14 PM EDT Associated Problem(s): Supervision of high risk due to social problems, third trimester Patient doing well, denies OB sx. Urine collected today s/p tx for E. Coli UTI Passed 1 hour GTT GBS was negative s/p TDAP and COVID vaccine Induction scheduled 10/18 Discussed return precautions documented in this [facility]05-06-2025 Evaluation + Plan note* Assessment & Plan Note - Aury Rosario DO - 10/12/2024 2:14 PM EDT Associated Problem(s): Supervision of high risk due to social problems, third trimester Patient doing well, denies OB sx. Urine collected today s/p tx for E. Coli UTI Passed 1 hour GTT GBS was negative s/p TDAP and COVID vaccine Induction scheduled 10/18 Discussed return precautions [facility] [id number] History of Present illness Narrative* Silvia Larry MA - 10/12/2024 12:45 PM EDT Bander Hand- declines documented in this [facility]05-06-2025 Instructions* Patient Instructions* Aury Rosario, DO - 10/12/2024 12:45 PM EDT Your Third Trimester: Care Instructions As you enter the final months and weeks of , the reality of having a baby may start to setin. This is a good time to set up a safe nursery and find quality registered nurse maternal child if needed. Doing this stuff ahead of time will allow you to focus on caring for and enjoying your new baby. Your growing baby is putting more pressure on your bladder. So you may need to urinate more often. Hemorrhoids arealso common. Pelvic pain and discomfort are unfortunately very common at this stage. But it is important to know when to call your doctor, or come to labor and delivery. Learn about labor Watch for signs of labor. You may be going into labor if: You have about 6 or more contractions in 1 hour, even after you have had a glass of water and are resting. You have a low, dull backache that does not go away when you change your position. You have pain or pressure in your pelvis that comes and goes in a pattern. You have intestinal cramping or flu-like symptoms, with or without diarrhea. You notice an increase or change in your vaginal discharge. Discharge may be heavy, mucus-like, watery, or streaked with blood. Your water breaks. If you think you have labor: Drink 2 or 3 glasses of water or juice. Not drinking enough fluids can cause contractions. Stop what you are doing, and empty your bladder. Then you can lie down on your left side. Contractions can be weak or strong. Record your contractions for an hour. Time a contraction from the start of one contraction to the start of the next one. Single or several strong contractions without a pattern are called [place]-C[place] contractions. Theyare practice contractions but not the start of labor. They often stop if you change what you are doing, rest, or hydrate Call your doctor if you have regular contractions. Pay attention to your baby's movements You should feel your baby move several times every day. Your baby now turns less, and kicks and jabs more. Your baby sleeps 20 to 45 minutes at a time and is more active at certain times of day. If your doctor wants you to count your baby's kicks: Empty your bladder, and lie on your side or relax in a comfortable chair. Write down your start time. Pay attention only to your baby's movements. Count any movement except hiccups. After you have counted 10 movements, write down your stop time. Write down how many minutes it took for your baby to move 10 times. If an hour goes by and you have not recorded 10 movements, have something to eat or drink and then count for another hour. If you do not record 10 movements in either hour, call your doctor. Consider Experts recommend that women breastfeed for 1 year or longer. Breast milk may help protect your child from some health problems. Breastfed babies are less likelythan formula-fed babies to: Get ear infections, colds, diarrhea, and pneumonia. Be obese or get diabetes later in life. Women who breastfeed have less bleeding after the . Their uteruses also shrink back faster. Some women who breastfeed lose weight faster. Making milk coates calories. can lower your risk of breast cancer, ovarian cancer, and osteoporosis. Decide about circumcision for boys. As you make this decision, it may help to think about your personal, anabaptist, and family traditions. You get to decide if you will keep your son's penis natural or if he will be circumcised. If you decide that you would like to have your baby circumcised, talk with your doctor. You can share your concerns about pain. And you can discuss your preferences for anesthesia. Group B Strep Group B strep infection is caused by a type of bacteria. It's a different kind of bacteria than thekind that causes strep throat. At 36 weeks, you can expect your doctor to collect a Group B Strep Vaginal swab. GBS is a common bacteria that can live in the vagina and rectum. This is not and STD. You may have this kind of bacteria in your body. Sometimes it may cause an infection, but most of the time it doesn't make you sick or cause symptoms. But if you pass the bacteria to your baby duringthe , it can cause serious health problems for your baby. If you have this bacteria, you will get antibiotics when you are in labor. Antibiotics help preventproblems for a baby. After , doctors will watch and may test your baby. If your baby tests positive for Group B strep, he or she will get antibiotics. If you plan to breastfeed your baby, don't worry. It will be safe to breastfeed. Tell your doctor if you are allergic to any antibiotic. If your water breaks, go to the hospital right away. Tell the doctors and nurses at the hospital that you tested positive for group B strep. Your doctor will give you antibiotics to help protect yourbaby from infection. What To Expect If you haven't already had the Tdap shot during this , talk to your doctor about getting it. It will help protect your against pertussis infection (Whooping Cough). If there are indications, your doctor may discuss getting repeat ultrasounds or NSTs (non-stress test) to monitor how baby is doing during this time. An NST is a test that checks your baby's heartbeat patterns. It can show heart rate changes when the baby moves. It also shows changes when you have contractions, if you're having them. A heart rate that speeds up when the baby moves means thebaby is getting enough oxygen. Follow-up care is a miranda part of your treatment and safety. Be sure to make and go to all appointments, and call your doctor if you are having problems. It's also a good idea to know your test resultsand keep a list of the medicines you take. When to call your doctor Call 911 anytime you think you may need emergency care. For example, call if: You have severe vaginal bleeding. You have sudden, severe pain in your belly. You passed out (lost consciousness). You have a seizure. You see or feel the umbilical cord. You think you are about to deliver your baby and can't make it safely to the hospital. Call your doctor now or seek immediate medical care if: You have vaginal bleeding. You have belly pain. You have a fever. You have symptoms of preeclampsia, such as: Sudden swelling of your face, hands, or feet. New vision problems (such as dimness, blurring, or seeing spots). A severe headache. You have a sudden release of fluid from your vagina. (You think your water broke.) You think that you may be in labor. This means that you've had at least 6 contractions in an hour. You notice that your baby has stopped moving or is moving much less than normal. You have symptoms of a urinary tract infection. These may include: Pain or burning when you urinate. A frequent need to urinate without being able to pass much urine. Pain in the flank, which is just below the rib cage and above the waist on either side of the back. Blood in your urine. documented in [facility]05-06-2025 Talisha Landry, a at 38w4d with an KWAKU of 10/22/2024, by Ultrasound, was seen at [facility] for a nonstress test. Reason for Non-Stress Test 1 : Other (Comment) (Substance abuse) Variability in Waveform for Non-Stress Test 1: Moderate Decelerations in Non-Stress Test 1: None Accelerations in Non-Stress Test 1: Yes Acoustic Stimulator for Non-Stress Test 1: No Baseline Heart Rate for Non-Stress Test 1: 135 BPM Uterine Irritability for Non-Stress Test 1: No Contractions in Non-Stress Test 1: Not present Interpretation of Non-Stress Test 1: Reactive Comments on Non-Stress Test 1: fetus very active beginning of NST remained active throughout [facility]05-06-2025 Procedure note* Erendira Valerio RN - 10/12/2024 11:00 AM EDTProcedure(s): NONSTRESS TEST Skylar Landry, a at 38w4d with an KWAKU of 10/22/2024, by Ultrasound, was seen at [facility] for a nonstress test. Reason for Non-Stress Test 1 : Other (Comment) (Substance abuse) Variability in Waveform for Non-Stress Test 1: Moderate Decelerations in Non-Stress Test 1: None Accelerations in Non-Stress Test 1: Yes Acoustic Stimulator for Non-Stress Test 1: No Baseline Heart Rate for Non-Stress Test 1: 135 BPM Uterine Irritability for Non-Stress Test 1: No Contractions in Non-Stress Test 1: Not present Interpretation of Non-Stress Test 1: Reactive Comments on Non-Stress Test 1: fetus very active beginning of NST remained active throughout NST [facility] [id number] Procedure note* Erendira Valerio RN - 10/12/2024 11:00 AM EDTProcedure(s): NONSTRESS TEST Skylar Landry, a at 38w4d with an KWAKU of 10/22/2024, by Ultrasound, was seen at [facility] for a nonstress test. Reason for Non-Stress Test 1 : Other (Comment) (Substance abuse) Variability in Waveform for Non-Stress Test 1: Moderate Decelerations in Non-Stress Test 1: None Accelerations in Non-Stress Test 1: Yes Acoustic Stimulator for Non-Stress Test 1: No Baseline Heart Rate for Non-Stress Test 1: 135 BPM Uterine Irritability for Non-Stress Test 1: No Contractions in Non-Stress Test 1: Not present Interpretation of Non-Stress Test 1: Reactive Comments on Non-Stress Test 1: fetus very active beginning of NST remained active throughout NST documented in this encounterSThe Jewish [id number] Telephone encounter Note* Telephone Encounter - Berkley Abad - 10/11/2024 11:59 AM EDT Name of caller: Skylar Contact phone number: [phone] Relationship to Patient: patient Provider: Dr. العراقي Practice: [facility] Chief Complaint/Reason for Call: Patient called in regarding induction scheduled on 10/18. States she was seen at L&D on 10/08 and was advised to call the office today to see if there is any sooner inductions open for this weekend. Patient requesting call back to discuss. Please Advise Best time of day caller can be reached: any Patient advised that office/PCP has 24-48 business hours to return their call: No [facility] [id number] Miscellaneous Notes* Telephone Encounter - Berkley Abad - 10/11/2024 11:59 AM EDT Name of caller: Skylar Contact phone number: [phone] Relationship to Patient: patient Provider: Dr. العراقي Practice: [facility] Chief Complaint/Reason for Call: Patient called in regarding induction scheduled on 10/18. States she was seen at L&D on 10/08 and was advised to call the office today to see if there is any sooner inductions open for this weekend. Patient requesting call back to discuss. Please Advise Best time of day caller can be reached: any Patient advised that office/PCP has 24-48 business hours to return their call: No documented in this [facility]05-02-2025 NotePt given discharge instructions and education. Pt verbalizes understanding and agrees with plan of care. Denies questions at this time. Pt in no acute distress. Pt discharged home ambulatory.[facility]05-02-2025 Nurse Note* Armida Espinal RN - 10/08/2024 9:48 PM EDT Pt given discharge instructions and education. Pt verbalizes understanding and agrees with plan of care. Denies questions at this time. Pt in no acute distress. Pt discharged home ambulatory. [facility] [id number] Nurse Note* Armida Espinal RN - 10/08/2024 9:48 PM EDT Pt given discharge instructions and education. Pt verbalizes understanding and agrees with plan of care. Denies questions at this time. Pt in no acute distress. Pt discharged home ambulatory. documented in this [facility]05-02-2025 Hospital Discharge instructions* Discharge Instructions* Sabina Dawkins DO - 10/08/2024 9:37 PM EDT Follow up appointment with your doctor/loan review manager - Keep next scheduled appointment Activity - Normal Activity Call your doctor/loan review manager if you have: - leaking fluid - vaginal bleeding - regular contractions: Every 5 minutes or closer for one hour - decreased movement - worsening abdominal (belly) pain - headache, blurry vision, increased swelling, upper abdominal pain If you are going home with contractions that are uncomfortable/painful- we recommend these coping strategies: rhythmic breathing, hydrotherapy, imagery or visualization, gentle massage, walking and changing your position. Treatment Verification: Skylar Landry was assessed on Labor and Delivery for a relatedvisit on 10/08/24 . Sabina Dawkins DO [facility] documented in this [facility]05-02-2025 History of Present illness Narrative* Sabina Dawkins DO - 10/08/2024 7:43 PM EDT Department of Obstetrics and Gynecology Labor and Delivery Triage Note CHIEF CONCERN: r/o Labor/ROM HISTORY OF PRESENT ILLNESS: The patient is a 34 y.o. at 38w0d who presents with the above chief concern. Presenting to triage for contractions that started around 5 this evening and increased dampness in her underwear. She was seen in clinic today and called 2cm per Dr. العراقي. Denies any large gush of fluid. Denies DFM/VB Estimated Due Date: Estimated Date of Delivery: 10/22/24 CARE: Complicated by: anxiety, depression, substance use, UTI DETAILED OB HISTORY: OB History 7 Para 3 Term 2 1 AB 3 Living 3 SAB 1 IAB 2 Ectopic Multiple Live Births 3 Obstetric Comments Plans to formula feed OB History Para Term AB Living 7 3 2 1 3 3 SAB IAB Ectopic Multiple Live Births 1 2 3 # Outcome Date GA Lbr Zen/2nd Weight Sex Type Anes PTL Lv 7 Current 6 01/13/23 35w0d M Vag-Spont RAQUEL Comments: per pt, induced at around 35wks (unsure exact GA) d/t kidney stones Complications: Kidney stone complicating 5 Term 09/19/15 M Vag-Spont EPI RAQUEL 4 Term 09/21/10 M Vag-Spont EPI RAQUEL Comments: Nephrostomy tube during 3 IAB Comments: pt unsure of year, IAB in G2 closely after G1 in 2010 2 IAB Comments: pt unsure of exact year, IAB in G3 1 SAB Comments: pt unsure of exact year, reports miscarriage in G5 Obstetric Comments Plans to formula feed PAST MEDICAL HISTORY: Past Medical History: Diagnosis Date Anxiety Colitis Depression Kidney disease Kidney stone Medullary sponge kidney of both kidneys PAST SURGICAL HISTORY: Past Surgical History: Procedure Laterality Date DILATION AND CURETTAGE (HISTORICAL) 2022 IR NEPHROSTOMY TUBE PLACEMENT STENT INSERTION (HISTORICAL) 2023 kidneys MEDICATIONS: Prior to Admission medications Medication Sig Start Date End Date Taking? Authorizing Provider buprenorphine-naloxone (Suboxone) 8-2 MG per sublingual film Place 1 Film under the tongue 2 times daily for 14 days. 10/05/24 10/19/24 Yes Manuel Woods MD lidocaine (Lidoderm) 5 % patch Apply 1 patch topically daily. Remove & discard patch within 12 hours or as directed by . 08/30/24 Yes Mercedez Villegas DO QUEtiapine (SEROquel) 50 MG tablet Take 1 tablet (50 mg) by mouth Nightly as needed (Insomnia/sleep). 10/05/24 11/04/24 Yes Manuel Woods MD sertraline (Zoloft) 50 MG tablet Take 1 tablet (50 mg) by mouth daily. 10/05/24 11/04/24 Yes Manuel Woods MD aspirin 81 MG chewable tablet Chew 2 tablets (162 mg) daily. Patient not taking: Reported on 10/08/2024 08/30/24 08/30/25 Mercedez Villegas DO lidocaine (Lidoderm) 5 % patch Apply 1 patch topically daily for 10 days. Remove & discard patch within 12 hours or as directed by . 09/25/24 10/05/24 Xu Underwood MD ondansetron (Zofran) 4 MG tablet Take 8 mg by mouth every 8 hours as needed for nausea or vomiting. Patient not taking: Reported on 10/08/2024 Historical Provider, Vit-Fe Fumarate-FA ( Vitamins) 28-0.8 MG tablet Take 1 tablet by mouth daily. Patient not taking: Reported on 10/08/2024 08/30/24 08/30/25 Mercedez Villegas DO buprenorphine-naloxone (Suboxone) 8-2 MG per sublingual film Place 1 Film under the tongue 2 times daily for 7 days. 09/28/24 10/05/24 Manuel Woods MD QUEtiapine (SEROquel) 50 MG tablet Take 1 tablet (50 mg) by mouth Nightly as needed (Insomnia/sleep). 09/14/24 10/05/24 Manuel Woods MD sertraline (Zoloft) 50 MG tablet Take 1 tablet (50 mg) by mouth daily. 09/07/24 10/05/24 Manuel Woods MD REVIEW OF SYSTEMS: Pertinent items are noted in HPI. APPEARANCE: Pain: yes with contractions, overall comfortable between contractions PHYSICAL EXAM: Vital Signs: VS wnl-reviewed/Respirations normal effort Vitals: 10/08/24 1920 BP: 128/80 Pulse: 100 Resp: 18 Temp: 36.9 C (98.5 F) TempSrc: Oral SpO2: 100% General: alert and oriented, no acute distress Abdomen: soft, NT, ND, no rebound/guarding Uterus: gravid/non-tender Speculum Exam: no pooling of fluid seen, Nitrizine test is negative, Ferning test is negative Membranes: Intact Cervix: 2/70/-3, very posterior, thick LE Edema: trace RESULTS: heart rate: Category I Contraction frequency: irregular NST: Reactive GENERAL LABS: Recent Results (from the past 24 hours) POCT Fern Test Collection Time: 10/08/24 7:41 PM Result Value Ref Range FERN PATTERN Fern pattern absent POCT nitrazine paper test manually resulted Collection Time: 10/08/24 7:41 PM Result Value Ref Range Nitrazine Paper Test POC Negative (pH <= 6.5) POC Nitrazine Lot Number [id number] TRIAGE COURSE: Presenting for contractions and possible leakage of fluid. Vertex on BSUS. Speculum exam negative pooling/nitrazine/ferning. Cervix unchanged from exam today in office. Offered 2 hour recheck as patient lives about 1 hour away from hospital. Patient accepts 2 hour recheck. Unchanged on 2hr recheck, Cat I and reactive tracing. Scheduled for IOL 10/18/24. Reviewed triage precautions. Tylenol given. Stable for discharge. ESSION: False Labor Patient seen and evaluated and plan discussed with in house Triage Attending Dr. Marie DISPOSITION: Discharge to Home Cosigned by Ave Marie MD at 10/08/2024 10:20 PM EDT Associated attestation - Ave Marie MD - 10/08/2024 10:20 PM EDT Hospital Care (Independent): I independently saw and evaluated the patient. I agree with the findings and plan of care as documented in the resident's note. Skylar Landry was seen in the Obstetrics ED. Please see chart note for details. Follow up: Keep next scheduled visit documented in this encounterSThe Jewish [id number] Telephone encounter Note* Telephone Encounter - Catalina Tipton RN - 10/08/2024 5:24 PM EDT S: Patient spoke with [facility] nurse regarding laboring- contractions B: Onset of symptoms/concern 15 minutes A: Pt 38w0d Reports having contractions and fluid leaking small amount of clear fluid and white mucus discharge. Contractions are 8 minutes apart and patient was timing from end of one contraction tothe beginning of the next. Reports she has a history of quick delivery's one delivery was within 45mins Denies urge to push, anything hanging out of vagina, bleeding, decreased movement. R: [facility] nurse advise patient to present to L&D and have another adult drive her. Patient in agreement. Reason for Disposition [1] First baby (primipara) AND [2] contractions > 5 minutes apart OR for < 2 hours [1] History of rapid prior delivery AND [2] contractions < 10 minutes apart Protocols used: - [id number] [facility] [id number] Miscellaneous Notes* Telephone Encounter - Catalina Tipton RN - 10/08/2024 5:24 PM EDT S: Patient spoke with [facility] nurse regarding laboring- contractions B: Onset of symptoms/concern 15 minutes A: Pt 38w0d Reports having contractions and fluid leaking small amount of clear fluid and white mucus discharge. Contractions are 8 minutes apart and patient was timing from end of one contraction tothe beginning of the next. Reports she has a history of quick delivery's one delivery was within 45mins Denies urge to push, anything hanging out of vagina, bleeding, decreased movement. R: [facility] nurse advise patient to present to L&D and have another adult drive her. Patient in agreement. Reason for Disposition [1] First baby (primipara) AND [2] contractions > 5 minutes apart OR for < 2 hours [1] History of rapid prior delivery AND [2] contractions < 10 minutes apart Protocols used: - [id number] documented in this [facility]05-02-2025 Evaluation + Plan note* Assessment & Plan Note - Marisa العراقي DO - 10/08/2024 3:01 PM EDTAssociated Problem(s): Supervision of high risk due to social problems, third trimester Doing well, but has been having some contractions SVE 2/70/-3 GBS sent Reviewed labor precautions Scheduled for IOL on 10/18/24 [facility] [id number] Miscellaneous Notes* Assessment & Plan Note - Marisa العراقي DO - 10/08/2024 3:01 PM EDTAssociated Problem(s): Supervision of high risk due to social problems, third trimester Doing well, but has been having some contractions SVE 2/70/-3 GBS sent Reviewed labor precautions Scheduled for IOL on 10/18/24 * Assessment & Plan Note - Marisa العراقي DO - 10/08/2024 2:59 PM EDTAssociated Problem(s): Drug use affecting in third trimester ANFS reviewed with patient Scheduled for centering on Friday10/12/24 documented in this [facility]05-02-2025 Miscellaneous Notes* Assessment & Plan Note - Marisa العراقي DO - 10/08/2024 3:01 PM EDTAssociated Problem(s): Supervision of high risk due to social problems, third trimester Doing well, but has been having some contractions SVE 3 GBS sent Reviewed labor precautions Scheduled for IOL on 10/18/24 * Assessment & Plan Note - Marisa العراقي DO - 10/08/2024 2:59 PM EDTAssociated Problem(s): Drug use affecting in third trimester ANFS reviewed with patient Scheduled for centering on Friday10/12/24 documented in this [facility]05-02-2025 Evaluation + Plan note* Assessment & Plan Note - Marisa العراقي DO - 10/08/2024 2:59 PM EDTAssociated Problem(s): Drug use affecting in third trimester ANFS reviewed with patient Scheduled for centering on Friday10/12/24 [facility] [id number] History of Present illness Narrative* Lloyd Arango MA - 10/08/2024 12:30 PM EDT A supervisor tellers was offered to be present during her exam. The patient: Declined * Marisa العراقي DO - 10/08/2024 12:30 PM EDT Images from the original note were not included. Assessment and Plan: Drug use affecting in third trimester ANFS reviewed with patient Scheduled for centering on Friday10/12/24 Supervision of high risk due to social problems, third trimester Doing well, but has been having some contractions SVE GBS sent Reviewed labor precautions Scheduled for IOL on 10/18/24 Chief Complaint Patient presents with Routine Visit 34 y.o. yo at 38w0d Here today for MARLENY No acute complaints. Denies DFM/VB/CTX/LOF ROS: No pelvic pain PE: Vitals: 10/08/24 1245 BP: 111/76 Pulse: 98 Body mass index is 33.47 kg/m . PE: Gen: NAD, A&Ox3 HEENT: NC/AT, EOMI Abd: nontender, uterus palpable on exam Skin: warm/dry BLE: without edema, non-tender Follow-up 10/12/24 for centering and MARLENY Cosigned by Kenny Rivas MD at 10/08/2024 4:03 PM EDT Associated attestation - Kenny Rivas MD - 10/08/2024 4:03 PM EDT [facility]: [facility] the resident. I reviewed and agree with the care provided by the resident during or immediately following the visit including the patient's medical history, the resident's finding in the physical exam, patient's diagnosis and treatment plan. Skylar SinghFrantz was seen in the Obstetrics ED. Please see chart note for details. documented in this [facility]05-02-2025 History of Present illness Narrative* Lloyd Arango MA - 10/08/2024 12:30 PM EDT A supervisor tellers was offered to be present during her exam. The patient: Declined * Marisa العراقي DO - 10/08/2024 12:30 PM EDT Images from the original note were not included. Assessment and Plan: Drug use affecting in third trimester ANFS reviewed with patient Scheduled for centering on Friday10/12/24 Supervision of high risk due to social problems, third trimester Doing well, but has been having some contractions SVE /3 GBS sent Reviewed labor precautions Scheduled for IOL on 10/18/24 Chief Complaint Patient presents with Routine Visit 34 y.o. yo at 38w0d Here today for MARLENY No acute complaints. Denies DFM/VB/CTX/LOF ROS: No pelvic pain PE: Vitals: 10/08/24 1245 BP: 111/76 Pulse: 98 Body mass index is 33.47 kg/m . PE: Gen: NAD, A&Ox3 HEENT: NC/AT, EOMI Abd: nontender, uterus palpable on exam Skin: warm/dry BLE: without edema, non-tender Follow-up 10/12/24 for centering and MARLENY Cosigned by Kenny Rivas MD at 11/04/2024 2:44 PM EDT Associated attestation - Kenny Rivas MD - 11/04/2024 2:44 PM EDT [facility]: [facility] the [facility]. I reviewed and agree with the care provided by the resident during or immediately following the visit including the patient's medical history, the resident's finding in the physical exam, patient's diagnosis and treatment plan. documented in this encounterSThe Jewish [id number] Telephone encounter Note* Telephone Encounter - Sohan Archuleta RN - 10/06/2024 11:47 PM EDT S: Patient spoke with [facility] nurse regarding problem. B: Onset of symptoms/concern 10/06/2024. A: Patient is x36 weeks . She reports moderate abdominal pain for the past x4 hours, statespain becoming unbearable, feels like baby is moving in weird positions that's making it painful forher. Patient mentions that she's unsure if she's having contractions, feels like she is having somehere and there, but nothing too concerning. Patient is ok when she is laying down and not moving, but when she gets up, she becomes short of breath and it's very painful. She has pressure to pelvic and ribs. She denies vaginal bleeding or LOF. Patient unsure of what to do. R: Paged enterprise resource planning consultant provider Dr. White via secure chat- advises If her pain is not relieved by tylenol, heating pad, showering, bathing and other conservative measures she can come to OB triage. Thanks. IF the pain is coming and going it is most likely contractions and she can come in if they are increasing or around every 5 minutes. Informed patient of provider's instructions, she verbalized understanding. No further needs at thistime. Patient instructed to call back with new or worsening symptoms. Reason for Disposition [1] MILD abdominal pain (e.g., doesn't interfere with normal activities) or tightening AND [2] constant AND [3] present > 2 hours Protocols used: - Abdominal Pain Greater Than 20 Weeks [id number] [facility] [id number] Miscellaneous Notes* Telephone Encounter - Sohan Archuleta RN - 10/06/2024 11:47 PM EDT S: Patient spoke with [facility] nurse regarding problem. B: Onset of symptoms/concern 10/06/2024. A: Patient is x36 weeks . She reports moderate abdominal pain for the past x4 hours, statespain becoming unbearable, feels like baby is moving in weird positions that's making it painful forher. Patient mentions that she's unsure if she's having contractions, feels like she is having somehere and there, but nothing too concerning. Patient is ok when she is laying down and not moving, but when she gets up, she becomes short of breath and it's very painful. She has pressure to pelvic and ribs. She denies vaginal bleeding or LOF. Patient unsure of what to do. R: Paged enterprise resource planning consultant provider Dr. White via secure chat- advises If her pain is not relieved by tylenol, heating pad, showering, bathing and other conservative measures she can come to OB triage. Thanks. IF the pain is coming and going it is most likely contractions and she can come in if they are increasing or around every 5 minutes. Informed patient of provider's instructions, she verbalized understanding. No further needs at thistime. Patient instructed to call back with new or worsening symptoms. Reason for Disposition [1] MILD abdominal pain (e.g., doesn't interfere with normal activities) or tightening AND [2] constant AND [3] present > 2 hours Protocols used: - Abdominal Pain Greater Than 20 Weeks KCA-CMHIA-MJ documented in this [facility]04-29-2025 History of Present illness Narrative* Manuel Woods MD - 10/05/2024 12:00 PM EDT Images from the original note were not included. MEDICATION ASSISTED TREATMENT BUPRENORPHINE FOLLOW-UP VISIT Patient: Skylar Landry __ I saw this patient in person at [facility]. SUBJECTIVE Chief Complaint Patient presents with Addiction Problem Skylar Landry, a 34 y.o. female, returns for a follow-up medication-assisted treatment appointment. She was discharged from the hospital on 08/30/24. Stabilized on bupe 8 mg BID. Had microinduction process to transfer to bupe from methadone (140 mg). Last methadone dose given on 08/29/24. Dose was increased to 20 mg after hospitalization at [facility]. Now taking 20 mg consistently. Feels she needs to take that amount to deal with night time symptoms she was still experiencing. No longer feels like she is going thru methadone withdrawal. Interim History ~35w5d . Denies any illicit drug use since leaving hospital. Assessment at [facility] completed. She would be required to switch to Sublocade but doesn't want to do that while so will continue seeing me. She will not engage in their inpatient program.She may enroll in our CD IOP after delivery. Was switched to Suboxone instead of Subutex. Wasn't able to come to last visit due to scheduling conflict, and then her home pharmacy didn't have Subutex in stock. She was ok with switch. I called her to discuss. Does not feel it is negatively affecting her recovery. Feels the same, and feels stable. Denies drug use since leaving hospital. Was abusing benzos and fentanyl prior to coming to hospital. Started on opioids at the age of 12 2/2 to CKD/nephrolithiasis. Still deals with kidney stones and pain related to it. Says she had to be induced during previous for this reason. Denies pain now. No longer on Keflex. However, CKD may be reason that methadone/benzos was still positive on UDS. Discussed this with patient at length. She did provide urine sample last visit on 09/21 but it was only sent for culture and not UDS for some reason. I discussed with CM. Denies smoking cigarettes/THC at all. Lives in a stable environment now. Planning on staying in [place] after delivery. Zoloft/Seroquel: describes positive benefit from both. Wants refills today. Denies any negative side effects. Feels they help mood and sleep. Shared decision making regarding the use of these psychotropic medications while made, and she wants to continue them. MAT Response Dose: Subutex 20 mg daily. Start Date: 08/23/24. Compliance: Taking as directed. No missed doses. Side Effects: No. Drug Cravings: No. Withdrawal Symptoms: No. Ready to Taper Off MAT: No. Substance Use History Sober Date: 08/23/24. Intensive Outpatient Program: never; planning on entering in our CD IOP after delivery. Inpatient Drug Rehab: never. 12-Step Meeting Attendance: never. Psychiatric History Diagnoses: depression, anxiety, bipolar 2, ptsd Medications: zoloft 50 mg, seroquel 50 mg nightly Psychiatrist: isabela. Counselor: isabela. Past Medical History Past Medical History: Diagnosis Date Anxiety Colitis Depression Kidney disease Kidney stone Medullary sponge kidney of both kidneys Social Drivers of Health Intimate Partner Violence: Not At Risk (09/07/2024) Humiliation, Afraid, Rape, and Kick questionnaire Fear of Current or Ex-Partner: No Emotionally Abused: No Physically Abused: No Sexually Abused: No Social Connections: Socially Isolated (09/07/2024) Social Connection and Isolation Panel [NHANES] Frequency of Communication with Friends and Family: Twice a week Frequency of Social Gatherings with Friends and Family: Never Attends Jewish Services: Never Active Member of Clubs or Organizations: No Attends Club or Organization Meetings: Never Marital Status: Never Alcohol Use: Not At Risk (09/07/2024) AUDIT-C Frequency of Alcohol Consumption: Never Average Number of Drinks: Patient does not drink Frequency of Binge Drinking: Never Tobacco Use: Low Risk (09/24/2024) Patient History Smoking Tobacco Use: Never Smokeless Tobacco Use: Never Passive Exposure: Never Financial Resource Strain: High Risk (09/07/2024) Overall Financial Resource Strain (CARDIA) Difficulty of Paying Living Expenses: Very hard Depression: At risk (08/22/2024) PHQ-2 PHQ-2 Score: 6 Depression: Medium Risk (09/07/2024) Wilbur Depression Scale Last EPDS Total Score: 8 Last EPDS Self Harm Result: Never Stress: No Stress Concern Present (09/07/2024) [place] [employer] - Occupational Stress Questionnaire Feeling of Stress : Not at all Physical Activity: Inactive (09/07/2024) Exercise Vital Sign Days of Exercise per Week: 0 days Minutes of Exercise per Session: 0 min Food Insecurity: Food Insecurity Present (09/07/2024) Hunger Vital Sign Worried About Running Out of Food in the Last Year: Sometimes true Ran Out of Food in the Last Year: Sometimes true Transportation Needs: Unmet Transportation Needs (09/07/2024) PRAPARE - Transportation Lack of Transportation (Medical): Yes Lack of Transportation (Non-Medical): Yes Housing Stability: High Risk (09/07/2024) Housing Stability Vital Sign Unable to Pay for Housing in the Last Year: Yes Number of Times Moved in the Last Year: 3 Homeless in the Last Year: No Utilities: Not At Risk (09/07/2024) [facility] Utilities Threatened with loss of utilities: No Recent Concern: Utilities - At Risk (08/22/2024) [facility] Utilities Threatened with loss of utilities: Yes OBJECTIVE Last Urine Drug Screen (09/14/24) +benzos, methadone, bupe (benzo confirmation +nordiazepam). Today's UDS is pending. Denies using any benzos since leaving hospital. UDS has been consistent for benzos/methadone since leaving hospital, but she has denied additional use use. Likely still lingering in body given CKD. Will order confirmation test today if still positive. PHQ Screen Last 3 PHQ-9 Scores No data found in the last 10 encounters. Controlled Substance Monitoring OARRs Reviewed., Possible medication effects, risk of tolerance/dependence & alternative treatments discussed. , Assessed functional status., and Random urine drug screen sent today. Review of Systems Review of Systems Constitutional: Positive for malaise/fatigue. All other systems reviewed and are negative. Vitals There were no vitals taken for this visit. Physical Exam Constitutional: General: She is not in acute distress. Appearance: Normal appearance. She is not ill-appearing. HENT: Mouth/Throat: Mouth: Mucous membranes are moist. Eyes: Extraocular Movements: Extraocular movements intact. Pulmonary: Effort: Pulmonary effort is normal. Neurological: Mental Status: She is alert and oriented to person, place, and time. Psychiatric: Attention and Perception: Attention and perception normal. ASSESSMENT 1. Encounter for monitoring Suboxone maintenance therapy 2. Severe opioid use disorder on maintenance therapy (HCC) 3. Anxiety and depression 4. Drug use affecting in third trimester PLAN Medications Ordered New Medications Ordered This Visit Medications buprenorphine-naloxone (Suboxone) 8-2 MG per sublingual film Sig: Place 1 Film under the tongue 2 times daily for 14 days. Dispense: 28 Film Refill: 0 QUEtiapine (SEROquel) 50 MG tablet Sig: Take 1 tablet (50 mg) by mouth Nightly as needed (Insomnia/sleep). Dispense: 30 tablet Refill: 0 sertraline (Zoloft) 50 MG tablet Sig: Take 1 tablet (50 mg) by mouth daily. Dispense: 30 tablet Refill: 0 Labs Ordered Orders Placed This Encounter Procedures MEDICATION ASSISTED TREATMENT PANEL Standing Status: Future Standing Expiration Date: 10/05/2025 Patient Goals Continue 12-step meeting attendance (goal of 2 per week). Actively communicate with sponsor. Take medication as directed. Report any negative side effects or missed doses. Report any illicit drug use to myself/my staff. Keep medicine out of the reach of children. Follow-up with recommended level of care. Enroll in outpatient counseling program thru [facility]. Interventions in Session Discussed patient's progress in their 12-step program. Discussed progress in recovery and overall well-being. Discussed stressors/triggers for a potential relapse. Discussed related coping mechanisms. Discussed buprenorphine efficacy. Discussed use of psychotropic medications. INFORMED CONSENT: The nature and purpose of buprenorphine MAT use during was reviewed with this patient at length. The benefits and risks of utilizing MAT have also been reviewed at length including the potential risk of JANELLE for the infant after delivery. Alternative treatment options forher drug addiction have also been reviewed. Pursuant to this discussion, the patient agrees to utilize buprenorphine MAT while . Follow-Up Follow up in 2 weeks (on 10/19/2024). * Marycarmen Cosme MA - 10/05/2024 12:00 PM EDT Urine specimen collected, labeled and sent to lab. documented in this [facility]04-29-2025 marcelle Rachel at 35w6d with an KWAKU of 11/03/2024, by Patient Reported, was seen at [facility] for a nonstress test. Reason for Non-Stress Test 1 : Other (Comment) (substance abuse) Variability in Waveform for Non-Stress Test 1: Moderate Decelerations in Non-Stress Test 1: None Accelerations in Non-Stress Test 1: Yes Acoustic Stimulator for Non-Stress Test 1: Yes (x3 with movement and accelerations in FHR) Baseline Heart Rate for Non-Stress Test 1: 130 BPM Uterine Irritability for Non-Stress Test 1: Yes Contractions in Non-Stress Test 1: Irregular (1 contraction noted per monitor and felt by patient) Interpretation of Non-Stress Test 1: Reactive Comments on Non-Stress Test 1: fetus active after vibroacoustic stimulator used x3 and remaines active upon [facility]04-29-2025 Procedure note* Erendira Valerio RN - 10/05/2024 11:00 AM EDTProcedure(s): NONSTRESS TEST Skylar Landry, macrelle at 35w6d with an KWAKU of 11/03/2024, by Patient Reported, was seen at [facility] for a nonstress test. Reason for Non-Stress Test 1 : Other (Comment) (substance abuse) Variability in Waveform for Non-Stress Test 1: Moderate Decelerations in Non-Stress Test 1: None Accelerations in Non-Stress Test 1: Yes Acoustic Stimulator for Non-Stress Test 1: Yes (x3 with movement and accelerations in FHR) Baseline Heart Rate for Non-Stress Test 1: 130 BPM Uterine Irritability for Non-Stress Test 1: Yes Contractions in Non-Stress Test 1: Irregular (1 contraction noted per monitor and felt by patient) Interpretation of Non-Stress Test 1: Reactive Comments on Non-Stress Test 1: fetus active after vibroacoustic stimulator used x3 and remaines active upon DC [id number] Procedure note* Erendira Valerio RN - 10/05/2024 11:00 AM EDTProcedure(s): NONSTRESS TEST Skylar Landry, a at 35w6d with an KWAKU of 11/03/2024, by Patient Reported, was seen at [facility] for a nonstress test. Reason for Non-Stress Test 1 : Other (Comment) (substance abuse) Variability in Waveform for Non-Stress Test 1: Moderate Decelerations in Non-Stress Test 1: None Accelerations in Non-Stress Test 1: Yes Acoustic Stimulator for Non-Stress Test 1: Yes (x3 with movement and accelerations in FHR) Baseline Heart Rate for Non-Stress Test 1: 130 BPM Uterine Irritability for Non-Stress Test 1: Yes Contractions in Non-Stress Test 1: Irregular (1 contraction noted per monitor and felt by patient) Interpretation of Non-Stress Test 1: Reactive Comments on Non-Stress Test 1: fetus active after vibroacoustic stimulator used x3 and remaines active upon DC documented in this encounterSThe Jewish [id number] Telephone encounter Note* Telephone Encounter - Johanna Belle RN - 09/29/2024 11:26 AM EDT We are unable to reach your patient to schedule their therapy. We have made 3 attempts to schedule patient, Skylar Landry. 1st attempt: MyChart Message/Email sent the date after Referral was received. 2nd attempt: Text message sent 3 days from date Referral was received. 3rd attempt: Telephone attempt 6 days from date Referral was received. 09/29/24 LR [facility] [id number] Miscellaneous Notes* Telephone Encounter - Johanna Belle RN - 09/29/2024 11:26 AM EDT We are unable to reach your patient to schedule their therapy. We have made 3 attempts to schedule patient, Skylar Landry. 1st attempt: MyChart Message/Email sent the date after Referral was received. 2nd attempt: Text message sent 3 days from date Referral was received. 3rd attempt: Telephone attempt 6 days from date Referral was received. 09/29/24 LR documented in this [address]22-2025 Note* Addendum Note - Manuel Woods MD - 09/28/2024 12:14 PM EDTAddended by: MANUEL WOODS on: 09/28/2024 12:14 PM Modules accepted: Orders [id number] Note* Addendum Note - Manuel Woods MD - 09/28/2024 12:14 PM EDTAddended by: MANUEL WOODS on: 09/28/2024 12:14 PM Modules accepted: Orders [id number] Miscellaneous Notes* Addendum Note - Manuel Woods MD - 09/28/2024 12:14 PM EDTAddended by: MANUEL WOODS on: 09/28/2024 12:14 PM Modules accepted: Orders * Telephone Encounter - Manuel Woods MD - 09/28/2024 9:54 AM EDT New Medications Ordered This Visit Medications buprenorphine-naloxone (Suboxone) 8-2 MG per sublingual film Sig: Place 1 Film under the tongue 2 times daily for 7 days. Dispense: 14 Film Refill: 0 Pharmacy didn't carry subutex so switching to suboxone. Pharmacy ok with it. documented in this [address]22-2025 Telephone encounter Note* Telephone Encounter - Manuel Woods MD - 09/28/2024 12:11 PM EDT Called pharmacy and spoke to travis, switched to suboxone. Called patient and notified her of change. [facility] [id number] Miscellaneous Notes* Telephone Encounter - Manuel Woods MD - 09/28/2024 12:11 PM EDT Called pharmacy and spoke to travis, switched to suboxone. Called patient and notified her of change. * Telephone Encounter - Lizeth Tipton - 09/28/2024 10:16 AM EDT Name of caller: Skylar Contact phone number: [phone] Relationship to Patient: [facility] Provider: Manuel Woods MD Practice: Behavioral Health Chief Complaint/Reason for Call: Travis is following up o recent order for buprenorphine (Subtex) 8 MG , stating that they do not carry this medication in stock. Travis states that there is a history of patient getting this from [facility] retail pharmacy, and did not know if patientwould like to fill it there, or to have Dr Woods send an order for Suboxone instead. Please advise. Best time of day caller can be reached: any Patient advised that office/PCP has 24-48 business hours to return their call: Yes documented in this [facility]04-22-2025 Telephone encounter Note* Telephone Encounter - Lizeth Tipton - 09/28/2024 10:16 AM EDT Name of caller: Skylar Contact phone number: [phone] Relationship to Patient: [facility] Provider: Manuel Woods MD Practice: Behavioral Health Chief Complaint/Reason for Call: Travis is following up o recent order for buprenorphine (Subtex) 8 MG , stating that they do not carry this medication in stock. Travis states that there is a history of patient getting this from [facility] retail pharmacy, and did not know if patientwould like to fill it there, or to have Dr Woods send an order for Suboxone instead. Please advise. Best time of day caller can be reached: any Patient advised that office/PCP has 24-48 business hours to return their call: Yes [facility] [id number] Telephone encounter Note* Telephone Encounter - Manuel Woods MD - 09/28/2024 9:54 AM EDT New Medications Ordered This Visit Medications buprenorphine-naloxone (Suboxone) 8-2 MG per sublingual film Sig: Place 1 Film under the tongue 2 times daily for 7 days. Dispense: 14 Film Refill: 0 Pharmacy didn't carry subutex so switching to suboxone. Pharmacy ok with it. [place] [id number] Hospital Discharge instructions* Discharge Instructions* Xu Underwood MD - 09/25/2024 12:13 AM EDT Follow up appointment with your doctor/loan review manager - Keep next scheduled appointment Activity - Normal Activity Call your doctor/loan review manager if you have: - leaking fluid - vaginal bleeding - regular contractions: More than 6 contractions in one hour - decreased movement - worsening abdominal (belly) pain - headache, blurry vision, increased swelling, upper abdominal pain If you are going home with contractions that are uncomfortable/painful- we recommend these coping strategies: rhythmic breathing, hydrotherapy, imagery or visualization, gentle massage, walking and changing your position. Treatment Verification: Skylar Landry was assessed on Labor and Delivery for a relatedvisit on 09/25/24 . Xu Underwood MD [facility] documented in this encounterSThe Jewish [id number] History of Present illness Narrative* Xu Underwood MD - 09/24/2024 9:32 PM EDT Department of Obstetrics and Gynecology Labor and Delivery Triage Note CHIEF CONCERN: Lower back pain HISTORY OF PRESENT ILLNESS: The patient is a 34 y.o. at 34w2d who presents with the above chief concern. The patient presents with increasingly worse lower back pain. She then said she opened her MyChart and saw that she had a urinary tract infection, called the call center, and was told to present to OB triage for further evaluation. The patient has a history of kidney stones in prior pregnancies. She mentions thatshe does not have dysuria, she just feels different when she urinates. She has not taken any medicine for her pain. She denies fever/chills, hematuria, decreased movement, contractions Estimated Due Date: Estimated Date of Delivery: 11/03/24 CARE: Complicated by: substance abuse DETAILED OB HISTORY: OB History 7 Para 3 Term 2 1 AB 3 Living 3 SAB 1 IAB 2 Ectopic Multiple Live Births 3 Obstetric Comments Plans to formula feed OB History Para Term AB Living 7 3 2 1 3 3 SAB IAB Ectopic Multiple Live Births 1 2 3 # Outcome Date GA Lbr Zen/2nd Weight Sex Type Anes PTL Lv 7 Current 6 01/13/23 35w0d M Vag-Spont RAQUEL Comments: per pt, induced at around 35wks (unsure exact GA) d/t kidney stones Complications: Kidney stone complicating 5 Term 09/19/15 M Vag-Spont EPI RAQUEL 4 Term 09/21/ M Vag-Spont EPI RAQUEL Comments: Nephrostomy tube during 3 IAB Comments: pt unsure of year, IAB in G2 closely after G1 in 2010 2 IAB Comments: pt unsure of exact year, IAB in G3 1 SAB Comments: pt unsure of exact year, reports miscarriage in G5 Obstetric Comments Plans to formula feed PAST MEDICAL HISTORY: Past Medical History: Diagnosis Date Anxiety Colitis Depression Kidney disease Kidney stone Medullary sponge kidney of both kidneys PAST SURGICAL HISTORY: Past Surgical History: Procedure Laterality Date DILATION AND CURETTAGE (HISTORICAL) 2022 IR NEPHROSTOMY TUBE PLACEMENT STENT INSERTION (HISTORICAL) 2023 kidneys SOCIAL HISTORY: History of substance abuse MEDICATIONS: Prior to Admission medications Medication Sig Start Date End Date Taking? Authorizing Provider aspirin 81 MG chewable tablet Chew 2 tablets (162 mg) daily. 08/30/24 08/30/25 Yes Mercedez Villegas DO buprenorphine (Subtex) [address] 1 tablet (8 mg) under the tongue 2 times daily for 7 days. 09/21/24 09/28/24 Yes Manuel Woods MD Vit-Fe Fumarate-FA ( Vitamins) 28-0.8 MG tablet Take 1 tablet by mouth daily. 08/30/24 08/30/25 Yes Mercedez Villegas DO QUEtiapine (SEROquel) 50 MG tablet Take 1 tablet (50 mg) by mouth Nightly as needed (Insomnia/sleep). 09/14/24 10/14/24 Yes Manuel Woods MD sertraline (Zoloft) 50 MG tablet Take 1 tablet (50 mg) by mouth daily. 09/07/24 10/07/24 Yes Manuel Woods MD fosfomycin (Monurol) 3 g packet Take 3 g by mouth Once for 1 dose. 09/23/24 09/24/24 Denia Arteaga MD lidocaine (Lidoderm) 5 % patch Apply 1 patch topically daily. Remove & discard patch within 12 hours or as directed by . 08/30/24 Mercedez Villegas DO ondansetron (Zofran) 4 MG tablet Take 8 mg by mouth every 8 hours as needed for nausea or vomiting.Historical Provider, buprenorphine (Subtex) [address] 1 tablet (8 mg) under the tongue 2 times daily for 7 days. Manuel Woods MD REVIEW OF SYSTEMS: Per HPI APPEARANCE: Pain: No PHYSICAL EXAM: Vital Signs: Vitals: 09/24/247 BP: 127/80 Pulse: 119 Resp: 18 Temp: 37.1 C (98.7 F) TempSrc: Oral Weight: 200 lb (90.7 kg) Height: 5' 4 (1.626 m) Physical Exam Constitutional: Appearance: Normal appearance. Genitourinary: Vulva normal. Pulmonary: Effort: Pulmonary effort is normal. Abdominal: Tenderness: There is no abdominal tenderness. There is no right CVA tenderness or left CVA tenderness. Neurological: General: No focal deficit present. Mental Status: She is alert. Psychiatric: Mood and Affect: Mood normal. Behavior: Behavior normal. Cervix: Closed RESULTS: heart rate: Category I Contraction frequency: none NST: Reactive Procedures GENERAL LABS: Recent Results (from the past 24 hours) Comprehensive metabolic panel Collection Time: 09/24/24 9:49 PM Result Value Ref Range SODIUM 133 (L) 136 - 145 mmol/L POTASSIUM 3.7 3.5 - 5.1 mmol/L CHLORIDE 106 98 - 107 mmol/L CARBON DIOXIDE 16 (L) 22 - 29 mmol/L ANION GAP 11 3 - 13 mmol/L UREA NITROGEN 10 8 - 21 mg/dL CREATININE 0.60 0.57 - 1.11 mg/dL GLUCOSE 117 (H) 74 - 100 mg/dL CALCIUM 8.8 8.4 - 10.2 mg/dL AST (SGOT) 17 <34 U/L ALT 7 <30 U/L ALKALINE PHOSPHATASE 152 (H) 40 - 150 U/L ALBUMIN 2.4 (L) 3.5 - 5.0 g/dL BILIRUBIN, TOTAL 0.1 <1.2 mg/dL TOTAL PROTEIN 6.3 (L) 6.4 - 8.3 g/dL eGFR >90.0 >60.0 mL/min/1.73m*2 CBC Collection Time: 09/24/24 9:49 PM Result Value Ref Range Auto WBC 10.7 3.6 - 10.7 10*3/uL RBC 3.82 3.80 - 5.20 10*6/uL Hemoglobin 10.5 (L) 11.7 - 16.0 g/dL Hematocrit 32.3 (L) 35.0 - 47.0 % MCV 84.6 77.0 - 99.0 fL MCH 27.5 26.0 - 34.0 pg MCHC 32.5 30.5 - 36.0 % RDW 13.6 11.5 - 15.0 % Platelets 272 140 - 440 10*3/uL MPV 10.5 9.0 - 12.7 fL TRIAGE COURSE: Patient normotensive, tachycardic to the low 100s. heart tracing is category 1. Physical examnotable for close cervix and negative for costovertebral angle tenderness. White blood cells 10.7, labs otherwise unremarkable for acute process. Given that the patient does not have a leukocytosis, that she appears well, that she does not have any costovertebral angle tenderness, there is a low concern for pyelonephritis at this time. Cervix is closed, low concern for labor. Physical exam, history, clinical impression is that her pain is the origin the patient's pain is musculoskeletal in nature. Patient mention that she never got her antibiotic for her UTI, will administer 3 g oral fosfomycin in OB triage, which was approved by antibiotic stewardship. Tylenol and lidocaine patch given for back pain. Xu Underwood MD 09/24/2024 9:49 PM Received her Fosfomycin in OB triage. Feeling better, Cat I with kyler NST. Will DC at this time.Lidocaine patches sent to her pharmacy. Triage precautions reviewed. Xu Underwood MD 09/25/2024 12:00 AM IMPRESSION: Musculoskeletal related back pain Pain assessment and plan: None Patient seen and evaluated and plan discussed with in house Triage Attending Dr. Marie [employer] PROVIDER: Dr. Marie DISPOSITION: Discharge to Home Comment: Please note that all or parts of this documentation may have been produced using speech recognition software and may contain errors related to that system including errors in grammar, punctuation, and spelling, as well as words and phrases that may be inappropriate despite review prior to signing. If there are any questions or concerns please feel free to contact the dictating provider for clarification. Cosigned by Ave Marie MD at 09/25/2024 12:07 AM EDT Associated attestation - Ave Marie MD - 09/25/2024 12:07 AM EDT Hospital Care (Independent): I independently saw and evaluated the patient. I agree with the findings and plan of care as documented in the resident's note. Skylar SinghFrantz was seen in the Obstetrics ED. Please see chart note for details. Follow up: Keep next scheduled visit documented in this [facility]04-18-2025 Telephone encounter Note* Telephone Encounter - Sohan Archuleta RN - 09/24/2024 6:38 PM EDT S: Patient spoke with [facility] nurse regarding problem. B: Onset of symptoms/concern 09/24/2024. A: Patient is x34 weeks . Patient reports she was seen in office on Friday and she is having severe kidney pain x4 days. Pain is located to bilateral lower back, states she has history of kidney disease, but pain is different. Patient been nauseous daily due to pain, also has pain with urin ation. Patient checked her labs and seen abnormal urine culture, wants to know if she needs treatment. R: Paged enterprise resource planning consultant provider Dr. White via secure chat- advises Hi there! If she is having n/v with kidney pain she should come to OB triage [place] H2 at [facility]. Informed patient of provider's instructions, she verbalized understanding. No further needs at thistime. Patient instructed to call back with new or worsening symptoms. Reason for Disposition [1] Caller has URGENT medicine question about med that PCP or specialist prescribed AND [2] triagerunable to answer question Protocols used: Medication Question [id number] [facility] [id number] Miscellaneous Notes* Telephone Encounter - Sohan Archuleta RN - 09/24/2024 6:38 PM EDT S: Patient spoke with [facility] nurse regarding problem. B: Onset of symptoms/concern 09/24/2024. A: Patient is x34 weeks . Patient reports she was seen in office on Friday and she is having severe kidney pain x4 days. Pain is located to bilateral lower back, states she has history of kidney disease, but pain is different. Patient been nauseous daily due to pain, also has pain with urin ation. Patient checked her labs and seen abnormal urine culture, wants to know if she needs treatment. R: Paged enterprise resource planning consultant provider Dr. White via secure chat- advises Hi there! If she is having n/v with kidney pain she should come to OB triage [place] H2 at [facility]. Informed patient of provider's instructions, she verbalized understanding. No further needs at thistime. Patient instructed to call back with new or worsening symptoms. Reason for Disposition [1] Caller has URGENT medicine question about med that PCP or specialist prescribed AND [2] triagerunable to answer question Protocols used: Medication Question [id number] documented in this [facility]04-15-2025 Evaluation + Plan note* Assessment & Plan Note - Denia Arteaga MD - 09/21/2024 1:35 PM EDTAssociated Problem(s): Supervision of high risk due to social problems, third trimester Doing well Having raudel cruz Request SVE 1, thick, posterior, firm labor precautions provided [facility] [id number] Miscellaneous Notes* Assessment & Plan Note - Denia Arteaga MD - 09/21/2024 1:35 PM EDTAssociated Problem(s): Supervision of high risk due to social problems, third trimester Doing well Having raudel cruz Request SVE 1, thick, posterior, firm labor precautions provided * Assessment & Plan Note - Denia Arteaga MD - 09/21/2024 1:30 PM EDTAssociated Problem(s): Polysubstance abuse (HCC) Continue Subutex 8mg BID per addiction medicine Continue centering * Assessment & Plan Note - Denia Arteaga MD - 09/21/2024 1:30 PM EDTAssociated Problem(s): Drug use affecting in third trimester ANFS scheduled, reviewed dates with patient * Assessment & Plan Note - Denia Arteaga MD - 09/21/2024 1:29 PM EDTAssociated Problem(s): Urinary tract infection Follow up urine culture ordered documented in this [place] [id number] Miscellaneous Notes* Assessment & Plan Note - Denia Arteaga MD - 09/21/2024 1:35 PM EDTAssociated Problem(s): Supervision of high risk due to social problems, third trimester Doing well Having raudel cruz Request SVE 1, thick, posterior, firm labor precautions provided * Assessment & Plan Note - Denia Arteaga MD - 09/21/2024 1:30 PM EDTAssociated Problem(s): Polysubstance abuse (HCC) Continue Subutex 8mg BID per addiction medicine Continue centering * Assessment & Plan Note - Denia Arteaga MD - 09/21/2024 1:30 PM EDTAssociated Problem(s): Drug use affecting in third trimester ANFS scheduled, reviewed dates with patient * Assessment & Plan Note - Denia Arteaga MD - 09/21/2024 1:29 PM EDTAssociated Problem(s): Urinary tract infection Follow up urine culture ordered * Addendum Note - Denia Arteaga MD - 09/21/2024 12:00 PM EDTAddended by: ROMY ARTEAGA on: 09/23/2024 08:40 AM Modules accepted: Orders documented in this [place] [address]-15-2025 Evaluation + Plan note* Assessment & Plan Note - Denia Arteaga MD - 09/21/2024 1:30 PM EDTAssociated Problem(s): Polysubstance abuse (HCC) Continue Subutex 8mg BID per addiction medicine Continue centering [id number] Evaluation + Plan note* Assessment & Plan Note - Denia Arteaga MD - 09/21/2024 1:30 PM EDTAssociated Problem(s): Drug use affecting in third trimester ANFS scheduled, reviewed dates with patient [id number] Evaluation + Plan note* Assessment & Plan Note - Denia Arteaga MD - 09/21/2024 1:29 PM EDTAssociated Problem(s): Urinary tract infection Follow up urine culture ordered [place] [id number] History of Present illness Narrative* Manuel Woods MD - 09/21/2024 12:00 PM EDT Images from the original note were not included. MEDICATION ASSISTED TREATMENT BUPRENORPHINE FOLLOW-UP VISIT Patient: Skylar Landry __ I saw this patient in person at the [facility]. SUBJECTIVE Chief Complaint Patient presents with Addiction Problem Skylar Landry, a 34 y.o. female, returns for a follow-up medication-assisted treatment appointment. She was discharged from the hospital on 08/30/24. Stabilized on bupe 8 mg BID. Had microinduction process to transfer to bupe from methadone (140 mg). Last methadone dose given on 08/29/24. Dose was increased to 20 mg after hospitalization at [facility]. Now taking 20 mg consistently. Feels she needs to take that amount to deal with night time symptoms she was still experiencing. No longer feels like she is going thru methadone withdrawal. Interim History ~33w5d . Denies any illicit drug use since leaving hospital. Assessment at [facility] was rescheduled to 09/22. She may end up going into inpatient treatment there for duration of . Will let our CM know after assessment. However, most likely, will engage in their outpatient counseling program only and continue coming to our [facility] for MAT. Denies drug use since leaving hospital. Was abusing benzos and fentanyl prior to coming to hospital. Started on opioids at the age of 12 2/2 to CKD/nephrolithiasis. Still deals with kidney stones and pain related to it. Says she had to be induced during previous for this reason. Denies pain now. No longer on Keflex. However, CKD may be reason that methadone/benzos still positive on UDS. D iscussed this with patient at length. Denies smoking cigarettes/THC. MAT Response Dose: Subutex 20 mg daily. Start Date: 08/23/24. Compliance: Taking as directed. No missed doses. Side Effects: No. Drug Cravings: Yes. Withdrawal Symptoms: No. Ready to Taper Off MAT: No. Substance Use History Sober Date: 08/23/24. Intensive Outpatient Program: never; planning on entering in our [facility]. Inpatient Drug Rehab: never. 12-Step Meeting Attendance: never. Psychiatric History Diagnoses: depression, anxiety, bipolar 2, ptsd Medications: zoloft 50 mg, seroquel 50 mg nightly Psychiatrist: denies. Counselor: denies. Past Medical History Past Medical History: Diagnosis Date Anxiety Colitis Depression Kidney disease Kidney stone Medullary sponge kidney of both kidneys Social Drivers of Health Intimate Partner Violence: Not At Risk (09/07/2024) Humiliation, Afraid, Rape, and Kick questionnaire Fear of Current or Ex-Partner: No Emotionally Abused: No Physically Abused: No Sexually Abused: No Social Connections: Socially Isolated (09/07/2024) Social Connection and Isolation Panel [NHANES] Frequency of Communication with Friends and Family: Twice a week Frequency of Social Gatherings with Friends and Family: Never Attends Jewish Services: Never Active Member of Clubs or Organizations: No Attends Club or Organization Meetings: Never Marital Status: Never Alcohol Use: Not At Risk (09/07/2024) AUDIT-C Frequency of Alcohol Consumption: Never Average Number of Drinks: Patient does not drink Frequency of Binge Drinking: Never Tobacco Use: Low Risk (09/07/2024) Patient History Smoking Tobacco Use: Never Smokeless Tobacco Use: Never Passive Exposure: Never Financial Resource Strain: High Risk (09/07/2024) Overall Financial Resource Strain (CARDIA) Difficulty of Paying Living Expenses: Very hard Depression: At risk (08/22/2024) PHQ-2 PHQ-2 Score: 6 Depression: Medium Risk (09/07/2024) Wilbur Depression Scale Last EPDS Total Score: 8 Last EPDS Self Harm Result: Never Stress: No Stress Concern Present (09/07/2024) [place] [employer] - Occupational Stress Questionnaire Feeling of Stress : Not at all Physical Activity: Inactive (09/07/2024) Exercise Vital Sign Days of Exercise per Week: 0 days Minutes of Exercise per Session: 0 min Food Insecurity: Food Insecurity Present (09/07/2024) Hunger Vital Sign Worried About Running Out of Food in the Last Year: Sometimes true Ran Out of Food in the Last Year: Sometimes true Transportation Needs: Unmet Transportation Needs (09/07/2024) PRAPARE - Transportation Lack of Transportation (Medical): Yes Lack of Transportation (Non-Medical): Yes Housing Stability: High Risk (09/07/2024) Housing Stability Vital Sign Unable to Pay for Housing in the Last Year: Yes Number of Times Moved in the Last Year: 3 Homeless in the Last Year: No Utilities: Not At Risk (09/07/2024) [facility] Utilities Threatened with loss of utilities: No Recent Concern: Utilities - At Risk (08/22/2024) [facility] Utilities Threatened with loss of utilities: Yes OBJECTIVE Last Urine Drug Screen (09/14/24) +benzos, methadone, bupe (benzo confirmation +nordiazepam) Denies using any benzos since leaving hospital. UDS has been consistent for benzos/methadone since leaving hospital, but she has denied additional use use. Likely still lingering in body given CKD. Will order confirmation test today if still positive. PHQ Screen Last 3 PHQ-9 Scores No data found in the last 10 encounters. Controlled Substance Monitoring OARRs Reviewed., Possible medication effects, risk of tolerance/dependence & alternative treatments discussed. , Assessed functional status., and Random urine drug screen sent today. Review of Systems Review of Systems Constitutional: Positive for malaise/fatigue. All other systems reviewed and are negative. Vitals There were no vitals taken for this visit. Physical Exam Constitutional: General: She is not in acute distress. Appearance: Normal appearance. She is not ill-appearing. HENT: Mouth/Throat: Mouth: Mucous membranes are moist. Eyes: Extraocular Movements: Extraocular movements intact. Pulmonary: Effort: Pulmonary effort is normal. Neurological: Mental Status: She is alert and oriented to person, place, and time. Psychiatric: Attention and Perception: Attention and perception normal. ASSESSMENT 1. Encounter for monitoring Suboxone maintenance therapy 2. Severe opioid use disorder on maintenance therapy (HCC) 3. Drug use affecting in third trimester PLAN Medications Ordered New Medications Ordered This Visit Medications buprenorphine (Subtex) 8 MG Sig: Place 1 tablet (8 mg) under the tongue 2 times daily for 7 days. Dispense: 14 tablet Refill: 0 Labs Ordered No orders of the defined types were placed in this encounter. Patient Goals Continue 12-step meeting attendance (goal of 2 per week). Actively communicate with sponsor. Take medication as directed. Report any negative side effects or missed doses. Report any illicit drug use to myself/my staff. Keep medicine out of the reach of children. Follow-up with recommended level of care. Enroll in outpatient counseling program thru [facility]. Interventions in Session Discussed patient's progress in their 12-step program. Discussed progress in recovery and overall well-being. Discussed stressors/triggers for a potential relapse. Discussed related coping mechanisms. Discussed buprenorphine efficacy. INFORMED CONSENT: The nature and purpose of buprenorphine MAT use during was reviewed with this patient at length. The benefits and risks of utilizing MAT have also been reviewed at length including the potential risk of JANELLE for the after delivery. Alternative treatment options forher drug addiction have also been reviewed. Pursuant to this discussion, the patient agrees to utilize buprenorphine MAT while . Follow-Up Follow up in 1 week (on 09/28/2024). * Almita Reeder RN - 09/21/2024 12:00 PM EDT [facility] Education- Discussion and review of Naloxone. documented in this [facility]04-15-2025 History of Present illness Narrative* Denia Arteaga MD - 09/21/2024 12:00 PM EDT Images from the original note were not included. Assessment and Plan: Urinary tract infection Follow up urine culture ordered Drug use affecting in third trimester ANFS scheduled, reviewed dates with patient Polysubstance abuse (CMS/HCC) (HCC) Continue Subutex 8mg BID per addiction medicine Continue centering Supervision of high risk due to social problems, third trimester Doing well Having raudel cruz Request SVE 1, thick, posterior, firm labor precautions provided No chief complaint on file. 34 y.o. yo at 33w6d Here today for MARLENY No acute complaints. Denies DFM/VB/CTX/LOF ROS: No pelvic pain PE: BP 107/62 PE: Gen: NAD, A&Ox3 HEENT: NC/AT, EOMI Abd: nontender, uterus palpable on exam Skin: warm/dry BLE: without edema, non-tender ASA Indications High Risk Indication for Daily ASA: N/A Two Moderate Risk Indication for Daily ASA: N/A ASA prescribed: No, Not Indicated 1 week centering , 2 wk MARLENY Cosigned by Ave Marie MD at 09/21/2024 2:15 PM EDT Associated attestation - Ave Marie MD - 09/21/2024 2:15 PM EDT [facility]: This patient was seen in the [facility] by the resident. I reviewed and agree with the care provided by the resident during or immediately following the visit including the patient's medical history, the resident's finding in the physical exam, patient's diagnosis and treatment plan. documented in this [facility]04-15-2025 History of Present illness Narrative* Denia Arteaga MD - 09/21/2024 12:00 PM EDT Images from the original note were not included. Assessment and Plan: Urinary tract infection Follow up urine culture ordered Drug use affecting in third trimester ANFS scheduled, reviewed dates with patient Polysubstance abuse (CMS/[facility]) ([facility]) Continue Subutex 8mg BID per addiction medicine Continue centering Supervision of high risk due to social problems, third trimester Doing well Having raudel cruz Request SVE 1, thick, posterior, firm labor precautions provided No chief complaint on file. 34 y.o. yo at 33w6d Here today for MARLENY No acute complaints. Denies DFM/VB/CTX/LOF ROS: No pelvic pain PE: BP 107/62 PE: Gen: NAD, A&Ox3 HEENT: NC/AT, EOMI Abd: nontender, uterus palpable on exam Skin: warm/dry BLE: without edema, non-tender ASA Indications High Risk Indication for Daily ASA: N/A Two Moderate Risk Indication for Daily ASA: N/A ASA prescribed: No, Not Indicated 1 week centering , 2 wk MARLENY Cosigned by Ave Marie MD at 09/21/2024 2:15 PM EDT Associated attestation - Ave Marie MD - 09/21/2024 2:15 PM EDT [facility]: This patient was seen in the [facility] by the resident. I reviewed and agree with the care provided by the resident during or immediately following the visit including the patient's medical history, the resident's finding in the physical exam, patient's diagnosis and treatment plan. documented in this [address]15-2025 Miscellaneous Notes* Addendum Note - Marycarmen Cosme MA - 09/21/2024 12:00 PM EDTAddended by: MARYCARMEN JAIME on: 09/21/2024 01:49 PM Modules accepted: Orders documented in this [place] [address]-15-2025 Note* Addendum Note - Marycarmen Cosme MA - 09/21/2024 12:00 PM EDTAddended by: MARYCARMEN JAIME on: 09/21/2024 01:49 PM Modules accepted: Orders [id number] Note* Addendum Note - Marycarmen Cosme MA - 09/21/2024 12:00 PM EDTAddended by: MARYCARMEN JAIME on: 09/21/2024 01:49 PM Modules accepted: Orders [address]Mochzj29-26-2008 Note* Addendum Note - Marycarmen Cosme MA - 09/21/2024 12:00 PM EDTAddended by: MARYCARMEN JAIME on: 09/21/2024 01:49 PM Modules accepted: Orders [id number] Note* Addendum Note - Marycarmen Cosme MA - 09/21/2024 12:00 PM EDTAddended by: MARYCARMEN JAIME on: 09/21/2024 01:49 PM Modules accepted: Orders [place] [id number] Note* Addendum Note - Marycarmen Cosme MA - 09/21/2024 12:00 PM EDTAddended by: AMRYCARMEN JAIME on: 09/21/2024 01:49 PM Modules accepted: Orders [place] [id number] Note* Addendum Note - Marycarmen Cosme MA - 09/21/2024 12:00 PM EDTAddended by: MARYCARMEN JAIME on: 09/21/2024 01:49 PM Modules accepted: Orders [place] [id number] Note* Addendum Note - Denia Arteaga MD - 09/21/2024 12:00 PM EDTAddended by: ROMY ARTEAGA on: 09/23/2024 08:40 AM Modules accepted: Orders [facility] [id number] NoteThrive Centering Education- Discussion and review of Naloxone.[facility]04-15-2025 marcelle Rachel at 33w6d with an KWAKU of 11/03/2024, by Patient Reported, was seen at [facility] for a nonstress test. Reason for Non-Stress Test 1 : Other (Comment) (Substance abuse) Variability in Waveform for Non-Stress Test 1: Moderate Decelerations in Non-Stress Test 1: Variable Accelerations in Non-Stress Test 1: Yes Acoustic Stimulator for Non-Stress Test 1: Yes (x2 with movement and acceleration in FHR) Baseline Heart Rate for Non-Stress Test 1: 135 BPM Uterine Irritability for Non-Stress Test 1: No Contractions in Non-Stress Test 1: Irregular (1 contractionnoted per monitor lasting 40 seconds patient unsure if felt contraction or not) Interpretation of Non-Stress Test 1: Reactive Comments on Non-Stress Test 1: fetus active throughout [facility]04-15-2025 Procedure note* Erendira Valerio RN - 09/21/2024 11:00 AM EDT Procedure(s): NONSTRESS TEST Skylar SinghFrantzmarcelle at 33w6d with an KWAKU of 11/03/2024, by Patient Reported, was seen at [facility] for a nonstress test. Reason for Non-Stress Test 1 : Other (Comment) (Substance abuse) Variability in Waveform for Non-Stress Test 1: Moderate Decelerations in Non-Stress Test 1: Variable Accelerations in Non-Stress Test 1: Yes Acoustic Stimulator for Non-Stress Test 1: Yes (x2 with movement and acceleration in FHR) Baseline Heart Rate for Non-Stress Test 1: 135 BPM Uterine Irritability for Non-Stress Test 1: No Contractions in Non-Stress Test 1: Irregular (1 contractionnoted per monitor lasting 40 seconds patient unsure if felt contraction or not) Interpretation of Non-Stress Test 1: Reactive Comments on Non-Stress Test 1: fetus active throughout NST [facility] [id number] Procedure note* Erendira Valerio RN - 09/21/2024 11:00 AM EDTProcedure(s): NONSTRESS TEST Skylar marcelle Landry at 33w6d with an KWAKU of 11/03/2024, by Patient Reported, was seen at [facility] for a nonstress test. Reason for Non-Stress Test 1 : Other (Comment) (Substance abuse) Variability in Waveform for Non-Stress Test 1: Moderate Decelerations in Non-Stress Test 1: Variable Accelerations in Non-Stress Test 1: Yes Acoustic Stimulator for Non-Stress Test 1: Yes (x2 with movement and acceleration in FHR) Baseline Heart Rate for Non-Stress Test 1: 135 BPM Uterine Irritability for Non-Stress Test 1: No Contractions in Non-Stress Test 1: Irregular (1 contractionnoted per monitor lasting 40 seconds patient unsure if felt contraction or not) Interpretation of Non-Stress Test 1: Reactive Comments on Non-Stress Test 1: fetus active throughout NST documented in this [facility]04-08-2025 History of Present illness Narrative* TK Magana CNP - 09/14/2024 12:00 PM EDT Pt here for centering The baby is active. No LOF or bleeding. No contractions. History reviewed - see episode report No nausea or vomiting. PE: See vitals Pt A&OX3, NAD Normal affect Non labored breathing Abd - non tender Ext - No edema Paln- NST and growth scans ordered Reviewed FKC and PTL RTO documented in this [place] [address]-08-2025 History of Present illness Narrative* Manuel Woods MD - 09/14/2024 12:00 PM EDT Images from the original note were not included. MEDICATION ASSISTED TREATMENT BUPRENORPHINE FOLLOW-UP VISIT Patient: Skylar Landry __ I saw this patient in person at the [facility] program. SUBJECTIVE Chief Complaint Patient presents with Addiction Problem Skylar Landry, a 34 y.o. female, returns for a follow-up medication-assisted treatment appointment. She was discharged from the hospital on 08/30/24. Stabilized on bupe 8 mg BID. Had microinduction process to transfer to bupe from methadone (140 mg). Last methadone dose given on 08/29/24. Dose was increased to 20 mg after hospitalization at [facility]. Now taking 20 mg consistently. Feels she needs to take that amount to deal with night time symptoms she was still experiencing. No longer feels like she is going thru methadone withdrawal. Interim History ~32w5d . Denies any illicit drug use since leaving hospital. Assessment at [facility] was rescheduled to 09/22. She may end up going into inpatient treatment there for duration of . Will let our CM know after assessment. Denies drug use since leaving hospital. Started on opioids at the age of12 2/2 to CKD/nephrolithiasis. Still deals with kidney stones and pain related to it. Says she had to be induced during previous for this reason. Denies painnow. No longer on Keflex. Denies smoking cigarettes/THC. Was abusing benzos prior to coming to hospital. [facility] from [place], [place] for her recovery. Has 2 older children living with family in [place] and she obviously misses them. Anxiety/Depression - tearful today. Taking Zoloft. Wants to establish with counselor. Denies SI/SA.Now says she is taking Seroquel 50 mg nightly. She apparently wasn't taking it at one point after hospitalization but now says she is. Wants refill. Helps with sleep. Denies any side effects. MAT Response Dose: Subutex 20 mg daily. Start Date: 08/23/24. Compliance: Taking as directed. No missed doses. Side Effects: No. Drug Cravings: Yes. Withdrawal Symptoms: No. Ready to Taper Off MAT: No. Substance Use History Sober Date: 08/23/24. Intensive Outpatient Program: never; planning on entering in our [facility]. Inpatient Drug Rehab: never. 12-Step Meeting Attendance: never. Psychiatric History Diagnoses: depression, anxiety, bipolar 2, ptsd Medications: zoloft 50 mg, seroquel 50 mg nightly Psychiatrist: isabela. Counselor: isabela. Past Medical History Past Medical History: Diagnosis Date Anxiety Colitis Depression Kidney disease Kidney stone Medullary sponge kidney of both kidneys Social Drivers of Health Intimate Partner Violence: Not At Risk (09/07/2024) Humiliation, Afraid, Rape, and Kick questionnaire Fear of Current or Ex-Partner: No Emotionally Abused: No Physically Abused: No Sexually Abused: No Social Connections: Socially Isolated (09/07/2024) Social Connection and Isolation Panel [NHANES] Frequency of Communication with Friends and Family: Twice a week Frequency of Social Gatherings with Friends and Family: Never Attends Jewish Services: Never Active Member of Clubs or Organizations: No Attends Club or Organization Meetings: Never Marital Status: Never Alcohol Use: Not At Risk (09/07/2024) AUDIT-C Frequency of Alcohol Consumption: Never Average Number of Drinks: Patient does not drink Frequency of Binge Drinking: Never Tobacco Use: Low Risk (09/07/2024) Patient History Smoking Tobacco Use: Never Smokeless Tobacco Use: Never Passive Exposure: Never Financial Resource Strain: High Risk (09/07/2024) Overall Financial Resource Strain (CARDIA) Difficulty of Paying Living Expenses: Very hard Depression: At risk (08/22/2024) PHQ-2 PHQ-2 Score: 6 Depression: Medium Risk (09/07/2024) Wilbur Depression Scale Last EPDS Total Score: 8 Last EPDS Self Harm Result: Never Stress: No Stress Concern Present (09/07/2024) [employer] [place] [employer] - Occupational Stress Questionnaire Feeling of Stress : Not at all Physical Activity: Inactive (09/07/2024) Exercise Vital Sign Days of Exercise per Week: 0 days Minutes of Exercise per Session: 0 min Food Insecurity: Food Insecurity Present (09/07/2024) Hunger Vital Sign Worried About Running Out of Food in the Last Year: Sometimes true Ran Out of Food in the Last Year: Sometimes true Transportation Needs: Unmet Transportation Needs (09/07/2024) PRAPARE - Transportation Lack of Transportation (Medical): Yes Lack of Transportation (Non-Medical): Yes Housing Stability: High Risk (09/07/2024) Housing Stability Vital Sign Unable to Pay for Housing in the Last Year: Yes Number of Times Moved in the Last Year: 3 Homeless in the Last Year: No Utilities: Not At Risk (09/07/2024) [facility] Utilities Threatened with loss of utilities: No Recent Concern: Utilities - At Risk (08/22/2024) [facility] Utilities Threatened with loss of utilities: Yes OBJECTIVE Last Urine Drug Screen (09/07/24) +benzos, methadone, bupe Denies using any benzos since leaving hospital. UDS has been consistent for benzos since leaving hospital, but she has denied use. Likely still lingering in body given CKD. Will order confirmation test today if still positive. PHQ Screen Last 3 PHQ-9 Scores No data found in the last 10 encounters. Controlled Substance Monitoring OARRs Reviewed., Possible medication effects, risk of tolerance/dependence & alternative treatments discussed. , Assessed functional status., and Random urine drug screen sent today. Review of Systems Review of Systems Constitutional: Positive for malaise/fatigue. Gastrointestinal: Positive for bloating and nausea. Psychiatric/Behavioral: Positive for substance abuse. All other systems reviewed and are negative. Vitals There were no vitals taken for this visit. Physical Exam Constitutional: General: She is not in acute distress. Appearance: Normal appearance. She is not ill-appearing. HENT: Mouth/Throat: Mouth: Mucous membranes are moist. Eyes: Extraocular Movements: Extraocular movements intact. Pulmonary: Effort: Pulmonary effort is normal. Neurological: Mental Status: She is alert and oriented to person, place, and time. Psychiatric: Attention and Perception: Attention and perception normal. ASSESSMENT 1. Encounter for monitoring Suboxone maintenance therapy 2. Anxiety and depression 3. Severe opioid use disorder (HCC) 4. Drug use affecting in third trimester PLAN Medications Ordered New Medications Ordered This Visit Medications QUEtiapine (SEROquel) 50 MG tablet Sig: Take 1 tablet (50 mg) by mouth Nightly as needed (Insomnia/sleep). Dispense: 30 tablet Refill: 0 buprenorphine (Subtex) 8 MG Sig: Place 1 tablet (8 mg) under the tongue 2 times daily for 7 days. Dispense: 14 tablet Refill: 0 Labs Ordered No orders of the defined types were placed in this encounter. Patient Goals Continue 12-step meeting attendance (goal of 2 per week). Actively communicate with sponsor. Take medication as directed. Report any negative side effects or missed doses. Report any illicit drug use to myself/my staff. Keep medicine out of the reach of children. Follow-up with recommended level of care. Interventions in Session Discussed patient's progress in their 12-step program. Discussed progress in recovery and overall well-being. Discussed stressors/triggers for a potential relapse. Discussed related coping mechanisms. Discussed buprenorphine efficacy. Increasing dose to 20 mg daily. INFORMED CONSENT: The nature and purpose of buprenorphine MAT use during was reviewed with this patient at length. The benefits and risks of utilizing MAT have also been reviewed at length including the potential risk of JANELLE for the infant after delivery. Alternative treatment options forher drug addiction have also been reviewed. Pursuant to this discussion, the patient agrees to utilize buprenorphine MAT while . Follow-Up Follow up in 1 week (on 09/21/2024). * Almita Reeder RN - 09/14/2024 12:00 PM EDT [facility] Education: Family planning and control. documented in this [facility]04-08-2025 History of Present illness Narrative* Manuel Woods MD - 09/14/2024 12:00 PM EDT Images from the original note were not included. MEDICATION ASSISTED TREATMENT BUPRENORPHINE FOLLOW-UP VISIT Patient: Skylar Landry __ I saw this patient in person at the [facility] program. SUBJECTIVE Chief Complaint Patient presents with Addiction Problem Skylar Landry, a 34 y.o. female, returns for a follow-up medication-assisted treatment appointment. She was discharged from the hospital on 08/30/24. Stabilized on bupe 8 mg BID. Had microinduction process to transfer to bupe from methadone (140 mg). Last methadone dose given on 08/29/24. Dose was increased to 20 mg after hospitalization at [facility]. Now taking 20 mg consistently. Feels she needs to take that amount to deal with night time symptoms she was still experiencing. No longer feels like she is going thru methadone withdrawal. Interim History ~32w5d . Denies any illicit drug use since leaving hospital. Assessment at [facility] was rescheduled to 09/22. She may end up going into inpatient treatment there for duration of . Will let our CM know after assessment. Denies drug use since leaving hospital. Started on opioids at the age of12 2/2 to CKD/nephrolithiasis. Still deals with kidney stones and pain related to it. Says she had to be induced during previous for this reason. Denies painnow. No longer on Keflex. Denies smoking cigarettes/THC. Was abusing benzos prior to coming to hospital. [facility] from [place], [place] for her recovery. Has 2 older children living with family in [place] and she obviously misses them. Anxiety/Depression - tearful today. Taking Zoloft. Wants to establish with counselor. Denies SI/SA.Now says she is taking Seroquel 50 mg nightly. She apparently wasn't taking it at one point after hospitalization but now says she is. Wants refill. Helps with sleep. Denies any side effects. MAT Response Dose: Subutex 20 mg daily. Start Date: 08/23/24. Compliance: Taking as directed. No missed doses. Side Effects: No. Drug Cravings: Yes. Withdrawal Symptoms: No. Ready to Taper Off MAT: No. Substance Use History Sober Date: 08/23/24. Intensive Outpatient Program: never; planning on entering in our [facility]. Inpatient Drug Rehab: never. 12-Step Meeting Attendance: never. Psychiatric History Diagnoses: depression, anxiety, bipolar 2, ptsd Medications: zoloft 50 mg, seroquel 50 mg nightly Psychiatrist: isabela. Counselor: denies. Past Medical History Past Medical History: Diagnosis Date Anxiety Colitis Depression Kidney disease Kidney stone Medullary sponge kidney of both kidneys Social Drivers of Health Intimate Partner Violence: Not At Risk (09/07/2024) Humiliation, Afraid, Rape, and Kick questionnaire Fear of Current or Ex-Partner: No Emotionally Abused: No Physically Abused: No Sexually Abused: No Social Connections: Socially Isolated (09/07/2024) Social Connection and Isolation Panel [NHANES] Frequency of Communication with Friends and Family: Twice a week Frequency of Social Gatherings with Friends and Family: Never Attends Jewish Services: Never Active Member of Clubs or Organizations: No Attends Club or Organization Meetings: Never Marital Status: Never Alcohol Use: Not At Risk (09/07/2024) AUDIT-C Frequency of Alcohol Consumption: Never Average Number of Drinks: Patient does not drink Frequency of Binge Drinking: Never Tobacco Use: Low Risk (09/07/2024) Patient History Smoking Tobacco Use: Never Smokeless Tobacco Use: Never Passive Exposure: Never Financial Resource Strain: High Risk (09/07/2024) Overall Financial Resource Strain (CARDIA) Difficulty of Paying Living Expenses: Very hard Depression: At risk (08/22/2024) PHQ-2 PHQ-2 Score: 6 Depression: Medium Risk (09/07/2024) Wilbur Depression Scale Last EPDS Total Score: 8 Last EPDS Self Harm Result: Never Stress: No Stress Concern Present (09/07/2024) [place] [place] [employer] - Occupational Stress Questionnaire Feeling of Stress : Not at all Physical Activity: Inactive (09/07/2024) Exercise Vital Sign Days of Exercise per Week: 0 days Minutes of Exercise per Session: 0 min Food Insecurity: Food Insecurity Present (09/07/2024) Hunger Vital Sign Worried About Running Out of Food in the Last Year: Sometimes true Ran Out of Food in the Last Year: Sometimes true Transportation Needs: Unmet Transportation Needs (09/07/2024) PRAPARE - Transportation Lack of Transportation (Medical): Yes Lack of Transportation (Non-Medical): Yes Housing Stability: High Risk (09/07/2024) Housing Stability Vital Sign Unable to Pay for Housing in the Last Year: Yes Number of Times Moved in the Last Year: 3 Homeless in the Last Year: No Utilities: Not At Risk (09/07/2024) [facility] Utilities Threatened with loss of utilities: No Recent Concern: Utilities - At Risk (08/22/2024) [facility] Utilities Threatened with loss of utilities: Yes OBJECTIVE Last Urine Drug Screen (09/07/24) +benzos, methadone, bupe Denies using any benzos since leaving hospital. UDS has been consistent for benzos since leaving hospital, but she has denied use. Likely still lingering in body given CKD. Will order confirmation test today if still positive. PHQ Screen Last 3 PHQ-9 Scores No data found in the last 10 encounters. Controlled Substance Monitoring OARRs Reviewed., Possible medication effects, risk of tolerance/dependence & alternative treatments discussed. , Assessed functional status., and Random urine drug screen sent today. Review of Systems Review of Systems Constitutional: Positive for malaise/fatigue. Gastrointestinal: Positive for bloating and nausea. Psychiatric/Behavioral: Positive for substance abuse. All other systems reviewed and are negative. Vitals There were no vitals taken for this visit. Physical Exam Constitutional: General: She is not in acute distress. Appearance: Normal appearance. She is not ill-appearing. HENT: Mouth/Throat: Mouth: Mucous membranes are moist. Eyes: Extraocular Movements: Extraocular movements intact. Pulmonary: Effort: Pulmonary effort is normal. Neurological: Mental Status: She is alert and oriented to person, place, and time. Psychiatric: Attention and Perception: Attention and perception normal. ASSESSMENT 1. Encounter for monitoring Suboxone maintenance therapy 2. Anxiety and depression 3. Severe opioid use disorder (HCC) 4. Drug use affecting in third trimester PLAN Medications Ordered New Medications Ordered This Visit Medications QUEtiapine (SEROquel) 50 MG tablet Sig: Take 1 tablet (50 mg) by mouth Nightly as needed (Insomnia/sleep). Dispense: 30 tablet Refill: 0 buprenorphine (Subtex) 8 MG Sig: Place 1 tablet (8 mg) under the tongue 2 times daily for 7 days. Dispense: 14 tablet Refill: 0 Labs Ordered No orders of the defined types were placed in this encounter. Patient Goals Continue 12-step meeting attendance (goal of 2 per week). Actively communicate with sponsor. Take medication as directed. Report any negative side effects or missed doses. Report any illicit drug use to myself/my staff. Keep medicine out of the reach of children. Follow-up with recommended level of care. Interventions in Session Discussed patient's progress in their 12-step program. Discussed progress in recovery and overall well-being. Discussed stressors/triggers for a potential relapse. Discussed related coping mechanisms. Discussed buprenorphine efficacy. Increasing dose to 20 mg daily. INFORMED CONSENT: The nature and purpose of buprenorphine MAT use during was reviewed with this patient at length. The benefits and risks of utilizing MAT have also been reviewed at length including the potential risk of JANELLE for the infant after delivery. Alternative treatment options forher drug addiction have also been reviewed. Pursuant to this discussion, the patient agrees to utilize buprenorphine MAT while . Follow-Up Follow up in 1 week (on 09/21/2024). * Almita Reeder RN - 09/14/2024 12:00 PM EDT [facility] Education: Family planning and control. documented in this [place] [address]-08-2025 History of Present illness Narrative* TK Magana CNP - 09/14/2024 12:00 PM EDT Pt here for centering The baby is active. No LOF or bleeding. No contractions. History reviewed - see episode report No nausea or vomiting. PE: See vitals Pt A&OX3, NAD Normal affect Non labored breathing Abd - non tender Ext - No edema Paln- NST and growth scans ordered Reviewed FKC and PTL RTO documented in this [place] [address]-08-2025 Miscellaneous Notes* Addendum Note - Marycarmen Cosme MA - 09/14/2024 12:00 PM EDTAddended by: MARYCARMEN JAIME on: 09/14/2024 01:43 PM Modules accepted: Orders documented in this [place] [address]-08-2025 Miscellaneous Notes* Addendum Note - Marycarmen Cosme MA - 09/14/2024 12:00 PM EDTAddended by: MARYCARMEN JAIME on: 09/14/2024 01:43 PM Modules accepted: Orders * Addendum Note - Patti Nurse - 09/14/2024 12:00 PM EDTAddended by: PATTI REYES on: 09/15/2024 03:02 PM Modules accepted: Orders documented in this [facility]04-08-2025 Note* Addendum Note - Marycarmen Cosme MA - 09/14/2024 12:00 PM EDTAddended by: MARYCARMEN JAIME on: 09/14/2024 01:43 PM Modules accepted: Orders [place] [id number] Note* Addendum Note - Marycarmen Cosme MA - 09/14/2024 12:00 PM EDTAddended by: MARYCARMEN JAIME on: 09/14/2024 01:43 PM Modules accepted: Orders [place] [id number] Note* Addendum Note - Marycarmen Cosme MA - 09/14/2024 12:00 PM EDTAddended by: MARYCARMEN JAIME on: 09/14/2024 01:43 PM Modules accepted: Orders [place] [id number] Note* Addendum Note - Marycarmen Cosme MA - 09/14/2024 12:00 PM EDTAddended by: MARYCARMEN JAIME on: 09/14/2024 01:43 PM Modules accepted: Orders [place] [id number] Note* Addendum Note - Patti Reyes - 09/14/2024 12:00 PM EDTAddended by: PATTI REYES on: 09/15/2024 03:02 PM Modules accepted: Orders [place] [id number] NoteTh[facility] Education: Family planning and control.[facility]04-01-2025 History of Present illness Narrative * TK Magana CNP - 09/07/2024 12:00 PM EDT Pt here for OB visit. The baby is active. No LOF or bleeding. No contractions. History reviewed - see episode report No nausea or vomiting. PE: See vitals Pt A&OX3, NAD Normal affect Non labored breathing Abd - non tender Ext - No edema Plan- setter automatic spinning lathe today Centering and addiction with Dr. Woods today 3. US and Nob labs complete 4. NST at 32 weeks 5. NOB to be scheduled * Almita Reeder RN - 09/07/2024 12:00 PM EDT [facility] Education: Discussion on mediation and breast feeding. documented in this [facility]04-01-2025 History of Present illness Narrative* Manuel Woods MD - 09/07/2024 12:00 PM EDT Images from the original note were not included. MEDICATION ASSISTED TREATMENT BUPRENORPHINE FOLLOW-UP VISIT Patient: Skylar Landry __ I saw this patient in person at [facility]. SUBJECTIVE Chief Complaint Patient presents with Follow-up Skylar Landry, a 34 y.o. female, returns for a follow-up medication-assisted treatment appointment. She was discharged from the hospital on 08/30/24. Stabilized on bupe 8 mg BID. Had microinduction process to transfer to bupe from methadone (140 mg). Last methadone dose given on 08/29/24. Dose was increased to 20 mg last week. Some days taking 20 mg some days only taking 16. OK with dosage reduction down to 16 mg. Has 4-5 extra tablets remaining she can take if needed. No longer feels like she is going thru methadone withdrawal. Interim History ~31w6d . Have an assessment at [facility] this , 09/09. She may end up going into inpatient treatment there for duration of . Will let our CM know after assessment. Denies drug use since leaving hospital. Started on opioids at the age of12 2/2 to CKD/nephrolithiasis. Still deals with kidney stones and pain related to it. Says she had to be induced during previous for this reason. Denies painnow. No longer on Keflex. Denies smoking cigarettes/THC. Was abusing benzos prior to coming to hospital. M[facility] to [facility] from [place], [place] for her recovery. Has 2 older children living with family in [place] and she obviously misses them. Anxiety/Depression - tearful today. Taking Zoloft. Wants to establish with counselor. Denies SI/SA. MAT Response Dose: Subutex 20 mg daily. Start Date: 08/23/24. Compliance: Taking as directed. No missed doses. Side Effects: No. Drug Cravings: Yes. Withdrawal Symptoms: No. Ready to Taper Off MAT: No. Substance Use History Sober Date: 08/23/24. Intensive Outpatient Program: never; planning on entering in our [facility]. Inpatient Drug Rehab: never. 12-Step Meeting Attendance: never. Psychiatric History Diagnoses: depression, anxiety, bipolar 2, ptsd Medications: zoloft 50 mg. Psychiatrist: isabela. Counselor: isabela. Past Medical History Past Medical History: Diagnosis Date Anxiety Colitis Depression Kidney disease Kidney stone Medullary sponge kidney of both kidneys Social Drivers of Health Intimate Partner Violence: Not At Risk (08/22/2024) Humiliation, Afraid, Rape, and Kick questionnaire Fear of Current or Ex-Partner: No Emotionally Abused: No Physically Abused: No Sexually Abused: No Social Connections: Not on file Alcohol Use: Not on file Tobacco Use: Low Risk (09/07/2024) Patient History Smoking Tobacco Use: Never Smokeless Tobacco Use: Never Passive Exposure: Never Financial Resource Strain: Not on file Depression: At risk (08/22/2024) PHQ-2 PHQ-2 Score: 6 Depression: Not on file Stress: Not on file Physical Activity: Not on file Food Insecurity: Food Insecurity Present (08/22/2024) Hunger Vital Sign Worried About Running Out of Food in the Last Year: Often true Ran Out of Food in the Last Year: Often true Transportation Needs: Unmet Transportation Needs (08/22/2024) PRAPARE - Transportation Lack of Transportation (Medical): Yes Lack of Transportation (Non-Medical): Yes Housing Stability: High Risk (08/22/2024) Housing Stability Vital Sign Unable to Pay for Housing in the Last Year: Yes Number of Times Moved in the Last Year: 6 Homeless in the Last Year: Yes Utilities: At Risk (08/22/2024) [facility] Utilities Threatened with loss of utilities: Yes OBJECTIVE Last Urine Drug Screen (08/23/24) Negative for illicit drugs & buprenorphine was positive. PHQ Screen Last 3 PHQ-9 Scores No data found in the last 10 encounters. Controlled Substance Monitoring OARRs Reviewed., Possible medication effects, risk of tolerance/dependence & alternative treatments discussed. , Assessed functional status., and Random urine drug screen sent today. Review of Systems Review of Systems Constitutional: Positive for chills and diaphoresis. Gastrointestinal: Positive for bloating and nausea. Psychiatric/Behavioral: Positive for depression and substance abuse. The patient is nervous/anxious. All other systems reviewed and are negative. Vitals There were no vitals taken for this visit. Physical Exam Constitutional: General: She is not in acute distress. Appearance: Normal appearance. She is not ill-appearing. HENT: Mouth/Throat: Mouth: Mucous membranes are moist. Eyes: Extraocular Movements: Extraocular movements intact. Pulmonary: Effort: Pulmonary effort is normal. Neurological: Mental Status: She is alert and oriented to person, place, and time. Psychiatric: Attention and Perception: Attention and perception normal. ASSESSMENT 1. Severe opioid use disorder (HCC) 2. Drug use affecting in third trimester 3. Anxiety and depression PLAN Medications Ordered New Medications Ordered This Visit Medications buprenorphine (Subtex) 8 MG Sig: Place 1 tablet (8 mg) under the tongue 2 times daily for 7 days. Dispense: 14 tablet Refill: 0 sertraline (Zoloft) 50 MG tablet Sig: Take 1 tablet (50 mg) by mouth daily. Dispense: 30 tablet Refill: 0 Labs Ordered Orders Placed This Encounter Procedures MEDICATION ASSISTED TREATMENT PANEL Patient Goals Continue 12-step meeting attendance (goal of 2 per week). Actively communicate with sponsor. Take medication as directed. Report any negative side effects or missed doses. Report any illicit drug use to myself/my staff. Keep medicine out of the reach of children. Follow-up with recommended level of care. Interventions in Session Discussed patient's progress in their 12-step program. Discussed progress in recovery and overall well-being. Discussed stressors/triggers for a potential relapse. Discussed related coping mechanisms. Discussed buprenorphine efficacy. Increasing dose to 20 mg daily. INFORMED CONSENT: The nature and purpose of buprenorphine MAT use during was reviewed with this patient at length. The benefits and risks of utilizing MAT have also been reviewed at length including the potential risk of JANELLE for the after delivery. Alternative treatment options forher drug addiction have also been reviewed. Pursuant to this discussion, the patient agrees to utilize buprenorphine MAT while . Follow-Up Follow up in 1 week (on 09/14/2024). documented in this [facility]04-01-2025 NoteThrive Centering Education: Discussion on mediation and breast feeding.[facility] 09-07-2024 History of Present illness Narrative* Kelsy Park RN - 09/07/2024 11:00 AM EDT desired. Patient plans to formula feed. Did not Bf previous children. Benefits of and baby friendly reviewed. Folder reviewed with patient and all relevant teaching completed.Proof of printed and instructions given to sign up for WIC. TDAP and Flu vaccination encouraged. Patient is active with [facility]. Informed patient on appropriate use of mychart and to not use for medical emergency questions. Informed patient when to seek emergent care and location of OB triage. Transportation is not an issue getting to appointments. Informed patient of provide a ride services through their insurance company. Pt is working on choosing insurance plan. Patient received genetic testing in [place]. VIRGILIO signed for office and hospital. Mailed and faxed records request. May need one more sent for [facility]. Virtual maternity tour completed and hospital information handout given. Future visit appointment scheduled. Pt attending [facility] program. All questions answered. Informed pt of [facility] ([facility]), STEFFANY Geller LISW at [facility], but a referral is not indicated at this time. [facility] CENTER completed and scanned. Reviewed crib/carseat. documented in this [facility]03-26-2025 Telephone encounter Note* Telephone Encounter - Elena Park DO - 09/01/2024 12:23 PM EDT error [id number] Miscellaneous Notes* Telephone Encounter - Elena Park DO - 09/01/2024 12:23 PM EDT error documented in this [facility]03-25-2025 History of Present illness Narrative* Manuel Woods MD - 08/31/2024 12:00 PM EDT Images from the original note were not included. MEDICATION ASSISTED TREATMENT BUPRENORPHINE FOLLOW-UP VISIT Patient: Skylar Landry __ I saw this patient in person at the [facility]. SUBJECTIVE Chief Complaint Patient presents with Addiction Problem Skylar Landry, a 34 y.o. female, returns for a follow-up medication-assisted treatment appointment. She was discharged from the hospital yesterday. Stabilized on bupe 8 mg BID. Had microinduction process to transfer to bupe from methadone (140 mg). Last methadone dose given on 08/29/24. Still feels like she is having some methadone withdrawal. Interim History ~30w . Denies drug use since leaving hospital. Started on opioids at the age of14 2/2 to CKD/nephrolithiasis. Still deals with kidney stones and pain related to it. Says she had to be induced during previous for this reason. Denies smoking cigarettes/THC. Was abusing benzos prior to coming to hospital. Moved to [facility] from [place], [place] for her recovery. Has 2 older children living with family in [place] and she obviously misses them. Anxiety/Depression - tearful today. Taking Zoloft. Wants to establish with counselor. Denies SI/SA. MAT Response Dose: Subutex 8 mg BID. Start Date: 08/23/24. Compliance: Taking as directed. No missed doses. Side Effects: No. Drug Cravings: Yes. Withdrawal Symptoms: Yes. Ready to Taper Off MAT: No. Substance Use History Sober Date: 08/23/24. Intensive Outpatient Program: never; planning on entering in our CD IOP. Inpatient Drug Rehab: never. 12-Step Meeting Attendance: never. Psychiatric History Diagnoses: depression, anxiety, bipolar 2, ptsd Medications: zoloft 50 mg. Psychiatrist: isabela. Counselor: isabela. Past Medical History Past Medical History: Diagnosis Date Anxiety Colitis Depression Kidney disease Kidney stone Social Drivers of Health Intimate Partner Violence: Not At Risk (08/22/2024) Humiliation, Afraid, Rape, and Kick questionnaire Fear of Current or Ex-Partner: No Emotionally Abused: No Physically Abused: No Sexually Abused: No Social Connections: Not on file Alcohol Use: Not on file Tobacco Use: Low Risk (08/22/2024) Patient History Smoking Tobacco Use: Never Smokeless Tobacco Use: Never Passive Exposure: Not on file Financial Resource Strain: Not on file Depression: At risk (08/22/2024) PHQ-2 PHQ-2 Score: 6 Depression: Not on file Stress: Not on file Physical Activity: Not on file Food Insecurity: Food Insecurity Present (08/22/2024) Hunger Vital Sign Worried About Running Out of Food in the Last Year: Often true Ran Out of Food in the Last Year: Often true Transportation Needs: Unmet Transportation Needs (08/22/2024) PRAPARE - Transportation Lack of Transportation (Medical): Yes Lack of Transportation (Non-Medical): Yes Housing Stability: High Risk (08/22/2024) Housing Stability Vital Sign Unable to Pay for Housing in the Last Year: Yes Number of Times Moved in the Last Year: 6 Homeless in the Last Year: Yes Utilities: At Risk (08/22/2024) [facility] Utilities Threatened with loss of utilities: Yes OBJECTIVE Last Urine Drug Screen (08/23/24) Negative for illicit drugs & buprenorphine was positive. PHQ Screen Last 3 PHQ-9 Scores No data found in the last 10 encounters. Controlled Substance Monitoring OARRs Reviewed., Possible medication effects, risk of tolerance/dependence & alternative treatments discussed. , Assessed functional status., and Random urine drug screen sent today. Review of Systems Review of Systems Constitutional: Positive for chills and diaphoresis. Gastrointestinal: Positive for bloating and nausea. Psychiatric/Behavioral: Positive for depression and substance abuse. The patient is nervous/anxious. All other systems reviewed and are negative. Vitals There were no vitals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 Diagnosis Date Anxiety Colitis Depression Kidney disease Kidney stone Past Surgical History: Past Surgical History: Procedure Laterality Date IR NEPHROSTOMY TUBE PLACEMENT STENT INSERTION (HISTORICAL) 2023 kidneys Admission Diagnosis: Patient Active Problem List Diagnosis Date Noted Pain of left lower extremity 08/30/2024 Drug use affecting in third trimester 08/28/2024 Anxiety and depression 08/24/2024 Severe opioid use disorder (HCC) 08/23/2024 state, incidental 08/23/2024 Polysubstance abuse (CMS/HCC) (HCC) 08/23/2024 Medical Precautions: No active isolations Proper PPE donned/doffed in accordance with facility standards. Fall Risk: Millan Fall Risk Score: 20 (Low Risk) Precautions/Restrictions: N/A Family/Caregiver Present: none Overall Cognitive Status: WNL Overall Orientation Status: Oriented x4 Vision: Not Assessed Hearing: normal Social/Functional History Patient admitted from home. Lives With: Marina mother Type of Home: single family home Home Layout: Single Level Home Home Access: Stairs to Enter with Rails (# of stairs: 3-4) Bathroom Shower/Tub: Toilet: Standard Home Equipment: none Homemaking Responsibilities: Independent Receives Help From: None Active Game Technician: No Moved here from [place]. Marina mother will be able to help with transportation. Lives in [facility] limited resources. May be able to access Outpatient PT in the neighboring town [place] Prior Level of Function Prior Level of ADL Function: Independent Prior Level of Mobility: Independent; Device: None Prior Level of Transfers: Independent Objective Lower Extremity Assessment AROM: WNL PROM: Not assessed this session Strength: WFL. 5/5 R LE knee extension and ankle DF. 4+/5 knee extension and ankle DF. Sensation: Impaired: numbness and tingling L lateral thigh that worsens with progressive standing. No numbness/tingling along the rest of the L LE Balance: Balance During Session: Posture: good Sitting - Static: Independent Sitting - Dynamic: Independent Standing - Static: Independent Standing - Dynamic: Supervision Bed Mobility: Supine to sit: Supervision Sit to supine: Supervision Transfers Sit to stand: Supervision Stand to sit: Supervision Ambulation Ambulation 1 Assistive device(s) used: None Assist level: Supervision Distance (ft): ~90 ft in room Quality of gait: slightly antalgic gait L LE. No foot drop or buckling noted. Exercises Other exercises Other exercises?: Yes Other exercises 1: Semi-reclined low trunk rotations - best tolerance Other exercises 2: Standing forward flexion at counter with swaying hips L<>R- low tolerance d/t pain Other exercises 3: Seated hamstring stretch 10 hold x 3 - fair tolerance Other exercises 4: L LE hip dangles/ pendulums in standing Educated on other stretches with list given (figure 4 stretch and stretches listed above) Outcome Measures AM-PAC How much HELP from another person do you currently need Turning from your back to your side while in a flat bed without using bedrails?: A Little Moving from lying on your back to sitting on the side of a flat bed without using bedrails?: A Little Moving to and from a bed to a chair (including a wheelchair)?: None Standing up from a chair using your arms (wheelchair or bedside chair)?: None Walking in a hospital room?: None Stair climbing assessed?: No AM-PAC Inpatient Mobility Raw Score (No Stairs) : 18 JH-HLM JH-HLM Score: Walked 25 ft or more (i.e. walked outside of room) Plan No skilled acute PT indicated at this time. Please reconsult should changes occur. Safety/Education Safety Safety Devices in place: call light within reach and left in bed Restraints: N/A Education Education Given To: patient Education Provided: PT Role, PT Goals, Gait Training, Plan of Care, Home Exercise Program, Precautions, Discharge Recommendations, and Benefits of Increasing Activity Education Method: Verbal and Demonstration Barriers to Learning: None Education Outcome: Verbalized Understanding Goals Patient Stated Goal: to return to home soon, to reduce pain Encounter Problems Encounter Problems (Active) Pain - Adult Therapy Time Individual Co-Treatment Co-Evaluation Time In 1034 Time Out 1137 Minutes 63 Timed Code Treatment Minutes: (x1 TP) Variance: 12 (getting a binder and other equipment) Shira Madrid PT Patient's Physical Therapy Plan of Care supervision is transferred to a [facility] Physical Therapist. Goals and/or treatment plan was established in collaboration with patient/family/other representatives. * Nakia Cronin DO - 08/30/2024 9:32 AM EDT Images from the original note were not included. ADDICTION MEDICINE PROGRESS NOTE Patient: Skylar Landry __ Problem List: Active Problems: Severe opioid use disorder (HCC) state, incidental Polysubstance abuse (CMS/HCC) (HCC) Anxiety and depression Drug use affecting in third trimester SUBJECTIVE Chief Complaint Patient presents with Other Detox from methadone Last 4 COWS scores per RN assessments 1 - 5 - 6 - 2 Interim History The patient reports she is alright today. She is uncomfortable secondary to the positioning of her fetus. She admits to abdominal pain, mild nausea, and chills since methadone was discontinued and she has only been on Suboxone. However, she denies other withdrawal/physical symptoms. She denies current cravings. Her appetite is intact and she is tolerating fluids. She is sleeping better with theincrease in Seroquel. She denies SI/HI/AVH. She intends to follow up with the [facility]. Review of Systems Review of Systems Constitutional: Positive for chills. Negative for decreased appetite, diaphoresis and fever. HENT: Negative for congestion. Cardiovascular: Negative for chest pain. Respiratory: Negative for shortness of breath. Musculoskeletal: Negative for muscle cramps, muscle weakness and myalgias. Gastrointestinal: Positive for abdominal pain and nausea. Negative for vomiting. Neurological: Negative for headaches and tremors. Psychiatric/Behavioral: Negative for depression, suicidal ideas and thoughts of violence. The patient does not have insomnia and is not nervous/anxious. OBJECTIVE Vitals Vitals: 08/29/24 1559 08/29/24 2024 08/30/24 0609 08/30/24 0815 BP: 95/65 99/66 93/64 102/64 Pulse: 82 94 90 93 Resp: 16 17 16 16 Temp: 36.9 C (98.4 F) 36.6 C (97.8 F) 36.4 C (97.6 F) 36.8 C (98.2 F) TempSrc: Temporal Temporal Temporal Temporal SpO2: 98% 98% 97% 98% Weight: Height: Physical Exam Vitals and nursing note reviewed. Constitutional: General: She is not in acute distress. Appearance: She is not ill-appearing or diaphoretic. HENT: Head: Normocephalic and atraumatic. Nose: Nose normal. Mouth/Throat: Mouth: Mucous membranes are moist. Cardiovascular: Rate and Rhythm: Normal rate. Pulmonary: Effort: Pulmonary effort is normal. Abdominal: Tenderness: There is abdominal tenderness. Skin: General: Skin is warm. Neurological: Mental Status: She is alert, oriented to person, place, and time and easily aroused. Motor: No tremor. Psychiatric: Attention and Perception: Attention and perception normal. She does not perceive auditory or visualhallucinations. Mood and Affect: Mood and affect normal. Speech: Speech normal. Behavior: Behavior normal. Behavior is cooperative. Thought Content: Thought content normal. Thought content is not paranoid or delusional. Thought content does not include homicidal or suicidal ideation. Cognition and Memory: Cognition and memory normal. Judgment: Judgment normal. Medications Home Meds Current Outpatient Medications Medication Instructions buprenorphine (SUBTEX) 8 mg, SubLINGual, 2 times daily buprenorphine (SUBTEX) 8 mg, SubLINGual, 2 times daily methadone (DOLOPHINE) 140 mg, Daily QUEtiapine (SEROQUEL) 50 mg, Oral, Nightly PRN [START ON 08/31/2024] sertraline (ZOLOFT) 50 mg, Oral, Daily Scheduled Inpatient Meds buprenorphine-naloxone, 1 Film, SubLINGual, BID cephalexin, 500 mg, Oral, 4x daily enoxaparin, 40 mg, SubCUTAneous, q24h famotidine, 20 mg, Oral, BID Lidocaine, 1 patch, TransDERmal, Daily Lidocaine, 1 patch, TransDERmal, Daily vitamin, 1 tablet, Oral, Daily sertraline, 50 mg, Oral, Daily sodium chloride 0.9%, 10 mL, IntraVENous, 2 times per day PRN Inpatient Meds PRN medications: acetaminophen, cyclobenzaprine, dicyclomine, diphenhydrAMINE, hydrOXYzine pamoate,naloxone, ondansetron, promethazine, QUEtiapine, sodium chloride, sodium chloride 0.9% Continuous Inpatient Infusions Recent Imaging US OB detail anatomy Result Date: 08/23/2024 OBSTETRICS REPORT (Signed Final 08/23/2024 02:04 pm) PATIENT INFO: ID #: [id number] : [birth year] (34 yrs)(F) Name: SKYLAR LANDRY Visit Date: 08/23/2024 10:29 am PERFORMED BY: Attending: Eliezer Gonzales MD, HECTOR, FACOG Performed By: Som Miller Referred By: ELENA PARK Location: [facility] IP Visit Type: Inpatient - Hospital SERVICE(S) PROVIDED: US Level II complete (Targeted OB) 96365 BPP w/out NST 57357 INDICATIONS: Drug use complicating , O99.320 unspecified trimester Other psychoactivesubstance abuse, F19.10 uncomplicated (HCC) EVALUATION: Num Of Fetuses: 1 Heart Rate(bpm): 141 Cardiac Activity: Regu lar rhythm Lie: Longitudinal Presentation: Breech Placenta: Anterior Amniotic Fluid TYREE FV: Within normal limits TYREE Sum(cm) %Tile Largest Pocket(cm) 12.9 37 5.1 RUQ(cm) LUQ(cm) LLQ(cm) 4 5.1 3.8 BIOPHYSICAL EVALUATION: Amniotic F.V: Within normal limits F. Tone: Observed F. Movement: Observed Score: 01/14 F. Breathing: Observed BIOMETRY: BPD: 75.5 mmG.Age: 30w 2d 56 % OFD: 101.7 mm HC: 282.8 mm G.Age: 31w 0d 54 % AC: 257.6 mm G.Age: 29w 6d 51 % FL: 56.7 mm G.Age: 29w 5d 36 % HUM: 50.2 mm G.Age: 29w 3d 44 % CER: 38.5 mm G.Age: 31w 4d 87 % LV: 2.57 mm CI: 74.2 % 70 - 86 FL/HC: 20.0 % 19.2 - 21.4 HC/AC: 1.10 0.99 - 1.21 FL/BPD: 75.1 % 71 - 87 FL/AC: 22.0 % 20 - 24 Est. FW: 1494 gm 3 lb 5 oz 54 % GESTATIONAL AGE: Clinical KWAKU: 29w 5d KWAKU: 05/28/25 U/S Today: 30w 2d KWAKU: 10/08 10/01 Best: 29w 5d Det. By: Clinical KWAKU KWAKU: 11/03/24 TARGETED ANATOMY: Central Nervous System Calvarium/Cranial V.: Normal appearance Intracranial Maria Elena: Normal appearance Cavum: Suboptimal views Parenchyma: Normal appearance Lateral Ventricles: Normal appearance Choroid Plexus: Normal appearance Cereb./Vermis: Normal appearance Cisterna Magna: Normal appearance Corpus Callosum: Normal appearance Midline Falx: Normal appearance Spine Cervical: Normal appearance Thoracic: Normal appearance Lumbar: Normal appearance Sacral: Suboptimal views Head/Neck Face: Normal appearance Lips: Normal appearance Neck: Normal appearance Nasal Bone: Suboptimal views Palate: Suboptimal views Profile: Suboptimal views Orbits/Eyes: Normal appearance Mandible: Normal appearance Maxilla: Suboptimal views Thorax Thoracic Contour: Normal appearance Lungs: Normal appearance 4 Chamber View: Normal appearance Cardiac Activity: Normal Cardiac Rhythm: Normal Cardiac Situs: Normal appearance Rt Outflow Tract: Suboptimal views Lt Outflow Tract: Suboptimal views Aortic Arch: Normal appearance Ductal Arch: Normal appearance SVC: Normal appearance Interventr. Septum: Suboptimal views Cardiac [place]: Normal appearance Diaphragm: Normal appearance 3 Vessel View: Suboptimal views 3 V Trachea View: Suboptimal views IVC: Normal Appearance Crossing: Suboptimal views Abdomen Ventral Wall: Normal appearance Cord Insertion: Normal appearance Situs: Normal appearance Stomach: Normal appearance Lt Kidney: Normal appearance Rt Kidney: Normal appearanceBladder: Normal appearance Extremities Lt Humerus: Normal appearance Rt Humerus: Suboptimal views Lt Forearm: Normal appearance Rt Forearm: Suboptimal views Lt Hand: Normal appearance Rt Hand: Suboptimal views Lt Femur: Normal appearance Rt Femur: Normal appearance Lt Lower Leg: Normal appearance Rt Lower Leg: Normal appearance Lt Foot: Normal appearance Rt Foot: Normal appearance Other UmbilicalCord: Normal 3-vessel Genitalia: Suboptimal views Comment: Renal arteries and Bilateral Ankles - suboptimal views Eliezer Gonzales MD, HECTOR, FACOG Electronically Signed Final Report 08/23/2024 02:04 pm 1. [place] live intrauterine at 29w 5d. 2. The estimated weight (EFW) is 1494 grams, which is at the 54% for this gestational age. The AC measures at 51%. 3. The amniotic fluid index is 12.9cm, which is within normal limits. 4. Detailed anatomic evaluation was typical, with limitations as noted in body of report. Limitations are secondary to late gestational age. 5. [facility] 01/14 . RECOMMENDATIONS 1. Plan per inpatient team. 2. Follow up as clinically indicated. Ultrasound is not diagnostic for aneuploidy and will not detect all structural abnormalities, even if multiple exams are performed during a given . Normal ultrasound findings do not guarantee normal outcomes. US biophysical profile wo non stress testing Result Date: 08/23/2024 OBSTETRICS REPORT (Signed Final 08/23/2024 02:04 pm) PATIENT INFO: ID #: [id number] : [birth year] (34 yrs)(F) Name: SKYLAR LANDRY Visit Date: 08/23/2024 10:29 am PERFORMED BY: Attending: Eliezer Gonzales MD, HECTOR, FACOG Performed By: Som Miller Referred By: ELENA PARK Location: [facility] Visit Type: Inpatient - Hospital SERVICE(S) PROVIDED: Level II complete (Targeted OB) 35482 BPP w/out NST 65363 INDICATIONS: Drug use complicating , O99.320 unspecified trimester Other psychoactivesubstance abuse, F19.10 uncomplicated (HCC) EVALUATION: Num Of Fetuses: 1 Heart Rate(bpm): 141 Cardiac Activity: Regu lar rhythm Lie: Longitudinal Presentation: Breech Placenta: Anterior Amniotic Fluid TYREE FV: Within normal limits TYREE Sum(cm) %Tile Largest Pocket(cm) 12.9 37 5.1 RUQ(cm) LUQ(cm) LLQ(cm) 4 5.1 3.8 BIOPHYSICAL EVALUATION: Amniotic F.V: Within normal limits F. Tone: Observed F. Movement: Observed Score: 01/14 F. Breathing: Observed BIOMETRY: BPD: 75.5 mmG.Age: 30w 2d 56 % OFD: 101.7 mm HC: 282.8 mm G.Age: 31w 0d 54 % AC: 257.6 mm G.Age: 29w 6d 51 % FL: 56.7 mm G.Age: 29w 5d 36 % HUM: 50.2 mm G.Age: 29w 3d 44 % CER: 38.5 mm G.Age: 31w 4d 87 % LV: 2.57 mm CI: 74.2 % 70 - 86 FL/HC: 20.0 % 19.2 - 21.4 HC/AC: 1.10 0.99 - 1.21 FL/BPD: 75.1 % 71 - 87 FL/AC: 22.0 % 20 - 24 Est. FW: 1494 gm 3 lb 5 oz 54 % GESTATIONAL AGE: Clinical KWAKU: 29w 5d KWAKU: 11/03/24 U/S Today: 30w 2d KWAKU: 10/08 10/01 Best: 29w 5d Det. By: Clinical KWAKU KWAKU: 11/03/24 TARGETED ANATOMY: Central Nervous System Calvarium/Cranial V.: Normal appearance Intracranial Maria Elena: Normal appearance Cavum: Suboptimal views Parenchyma: Normal appearance Lateral Ventricles: Normal appearance Choroid Plexus: Normal appearance Cereb./Vermis: Normal appearance Cisterna Magna: Normal appearance Corpus Callosum: Normal appearance Midline Falx: Normal appearance Spine Cervical: Normal appearance Thoracic: Normal appearance Lumbar: Normal appearance Sacral: Suboptimal views Head/Neck Face: Normal appearance Lips: Normal appearance Neck: Normal appearance Nasal Bone: Suboptimal views Palate: Suboptimal views Profile: Suboptimal views Orbits/Eyes: Normal appearance Mandible: Normal appearance Maxilla: Suboptimal views Thorax Thoracic Contour: Normal appearance Lungs: Normal appearance 4 Chamber View: Normal appearance Cardiac Activity: Normal Cardiac Rhythm: Normal Cardiac Situs: Normal appearance Rt Outflow Tract: Suboptimal views Lt Outflow Tract: Suboptimal views Aortic Arch: Normal appearance Ductal Arch: Normal appearance SVC: Normal appearance Interventr. Septum: Suboptimal views Cardiac [place]: Normal appearance Diaphragm: Normal appearance 3 Vessel View: Suboptimal views 3 V Trachea View: Suboptimal views IVC: Normal Appearance Crossing: Suboptimal views Abdomen Ventral Wall: Normal appearance Cord Insertion: Normal appearance Situs: Normal appearance Stomach: Normal appearance Lt Kidney: Normal appearance Rt Kidney: Normal appearanceBladder: Normal appearance Extremities Lt Humerus: Normal appearance Rt Humerus: Suboptimal views Lt Forearm: Normal appearance Rt Forearm: Suboptimal views Lt Hand: Normal appearance Rt Hand: Suboptimal views Lt Femur: Normal appearance Rt Femur: Normal appearance Lt Lower Leg: Normal appearance Rt Lower Leg: Normal appearance Lt Foot: Normal appearance Rt Foot: Normal appearance Other UmbilicalCord: Normal 3-vessel Genitalia: Suboptimal views Comment: Renal arteries and Bilateral Ankles - suboptimal views Eliezer Gonzales MD, HECTOR, FACOG Electronically Signed Final Report 08/23/2024 02:04 pm 1. [place] live intrauterine at 29w 5d. 2. The estimated weight (EFW) is 1494 grams, which is at the 54% for this gestational age. The AC measures at 51%. 3. The amniotic fluid index is 12.9cm, which is within normal limits. 4. Detailed anatomic evaluation was typical, with limitations as noted in body of report. Limitations are secondary to late gestational age. 5. [facility] / . RECOMMENDATIONS 1. Plan per inpatient team. 2. Follow up as clinically indicated. Ultrasound is not diagnostic for aneuploidy and will not detect all structural abnormalities, even if multiple exams are performed during a given . Normal ultrasound findings do not guarantee normal outcomes. ECG 12 lead Sinus rhythm Probable left atrial enlargement Low voltage, precordial leads Consider anterior infarct US retroperitoneum Result Date: 08/23/2024 [facility] Name: [facility] 1990 [id number] Exam Date/Time: 08/23/2024 01:17 Procedure: US RETROPERITONEAL Ordering Provider: ELISE MEGHANReason For Exam: Right CVA ttp Exam type: Ultrasound retroperitoneum. CLINICAL INDICATION: Right CVA ttp COMPARISON: None Technique: Grayscale sonographic images were obtained of the kidneys and bladder. Color Doppler was utilized. FINDINGS: Right Kidney: Size: 10.1 x 4.7 x 5.3 cm Renal Parenchyma:Normal echogenicity and cortical thickness. Hydronephrosis: None Renal Calculi: None Left Kidney: Size: 10.1 x 5.1 x 4.6 cm Renal Parenchyma: Normal echogenicity and cortical thickness. Hydronephrosis: None Renal Calculi: Echogenic focus noted in the lateral pole measuring 7 mm. Obscured due to overlying gravid uterus. No acute sonographic process identified. Nonobstructive left renal calculus measuring up to 7 mm. Limited visualization of the bladder due to gravid uterus. Report Dictated on Electronically Signed By: Frandy Lynch MD Electronically Signed Date/Time: 08/23/2024 5:07 AM EDT Labs CBC: No results for input(s): WBC, HGB, PLT, MCV, RDW in the last 72 hours. BMP: No results for input(s): NA, K, CL, CO2, BUN, CREATININE, CALCIUM, MG, PHOS in the last 72 hours. Liver Profile: No results for input(s): AST, ALT, BILITOT, ALKPHOS, PROT, LIPASE, INR in the last 72hours. No lab exists for component: LABALBU Glucose: No results for input(s): GLUCOSE, POCGLU in the last 72 hours. No lab exists for component: LABA1C Lactic Acid: No lab exists for component: LACTA Cardiac Injury Profile: No results for input(s): CKTOTAL, CKMB, TROPONINI in the last 72 hours. Last 24 Hours: Recent Results (from the past 24 hours) Glucose Challenge Screen, Collection Time: 08/29/24 7:40 PM Result Value Ref Range Glucose Challenge Screen, 1 HR 85 <=140 mg/dL Type and screen Collection Time: 08/30/24 6:26 AM Result Value Ref Range ABO Grouping A Antibody Screen NEG Rh Type POS ASSESSMENT & PLAN Opioid use disorder Benzodiazepine abuse Poor Social Counseled patient on biopsychosocial consequences of substance use. Encouraged professional chemical dependency treatment. Encouraged 12 step meeting attendance. Follow up plan for addiction management discussed with patient: MAT and aftercare through [facility] starting Friday. Discharge today with follow-upat [facility] tomorrow. Will provide Subtex 8 mg BID to get through tomorrow's appointment. Agrees to attend [facility]. Opioid withdrawal Last use of fentanyl and methadone was on 08/20 or 08/21. Methadone discontinued. Continue Suboxone 8 mg BID with plan to transition to Subtex 8 mg BID as outpatient. COWS scores per unit protocol. PRN medications for withdrawal symptom management added. Benzodiazepine withdrawal - resolved Last use of Xanax was on 08/21. Librium taper discontinued. CIWA scores per unit protocol. PRN medications for withdrawal symptom management added. Depression Anxiety Insomnia Continue Zoloft 50 mg daily for mood/anxiety. Continue Seroquel 50 mg nightly as needed for insomnia. Resources provided for psychiatry follow-up. Remaining obstetrical management by the primary team - IUP 30w5d LL pain Nephrolithiasis Asymptomatic bacteruria Addiction team to sign off as patient is to be discharged and will follow-up at [facility] tomorrow. Subtex 8 mg BID, Zoloft 50 mg, and Seroquel 50 mg nightly PRN insomnia sent to [facility]. Cosigned by Huseyin Blanco MD at 08/30/2024 1:37 PM EDT Associated attestation - Huseyin Blanco MD - 08/30/2024 1:37 PM EDT I saw and evaluated the patient. I reviewed the residents evaluation and agree with plan to provideRx for Subutex with plans to enter the centering program. I did spend --50--minutes coordinating care,providing discussion on patient's medical,psychiatric and chemical dependency history, and discussion of treatment plan * Sebastian Gracia - 08/30/2024 6:29 AM EDT Images from the original note were not included. Maternal Medicine Service Resident Progress Note 08/30/2024 6:29 AM 08/22/2024 Hospital Day: 9 Skylar Frantz, 34 y.o. 30w5d Patient has been seen and examined. Pt reports continued left leg pain. States it has gotten a little better. Denies withdrawal symptoms this Am. Positive movement Negative vaginal bleeding Negative LOF Negative Contractions Vitals: 08/29/24 0912 08/29/24 1559 08/29/24 2024 08/30/24 0609 BP: 99/67 95/65 99/66 93/64 Pulse: 89 82 94 90 Resp: 16 16 17 16 Temp: 37.1 C (98.7 F) 36.9 C (98.4 F) 36.6 C (97.8 F) 36.4 C (97.6 F) TempSrc: Oral Temporal Temporal Temporal SpO2: 98% 98% 98% 97% Weight: Height: FHT: 140, moderate variability Accels: present Decels: interimittent variables Contractions: none Physical Exam: Gen: NAD HEENT: Normocephalic, Atraumatic, EOMI, MMM Resp: Equal chest rise bilaterally Abd: soft, gravid, NTND, no rebound, no guarding. No fundal tenderness Ext: No LE edema, no calf tenderness or swelling Medications: Current Facility-Administered Medications Medication Dose Route Frequency Provider Last Rate Last Admin acetaminophen (Tylenol) tablet 1,000 mg 1,000 mg Oral q6h PRN Lacey Gemma, DO 1,000 mg at 08/29/24 1140 buprenorphine-naloxone (Suboxone) 8-2 MG per sublingual film 1 Film 1 Film SubLINGual BID Cory Morris MD 1 Film at 08/30/24 0611 cephalexin (Keflex) capsule 500 mg 500 mg Oral 4x daily Elena Park, DO 500 mg at 08/29/247 cyclobenzaprine (Flexeril) tablet 10 mg 10 mg Oral TID PRN Mercedez Villegas, DO 10 mg at 08/29/24 2128 dicyclomine (Bentyl) capsule 10 mg 10 mg Oral 4x daily PRN Lacey Gemma, DO 10 mg at 08/26/24 0900 diphenhydrAMINE (BENADryl) tablet/capsule 25 mg 25 mg Oral q6h PRN Lacey Gemma, DO 25 mg at 08/29/24 1329 enoxaparin (Lovenox) syringe 40 mg 40 mg SubCUTAneous q24h Mercedez Schillingu, DO 40 mg at 08/29/24 1144 famotidine (Pepcid) tablet 20 mg 20 mg Oral BID Mercedez Shakiru, DO 20 mg at 08/29/24 211 hydrOXYzine pamoate (Vistaril) capsule 25 mg 25 mg Oral q6h PRN Lacey Gemma, DO 25 mg at 08/29/248 Lidocaine 4 % patch 1 patch 1 patch TransDERmal Daily Elena Park, DO 1 patch at 08/29/24 0920 Lidocaine 4 % patch 1 patch 1 patch TransDERmal Daily Elena Park, DO 1 patch at 08/28/24 0931 naloxone (Narcan) injection 0.4 mg 0.4 mg IntraVENous q5 min PRN Gemini Elise, DO ondansetron (Zofran) injection 4 mg 4 mg IntraVENous q8h PRN Lacey Mosleyma, DO 4 mg at 08/29/248 vitamin tablet 1 tablet Oral Daily Lacey Gemma, DO 1 tablet at 08/29/24 0919 promethazine (Phenergan) tablet 12.5 mg 12.5 mg Oral q6h PRN Lacey Gemma, DO 12.5 mg at 08/28/24 1246 QUEtiapine (SEROquel) tablet 50 mg 50 mg Oral Nightly PRN Manuel Woods MD 50 mg at 08/29/242116 sertraline (Zoloft) tablet 50 mg 50 mg Oral Daily Nakia Cronin, DO 50 mg at 08/29/24 0919 sodium chloride 0.9 % infusion 5-250 mL/hr IntraVENous PRN Lacey Mosleyma, DO sodium chloride 0.9% (NS) flush 10 mL 10 mL IntraVENous 2 times per day Lacey Gemma, DO 10 mL at 08/29/242119 sodium chloride 0.9% (NS) flush 10 mL 10 mL IntraVENous PRN Lacey Gemma, DO Assessment/Plan: Skylar Landry is a 34 y.o. 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 hospital. Kidney disorder --patient with nonobstructing stone; no complaints today. FWB -- reassuring status overall; Candidate for BMZ and magnesium sulfate for neuroprotectionif indicated. PPBC --not discussed -- GCT ordered. Will plan for [facility] to [facility]. Vaccinations --received COVID and Tdap on 08/23/24 DVT ppx -- SCDs (lovenox declined) Mango Gonzales MD HECTOR FACOG Maternal- Medicine * Denia Arteaga MD - 08/26/2024 2:57 PM EDT Called by RN due to no available MFM resident. SVE due to patient reporting contractions. Unchangedfrom previously recorded exam, /-3. 1L IVF bolus ordered. Put on monitor with toco. * Nakia Cronin DO - 08/26/2024 8:17 AM EDT Images from the original note were not included. ADDICTION MEDICINE PROGRESS NOTE Patient: Skylar Landry __ Problem List: Principal Problem: Substance use disorder Active Problems: state, incidental Polysubstance abuse (CMS/HCC) (HCC) Anxiety and depression SUBJECTIVE Chief Complaint Patient presents with Other Detox from methadone Last 4 COWS scores per RN assessments 1 - 3 - 2 - 2 Interim History The patient admits to abdominal pain and nausea this morning. She denies vomiting or experiencing other symptoms of withdrawal. She was unable to eat breakfast because of her nausea. She slept well last night and denies nightmares. She remains comfortable with her decision to switch from methadone t o Suboxone for convenience. She denies SI/HI/AVH. Review of Systems Review of Systems Constitutional: Positive for decreased appetite. Negative for chills, diaphoresis and fever. HENT: Negative for congestion. Cardiovascular: Negative for chest pain. Respiratory: Negative for shortness of breath. Musculoskeletal: Negative for muscle cramps, muscle weakness and myalgias. Gastrointestinal: Positive for abdominal pain and nausea. Negative for vomiting. Neurological: Negative for headaches and tremors. Psychiatric/Behavioral: Positive for depression. Negative for suicidal ideas and thoughts of violence. The patient does not have insomnia and is not nervous/anxious. OBJECTIVE Vitals Vitals: 08/26/24 0935 08/26/24 0940 08/26/24 0945 08/26/24 0955 BP: Pulse: (!) 47 (!) 47 (!) 49 (!) 49 Resp: Temp: TempSrc: SpO2: Weight: Height: Physical Exam Vitals and nursing note reviewed. Constitutional: Appearance: She is not ill-appearing or diaphoretic. Comments: Appears in discomfort. HENT: Head: Normocephalic and atraumatic. Nose: Nose normal. No congestion or rhinorrhea. Mouth/Throat: Mouth: Mucous membranes are moist. Eyes: Conjunctiva/sclera: Conjunctivae normal. Cardiovascular: Rate and Rhythm: Normal rate. Pulmonary: Effort: Pulmonary effort is normal. Abdominal: Tenderness: There is abdominal tenderness. Skin: General: Skin is warm. Neurological: Mental Status: She is alert, oriented to person, place, and time and easily aroused. Motor: No tremor. Psychiatric: Attention and Perception: Attention and perception normal. She does not perceive auditory or visualhallucinations. Mood and Affect: Affect normal. Mood is depressed. Mood is not anxious. Speech: Speech normal. Behavior: Behavior normal. Behavior is cooperative. Thought Content: Thought content normal. Thought content is not paranoid or delusional. Thought content does not include homicidal or suicidal ideation. Cognition and Memory: Cognition and memory normal. Judgment: Judgment normal. Medications Home Meds Current Outpatient Medications Medication Instructions methadone (DOLOPHINE) 140 mg, Daily Scheduled Inpatient Meds buprenorphine-naloxone, 0.5 Film, SubLINGual, BID Followed by [START ON 08/27/2024] buprenorphine-naloxone, 1 Film, SubLINGual, BID Followed by [START ON 08/28/2024] buprenorphine-naloxone, 2 Film, SubLINGual, BID Followed by [START ON 08/29/2024] buprenorphine-naloxone, 3 Film, SubLINGual, BID enoxaparin, 40 mg, SubCUTAneous, q24h Lidocaine, 1 patch, TransDERmal, Daily [START ON 08/27/2024] methadone, 100 mg, Oral, q24h Followed by [START ON 08/28/2024] methadone, 80 mg, Oral, q24h Followed by [START ON 08/29/2024] methadone, 60 mg, Oral, q24h vitamin, 1 tablet, Oral, Daily sertraline, 50 mg, Oral, Daily sodium chloride 0.9%, 10 mL, IntraVENous, 2 times per day PRN Inpatient Meds PRN medications: acetaminophen, cyclobenzaprine, dicyclomine, diphenhydrAMINE, hydrOXYzine pamoate,naloxone, ondansetron, promethazine, QUEtiapine, sodium chloride, sodium chloride 0.9% Continuous Inpatient Infusions Recent Imaging US OB detail anatomy Result Date: 08/23/2024 OBSTETRICS REPORT (Signed Final 08/23/2024 02:04 pm) PATIENT INFO: ID #: [id number] : [birth year] (34 yrs)(F) Name: SKYLAR LANDRY Visit Date: 08/23/2024 10:29 am PERFORMED BY: Attending: Eliezer Gonzales MD, HECTOR, FACOG Performed By: Som Miller Referred By: ELENA PARK Location: [facility] IP Visit Type: Inpatient - Hospital SERVICE(S) PROVIDED: Level II complete (Targeted OB) 68502 BPP w/out NST 95276 INDICATIONS: Drug use complicating , O99.320 unspecified trimester Other psychoactivesubstance abuse, F19.10 uncomplicated (HCC) EVALUATION: Num Of Fetuses: 1 Heart Rate(bpm): 141 Cardiac Activity: Regu lar rhythm Lie: Longitudinal Presentation: Breech Placenta: Anterior Amniotic Fluid TYREE FV: Within normal limits TYREE Sum(cm) %Tile Largest Pocket(cm) 12.9 37 5.1 RUQ(cm) LUQ(cm) LLQ(cm) 4 5.1 3.8 BIOPHYSICAL EVALUATION: Amniotic F.V: Within normal limits F. Tone: Observed F. Movement: Observed Score: 01/14 F. Breathing: Observed BIOMETRY: BPD: 75.5 mmG.Age: 30w 2d 56 % OFD: 101.7 mm HC: 282.8 mm G.Age: 31w 0d 54 % AC: 257.6 mm G.Age: 29w 6d 51 % FL: 56.7 mm G.Age: 29w 5d 36 % HUM: 50.2 mm G.Age: 29w 3d 44 % CER: 38.5 mm G.Age: 31w 4d 87 % LV: 2.57 mm CI: 74.2 % 70 - 86 FL/HC: 20.0 % 19.2 - 21.4 HC/AC: 1.10 0.99 - 1.21 FL/BPD: 75.1 % 71 - 87 FL/AC: 22.0 % 20 - 24 Est. FW: 1494 gm 3 lb 5 oz 54 % GESTATIONAL AGE: Clinical KWAKU: 29w 5d KWAKU: 11/03/24 U/S Today: 30w 2d KWAKU: 10/08 10/01 Best: 29w 5d Det. By: Clinical KWAKU KWAKU: 11/03/24 TARGETED ANATOMY: Central Nervous System Calvarium/Cranial V.: Normal appearance Intracranial Maria Elena: Normal appearance Cavum: Suboptimal views Parenchyma: Normal appearance Lateral Ventricles: Normal appearance Choroid Plexus: Normal appearance Cereb./Vermis: Normal appearance Cisterna Magna: Normal appearance Corpus Callosum: Normal appearance Midline Falx: Normal appearance Spine Cervical: Normal appearance Thoracic: Normal appearance Lumbar: Normal appearance Sacral: Suboptimal views Head/Neck Face: Normal appearance Lips: Normal appearance Neck: Normal appearance Nasal Bone: Suboptimal views Palate: Suboptimal views Profile: Suboptimal views Orbits/Eyes: Normal appearance Mandible: Normal appearance Maxilla: Suboptimal views Thorax Thoracic Contour: Normal appearance Lungs: Normal appearance 4 Chamber View: Normal appearance Cardiac Activity: Normal Cardiac Rhythm: Normal Cardiac Situs: Normal appearance Rt Outflow Tract: Suboptimal views Lt Outflow Tract: Suboptimal views Aortic Arch: Normal appearance Ductal Arch: Normal appearance SVC: Normal appearance Interventr. Septum: Suboptimal views Cardiac [place]: Normal appearance Diaphragm: Normal appearance 3 Vessel View: Suboptimal views 3 V Trachea View: Suboptimal views IVC: Normal Appearance Crossing: Suboptimal views Abdomen Ventral Wall: Normal appearance Cord Insertion: Normal appearance Situs: Normal appearance Stomach: Normal appearance Lt Kidney: Normal appearance Rt Kidney: Normal appearanceBladder: Normal appearance Extremities Lt Humerus: Normal appearance Rt Humerus: Suboptimal views Lt Forearm: Normal appearance Rt Forearm: Suboptimal views Lt Hand: Normal appearance Rt Hand: Suboptimal views Lt Femur: Normal appearance Rt Femur: Normal appearance Lt Lower Leg: Normal appearance Rt Lower Leg: Normal appearance Lt Foot: Normal appearance Rt Foot: Normal appearance Other UmbilicalCord: Normal 3-vessel Genitalia: Suboptimal views Comment: Renal arteries and Bilateral Ankles - suboptimal views Eliezer Gonzales MD, HECTOR, FACOG Electronically Signed Final Report 08/23/2024 02:04 pm 1. [place] live intrauterine at 29w 5d. 2. The estimated weight (EFW) is 1494 grams, which is at the 54% for this gestational age. The AC measures at 51%. 3. The amniotic fluid index is 12.9cm, which is within normal limits. 4. Detailed anatomic evaluation was typical, with limitations as noted in body of report. Limitations are secondary to late gestational age. 5. [facility] 01/14 . RECOMMENDATIONS 1. Plan per inpatient team. 2. Follow up as clinically indicated. Ultrasound is not diagnostic for aneuploidy and will not detect all structural abnormalities, even if multiple exams are performed during a given . Normal ultrasound findings do not guarantee normal outcomes. US biophysical profile wo non stress testing Result Date: 08/23/2024 OBSTETRICS REPORT (Signed Final 08/23/2024 02:04 pm) PATIENT INFO: ID #: [id number] : [birth year] (34 yrs)(F) Name: SKYLAR LANDRY Visit Date: 08/23/2024 10:29 am PERFORMED BY: Attending: Eliezer Gonzales MD, HECTOR, FACOG Performed By: Som Miller Referred By: ELENA PARK Location: [facility] Visit Type: Inpatient - Hospital SERVICE(S) PROVIDED: Level II complete (Targeted OB) 95685 BPP w/out NST 55550 INDICATIONS: Drug use complicating , O99.320 unspecified trimester Other psychoactivesubstance abuse, F19.10 uncomplicated (HCC) EVALUATION: Num Of Fetuses: 1 Heart Rate(bpm): 141 Cardiac Activity: Regu lar rhythm Lie: Longitudinal Presentation: Breech Placenta: Anterior Amniotic Fluid TYREE FV: Within normal limits TYREE Sum(cm) %Tile Largest Pocket(cm) 12.9 37 5.1 RUQ(cm) LUQ(cm) LLQ(cm) 4 5.1 3.8 BIOPHYSICAL EVALUATION: Amniotic F.V: Within normal limits F. Tone: Observed F. Movement: Observed Score: 01/14 F. Breathing: Observed BIOMETRY: BPD: 75.5 mmG.Age: 30w 2d 56 % OFD: 101.7 mm HC: 282.8 mm G.Age: 31w 0d 54 % AC: 257.6 mm G.Age: 29w 6d 51 % FL: 56.7 mm G.Age: 29w 5d 36 % HUM: 50.2 mm G.Age: 29w 3d 44 % CER: 38.5 mm G.Age: 31w 4d 87 % LV: 2.57 mm CI: 74.2 % 70 - 86 FL/HC: 20.0 % 19.2 - 21.4 HC/AC: 1.10 0.99 - 1.21 FL/BPD: 75.1 % 71 - 87 FL/AC: 22.0 % 20 - 24 Est. FW: 1494 gm 3 lb 5 oz 54 % GESTATIONAL AGE: Clinical KWAKU: 29w 5d KWAKU: 11/03/24 U/S Today: 30w 2d KWAKU: 10/08 10/01 Best: 29w 5d Det. By: Clinical KWAKU KWAKU: 11/03/24 TARGETED ANATOMY: Central Nervous System Calvarium/Cranial V.: Normal appearance Intracranial Maria Elena: Normal appearance Cavum: Suboptimal views Parenchyma: Normal appearance Lateral Ventricles: Normal appearance Choroid Plexus: Normal appearance Cereb./Vermis: Normal appearance Cisterna Magna: Normal appearance Corpus Callosum: Normal appearance Midline Falx: Normal appearance Spine Cervical: Normal appearance Thoracic: Normal appearance Lumbar: Normal appearance Sacral: Suboptimal views Head/Neck Face: Normal appearance Lips: Normal appearance Neck: Normal appearance Nasal Bone: Suboptimal views Palate: Suboptimal views Profile: Suboptimal views Orbits/Eyes: Normal appearance Mandible: Normal appearance Maxilla: Suboptimal views Thorax Thoracic Contour: Normal appearance Lungs: Normal appearance 4 Chamber View: Normal appearance Cardiac Activity: Normal Cardiac Rhythm: Normal Cardiac Situs: Normal appearance Rt Outflow Tract: Suboptimal views Lt Outflow Tract: Suboptimal views Aortic Arch: Normal appearance Ductal Arch: Normal appearance SVC: Normal appearance Interventr. Septum: Suboptimal views Cardiac [place]: Normal appearance Diaphragm: Normal appearance 3 Vessel View: Suboptimal views 3 V Trachea View: Suboptimal views IVC: Normal Appearance Crossing: Suboptimal views Abdomen Ventral Wall: Normal appearance Cord Insertion: Normal appearance Situs: Normal appearance Stomach: Normal appearance Lt Kidney: Normal appearance Rt Kidney: Normal appearanceBladder: Normal appearance Extremities Lt Humerus: Normal appearance Rt Humerus: Suboptimal views Lt Forearm: Normal appearance Rt Forearm: Suboptimal views Lt Hand: Normal appearance Rt Hand: Suboptimal views Lt Femur: Normal appearance Rt Femur: Normal appearance Lt Lower Leg: Normal appearance Rt Lower Leg: Normal appearance Lt Foot: Normal appearance Rt Foot: Normal appearance Other UmbilicalCord: Normal 3-vessel Genitalia: Suboptimal views Comment: Renal arteries and Bilateral Ankles - suboptimal views Eliezer Gonzales MD, HECTOR, FACOG Electronically Signed Final Report 08/23/2024 02:04 pm 1. [place] live intrauterine at 29w 5d. 2. The estimated weight (EFW) is 1494 grams, which is at the 54% for this gestational age. The AC measures at 51%. 3. The amniotic fluid index is 12.9cm, which is within normal limits. 4. Detailed anatomic evaluation was typical, with limitations as noted in body of report. Limitations are secondary to late gestational age. 5. BP 01/14 . RECOMMENDATIONS 1. Plan per inpatient team. 2. Follow up as clinically indicated. Ultrasound is not diagnostic for aneuploidy and will not detect all structural abnormalities, even if multiple exams are performed during a given . Normal ultrasound findings do not guarantee normal outcomes. ECG 12 lead Sinus rhythm Probable left atrial enlargement Low voltage, precordial leads Consider anterior infarct US retroperitoneum Result Date: 08/23/2024 [facility] Name[facility] 1990 [id number] Exam Date/Time: 08/23/2024 01:17 Procedure: US RETROPERITONEAL Ordering Provider: ELISE MEGHANReason For Exam: Right CVA ttp Exam type: Ultrasound retroperitoneum. CLINICAL INDICATION: Right CVA ttp COMPARISON: None Technique: Grayscale sonographic images were obtained of the kidneys and bladder. Color Doppler was utilized. FINDINGS: Right Kidney: Size: 10.1 x 4.7 x 5.3 cm Renal Parenchyma:Normal echogenicity and cortical thickness. Hydronephrosis: None Renal Calculi: None Left Kidney: Size: 10.1 x 5.1 x 4.6 cm Renal Parenchyma: Normal echogenicity and cortical thickness. Hydronephrosis: None Renal Calculi: Echogenic focus noted in the lateral pole measuring 7 mm. Obscured due to overlying gravid uterus. No acute sonographic process identified. Nonobstructive left renal calculus measuring up to 7 mm. Limited visualization of the bladder due to gravid uterus. Report Dictated on Electronically Signed By: Frandy Lynch MD Electronically Signed Date/Time: 08/23/2024 5:07 AM EDT Labs CBC: No results for input(s): WBC, HGB, PLT, MCV, RDW in the last 72 hours. BMP: No results for input(s): NA, K, CL, CO2, BUN, CREATININE, CALCIUM, MG, PHOS in the last 72 hours. Liver Profile: No results for input(s): AST, ALT, BILITOT, ALKPHOS, PROT, LIPASE, INR in the last 72hours. No lab exists for component: LABALBU Glucose: No results for input(s): GLUCOSE, POCGLU in the last 72 hours. No lab exists for component: LABA1C Lactic Acid: No lab exists for component: LACTA Cardiac Injury Profile: No results for input(s): CKTOTAL, CKMB, TROPONINI in the last 72 hours. Last 24 Hours: Recent Results (from the past 24 hours) Type and screen Collection Time: 08/26/24 1:21 AM Result Value Ref Range ABO Grouping A Antibody Screen NEG Rh Type POS ASSESSMENT & PLAN Opioid use disorder Benzodiazepine use disorder Counseled patient on biopsychosocial consequences of substance use. Encouraged professional chemical dependency treatment. Encouraged 12 step meeting attendance. Follow up plan for addiction management discussed with patient: MAT and aftercare through [facility]. Opiate withdrawal Last use of fentanyl and methadone was on 08/20 or 08/21. QTC 435. Cross taper from methadone to Suboxone through micro-dosing. Suboxone 0.5 - 2 mg film BID for today. Methadone 120 mg oral solution for today. COWS scores per unit protocol. PRN medications for withdrawal symptom management added. Benzodiazepine withdrawal Last use of Xanax was on 08/21. Librium taper discontinued. CIWA scores per unit protocol. PRN medications for withdrawal symptom management added. Depression Anxiety Insomnia - improving Continue Zoloft 50 mg daily for mood/anxiety. Continue Seroquel 25 mg nightly as needed for insomnia. Patient would like to try to establish with psychiatry through [facility]. Will provide community/[facility] psychiatry resources as well. Will follow. Cosigned by Cory Morris MD at 08/26/2024 1:18 PM EDT Associated attestation - Cory Morris MD - 08/26/2024 1:18 PM EDT Patient seen and examined by me. Discussed patient with the resident/fellow/MARTHA. Agree with assessment and plan as written. I provided discussion regarding this patient's condition ,chemical dependency, psychiatric and medical history, symptoms and signs , reviewing past detoxification hospitalizations, assessing withdrawal status, evaluating detoxification medications, and discussing lab work and treatment plan ,importance of compliance with the treatment with providing options, as well as documenting on the day of the visit. Cory Morris MD 08/26/24 1:17 PM * Mercedez Villegas DO - 08/26/2024 6:16 AM EDT Images from the original note were not included. Maternal Medicine Service Resident Progress Note 08/26/2024 6:17 AM 08/22/2024 Hospital Day: 5 Skylar Frantz, 34 y.o. 30w1d Patient has been seen and examined. Pt resting comfortably and not disturbed. Vitals: 08/25/24 1610 08/25/24 1725 08/25/24 1909 08/26/24 0112 BP: 116/66 102/61 103/70 Pulse: 98 96 93 Resp: 18 16 18 Temp: 36.8 C (98.2 F) 36.8 C (98.2 F) 36.3 C (97.4 F) TempSrc: Oral Oral Temporal SpO2: 98% 96% 96% Weight: 183 lb (83 kg) Height: 5' 4 (1.626 m) FHT: 130, moderate variability Accels: present Decels: absent Contractions: none Physical Exam: Gen: NAD, resting comfortably in bed HEENT: Normocephalic, Atraumatic Resp: No increased WOB, no respiratory distress Medications: Current Facility-Administered Medications Medication Dose Route Frequency Provider Last Rate Last Admin acetaminophen (Tylenol) tablet 1,000 mg 1,000 mg Oral q6h PRN Lacey Gemma, DO 1,000 mg at 08/25/24 1741 buprenorphine-naloxone (Suboxone) 2-0.5 MG per sublingual film 0.5 Film 0.5 Film SubLINGual BID Lien Morris MD Followed by [START ON 08/27/2024] buprenorphine-naloxone (Suboxone) 2-0.5 MG per sublingual film 1 Film 1 Film SubLINGual BID Cory Morris MD Followed by [START ON 08/28/2024] buprenorphine-naloxone (Suboxone) 2-0.5 MG per sublingual film 2 Film 2 Film SubLINGual BID Cory Morris MD Followed by [START ON 08/29/2024] buprenorphine-naloxone (Suboxone) 2-0.5 MG per sublingual film 3 Film 3 Film SubLINGual BID Cory Morris MD chlordiazePOXIDE (Librium) capsule 5 mg 5 mg Oral q6h Nakia Cronin, DO 5 mg at 08/26/24 0605 cyclobenzaprine (Flexeril) tablet 5 mg 5 mg Oral TID PRN Lacey Gemma, DO 5 mg at 08/24/242029 dicyclomine (Bentyl) capsule 10 mg 10 mg Oral 4x daily PRN Lacey Gemma, DO diphenhydrAMINE (BENADryl) tablet/capsule 25 mg 25 mg Oral q6h PRN Lacey Gemma, DO 25 mg at 08/24/242029 enoxaparin (Lovenox) syringe 40 mg 40 mg SubCUTAneous q24h Mercedez Villegas, DO 40 mg at 08/25/24 1233 hydrOXYzine pamoate (Vistaril) capsule 25 mg 25 mg Oral q6h PRN Lacey Gemma, DO 25 mg at 08/24/242029 Lidocaine 4 % patch 1 patch 1 patch TransDERmal Daily Elena Park, DO 1 patch at 08/25/24 0841 methadone (Dolophine) 10 MG/ML solution 120 mg 120 mg Oral q24h Cory Morris MD Followed by [START ON 08/27/2024] methadone (Dolophine) 10 MG/ML solution 100 mg 100 mg Oral q24h Cory Morris MD Followed by [START ON 08/28/2024] methadone (Dolophine) 10 MG/ML solution 80 mg 80 mg Oral q24h Cory Morris MD Followed by [START ON 08/29/2024] methadone (Dolophine) 10 MG/ML solution 60 mg 60 mg Oral q24h Cory Morris MD naloxone (Narcan) injection 0.4 mg 0.4 mg IntraVENous q5 min PRN Gemini Elise DO ondansetron (Zofran) injection 4 mg 4 mg IntraVENous q8h PRN Lacey Mosleyma, DO 4 mg at 08/24/242029 vitamin tablet 1 tablet Oral Daily Lacey Gemma, DO 1 tablet at 08/25/24 0841 promethazine (Phenergan) tablet 12.5 mg 12.5 mg Oral q6h PRN Lacey Gemma, DO 12.5 mg at 08/23/24 0836 QUEtiapine (SEROquel) tablet 25 mg 25 mg Oral Nightly PRN Nakia Cronin, DO 25 mg at 08/25/242027 sertraline (Zoloft) tablet 50 mg 50 mg Oral Daily Nakia Berardinis, DO 50 mg at 08/25/24 0841 sodium chloride 0.9 % infusion 5-250 mL/hr IntraVENous PRN Lacey Gemma, DO sodium chloride 0.9% (NS) flush 10 mL 10 mL IntraVENous 2 times per day Lacey Gemma, DO 10 mL at 08/25/242028 sodium chloride 0.9% (NS) flush 10 mL 10 mL IntraVENous PRN Lacey Gemma, DO Assessment/Plan: Skylar Landry is a 34 y.o. 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 TYREE 12.9 cm. Breech - MAT on admission positive for benzodiazepine, methadone, opiates, and fentanyl - Comfort meds ordered - S/p CLP consult - Social work following - Addiction medicine consulted, appreciate recommendations - Started on Librium taper and methadone dose confirmed and ordered - Patient requested to start subutex and transition off of methadone - Subutex microdosing order placed by ADM, will likely take 4 - 5 days for the transition. Patient for likely discharge on Friday or Friday - Patient sleeping on rounds this AM, no concerns per overnight team Abdominal pain Hx nephrolithiasis Hx medullary sponge kidney dx - Reports she was diagnosed with kidney stones 2 wks ago, did not have any signs of infection at that time - Previously followed with Nephrology, has not established care here - Has required B/L stent and PNT in the past - Vitals stable, afebrile overnight - Left CVA ttp on admission however patient has diffuse abdominal tenderness, difficult to discern if related to withdrawal - SVE 1 cm on admission, unchanged from 2 wks ago per pt - Retroperitoneal US (08/23): Nonobstructive left renal calculus measuring up to 7 mm - CBC overall WNL and CMP WNL - Ucx contaminated, repeat resulted 50-90K E Coli - Can consider treatment pending patient symptoms IUP @ 30w1d - Dating by LMP - Cephalic on 08/23 - Monitoring: NST BID - Diet:General - BMZ Deferred Further plan pending d/w attending. Mercedez Villegas DO 08/26/2024, 6:17 AM Cosigned by Carlito Gonzales MD at 08/26/2024 3:57 PM EDT Associated attestation - Janet, Carlito Black MD - 08/26/2024 3:57 PM EDT Hospital Care (Independent): I independently saw and evaluated the patient. I agree with the findings and plan of care as documented in the resident's note. Skylar Landry is a 34 y.o. 30w1d who is admitted for treatment of MILLIE. BP (!) 104/49 Pulse 93 Temp 36.6 C (97.9 F) (Temporal) Resp 16 Ht 1.626 m (5' 4) Wt 83 kg (183 lb) SpO2 99% BMI 31.41 kg/m MILLIE -- appreicate care of ADM team; we are currently doing a taper/ramp to transition the patientfrom methadone to subutex. She is tolerating it well today, perhaps with some w/d complaints. Discussed with patient will take some time to complete this process. Anticipate continued hospitalizationfor days. Goal is to be stable on dose, but may not be at perfect dose. Discussed Thrive/Centering and patient is accepting. CLP -- appreciate care; continue as appropriate while admitted to the hospital. Kidney disorder --patient with nonobstructing stone; no complaints today. FWB -- reassuring status overall; some contractions, but cervix unchanged. Do not think PTL at this time. Candidate for BMZ and magnesium sulfate for neuroprotection if indicated. PPBC --not discussed --GCT prior to discharge. [facility]. Vaccinations --received COVID and Tdap on 08/23/24 DVT ppx -- SCDs (lovenox declined) Mango Gonzales MD HECTOR FACOG Maternal- Medicine * Guadalupe Ortega, PhD - 08/25/2024 4:37 PM EDT Department of Psychiatry Progress Note Total Time: 40 minutes SUBJECTIVE: I have decided to switch to Subutex. OBJECTIVE Pt reported that she has decided to switch to Subutex due to being far away to be doing daily dosing; pt anxious about being on different medication and worried not to be in withdrawal; pt again stated that she is motivated to work towards sobriety. Discussed her family in [place]; her 3 boys are with paternal grandmother and pt has not spoken to her for a while now (she likes the control she has at this time); pt is talking to her current partner (FILIPE), who is still struggling with use (he is in [place]); pt stated that she made the good decision to come to [place] and be away from him due tohis ongoing use. Pt denied any SI/HI. At this time, no manic, no psychotic symptoms present. MENTAL STATUS EXAM Mental Status Exam: Appearance: casually groomed Behavior: cooperative Activity normal Speech: spontaneous, normal rate Mood: anxious, , Affect: congruent with mood Associations: goal directed Thought content: general worries Thought process: logical, organized Orientation: oriented in all spheres Attention good Concentration good Insight: good Judgment: good Suicidal Intentions: no Suicidal Plan: no ASSESSMENT AND PLAN Polysubstance Abuse Anxiety/ Depression Focused on sobriety issues, decreasing depressive/anxiety symptoms and supportive intervention. No SI/HI, pt is future oriented. Will continue to follow as able during this stay. * Cory Morris MD - 08/25/2024 1:14 PM EDT Comes the patient now requesting to be on Suboxone instead of methadone due to that convenience andshe cannot be dosed every day at the [facility] Discussed the case with Almita from [facility] and the patient agreed to start the microdosing process and wean her off the methadone It will take around 4 to 5 days to have her on an optimum dose Orders are put in * Nakia Cronin DO - 08/25/2024 12:12 PM EDT Images from the original note were not included. ADDICTION MEDICINE PROGRESS NOTE Patient: Skylar Landry __ Problem List: Principal Problem: Substance use disorder Active Problems: state, incidental Polysubstance abuse (CMS/HCC) ([facility]) Anxiety and depression SUBJECTIVE Chief Complaint Patient presents with Other Detox from methadone Last 4 COWS scores per RN assessments 2 - - 5 - 5 Interim History The patient reports she continues to feel better today. She denies symptoms of withdrawal, including diaphoresis, chills, abdominal pain, nausea, tremors. She continues to have back pain but feels itis improving. She slept well last night with the addition of Seroquel. Her mood remains anxious anddepressed but she is hopeful about starting an antidepressant and establishing with psychiatry after discharge. She denies SI/HI/AVH. She denies any acute concerns at this time. Her appetite remains intact. Review of Systems Review of Systems Constitutional: Negative for chills, decreased appetite, diaphoresis and fever. HENT: Negative for congestion. Cardiovascular: Negative for chest pain. Respiratory: Negative for shortness of breath. Musculoskeletal: Positive for back pain. Negative for muscle cramps, muscle weakness and myalgias. Gastrointestinal: Negative for abdominal pain, nausea and vomiting. Genitourinary: Positive for flank pain. Neurological: Negative for headaches and tremors. Psychiatric/Behavioral: Positive for depression. Negative for suicidal ideas and thoughts of violence. The patient is nervous/anxious. The patient does not have insomnia. OBJECTIVE Vitals Vitals: 08/24/24 1900 08/24/24 1910 08/24/24 2037 08/25/24 0840 BP: 110/71 (!) 105/59 BP Location: Patient Position: Pulse: 82 (!) 47 96 84 Resp: 18 18 Temp: 36.9 C (98.4 F) 36.8 C (98.2 F) TempSrc: Oral Temporal SpO2: 98% 99% Physical Exam Vitals and nursing note reviewed. Constitutional: Appearance: She is not ill-appearing or diaphoretic. HENT: Head: Normocephalic and atraumatic. Nose: Nose normal. No congestion or rhinorrhea. Mouth/Throat: Mouth: Mucous membranes are moist. Eyes: Conjunctiva/sclera: Conjunctivae normal. Cardiovascular: Rate and Rhythm: Normal rate. Pulmonary: Effort: Pulmonary effort is normal. Musculoskeletal: General: Normal range of motion. Skin: General: Skin is warm. Neurological: Mental Status: She is alert, oriented to person, place, and time and easily aroused. Motor: No tremor. Psychiatric: Attention and Perception: Attention and perception normal. She does not perceive auditory or visualhallucinations. Mood and Affect: Affect normal. Mood is anxious and depressed. Speech: Speech normal. Behavior: Behavior normal. Behavior is cooperative. Thought Content: Thought content normal. Thought content is not paranoid or delusional. Thought content does not include homicidal or suicidal ideation. Cognition and Memory: Cognition and memory normal. Judgment: Judgment normal. Medications Home Meds Current Outpatient Medications Medication Instructions methadone (DOLOPHINE) 140 mg, Daily Scheduled Inpatient Meds chlordiazePOXIDE, 5 mg, Oral, q6h enoxaparin, 40 mg, SubCUTAneous, q24h Lidocaine, 1 patch, TransDERmal, Daily methadone, 140 mg, Oral, q24h vitamin, 1 tablet, Oral, Daily sertraline, 50 mg, Oral, Daily sodium chloride 0.9%, 10 mL, IntraVENous, 2 times per day PRN Inpatient Meds PRN medications: acetaminophen, cyclobenzaprine, dicyclomine, diphenhydrAMINE, hydrOXYzine pamoate,naloxone, ondansetron, promethazine, QUEtiapine, sodium chloride, sodium chloride 0.9% Continuous Inpatient Infusions Recent Imaging US OB detail anatomy Result Date: 08/23/2024 OBSTETRICS REPORT (Signed Final 08/23/2024 02:04 pm) PATIENT INFO: ID #: [id number] : [birth year] (34 yrs)(F) Name: SKYLAR LANDRY Visit Date: 08/23/2024 10:29 am PERFORMED BY: Attending: Eliezer Gonzales MD, HECTOR, FACOG Performed By: Som Miller Referred By: ELENA PARK Location: [facility] IP Visit Type: Inpatient - Hospital SERVICE(S) PROVIDED: Level II complete (Targeted OB) 55284 BPP w/out NST 42995 INDICATIONS: Drug use complicating , O99.320 unspecified trimester Other psychoactivesubstance abuse, F19.10 uncomplicated (HCC) EVALUATION: Num Of Fetuses: 1 Heart Rate(bpm): 141 Cardiac Activity: Regu lar rhythm Lie: Longitudinal Presentation: Breech Placenta: Anterior Amniotic Fluid TYREE FV: Within normal limits TYREE Sum(cm) %Tile Largest Pocket(cm) 12.9 37 5.1 RUQ(cm) LUQ(cm) LLQ(cm) 4 5.1 3.8 BIOPHYSICAL EVALUATION: Amniotic F.V: Within normal limits F. Tone: Observed F. Movement: Observed Score: 01/14 F. Breathing: Observed BIOMETRY: BPD: 75.5 mmG.Age: 30w 2d 56 % OFD: 101.7 mm HC: 282.8 mm G.Age: 31w 0d 54 % AC: 257.6 mm G.Age: 29w 6d 51 % FL: 56.7 mm G.Age: 29w 5d 36 % HUM: 50.2 mm G.Age: 29w 3d 44 % CER: 38.5 mm G.Age: 31w 4d 87 % LV: 2.57 mm CI: 74.2 % 70 - 86 FL/HC: 20.0 % 19.2 - 21.4 HC/AC: 1.10 0.99 - 1.21 FL/BPD: 75.1 % 71 - 87 FL/AC: 22.0 % 20 - 24 Est. FW: 1494 gm 3 lb 5 oz 54 % GESTATIONAL AGE: Clinical KWAKU: 29w 5d KWAKU: 11/03/24 U/S Today: 30w 2d KWAKU: 10/08 10/01 Best: 29w 5d Det. By: Clinical KWAKU KWAKU: 11/03/24 TARGETED ANATOMY: Central Nervous System Calvarium/Cranial V.: Normal appearance Intracranial Maria Elena: Normal appearance Cavum: Suboptimal views Parenchyma: Normal appearance Lateral Ventricles: Normal appearance Choroid Plexus: Normal appearance Cereb./Vermis: Normal appearance Cisterna Magna: Normal appearance Corpus Callosum: Normal appearance Midline Falx: Normal appearance Spine Cervical: Normal appearance Thoracic: Normal appearance Lumbar: Normal appearance Sacral: Suboptimal views Head/Neck Face: Normal appearance Lips: Normal appearance Neck: Normal appearance Nasal Bone: Suboptimal views Palate: Suboptimal views Profile: Suboptimal views Orbits/Eyes: Normal appearance Mandible: Normal appearance Maxilla: Suboptimal views Thorax Thoracic Contour: Normal appearance Lungs: Normal appearance 4 Chamber View: Normal appearance Cardiac Activity: Normal Cardiac Rhythm: Normal Cardiac Situs: Normal appearance Rt Outflow Tract: Suboptimal views Lt Outflow Tract: Suboptimal views Aortic Arch: Normal appearance Ductal Arch: Normal appearance SVC: Normal appearance Interventr. Septum: Suboptimal views Cardiac [place]: Normal appearance Diaphragm: Normal appearance 3 Vessel View: Suboptimal views 3 V Trachea View: Suboptimal views IVC: Normal Appearance Crossing: Suboptimal views Abdomen Ventral Wall: Normal appearance Cord Insertion: Normal appearance Situs: Normal appearance Stomach: Normal appearance Lt Kidney: Normal appearance Rt Kidney: Normal appearanceBladder: Normal appearance Extremities Lt Humerus: Normal appearance Rt Humerus: Suboptimal views Lt Forearm: Normal appearance Rt Forearm: Suboptimal views Lt Hand: Normal appearance Rt Hand: Suboptimal views Lt Femur: Normal appearance Rt Femur: Normal appearance Lt Lower Leg: Normal appearance Rt Lower Leg: Normal appearance Lt Foot: Normal appearance Rt Foot: Normal appearance Other UmbilicalCord: Normal 3-vessel Genitalia: Suboptimal views Comment: Renal arteries and Bilateral Ankles - suboptimal views Eliezer Gonzales MD, HECTOR, FACOG Electronically Signed Final Report 08/23/2024 02:04 pm 1. [place] live intrauterine at 29w 5d. 2. The estimated weight (EFW) is 1494 grams, which is at the 54% for this gestational age. The AC measures at 51%. 3. The amniotic fluid index is 12.9cm, which is within normal limits. 4. Detailed anatomic evaluation was typical, with limitations as noted in body of report. Limitations are secondary to late gestational age. 5. [facility] 01/14 . RECOMMENDATIONS 1. Plan per inpatient team. 2. Follow up as clinically indicated. Ultrasound is not diagnostic for aneuploidy and will not detect all structural abnormalities, even if multiple exams are performed during a given . Normal ultrasound findings do not guarantee normal outcomes. US biophysical profile wo non stress testing Result Date: 08/23/2024 OBSTETRICS REPORT (Signed Final 08/23/2024 02:04 pm) PATIENT INFO: ID #: [id number] : [birth year] (34 yrs)(F) Name: SKYLAR LANDRY Visit Date: 08/23/2024 10:29 am PERFORMED BY: Attending: Eliezer Gonzales MD, HECTOR, FACOG Performed By: Som Miller Referred By: ELENA PARK Location: [facility] Visit Type: Inpatient - Hospital SERVICE(S) PROVIDED: Level II complete (Targeted OB) 64844 BPP w/out NST 45545 INDICATIONS: Drug use complicating , O99.320 unspecified trimester Other psychoactivesubstance abuse, F19.10 uncomplicated (HCC) EVALUATION: Num Of Fetuses: 1 Heart Rate(bpm): 141 Cardiac Activity: Regu lar rhythm Lie: Longitudinal Presentation: Breech Placenta: Anterior Amniotic Fluid TYREE FV: Within normal limits TYREE Sum(cm) %Tile Largest Pocket(cm) 12.9 37 5.1 RUQ(cm) LUQ(cm) LLQ(cm) 4 5.1 3.8 BIOPHYSICAL EVALUATION: Amniotic F.V: Within normal limits F. Tone: Observed F. Movement: Observed Score: 01/14 F. Breathing: Observed BIOMETRY: BPD: 75.5 mmG.Age: 30w 2d 56 % OFD: 101.7 mm HC: 282.8 mm G.Age: 31w 0d 54 % AC: 257.6 mm G.Age: 29w 6d 51 % FL: 56.7 mm G.Age: 29w 5d 36 % HUM: 50.2 mm G.Age: 29w 3d 44 % CER: 38.5 mm G.Age: 31w 4d 87 % LV: 2.57 mm CI: 74.2 % 70 - 86 FL/HC: 20.0 % 19.2 - 21.4 HC/AC: 1.10 0.99 - 1.21 FL/BPD: 75.1 % 71 - 87 FL/AC: 22.0 % 20 - 24 Est. FW: 1494 gm 3 lb 5 oz 54 % GESTATIONAL AGE: Clinical KWAKU: 29w 5d KWAKU: 11/03/24 U/S Today: 30w 2d KWAKU: 10/08 10/01 Best: 29w 5d Det. By: Clinical KWAKU KWAKU: 11/03/24 TARGETED ANATOMY: Central Nervous System Calvarium/Cranial V.: Normal appearance Intracranial Maria Elena: Normal appearance Cavum: Suboptimal views Parenchyma: Normal appearance Lateral Ventricles: Normal appearance Choroid Plexus: Normal appearance Cereb./Vermis: Normal appearance Cisterna Magna: Normal appearance Corpus Callosum: Normal appearance Midline Falx: Normal appearance Spine Cervical: Normal appearance Thoracic: Normal appearance Lumbar: Normal appearance Sacral: Suboptimal views Head/Neck Face: Normal appearance Lips: Normal appearance Neck: Normal appearance Nasal Bone: Suboptimal views Palate: Suboptimal views Profile: Suboptimal views Orbits/Eyes: Normal appearance Mandible: Normal appearance Maxilla: Suboptimal views Thorax Thoracic Contour: Normal appearance Lungs: Normal appearance 4 Chamber View: Normal appearance Cardiac Activity: Normal Cardiac Rhythm: Normal Cardiac Situs: Normal appearance Rt Outflow Tract: Suboptimal views Lt Outflow Tract: Suboptimal views Aortic Arch: Normal appearance Ductal Arch: Normal appearance SVC: Normal appearance Interventr. Septum: Suboptimal views Cardiac [place]: Normal appearance Diaphragm: Normal appearance 3 Vessel View: Suboptimal views 3 V Trachea View: Suboptimal views IVC: Normal Appearance Crossing: Suboptimal views Abdomen Ventral Wall: Normal appearance Cord Insertion: Normal appearance Situs: Normal appearance Stomach: Normal appearance Lt Kidney: Normal appearance Rt Kidney: Normal appearanceBladder: Normal appearance Extremities Lt Humerus: Normal appearance Rt Humerus: Suboptimal views Lt Forearm: Normal appearance Rt Forearm: Suboptimal views Lt Hand: Normal appearance Rt Hand: Suboptimal views Lt Femur: Normal appearance Rt Femur: Normal appearance Lt Lower Leg: Normal appearance Rt Lower Leg: Normal appearance Lt Foot: Normal appearance Rt Foot: Normal appearance Other UmbilicalCord: Normal 3-vessel Genitalia: Suboptimal views Comment: Renal arteries and Bilateral Ankles - suboptimal views Eliezer Gonzales MD, HECTOR, FACOG Electronically Signed Final Report 08/23/2024 02:04 pm 1. [place] live intrauterine at 29w 5d. 2. The estimated weight (EFW) is 1494 grams, which is at the 54% for this gestational age. The AC measures at 51%. 3. The amniotic fluid index is 12.9cm, which is within normal limits. 4. Detailed anatomic evaluation was typical, with limitations as noted in body of report. Limitations are secondary to late gestational age. 5. [facility] 01/14 . RECOMMENDATIONS 1. Plan per inpatient team. 2. Follow up as clinically indicated. Ultrasound is not diagnostic for aneuploidy and will not detect all structural abnormalities, even if multiple exams are performed during a given . Normal ultrasound findings do not guarantee normal outcomes. ECG 12 lead Sinus rhythm Probable left atrial enlargement Low voltage, precordial leads Consider anterior infarct US retroperitoneum Result Date: 08/23/2024 Patient Name: [facility]YL[facility]DRY [facility] 1990 [id number] Exam Date/Time: 08/23/2024 01:17 Procedure: US RETROPERITONEAL Ordering Provider: ELISE MEGHANReason For Exam: Right CVA ttp Exam type: Ultrasound retroperitoneum. CLINICAL INDICATION: Right CVA ttp COMPARISON: None Technique: Grayscale sonographic images were obtained of the kidneys and bladder. Color Doppler was utilized. FINDINGS: Right Kidney: Size: 10.1 x 4.7 x 5.3 cm Renal Parenchyma:Normal echogenicity and cortical thickness. Hydronephrosis: None Renal Calculi: None Left Kidney: Size: 10.1 x 5.1 x 4.6 cm Renal Parenchyma: Normal echogenicity and cortical thickness. Hydronephrosis: None Renal Calculi: Echogenic focus noted in the lateral pole measuring 7 mm. Obscured due to overlying gravid uterus. No acute sonographic process identified. Nonobstructive left renal calculus measuring up to 7 mm. Limited visualization of the bladder due to gravid uterus. Report Dictated on Electronically Signed By: Frandy Lynch MD Electronically Signed Date/Time: 08/23/2024 5:07 AM EDT Labs CBC: Recent Labs 08/23/24 0307 WBC 13.5* HGB 10.5* PLT 170 MCV 82.7 RDW 14.4 BMP: Recent Labs 08/23/24 015 NA 134* K 3.9 CL 104 CO2 21* BUN 8 CREATININE 0.58 CALCIUM 8.6 Liver Profile: Recent Labs 08/23/24 015 AST 18 ALT 12 BILITOT 0.3 ALKPHOS 122 PROT 6.4 Glucose: Recent Labs 08/23/24 015 GLUCOSE 84 Lactic Acid: No lab exists for component: LACTA Cardiac Injury Profile: No results for input(s): CKTOTAL, CKMB, TROPONINI in the last 72 hours. Last 24 Hours: No results found for this or any previous visit (from the past 24 hours). ASSESSMENT & PLAN Opioid use disorder Benzodiazepine use disorder Counseled patient on biopsychosocial consequences of substance use. Encouraged professional chemical dependency treatment. Encouraged 12 step meeting attendance. Follow up plan for addiction management discussed with patient: MAT and aftercare through [facility]; follow-up scheduled for Friday. Opiate withdrawal - resolving Last use of fentanyl and methadone was on 08/20 or 08/21. QTC 435. Continue home methadone 140 mg daily - dose confirmed. COWS scores per unit protocol. PRN medications for withdrawal symptom management added. Benzodiazepine withdrawal - resolving Last use of Xanax was on 08/21. Librium taper at 5 mg every 6 hours today. CIWA scores per unit protocol. PRN medications for withdrawal symptom management added. Depression Anxiety Insomnia - improving Continue Zoloft 50 mg daily for mood/anxiety. Continue Seroquel 25 mg nightly as needed for insomnia. Patient would like to try to establish with psychiatry through [facility]. [facility]. Will follow. Cosigned by Cory Morris MD at 08/25/2024 12:33 PM EDT Associated attestation - Cory Morris MD - 08/25/2024 12:33 PM EDT Patient seen and examined by me. Discussed patient with the resident/fellow/MARTHA. Agree with assessment and plan as written. I provided discussion regarding this patient's condition ,chemical dependency, psychiatric and medical history, symptoms and signs , reviewing past detoxification hospitalizations, assessing withdrawal status, evaluating detoxification medications, and discussing lab work and treatment plan ,importance of compliance with the treatment with providing options, as well as documenting on the day of the visit. Cory Morris MD 08/25/24 12:33 PM * Elena Park DO - 08/25/2024 6:12 AM EDT Images from the original note were not included. Maternal Medicine Service Resident Progress Note 08/25/2024 6:12 AM 08/22/2024 Hospital Day: 4 Skylar Landry, 34 y.o. 30w0d Patient sleeping on rounds this AM. No concerns per overnight team. Vitals: 08/24/24 1855 08/24/24 1900 08/24/24190908/24/242036 BP: 110/71 BP Location: Patient Position: Pulse: 119 82 (!) 47 96 Resp: 18 Temp: 36.9 C (98.4 F) TempSrc: Oral SpO2: 98% FHT reviewed 08/24 1849-1910 FHT: 130, moderate variability Accels: present Decels: absent Contractions: none Physical Exam: Gen: NAD, Sleeping on AM rounds Medications: Current Facility-Administered Medications Medication Dose Route Frequency Provider Last Rate Last Admin acetaminophen (Tylenol) tablet 1,000 mg 1,000 mg Oral q6h PRN Lacey Gemma, DO 1,000 mg at 08/24/242029 chlordiazePOXIDE (Librium) capsule 10 mg 10 mg Oral q6h Nakia Willsonardinis, DO 10 mg at 08/25/24 0130 cyclobenzaprine (Flexeril) tablet 5 mg 5 mg Oral TID PRN Lacey Gemma, DO 5 mg at 08/24/242029 dicyclomine (Bentyl) capsule 10 mg 10 mg Oral 4x daily PRN Lacey Mosleyma, DO diphenhydrAMINE (BENADryl) tablet/capsule 25 mg 25 mg Oral q6h PRN Lacey Gemma, DO 25 mg at 08/24/242029 enoxaparin (Lovenox) syringe 40 mg 40 mg SubCUTAneous q24h Mercedez Villegas, DO hydrOXYzine pamoate (Vistaril) capsule 25 mg 25 mg Oral q6h PRN Lacey Gemma, DO 25 mg at 08/24/242029 Lidocaine 4 % patch 1 patch 1 patch TransDERmal Daily Elena Park, DO 1 patch at 08/24/24 0827 methadone (Dolophine) 10 MG/ML solution 140 mg 140 mg Oral q24h Mercedez Villegas, DO naloxone (Narcan) injection 0.4 mg 0.4 mg IntraVENous q5 min PRN Gemini Elise, DO ondansetron (Zofran) injection 4 mg 4 mg IntraVENous q8h PRN Lacey Mosleyma, DO 4 mg at 08/24/242029 vitamin tablet 1 tablet Oral Daily Lacey Gemma, DO 1 tablet at 08/24/24 0827 promethazine (Phenergan) tablet 12.5 mg 12.5 mg Oral q6h PRN Lacey Gemma, DO 12.5 mg at 08/23/24 0836 QUEtiapine (SEROquel) tablet 25 mg 25 mg Oral Nightly PRN Nakia Willsonardimary, DO 25 mg at 08/24/242029 sertraline (Zoloft) tablet 50 mg 50 mg Oral Daily Nakia Demetrisardinis, DO 50 mg at 08/24/24 1128 sodium chloride 0.9 % infusion 5-250 mL/hr IntraVENous PRN Lacey Mosleyma, DO sodium chloride 0.9% (NS) flush 10 mL 10 mL IntraVENous 2 times per day Lacey Gemma, DO 10 mL at 08/24/242029 sodium chloride 0.9% (NS) flush 10 mL 10 mL IntraVENous PRN Lacey Flower DO Assessment/Plan: Skylar Landry is a 34 y.o. 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 TYREE 12.9 cm. Breech - MAT on admission positive for benzos, methadone, opiates, and fentanyl - Comfort meds ordered - S/p CLP consult - Social work following - Addiction medicine consulted, appreciate recommendations - Started on Librium taper and methadone dose confirmed and ordered - Patient sleeping on rounds this AM, no concerns per overnight team - Patient to be discharged Friday AM to [facility] Abdominal pain Hx nephrolithiasis Hx medullary sponge kidney dx - Reports she was diagnosed with kidney stones 2 wks ago, did not have any signs of infection at that time - Previously followed with Nephrology, has not established care here - Has required B/L stent and PNT in the past - Vitals stable, afebrile overnight - Left CVA ttp on admission however patient has diffuse abdominal tenderness, difficult to discern if related to withdrawal - SVE 1 cm on admission, unchanged from 2 wks ago per pt - Retroperitoneal US (08/23): Nonobstructive left renal calculus measuring up to 7 mm - CBC overall WNL and CMP WNL - Ucx contaminated, repeat pending this AM IUP @ 30w0d - Dating by LMP - Cephalic on 08/23 - Monitoring: NST BID - Diet:General - BMZ Deferred Further plan pending d/w attending. Elena Park DO 08/25/2024, 6:12 AM Cosigned by Carlito Gonzales MD at 08/25/2024 1:46 PM EDT Associated attestation - Janet, Carlito Black MD - 08/25/2024 1:46 PM EDT Hospital Care (Independent): I independently saw and evaluated the patient. I agree with the findings and plan of care as documented in the resident's note. Skylar Landry is a 34 y.o. 30w0d who is admitted for treatment of MILLIE. BP (!) 105/59 Pulse 84 Temp 36.8 C (98.2 F) (Temporal) Resp 18 SpO2 99% MILLIE --appreciate care of the addiction medicine service regarding benzo use/detox. Patient without complaints this morning. She has been maintained on methadone 140 mg daily with control of her symptoms, and she is set up for intake with the [facility] on Friday at 0800. Patient now reports that she may not be able to get to her methadone appointments regularly because of lack of resources and is requesting conversion to Subutex. This is deferred to the addiction medicine service and we will continue assist however we can. Appreciate ongoing recommendations from addiction medicine regarding same. CLP -- appreciate care; continue as appropriate while admitted to the hospital. Kidney disorder --patient with nonobstructing stone; no complaints today. FWB -- reassuring status.. Candidate for BMZ and magnesium sulfate for neuroprotection if indicated. PPBC --not discussed --her records are not available at this point; we should consider GCT during inpatient. Will plan for [facility] to [facility] at discharge. Vaccinations --received COVID and Tdap on 08/23/24 DVT ppx -- SCDs (lovenox declined) Mango Gonzales MD HECTOR FACOG Maternal- Medicine * Guadalupe Ortega, PhD - 08/24/2024 4:51 PM EDT Department of Psychiatry Progress Note Total Time: 25 minutes SUBJECTIVE: I feel better today. OBJECTIVE Pt was siting on a couch, talkative, and actively participated. Pt reported improvement re: withdrawal symptoms; discussed her use and how she decided to come to [place] (her boyfriend's mother drove [place] to get her); pt stated that she is motivated to work re: sobriety; discussed some past traumas, and pt is endorsing some ongoing depressive/ anxiety symptoms; pt was started on Zoloft and Seroquel earlier today; discussed outpatient options for follow up. Pt denied any SI/HI. At this time, no manic, no psychotic symptoms present. MENTAL STATUS EXAM Mental Status Exam: Appearance: casually groomed Behavior: cooperative Activity normal Speech: spontaneous, normal rate Mood: anxious, , Affect: congruent with mood Associations: goal directed Thought content: general worries Thought process: logical, organized Orientation: oriented in all spheres Attention good Concentration good Insight: good Judgment: good Suicidal Intentions: no Suicidal Plan: no ASSESSMENT AND PLAN Polysubstance Abuse Anxiety/ Depression Focused on sobriety issues, decreasing depressive/anxiety symptoms and supportive intervention. No SI/HI, pt is future oriented. Will continue to follow as able during this stay. * Halina Marc - 08/24/2024 11:57 AM EDT Nutrition rescreen completed. Chart reviewed. Patient to be monitored and followed by the diet field evidence technician. MARILYN Tinajero * Nakia Cronin DO - 08/24/2024 8:31 AM EDT Images from the original note were not included. ADDICTION MEDICINE PROGRESS NOTE Patient: Skylar Landry __ Problem List: Principal Problem: Substance use disorder Active Problems: state, incidental Polysubstance abuse (CMS/HCC) (HCC) SUBJECTIVE Chief Complaint Patient presents with Other Detox from methadone Last 4 COWS scores per RN assessments 5 - 5 - 5 - 5 Interim History The patient reports she is feeling better today regarding her withdrawal symptoms. She denies diaphoresis, tremor, nausea, vomiting, muscle cramping. However, she endorses flank, back, and abdominal pain which has impacted her appetite. She admits to nightmares throughout the night and not sleeping well as a result. Her mood is anxious. She denies SI/HI/AVH. She has utilized PRN Tylenol, Flexeril, Vistaril, Zofran to assist with her withdrawal symptoms and has found them beneficial. She wouldlike to continue to establish care with [facility] for methadone dosing but would also like to consider psychiatric treatment for her depression and anxiety. She asks about starting a psychotropic medication during her admission as she is feeling more down, tearful, overwhelmed/anxious, and it is impacting her functionality. Review of Systems Review of Systems Constitutional: Positive for decreased appetite. Negative for chills, diaphoresis and fever. HENT: Negative for congestion. Cardiovascular: Negative for chest pain. Respiratory: Negative for shortness of breath. Musculoskeletal: Positive for back pain. Negative for muscle cramps, muscle weakness and myalgias. Gastrointestinal: Positive for abdominal pain. Negative for nausea and vomiting. Genitourinary: Positive for flank pain. Neurological: Positive for headaches. Negative for tremors. Psychiatric/Behavioral: Positive for depression. Negative for suicidal ideas and thoughts of violence. The patient has insomnia and is nervous/anxious. OBJECTIVE Vitals Vitals: 08/23/24200708/24/24 0008 08/24/24 0416 08/24/24 0834 BP: 106/68 106/65 98/66 102/66 BP Location: Left arm Patient Position: Lying Pulse: 84 90 89 91 Resp: 17 17 16 Temp: 36.1 C (96.9 F) 36.4 C (97.5 F) 36.4 C (97.5 F) 36.4 C (97.6 F) TempSrc: Temporal Temporal Temporal Temporal SpO2: 98% 99% 99% 98% Physical Exam Vitals and nursing note reviewed. Constitutional: General: She is sleeping. Appearance: She is not diaphoretic. Comments: Appears physically uncomfortable. HENT: Head: Normocephalic and atraumatic. Nose: Nose normal. No congestion or rhinorrhea. Mouth/Throat: Mouth: Mucous membranes are moist. Eyes: Conjunctiva/sclera: Conjunctivae normal. Cardiovascular: Rate and Rhythm: Normal rate. Pulmonary: Effort: Pulmonary effort is normal. Musculoskeletal: General: Normal range of motion. Skin: General: Skin is warm. Neurological: Mental Status: She is oriented to person, place, and time and easily aroused. Motor: No tremor. Psychiatric: Attention and Perception: Attention and perception normal. She does not perceive auditory or visualhallucinations. Mood and Affect: Mood is anxious and depressed. Affect is flat. Speech: Speech normal. Behavior: Behavior is cooperative. Thought Content: Thought content normal. Thought content is not paranoid or delusional. Thought content does not include homicidal or suicidal ideation. Cognition and Memory: Cognition and memory normal. Judgment: Judgment normal. Medications Home Meds Current Outpatient Medications Medication Instructions methadone (DOLOPHINE) 140 mg, Daily Scheduled Inpatient Meds chlordiazePOXIDE, 10 mg, Oral, q6h Lidocaine, 1 patch, TransDERmal, Daily methadone, 140 mg, Oral, Daily vitamin, 1 tablet, Oral, Daily sertraline, 50 mg, Oral, Daily sodium chloride 0.9%, 10 mL, IntraVENous, 2 times per day PRN Inpatient Meds PRN medications: acetaminophen, cyclobenzaprine, dicyclomine, diphenhydrAMINE, hydrOXYzine pamoate,naloxone, ondansetron, promethazine, QUEtiapine, sodium chloride, sodium chloride 0.9% Continuous Inpatient Infusions Recent Imaging US OB detail anatomy Result Date: 08/23/2024 OBSTETRICS REPORT (Signed Final 08/23/2024 02:04 pm) PATIENT INFO: ID #: [id number] : [birth year] (34 yrs)(F) Name: SKYLAR LANDRY Visit Date: 08/23/2024 10:29 am PERFORMED BY: Attending: Eliezer Gonzales MD, HECTOR, FACOG Performed By: Som Miller Referred By: ELENA PARK Location: [facility] IP Visit Type: Inpatient - Hospital SERVICE(S) PROVIDED: Level II complete (Targeted OB) 28408 BPP w/out NST 15625 INDICATIONS: Drug use complicating , O99.320 unspecified trimester Other psychoactivesubstance abuse, F19.10 uncomplicated (HCC) EVALUATION: Num Of Fetuses: 1 Heart Rate(bpm): 141 Cardiac Activity: Regu lar rhythm Lie: Longitudinal Presentation: Breech Placenta: Anterior Amniotic Fluid TYREE FV: Within normal limits TYREE Sum(cm) %Tile Largest Pocket(cm) 12.9 37 5.1 RUQ(cm) LUQ(cm) LLQ(cm) 4 5.1 3.8 BIOPHYSICAL EVALUATION: Amniotic F.V: Within normal limits F. Tone: Observed F. Movement: Observed Score: 01/14 F. Breathing: Observed BIOMETRY: BPD: 75.5 mmG.Age: 30w 2d 56 % OFD: 101.7 mm HC: 282.8 mm G.Age: 31w 0d 54 % AC: 257.6 mm G.Age: 29w 6d 51 % FL: 56.7 mm G.Age: 29w 5d 36 % HUM: 50.2 mm G.Age: 29w 3d 44 % CER: 38.5 mm G.Age: 31w 4d 87 % LV: 2.57 mm CI: 74.2 % 70 - 86 FL/HC: 20.0 % 19.2 - 21.4 HC/AC: 1.10 0.99 - 1.21 FL/BPD: 75.1 % 71 - 87 FL/AC: 22.0 % 20 - 24 Est. FW: 1494 gm 3 lb 5 oz 54 % GESTATIONAL AGE: Clinical KWAKU: 29w 5d KWAKU: 11/03/24 U/S Today: 30w 2d KWAKU: 10/08 10/01 Best: 29w 5d Det. By: Clinical KWAKU KWAKU: 11/03/24 TARGETED ANATOMY: Central Nervous System Calvarium/Cranial V.: Normal appearance Intracranial Maria Elena: Normal appearance Cavum: Suboptimal views Parenchyma: Normal appearance Lateral Ventricles: Normal appearance Choroid Plexus: Normal appearance Cereb./Vermis: Normal appearance Cisterna Magna: Normal appearance Corpus Callosum: Normal appearance Midline Falx: Normal appearance Spine Cervical: Normal appearance Thoracic: Normal appearance Lumbar: Normal appearance Sacral: Suboptimal views Head/Neck Face: Normal appearance Lips: Normal appearance Neck: Normal appearance Nasal Bone: Suboptimal views Palate: Suboptimal views Profile: Suboptimal views Orbits/Eyes: Normal appearance Mandible: Normal appearance Maxilla: Suboptimal views Thorax Thoracic Contour: Normal appearance Lungs: Normal appearance 4 Chamber View: Normal appearance Cardiac Activity: Normal Cardiac Rhythm: Normal Cardiac Situs: Normal appearance Rt Outflow Tract: Suboptimal views Lt Outflow Tract: Suboptimal views Aortic Arch: Normal appearance Ductal Arch: Normal appearance SVC: Normal appearance Interventr. Septum: Suboptimal views Cardiac [place]: Normal appearance Diaphragm: Normal appearance 3 Vessel View: Suboptimal views 3 V Trachea View: Suboptimal views IVC: Normal Appearance Crossing: Suboptimal views Abdomen Ventral Wall: Normal appearance Cord Insertion: Normal appearance Situs: Normal appearance Stomach: Normal appearance Lt Kidney: Normal appearance Rt Kidney: Normal appearanceBladder: Normal appearance Extremities Lt Humerus: Normal appearance Rt Humerus: Suboptimal views Lt Forearm: Normal appearance Rt Forearm: Suboptimal views Lt Hand: Normal appearance Rt Hand: Suboptimal views Lt Femur: Normal appearance Rt Femur: Normal appearance Lt Lower Leg: Normal appearance Rt Lower Leg: Normal appearance Lt Foot: Normal appearance Rt Foot: Normal appearance Other UmbilicalCord: Normal 3-vessel Genitalia: Suboptimal views Comment: Renal arteries and Bilateral Ankles - suboptimal views Eliezer Gonzales MD, HECTOR, FACOG Electronically Signed Final Report 08/23/2024 02:04 pm 1. [place] live intrauterine at 29w 5d. 2. The estimated weight (EFW) is 1494 grams, which is at the 54% for this gestational age. The AC measures at 51%. 3. The amniotic fluid index is 12.9cm, which is within normal limits. 4. Detailed anatomic evaluation was typical, with limitations as noted in body of report. Limitations are secondary to late gestational age. 5. [facility] 01/14 . RECOMMENDATIONS 1. Plan per inpatient team. 2. Follow up as clinically indicated. Ultrasound is not diagnostic for aneuploidy and will not detect all structural abnormalities, even if multiple exams are performed during a given . Normal ultrasound findings do not guarantee normal outcomes. US biophysical profile wo non stress testing Result Date: 08/23/2024 OBSTETRICS REPORT (Signed Final 08/23/2024 02:04 pm) PATIENT INFO: ID #: [id number] : [birth year] (34 yrs)(F) Name: SKYLAR LANDRY Visit Date: 08/23/2024 10:29 am PERFORMED BY: Attending: Eliezer Gonzales MD, HECTOR, FACOG Performed By: Som Miller Referred By: ELENA PARK Location: [facility] IP Visit Type: Inpatient - Hospital SERVICE(S) PROVIDED: Level II complete (Targeted OB) 58271 BPP w/out NST 70776 INDICATIONS: Drug use complicating , O99.320 unspecified trimester Other psychoactivesubstance abuse, F19.10 uncomplicated (HCC) EVALUATION: Num Of Fetuses: 1 Heart Rate(bpm): 141 Cardiac Activity: Regu lar rhythm Lie: Longitudinal Presentation: Breech Placenta: Anterior Amniotic Fluid TYREE FV: Within normal limits TYREE Sum(cm) %Tile Largest Pocket(cm) 12.9 37 5.1 RUQ(cm) LUQ(cm) LLQ(cm) 4 5.1 3.8 BIOPHYSICAL EVALUATION: Amniotic F.V: Within normal limits F. Tone: Observed F. Movement: Observed Score: 01/14 F. Breathing: Observed BIOMETRY: BPD: 75.5 mmG.Age: 30w 2d 56 % OFD: 101.7 mm HC: 282.8 mm G.Age: 31w 0d 54 % AC: 257.6 mm G.Age: 29w 6d 51 % FL: 56.7 mm G.Age: 29w 5d 36 % HUM: 50.2 mm G.Age: 29w 3d 44 % CER: 38.5 mm G.Age: 31w 4d 87 % LV: 2.57 mm CI: 74.2 % 70 - 86 FL/HC: 20.0 % 19.2 - 21.4 HC/AC: 1.10 0.99 - 1.21 FL/BPD: 75.1 % 71 - 87 FL/AC: 22.0 % 20 - 24 Est. FW: 1494 gm 3 lb 5 oz 54 % GESTATIONAL AGE: Clinical KWAKU: 29w 5d KWAKU: 11/03/24 U/S Today: 30w 2d KWAKU: 10/08 10/01 Best: 29w 5d Det. By: Clinical KWAKU KWAKU: 11/03/24 TARGETED ANATOMY: Central Nervous System Calvarium/Cranial V.: Normal appearance Intracranial Maria Elena: Normal appearance Cavum: Suboptimal views Parenchyma: Normal appearance Lateral Ventricles: Normal appearance Choroid Plexus: Normal appearance Cereb./Vermis: Normal appearance Cisterna Magna: Normal appearance Corpus Callosum: Normal appearance Midline Falx: Normal appearance Spine Cervical: Normal appearance Thoracic: Normal appearance Lumbar: Normal appearance Sacral: Suboptimal views Head/Neck Face: Normal appearance Lips: Normal appearance Neck: Normal appearance Nasal Bone: Suboptimal views Palate: Suboptimal views Profile: Suboptimal views Orbits/Eyes: Normal appearance Mandible: Normal appearance Maxilla: Suboptimal views Thorax Thoracic Contour: Normal appearance Lungs: Normal appearance 4 Chamber View: Normal appearance Cardiac Activity: Normal Cardiac Rhythm: Normal Cardiac Situs: Normal appearance Rt Outflow Tract: Suboptimal views Lt Outflow Tract: Suboptimal views Aortic Arch: Normal appearance Ductal Arch: Normal appearance SVC: Normal appearance Interventr. Septum: Suboptimal views Cardiac [place]: Normal appearance Diaphragm: Normal appearance 3 Vessel View: Suboptimal views 3 V Trachea View: Suboptimal views IVC: Normal Appearance Crossing: Suboptimal views Abdomen Ventral Wall: Normal appearance Cord Insertion: Normal appearance Situs: Normal appearance Stomach: Normal appearance Lt Kidney: Normal appearance Rt Kidney: Normal appearanceBladder: Normal appearance Extremities Lt Humerus: Normal appearance Rt Humerus: Suboptimal views Lt Forearm: Normal appearance Rt Forearm: Suboptimal views Lt Hand: Normal appearance Rt Hand: Suboptimal views Lt Femur: Normal appearance Rt Femur: Normal appearance Lt Lower Leg: Normal appearance Rt Lower Leg: Normal appearance Lt Foot: Normal appearance Rt Foot: Normal appearance Other UmbilicalCord: Normal 3-vessel Genitalia: Suboptimal views Comment: Renal arteries and Bilateral Ankles - suboptimal views Eliezer Gonzales MD, HECTOR, FACOG Electronically Signed Final Report 08/23/2024 02:04 pm 1. [place] live intrauterine at 29w 5d. 2. The estimated weight (EFW) is 1494 grams, which is at the 54% for this gestational age. The AC measures at 51%. 3. The amniotic fluid index is 12.9cm, which is within normal limits. 4. Detailed anatomic evaluation was typical, with limitations as noted in body of report. Limitations are secondary to late gestational age. 5. [facility] 01/14 . RECOMMENDATIONS 1. Plan per inpatient team. 2. Follow up as clinically indicated. Ultrasound is not diagnostic for aneuploidy and will not detect all structural abnormalities, even if multiple exams are performed during a given . Normal ultrasound findings do not guarantee normal outcomes. ECG 12 lead Sinus rhythm Probable left atrial enlargement Low voltage, precordial leads Consider anterior infarct US retroperitoneum Result Date: 08/23/2024 Patient Name: SKYLAR LANDRY : 1990 Exam Date/Time: 08/23/2024 01:17 Procedure: US RETROPERITONEAL Ordering Provider: ELISE MEGHANReason For Exam: Right CVA ttp Exam type: Ultrasound retroperitoneum. CLINICAL INDICATION: Right CVA ttp COMPARISON: None Technique: Grayscale sonographic images were obtained of the kidneys and bladder. Color Doppler was utilized. FINDINGS: Right Kidney: Size: 10.1 x 4.7 x 5.3 cm Renal Parenchyma:Normal echogenicity and cortical thickness. Hydronephrosis: None Renal Calculi: None Left Kidney: Size: 10.1 x 5.1 x 4.6 cm Renal Parenchyma: Normal echogenicity and cortical thickness. Hydronephrosis: None Renal Calculi: Echogenic focus noted in the lateral pole measuring 7 mm. Obscured due to overlying gravid uterus. No acute sonographic process identified. Nonobstructive left renal calculus measuring up to 7 mm. Limited visualization of the bladder due to gravid uterus. Report Dictated on Electronically Signed By: Frandy Lynch MD Electronically Signed Date/Time: 08/23/2024 5:07 AM EDT Labs CBC: Recent Labs 08/23/24 0307 WBC 13.5* HGB 10.5* PLT 170 MCV 82.7 RDW 14.4 BMP: Recent Labs 08/23/24 0157 NA 134* K 3.9 CL 104 CO2 21* BUN 8 CREATININE 0.58 CALCIUM 8.6 Liver Profile: Recent Labs 08/23/24 0157 AST 18 ALT 12 BILITOT 0.3 ALKPHOS 122 PROT 6.4 Glucose: Recent Labs 08/23/24 0157 GLUCOSE 84 Lactic Acid: No lab exists for component: LACTA Cardiac Injury Profile: No results for input(s): CKTOTAL, CKMB, TROPONINI in the last 72 hours. Last 24 Hours: Recent Results (from the past 24 hours) ECG 12 lead Collection Time: 08/23/24 12:45 PM Result Value Ref Range Heart Rate 86 bpm QRSD Interval 79 ms QT Interval 364 ms QTC Interval 435 ms P [place] 60 degrees QRS [place] 28 degrees T Wave [place] 27 degrees NC Interval 124 ms ASSESSMENT & PLAN Opioid use disorder Benzodiazepine use disorder Counseled patient on biopsychosocial consequences of substance use. Encouraged professional chemical dependency treatment. Encouraged 12 step meeting attendance. Follow up plan for addiction management discussed with patient: MAT and aftercare through [facility] vs [facility]. Declines residential. Opiate withdrawal Last use of fentanyl and methadone was on 08/20 or 08/21. QTC 435. Continue home methadone 140 mg daily - dose confirmed. COWS scores per unit protocol. PRN medications for withdrawal symptom management added. Benzodiazepine withdrawal Last use of Xanax was on 08/21. Librium taper at 10 mg every 6 hours today. CIWA scores per unit protocol. PRN medications for withdrawal symptom management added. Depression Anxiety Insomnia Start Zoloft 50 mg daily for mood/anxiety. Start Seroquel 25 mg nightly as needed for insomnia. Patient would like to try to establish with psychiatry through [facility] vs [facility]. Will provide community/[facility] psychiatry resources as well. Will follow. Cosigned by Cory Morris MD at 08/24/2024 12:08 PM EDT Associated attestation - Cory Morris MD - 08/24/2024 12:08 PM EDT Patient seen and examined by me. Discussed patient with the resident/fellow/MARTHA. Agree with assessment and plan as written. I provided discussion regarding this patient's condition ,chemical dependency, psychiatric and medical history, symptoms and signs , reviewing past detoxification hospitalizations, assessing withdrawal status, evaluating detoxification medications, and discussing lab work and treatment plan ,importance of compliance with the treatment with providing options, as well as documenting on the day of the visit. Cory Morris MD 08/24/24 12:08 PM * Elena Park DO - 08/24/2024 6:29 AM EDT Images from the original note were not included. Maternal Medicine Service Resident Progress Note 08/24/2024 6:30 AM 08/22/2024 Hospital Day: 3 Skylar Frantz, 34 y.o. 29w6d Patient sleeping on rounds this AM. No concerns per overnight team. Vitals: 08/23/24 1542 08/23/24200708/24/24 0008 08/24/24 0416 BP: 99/72 106/68 106/65 98/66 Pulse: 95 84 90 89 Resp: 16 17 17 17 Temp: 36.4 C (97.6 F) 36.1 C (96.9 F) 36.4 C (97.5 F) 36.4 C (97.5 F) TempSrc: Temporal Temporal Temporal Temporal SpO2: 97% 98% 99% 99% FHT reviewed from 08/23 from 2220-0216 FHT: 150, moderate variability Accels: present Decels: rare variable present Contractions: none Physical Exam: Gen: NAD, patient sleeping on rounds this AM Medications: Current Facility-Administered Medications Medication Dose Route Frequency Provider Last Rate Last Admin acetaminophen (Tylenol) tablet 1,000 mg 1,000 mg Oral q6h PRN Lacey Gemma, DO 1,000 mg at 08/23/24 0106 chlordiazePOXIDE (Librium) capsule 25 mg 25 mg Oral q6h Nakia Berardinis, DO 25 mg at 08/24/24 0612 cyclobenzaprine (Flexeril) tablet 5 mg 5 mg Oral TID PRN Lacey Gemma, DO 5 mg at 08/23/24 0836 dicyclomine (Bentyl) capsule 10 mg 10 mg Oral 4x daily PRN Lacey Gemma, DO diphenhydrAMINE (BENADryl) tablet/capsule 25 mg 25 mg Oral q6h PRN Lacey Gemma, DO 25 mg at 08/23/24 0836 hydrOXYzine pamoate (Vistaril) capsule 25 mg 25 mg Oral q6h PRN Lacey Gemma, DO 25 mg at 08/23/24 1143 Lidocaine 4 % patch 1 patch 1 patch TransDERmal Daily Elena Park, DO methadone (Dolophine) 10 MG/ML solution 140 mg 140 mg Oral Daily Mercedez Biancaagwu, DO 140 mg at 08/23/24 1129 naloxone (Narcan) injection 0.4 mg 0.4 mg IntraVENous q5 min PRN Gemini Elise, DO ondansetron (Zofran) injection 4 mg 4 mg IntraVENous q8h PRN Lacey Gemma, DO 4 mg at 08/23/24 0348 vitamin tablet 1 tablet Oral Daily Lacey Gemma, DO 1 tablet at 08/23/24 0836 promethazine (Phenergan) tablet 12.5 mg 12.5 mg Oral q6h PRN Lacey Gemma, DO 12.5 mg at 08/23/24 0836 sodium chloride 0.9 % infusion 5-250 mL/hr IntraVENous PRN Lacey Gemma, DO sodium chloride 0.9% (NS) flush 10 mL 10 mL IntraVENous 2 times per day Lacey Flower, DO 10 mL at 08/24/24 0009 sodium chloride 0.9% (NS) flush 10 mL 10 mL IntraVENous PRN Lacey Flower DO Assessment/Plan: Skylar Landry is a 34 y.o. 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 TYREE 12.9 cm. Breech - MAT on admission positive for benzos, methadone, opiates, and fentanyl - Comfort meds ordered - S/p CLP consult - Social work following - Addiction medicine consulted, appreciate recommendations - Started on Librium taper and methadone dose confirmed and ordered - Patient sleeping on rounds this AM, no concerns per overnight team - Will work with Care management for discharge planning Abdominal pain Hx nephrolithiasis Hx medullary sponge kidney dx - Reports she was diagnosed with kidney stones 2 wks ago, did not have any signs of infection at that time - Previously followed with Nephrology, has not established care here - Has required B/L stent and PNT in the past - Vitals stable, afebrile overnight - Left CVA ttp on admission however patient has diffuse abdominal tenderness, difficult to discern if related to withdrawal - SVE 1 cm on admission, unchanged from 2 wks ago per pt - Retroperitoneal US (08/23): Nonobstructive left renal calculus measuring up to 7 mm - CBC overall WNL and CMP WNL, Ucx pending - Yesterday evening patient reports pain had improved IUP @ 29w6d - Dating by LMP - Cephalic on 08/23 - Monitoring: NST BID - Diet:General - BMZ Deferred Further plan pending d/w attending. Elena Park DO 08/24/2024, 6:30 AM Cosigned by Carlito Gonzales MD at 08/24/2024 12:14 PM EDT Associated attestation - Carlito Gonzales MD - 08/24/2024 12:14 PM EDT Hospital Care (Independent): I independently saw and evaluated the patient. I agree with the findings and plan of care as documented in the resident's note. Skylar Landry is a 34 y.o. at 29w6d who is admitted for treatment of MILLIE. BP 103/68 (BP Location: Left arm, Patient Position: Lying) Pulse 95 Temp 36.7 C (98 F) (Temporal) Resp 16 SpO2 97% MILLIE --appreciate care of the addiction medicine service. Patient reports that she is relatively stable this morning. She does have some abdominal pain is on the opposite side of her kidney stone. Sheis experiencing less withdrawal this morning that she is seeing on rounds. We were able to confirm her methadone dose of 140 mg yesterday. As she was not set up in the clinic here, we have set her upto receive her methadone at [facility] starting Friday morning at 8 AM. CLP --appreciate care; continue as appropriate while admitted to the hospital. Kidney disorder --patient is found to have a nonobstructing stone on the left. She reports a prior diagnosis of medullary sponge kidney. The echogenicity of both kidneys and size appear typical on retroperitoneal ultrasound admission FWB -- reassuring status thusfar. Candidate for BMZ and magnesium sulfate for neuroprotectionif indicated. PPBC --not discussed --we continue to work on getting records. Will plan for patient to follow in [facility] at discharge. Vaccinations --received COVID and Tdap on 08/23/24 DVT ppx --okay for Lovenox. Mango Gonzales MD HECTOR FACOG Maternal- Medicine * Mercedez Villegas DO - 08/23/2024 6:21 AM EDT Images from the original note were not included. Maternal Medicine Service Resident Progress Note 08/23/2024 6:21 AM 08/22/2024 Hospital Day: 2 Skylar Landry, 34 y.o. 29w5d Patient has been seen and examined. Pt resting comfortably this AM and not disturbed. Vitals: 08/22/24 2354 08/23/24 0200 08/23/24 0300 08/23/24 0359 BP: 96/60 108/66 Patient Position: Lying Pulse: 96 86 (!) 232 94 Resp: 20 22 Temp: 36.6 C (97.8 F) 36.4 C (97.5 F) TempSrc: Temporal Temporal SpO2: 100% 98% FHT: 140, moderate variability Accels: absent Decels: present spontaneous @ 0506 & 0523 Contractions: Rare Physical Exam: Gen: NAD, resting comfortably in bed HEENT: Normocephalic, Atraumatic Resp: No increased WOB, no respiratory distress Card: Regular rate Medications: Current Facility-Administered Medications Medication Dose Route Frequency Provider Last Rate Last Admin acetaminophen (Tylenol) 500 MG tablet - Pyxis ADS Override Pull acetaminophen (Tylenol) tablet 1,000 mg 1,000 mg Oral q6h PRN Lacey Gemma, DO 1,000 mg at 08/23/24 0106 cyclobenzaprine (Flexeril) tablet 5 mg 5 mg Oral TID PRN Lacey Gemma, DO dicyclomine (Bentyl) capsule 10 mg 10 mg Oral 4x daily PRN Lacey Gemma, DO diphenhydrAMINE (BENADryl) tablet/capsule 25 mg 25 mg Oral q6h PRN Lacey Gemma, DO hydrOXYzine pamoate (Vistaril) capsule 25 mg 25 mg Oral q6h PRN Lacey Gemma, DO 25 mg at 08/23/24 0242 ondansetron (Zofran) injection 4 mg 4 mg IntraVENous q8h PRN Lacey Gemma, DO 4 mg at 08/23/24 0348 vitamin tablet 1 tablet Oral Daily Lacey Gemma, DO promethazine (Phenergan) tablet 12.5 mg 12.5 mg Oral q6h PRN Lacey Gemma, DO sodium chloride 0.9 % infusion 5-250 mL/hr IntraVENous PRN Lacey Gemma, DO sodium chloride 0.9% (NS) flush 10 mL 10 mL IntraVENous 2 times per day Lacey Gemma, DO sodium chloride 0.9% (NS) flush 10 mL 10 mL IntraVENous PRN Lacey Gemma, DO Assessment/Plan: Skylar Landry is a 34 y.o. 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 - Last methadone dose 08/20 - Reports she is starting to have some withdrawal symptoms and irritability - Reports she had regular care in [place], unable to access these records, plan for patient to sign release of records this AM - NOB labs ordered on admission and pending this AM - Growth US ordered for the AM - Comfort meds ordered - Addiction medicine consulted, appreciate recommendations Abdominal pain Hx nephrolithiasis Hx medullary sponge kidney dx - Reports she was diagnosed with kidney stones 2 wks ago, did not have any signs of infection at that time - Previously followed with Nephrology, has not established care here - Has required B/L stent and PNT in the past - Vitals stable, afebrile overnight - Left CVA ttp on admission however patient has diffuse abdominal tenderness, difficult to discern if related to withdrawal - SVE 1 cm on admission, unchanged from 2 wks ago per pt - Retroperitoneal US (08/23): Nonobstructive left renal calculus measuring up to 7 mm - Urine culture, CBC, and CMP ordered on admission - CBC overall WNL and CMP WNL, Ucx pending IUP @ 29w5d - Dating by LMP - Cephalic on 08/22 - Monitoring:CEFM - Diet:General - BMZ Deferred Further plan pending d/w attending. Mercedez Villegas DO 08/23/2024, 6:21 AM Cosigned by Carlito Gonzales MD at 08/23/2024 2:12 PM EDT Associated attestation - Carlito Gonzales MD - 08/23/2024 2:12 PM EDT Hospital Care (Independent): I independently saw and evaluated the patient. I agree with the findings and plan of care as documented in the resident's note. Skylar Landry is a 34 y.o. at 29w5d who is admitted for treatment of MILLIE. BP 108/67 Pulse 94 Temp 36.3 C (97.4 F) (Temporal) Resp 16 SpO2 97% MILLIE --patient reports that she has history of substance use disorder, most recently in treatment [facility]. She reports that she is maintained on methadone 140 mg daily. Notably, the patient has since moved from [place] to [place] and plans to be here for the foreseeable future. Her last dose in [place] was on August 20. 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 She is experiencing some withdrawal symptoms this morning. We will have her seen by the addiction medicine service and otherwise plan for adjuvant therapy. Her goal is toadminister her scheduled methadone after confirmation this morning. We will otherwise work to get her a local treatment center for methadone dosing. Her MAT panel was positive for benzos, methadone, opiates and fentanyl. CLP --patient is requesting CLP consult this morning. Likely she does have dual diagnosis and is quite reasonable. Will plan to have her seen by the service this morning. Kidney disorder --I note the patient has a history of medullary sponge kidney. She also has a reported history of nephrolithiasis. She has a nonobstructive 7 mm stone on retroperitoneal ultrasound. Her examination is benign this morning. I am somewhat uncertain that her pain is related to her underlying kidney disease. think that as we gain control of withdrawal symptoms, this will help our diagnostic process. She otherwise has normal creatinine during this admission. FWB -- BPP 8; reassuring status thusfar. Candidate for BMZ and magnesium sulfate for neuroprotection if indicated. PPBC --not discussed --we will work to get her prenatals from [place]. [facility] We did draw labs with this admission. Genetic screening deferred pending receipt of records from [place]. Vaccinations --not discussed DVT ppx --okay for Lovenox; SCDs in interim. Mango MOYERA FACOG Maternal- Medicine documented in this [facility]03-24-2025 NoteMaternal Medicine Service Resident Progress Note 08/30/2024 6:29 AM 08/22/2024 Hospital Day: 9 Skylar Landry, 34 y.o. 30w5d Patient has been seen and examined. Pt reports continued left leg pain. States it has gotten a little better. Denies withdrawal symptoms this Am. Positive movement Negative vaginal bleeding Negative LOF Negative Contractions Vitals: 08/29/24 0912 08/29/24 1559 08/29/24 2024 08/30/24 0609 BP: 99/67 95/65 99/66 93/64 Pulse: 89 82 94 90 Resp: 16 16 17 16 Temp: 37.1 ?C (98.7 ?F) 36.9 ?C (98.4 ?F) 36.6 ?C (97.8 ?F) 36.4 ?C (97.6 ?F) TempSrc: Oral Temporal Temporal Temporal SpO2: 98% 98% 98% 97% Weight: Height: FHT: 140, moderate variability Accels: present Decels: interimittent variables Contractions: none Physical Exam: Gen: NAD HEENT: Normocephalic, Atraumatic, EOMI, MMM Resp: Equal chest rise bilaterally Abd: soft, gravid, NTND, no rebound, no guarding. No fundal tenderness Ext: No LE edema, no calf tenderness or swelling Medications: Current Facility-Administered Medications Medication Dose Route Frequency Provider Last Rate Last Admin acetaminophen (Tylenol) tablet 1,000 mg 1,000 mg Oral q6h PRN Lcaey Flower DO 1,000 mg at 08/29/24 1140 buprenorphine-naloxone (Suboxone) 8-2 MG per sublingual film 1 Film 1 Film SubLINGual BID Cory Morris MD 1 Film at 08/30/24 0611 cephalexin (Keflex) capsule 500 mg 500 mg Oral 4x daily Elena Park, DO 500 mg at 08/29/242116 cyclobenzaprine (Flexeril) tablet 10 mg 10 mg Oral TID PRN Mercedez Villegas, DO 10 mg at 08/29/242127 dicyclomine (Bentyl) capsule 10 mg 10 mg Oral 4x daily PRN Lacey Flower, DO 10 mg at 08/26/24 0900 diphenhydrAMINE (BENADryl) tablet/capsule 25 mg 25 mg Oral q6h PRN Lacey Flower, DO 25 mg at 08/29/24 1329 enoxaparin (Lovenox) syringe 40 mg 40 mg SubCUTAneous q24h Mercedez Villegas, DO 40 mg at 08/29/24 1144 famotidine (Pepcid) tablet 20 mg 20 mg Oral BID Mercedez Villegas, DO 20 mg at 08/29/242116 hydrOXYzine pamoate (Vistaril) capsule 25 mg 25 mg Oral q6h PRN Lacey Flower, DO 25 mg at 08/29/242127 Lidocaine 4 % patch 1 patch 1 patch TransDERmal Daily Elena Park, DO 1 patch at 08/29/24 0920 Lidocaine 4 % patch 1 patch 1 patch TransDERmal Daily Elena Park DO 1 patch at 08/28/24 0931 naloxone (Narcan) injection 0.4 mg 0.4 mg IntraVENous q5 min PRN Gemini Elise, DO ondansetron (Zofran) injection 4 mg 4 mg IntraVENous q8h PRN Lacey Flower, DO 4 mg at 08/29/242127 vitamin tablet 1 tablet Oral Daily Lacey Gemma, DO 1 tablet at 08/29/24 0919 promethazine (Phenergan) tablet 12.5 mg 12.5 mg Oral q6h PRN Lacey Flower, DO 12.5 mg at 08/28/24 1246 QUEtiapine (SEROquel) tablet 50 mg 50 mg Oral Nightly PRN Manuel Woods MD 50 mg at 08/29/242116 sertraline (Zoloft) tablet 50 mg 50 mg Oral Daily Nakia Cronin, DO 50 mg at 08/29/24 0919 sodium chloride 0.9 % infusion 5-250 mL/hr IntraVENous PRN Lacey Gemma, DO sodium chloride 0.9% (NS) flush 10 mL 10 mL IntraVENous 2 times per day Lacey Gemma, DO 10 mL at 08/29/242119 sodium chloride 0.9% (NS) flush 10 mL 10 mL IntraVENous PRN Lacey Gemma, DO Assessment/Plan: Skylar Landry is a 34 y.o. 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 TYREE 12.9 cm. Breech - MAT on admission positive for benzodiazepine, methadone, opiates, and fentanyl - Comfort meds ordered - S/p CLP and SW Consult - no ongoing issues and patient to follow-up with centering in the [facility] on discharge - Addiction medicine consulted, appreciate recommendations Continue microdosing of subutex managed by ADM. Patient for likely discharge on Friday or Friday Detox from benzodiazepines completed from ADM standpoint, Librium taper discontinued Added Zoloft 50 mg and continued Seroquel 25 mg at night for anxiety and insomnia Left Leg Pain - Pain on lateral aspect of left leg, feeling of decreased sensation, numbness/tingling - Reports overnight pain medications (Flexeril and lidocaine patch) improved symptoms by about 25% - MRI lumbar spine done 08/27: At L4-5 there is a 2-3 mm disc bulge, resulting in slight lateral recess narrowing. Otherwise no central canal stenosis or neural foraminal narrowing at any level - PT following Complex Social Situation - Pt recently moved here from [place], [place] reports she was receiving regular care there however we do not have records - Record request sent on admission (08/23) - NOB labs ordered on admission which are normal - Will establish patient with [facility] on discharge Non-obstructive n (more content not included)...[facility] 08-29-2024 Nurse Note* Valeria Cano, RN - 08/29/2024 6:30 PM EDT 50 gram glucose drink given for 1 hr [id number]* Valeria Cano RN - 08/29/2024 6:30 PM EDT 50 gram glucose drink given for 1 hr GGT * Neelam Talley RN - 08/27/2024 10:07 AM EDT During RN Pt. C/O about her upper left leg pain. States it an 8-9/10 pain. States she feels like there is water running her thigh. Leg appears normal and the same as her Right leg. No swelling or redness. Secured message sent to OB Residents. documented in this [facility]03-23-2025 NoteMaternal Medicine Service Resident Progress Note 08/29/2024 5:55 AM 08/22/2024 Hospital Day: 8 Skylar Landry, 34 y.o. 30w4d Patient sleeping, did not disturb. Per night team, patients left lateral leg pain has improved. Vitals: 08/28/24 0815 08/28/24 1250 08/28/24 1616 08/28/24 1941 BP: (!) 90/57 93/64 102/68 108/66 Pulse: 92 95 91 87 Resp: 16 16 16 16 Temp: 36.4 ?C (97.5 ?F) 37.1 ?C (98.8 ?F) 36.7 ?C (98 ?F) 36.6 ?C (97.8 ?F) TempSrc: Temporal Temporal Temporal Oral SpO2: 97% 97% 97% 97% Weight: Height: FHT: 140, moderate variability Accels: present Decels: isolated variable, overall reassuring Contractions: none Physical Exam: Gen: Patient sleeping on rounds this AM Medications: Current Facility-Administered Medications Medication Dose Route Frequency Provider Last Rate Last Admin acetaminophen (Tylenol) tablet 1,000 mg 1,000 mg Oral q6h PRN Lacey Gemma, DO 1,000 mg at 08/28/24 193 buprenorphine-naloxone (Suboxone) 2-0.5 MG per sublingual film 2 Film 2 Film SubLINGual BID Cory Morris MD 2 Film at 08/28/24 1516 Followed by buprenorphine-naloxone (Suboxone) 2-0.5 MG per sublingual film 3 Film 3 Film SubLINGual BID Cory Morris MD [START ON 08/30/2024] buprenorphine-naloxone (Suboxone) 8-2 MG per sublingual film 1 Film 1 Film SubLINGual BID Manuel Woods MD cephalexin (Keflex) capsule 500 mg 500 mg Oral 4x daily Elena Park, DO 500 mg at 08/28/242130 cyclobenzaprine (Flexeril) tablet 10 mg 10 mg Oral TID PRN Mercedez Villegas, DO 10 mg at 08/28/24 193 dicyclomine (Bentyl) capsule 10 mg 10 mg Oral 4x daily PRN Lacey Gemma, DO 10 mg at 08/26/24 0900 diphenhydrAMINE (BENADryl) tablet/capsule 25 mg 25 mg Oral q6h PRN Lacey Flower, DO 25 mg at 08/27/24 1047 enoxaparin (Lovenox) syringe 40 mg 40 mg SubCUTAneous q24h Mercedez Villegas, DO 40 mg at 08/28/24 1108 famotidine (Pepcid) tablet 20 mg 20 mg Oral BID Mercedez Villegas, DO 20 mg at 08/28/24 2131 hydrOXYzine pamoate (Vistaril) capsule 25 mg 25 mg Oral q6h PRN Lacey Flower, DO 25 mg at 08/28/24 0950 Lidocaine 4 % patch 1 patch 1 patch TransDERmal Daily Elena Park, DO 1 patch at 08/28/24 0930 Lidocaine 4 % patch 1 patch 1 patch TransDERmal Daily Elena Park DO 1 patch at 08/28/24 0931 methadone (Dolophine) 10 MG/ML solution 60 mg 60 mg Oral q24h Manuel Woods MD Followed by [START ON 08/30/2024] methadone (Dolophine) 10 MG/ML solution 40 mg 40 mg Oral q24h Manuel Woods MD naloxone (Narcan) injection 0.4 mg 0.4 mg IntraVENous q5 min PRN Gemini Elise, ondansetron (Zofran) injection 4 mg 4 mg IntraVENous q8h PRN Lacey Flower, DO 4 mg at 08/28/24 0808 vitamin tablet 1 tablet Oral Daily Lacey Gemma, DO 1 tablet at 08/28/24 0933 promethazine (Phenergan) tablet 12.5 mg 12.5 mg Oral q6h PRN Lacey Flower, DO 12.5 mg at 08/28/24 1246 QUEtiapine (SEROquel) tablet 50 mg 50 mg Oral Nightly PRN Manuel Woods MD 50 mg at 08/28/24 2141 sertraline (Zoloft) tablet 50 mg 50 mg Oral Daily Nakia Cronin DO 50 mg at 08/28/24 0933 sodium chloride 0.9 % infusion 5-250 mL/hr IntraVENous PRN Lacey Flower, DO sodium chloride 0.9% (NS) flush 10 mL 10 mL IntraVENous 2 times per day Lacey Flower, DO 10 mL at 08/28/24 2131 sodium chloride 0.9% (NS) flush 10 mL 10 mL IntraVENous PRN Lacey Flower, DO Assessment/Plan: Skylar Landry is a 34 y.o. 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 TYREE 12.9 cm. Breech - MAT on admission positive for benzodiazepine, methadone, opiates, and fentanyl - Comfort meds ordered - S/p CLP and SW Consult - no ongoing issues and patient to follow-up with centering in the [facility] on discharge - Addiction medicine consulted, appreciate recommendations Continue transition from methodone to Subutex via subutex cross taper and microdosing managed by ADM, will likely take 4 - 5 days for the transition. Patient for likely discharge on Friday or Friday Detox from benzodiazepines completed from ADM standpoint, Librium taper discontinued Added Zoloft 50 mg and continued Seroquel 25 mg at night for anxiety and insomnia Left Leg Pain - Pain on lateral aspect of left leg, feeling of decreased sensation, numbness/tingling - Reports overnight pain medications (Flexeril and lidocaine patch) improved symptoms by about 25% - MRI lumbar spine done 08/27: At L4-5 there is a 2-3 mm disc bulge, resulting in slight lateral recess narrowing. Otherwise no central canal stenosis or neural foraminal narrowing at any level - Pt standing at bedside this AM without any evidence of neurol (more content not included)...[facility]03-22-2025 NoteADDICTION MEDICINE PROGRESS NOTE Patient: Skylar Landry __ Problem List: Active Problems: Severe opioid use disorder (HCC) state, incidental Polysubstance abuse (CMS/HCC) (HCC) Anxiety and depression Drug use affecting in third trimester SUBJECTIVE Chief Complaint Patient presents with Other Detox from methadone Last 4 COWS scores per RN assessments 3 - 1 - 1 - 3 Interim History Tolerating Subxone microinduction process thus far Received 80 mg of methadone this AM Will be receiving a total of 8 mg of Subutex today No precipitated withdrawal noted; denies benzo withdrawal About 30 weeks Plans to come to our [facility] program at discharge for MAT and care and to enroll in our CD IOP Sleep issues - asking to have seroquel increased Review of Systems Review of Systems Constitutional: Positive for malaise/fatigue. Gastrointestinal: Positive for nausea. All other systems reviewed and are negative. OBJECTIVE Vitals Vitals: 08/27/24 1717 03/21/203208/28/24 0815 08/28/24 1250 BP: 108/64 102/65 (!) 90/57 93/64 Pulse: 96 96 92 95 Resp: 18 16 16 Temp: 36.8 ?C (98.3 ?F) 36.4 ?C (97.5 ?F) 37.1 ?C (98.8 ?F) TempSrc: Oral Temporal Temporal SpO2: 98% 97% 97% Weight: Height: Physical Exam Vitals and nursing note reviewed. Constitutional: General: She is not in acute distress. Appearance: Normal appearance. She is not ill-appearing. Cardiovascular: Rate and Rhythm: Normal rate and regular rhythm. Pulmonary: Effort: Pulmonary effort is normal. Breath sounds: Normal breath sounds. Abdominal: General: Abdomen is protuberant. Musculoskeletal: General: Normal range of motion. Neurological: General: No focal deficit present. Mental Status: She is alert and oriented to person, place, and time. Motor: No tremor. Psychiatric: Attention and Perception: Attention and perception normal. She does not perceive auditory or visual hallucinations. Medications Home Meds Current Outpatient Medications Medication Instructions methadone (DOLOPHINE) 140 mg, Daily Scheduled Inpatient Meds buprenorphine-naloxone, 2 Film, SubLINGual, BID Followed by [START ON 08/29/2024] buprenorphine-naloxone, 3 Film, SubLINGual, BID cephalexin, 500 mg, Oral, 4x daily enoxaparin, 40 mg, SubCUTAneous, q24h famotidine, 20 mg, Oral, BID Lidocaine, 1 patch, TransDERmal, Daily Lidocaine, 1 patch, TransDERmal, Daily [START ON 08/29/2024] methadone, 60 mg, Oral, q24h vitamin, 1 tablet, Oral, Daily sertraline, 50 mg, Oral, Daily sodium chloride 0.9%, 10 mL, IntraVENous, 2 times per day PRN Inpatient Meds PRN medications: acetaminophen, cyclobenzaprine, dicyclomine, diphenhydrAMINE, hydrOXYzine pamoate, naloxone, ondansetron, promethazine, QUEtiapine, sodium chloride, sodium chloride 0.9% Continuous Inpatient Infusions Recent Imaging ECG 12 lead Result Date: 08/24/2024 Sinus rhythm Probable left atrial enlargement Low voltage, precordial leads Electronically Signed On 08-24-2024 08:40:41 EDT by Mat [place] US OB detail anatomy Result Date: 08/23/2024 OBSTETRICS REPORT (Signed Final 08/23/2024 02:04 pm) PATIENT INFO: ID #: [id number] : [id number] (34 yrs)(F) Name: SKYLAR LANDRY Visit Date: 08/23/2024 10:29 am PERFORMED BY: Attending: Eliezer Gonzales MD, HECTOR, FACOG Performed By: Som Miller Referred By: ELENA PARK Location: [facility] IP Visit Type: Inpatient - Hospital SERVICE(S) PROVIDED: US Level II complete (Targeted OB) 04205 BPP w/out NST 40269 INDICATIONS: Drug use complicating , O99.320 unspecified trimester Other psychoactive substance abuse, F19.10 uncomplicated (HCC) EVALUATION: Num Of Fetuses: 1 Heart Rate(bpm): 141 Cardiac Activity: Regular rhythm Lie: Longitudinal Presentation: Breech Placenta: Anterior Amniotic Fluid TYREE FV: Within normal limits TYREE Sum(cm) %Tile Largest Pocket(cm) 12.9 37 5.1 RUQ(cm) LUQ(cm) LLQ(cm) 4 5.1 3.8 BIOPHYSICAL EVALUATION: Amniotic F.V: Within normal limits F. Tone: Observed F. Movement: Observed Score: 8/8 F. Breathing: Observed BIOMETRY: BPD: 75.5 mm G.Age: 30w 2d 56 % OFD: 101.7 mm HC: 282.8 mm G.Age: 31w 0 (more content not included)...[facility] 08-28-2024 NoteMaternal Medicine Service Resident Progress Note 08/28/2024 6:15 AM 08/22/2024 Hospital Day: 7 Skylar Landry, 34 y.o. 30w3d Patient has been seen and examined. Pt complains of left leg pain. States the pain is in her lateral thigh and is a tingling pain and at times feels like it is numb. Denies any other concerns at this time. Positive movement Negative vaginal bleeding Negative LOF Negative Contractions Vitals: 08/27/24 1255 08/27/24 1715 08/27/24 1717 08/27/242032 BP: 99/67 108/64 102/65 Pulse: 92 103 96 96 Resp: 18 19 18 Temp: 36.8 ?C (98.3 ?F) 36.8 ?C (98.3 ?F) TempSrc: Oral Oral SpO2: 97% 100% 98% Weight: Height: Reviewed NST last evening 08/27, no further monitoring overnight or this AM FHT: 130, moderate variability Accels: present Decels: absent Contractions: none Physical Exam: Gen: NAD, patient standing at bedside and ambulating in the room without difficulty HEENT: Normocephalic, Atraumatic Resp: No increased work of breathing Ext: No tenderness to palpation of lateral left leg Medications: Current Facility-Administered Medications Medication Dose Route Frequency Provider Last Rate Last Admin acetaminophen (Tylenol) tablet 1,000 mg 1,000 mg Oral q6h PRN Lacey Mosleyma, DO 1,000 mg at 08/27/24 1726 buprenorphine-naloxone (Suboxone) 2-0.5 MG per sublingual film 1 Film 1 Film SubLINGual BID Cory Morris MD 1 Film at 08/27/24 1520 Followed by buprenorphine-naloxone (Suboxone) 2-0.5 MG per sublingual film 2 Film 2 Film SubLINGual BID Cory Morris MD Followed by [START ON 08/29/2024] buprenorphine-naloxone (Suboxone) 2-0.5 MG per sublingual film 3 Film 3 Film SubLINGual BID Cory Morris MD cephalexin (Keflex) capsule 500 mg 500 mg Oral 4x daily Elena Park, DO 500 mg at 08/27/24 2152 cyclobenzaprine (Flexeril) tablet 10 mg 10 mg Oral TID PRN Mercedez Villegas, DO 10 mg at 08/27/24 1850 dicyclomine (Bentyl) capsule 10 mg 10 mg Oral 4x daily PRN Lacey Flower, DO 10 mg at 08/26/24 0900 diphenhydrAMINE (BENADryl) tablet/capsule 25 mg 25 mg Oral q6h PRN Lacey Gemma, DO 25 mg at 08/27/24 1047 enoxaparin (Lovenox) syringe 40 mg 40 mg SubCUTAneous q24h Mercedez Villegas, DO 40 mg at 08/27/24 1301 famotidine (Pepcid) tablet 20 mg 20 mg Oral BID Mercedez Villegas, DO hydrOXYzine pamoate (Vistaril) capsule 25 mg 25 mg Oral q6h PRN Lacey Gemma, DO 25 mg at 08/27/24 1726 Lidocaine 4 % patch 1 patch 1 patch TransDERmal Daily Elena Park, DO 1 patch at 08/27/24 0839 Lidocaine 4 % patch 1 patch 1 patch TransDERmal Daily Elena Park, DO 1 patch at 08/27/24 1850 methadone (Dolophine) 10 MG/ML solution 80 mg 80 mg Oral q24h Cory Morris MD Followed by [START ON 08/29/2024] methadone (Dolophine) 10 MG/ML solution 60 mg 60 mg Oral q24h Cory Morris MD naloxone (Narcan) injection 0.4 mg 0.4 mg IntraVENous q5 min PRN Gemini Elise, ondansetron (Zofran) injection 4 mg 4 mg IntraVENous q8h PRN Lacey Mosleyma, DO 4 mg at 08/26/24 0844 vitamin tablet 1 tablet Oral Daily Lacey Gemma, DO 1 tablet at 08/27/24 0838 promethazine (Phenergan) tablet 12.5 mg 12.5 mg Oral q6h PRN Lacey Gemma, DO 12.5 mg at 08/23/24 0836 QUEtiapine (SEROquel) tablet 25 mg 25 mg Oral Nightly PRN Nakia Berardinis, DO 25 mg at 08/27/24 2152 sertraline (Zoloft) tablet 50 mg 50 mg Oral Daily Nakia Berardinis, DO 50 mg at 08/27/24 0838 sodium chloride 0.9 % infusion 5-250 mL/hr IntraVENous PRN Lacey Gemma, DO sodium chloride 0.9% (NS) flush 10 mL 10 mL IntraVENous 2 times per day Lacey Gemma, DO 10 mL at 08/27/24 0900 sodium chloride 0.9% (NS) flush 10 mL 10 mL IntraVENous PRN Lacey Flower, Assessment/Plan: Skylar Landry is a 34 y.o. 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 TYREE 12.9 cm. Breech - MAT on admission positive for benzodiazepine, methadone, opiates, and fentanyl - Comfort meds ordered - S/p CLP and SW Consult - no ongoing issues and patient to follow-up with centering in the [facility] on discharge - Addiction medicine consulted, appreciate recommendations Continue transition from methodone to Subutex via subutex cross taper and microdosing managed by ADM, will likely take 4 - 5 days for the transition. Patient for likely discharge on Friday or Friday Detox from benzodiazepines completed from ADM standpoint, Librium taper discontinued Added Zoloft 50 mg and continued Seroquel 25 mg at night for anxiety and insomnia Left Leg Pain - Pain on lateral aspect of left leg, feeling of decreased sensation, numbness/tingling - Reports overnight pain m (more content not included)...[facility] 08-27-2024 Note* Care Coordination - KAEL Richard - 08/27/2024 3:56 PM EDT Met with pt at bedside. Pt being transitioned now to subutex and will follow with [facility] at [facility] [place] States will be able to get up to [facility] weekly. Jossie left message with HRS to check status of medicaid application. States fob's mother Rosanne will be able to come pick her up [place] Jossie provided support and encouragement to follow all tx recommendations and OB care. Sw to follow as needed [id number]* Care Coordination - KAEL Richard - 08/27/2024 3:56 PM EDT Met with pt at bedside. Pt being transitioned now to subutex and will follow with [facility] at [facility] [place] States will be able to get up to [facility] weekly. Jossie left message with HRS to check status of medicaid application. States fozev's mother Rosanne will be able to come pick her [place] Sw provided support and encouragement to follow all tx recommendations and OB care. Sw to follow as needed [id number] Note* Care Coordination - Almita Reeder RN - 08/27/2024 11:41 AM EDT Hospital day 6 at 30/2 weeks. Patient will follow up wit the [facility] for OB and addiction medicine care. [facility] [id number] Note* Care Coordination - Almita Reeder RN - 08/27/2024 11:41 AM EDT Hospital day 6 at 30/2 weeks. Patient will follow up wit the [facility] for OB and addiction medicine care. [facility] [id number] Nurse Note* Neelam Talley RN - 08/27/2024 10:07 AM EDT During RN Pt. C/O about her upper left leg pain. States it an 8-9/10 pain. States she feels like there is water running her thigh. Leg appears normal and the same as her Right leg. No swelling or redness. Secured message sent to OB Residents. [facility] [id number] NoteDepartment of Psychiatry Progress Note Total Time: 40 minutes SUBJECTIVE: I have decided to switch to Subutex. OBJECTIVE Pt reported that she has decided to switch to Subutex due to being far away to be doing daily dosing; pt anxious about being on different medication and worried not to be in withdrawal; pt again stated that she is motivated to work towards sobriety. Discussed her family in [place]; her 3 boys are with paternal grandmother and pt has not spoken to her for a while now (she likes the control she has at this time); pt is talking to her current partner (FILIPE), who is still struggling with use (he is in [place]); pt stated that she made the good decision to come to [place] and be away from him due to his ongoing use. Pt denied any SI/HI. At this time, no manic, no psychotic symptoms present. MENTAL STATUS EXAM Mental Status Exam: Appearance: casually groomed Behavior: cooperative Activity normal Speech: spontaneous, normal rate Mood: anxious, , Affect: congruent with mood Associations: goal directed Thought content: general worries Thought process: logical, organized Orientation: oriented in all spheres Attention good Concentration good Insight: good Judgment: good Suicidal Intentions: no Suicidal Plan: no ASSESSMENT AND PLAN Polysubstance Abuse Anxiety/ Depression Focused on sobriety issues, decreasing depressive/anxiety symptoms and supportive intervention. No SI/HI, pt is future oriented. Will continue to follow as able during this stay.[facility]03-19-2025 Note* Care Coordination - Almita Reeder RN - 08/25/2024 2:18 PM EDT Hospital day 4. MILLIE. Patient requestd to be on Subutex, Dr Morris notified. [facility] [id number] Note* Care Coordination - Almita Reeder RN - 08/25/2024 2:18 PM EDT Hospital day 4. MILLIE. Patient requestd to be on Subutex, Dr Morris notified. [facility] [id number] Hospital Discharge instructions* Discharge Instructions* Mercedez Villegas, DO - 08/25/2024 12:26 PM EDT Images from the original note were not included. [facility] __ Addiction Medicine Intensive Outpatient Program [facility]): [phone] [place]: [phone] [place]: [phone] Behavioral Health Intensive Outpatient Program [place] ([facility]): [phone] [place]: [phone] First Step [place] ([facility] [phone] [place]: [phone] Partial Hospitalization Program [facility]): [phone] Traumatic Stress Center [facility]): [phone] Vivitrol Clinic [facility]): [phone] Alcoholics Anonymous Meetings [email or web address] [facility] [address] [place] [address], [address], [place] [address] Patient Information Leaflet https://www.fda.gov/downloads/Drugs/DrugSafety/PostmarketDrugSafetyInformationfo rPatientsandProviders/LBK581217.pdf SUBOXONE (sub-OX-own) (buprenorphine HCl/naloxone HCl dihydrate, sublingual tablet) (C*) SUBUTEX (SUB-u-saundra) (buprenorphine HCl, sublingual tablet) (C*) Read this information carefully before you take SUBOXONE or SUBUTEX and each time you get more SUBOXONE or SUBUTEX. There may be new information. This information does not take the place of talking to your doctor about your medical condition or your treatment. Only you and your doctor can decide if SUBOXONE or SUBUTEX is right for you. Share the important information in this leaflet with members of your household. What is the most important information I should know about SUBOXONE and SUBUTEX? SUBOXONE and SUBUTEX can cause from overdose, especially if you inject them with tranquilizers. Use SUBOXONE or SUBUTEX exactly the way your doctor tells you to with medicines used to treat depression or anxiety. Use SUBOXONE and SUBUTEX only for the condition for which it was prescribed. NDA 2 NDA 3 Page 26 SUBOXONE and SUBUTEX can cause drug dependence. This means that you can get withdrawal symptoms if you stop using the medicine too quickly. SUBOXONE and SUBUTEX are not for occasional ( as needed ) use. Prevent theft and misuse. SUBOXONE and SUBUTEX contain a narcotic painkiller that can be a target for people who abuse prescription medicines or street drugs. Therefore, keep your tablets in a safe place, to protect them from theft. Never give them to anyoneelse. Selling or giving away this medicine is against the law. In an emergency, have family members tell emergency room staff that you are dependent on opioids (narcotic painkillers) and are being treated with SUBOXONE or SUBUTEX. What are SUBOXONE and SUBUTEX? SUBOXONE and SUBUTEX are prescription medicines used to treat adults addicted to opioid (narcotic painkillers) medicines and drugs, such as morphine and heroin. SUBOXONE and SUBUTEX take the place of these medicines and drugs and may help you stop using and abusing them. SUBOXONEand SUBUTEX are part of a complete addiction treatment program that also includes counseling or behavioral therapy. SUBOXONE and SUBUTEX have not been studied in children. SUBOXONE is a tablet that contains 2 medicines. 1. The first medicine is called buprenorphine (WJVR-bsux-PPU-feen). It is like painkiller medicines such as morphine, street drugs like heroin, and addiction treatment medicines like methadone. Buprenorphine may give you less of a high than these other prescription medicines and street drugs. Withdrawal or stopping buprenorphine may be easier than stopping other prescription medicines and street drugs. 2. SUBOXONE also contains naloxone (nal-OX-own). When naloxone is injected, it blocks the effects of medicines and drugs like methadone, heroin, and morphine. Naloxone is added to SUBOXONE to stop people from injecting (shooting-up) SUBOXONE tablets. When you use SUBOXONE under your tongue (sublingually), as prescribed, the naloxone in SUBOXONE should not stop the medicine s effects. However, if you inject SUBOXONE, the naloxone can give you bad withdrawal symptoms. SUBUTEX is a tablet and it contains only the medicine buprenorphine (see What is SUBOXONE? for a description of buprenorphine). SUBUTEX is different from SUBOXONE because it does not contain naloxone. It is usually used under a doctor s direct supervision. Who Should Not Take SUBOXONE or SUBUTEX? Do not take SUBOXONE or SUBUTEX if your doctor did not prescribe SUBUTEX or SUBOXONE for you. you are allergic to buprenorphine, or any of the inactive ingredients in the medicines. See the end of this leaflet for a complete list of ingredients. NDA 20-692 NDA 20-491 Page 27 Do not take SUBOXONE if you are allergic to naloxone or buprenorphine. Your doctor should know about all your medical conditions before deciding if SUBOXONE or SUBUTEX is right for you or what dose is best. Tell your doctor about all of your medical problems, especially the ones listed below: trouble breathing or lung problems head injury or brain problem liver or kidney problems gallbladder problems adrenal gland problems, such as Clare s disease low thyroid (hypothyroidism) enlarged prostate gland (men) problems urinating a curve in your spine that affects your breathing severe mental problems or hallucinations (seeing or hearing things that are not really there) alcoholism If any of these conditions apply to you, make sure you tell your doctor about them before taking SUBOXONE or SUBUTEX. Tell your doctor: if you are or plan to become . SUBOXONE or SUBUTEX may not be right for you. It is not known whether SUBOXONE or SUBUTEX could harm your baby. if you are breast feeding. SUBOXONE or SUBUTEX will pass through your milk and may harm your baby. Tell your doctor about all the medicines you take, including prescription and nonprescription medicines, vitamins, and herbal supplements. They may cause serious side effects when taken with SUBOXONEor SUBUTEX. Sometimes, the doses of certain medicines and SUBOXONE or SUBUTEX need to be reduced ifused together. Do not take any other medicine, herbal, or azvz-iig-dudvljq medicine while using SUBOXONE or SUBUTEX unless your doctor has told you it is okay. How should I take SUBOXONE or SUBUTEX? Follow your doctor s directions exactly. Your doctor may change your dose after seeing how the medicine affects you. Do not change your dose unless your doctor tells you to change it. Do not take SUBOXONE or SUBUTEX more often than prescribed. NDA -917 NDA 733 Page 28 Put the tablets under your tongue and let them melt. This will take 2 to 10 minutes. Do not chew or swallow the tablets. The medicine will not work this way and you may get withdrawal symptoms. If your doctor tells you to take more than 1 tablet, you will be told to: take all tablets at the same time together under your tongue, or take 2 tablets, put them under your tongue. After they melt, put the next tablet or tablets under your tongue right away hold the tablets under your tongue until they melt completely. The medicine will not work if swallowed and you may get withdrawal symptoms. Do not change the way you are told to take your medicine or you may get too little or too much medicine. Do not inject (shoot-up) SUBOXONE or SUBUTEX. Shooting-up is dangerous and you may get bad withdrawal symptoms. SUBOXONE and SUBUTEX can cause withdrawal symptoms if you take them too soon after using drugs like heroin, morphine, or methadone. If you miss a dose of SUBOXONE or SUBUTEX, take it as soon as possible. If it is almost time for your next dose, skip the missed dose and go back to your regular dosing schedule. Do not take 2 doses at once unless your doctor tells you to. Before stopping SUBOXONE or SUBUTEX, ask your doctor how to stop to avoid withdrawal symptoms. If you take too much SUBOXONE or SUBUTEX or overdose, call your local emergency number or poison control center right away.After you stop taking SUBOXONE or SUBUTEX, flush the unused tablets down the Toilet. What Should I Avoid While Taking SUBOXONE or SUBUTEX? Do not drive, operate heavy machinery, or perform any other dangerous activities until you know if this medicine affects how alert you are. Do not drink alcohol or take tranquilizers or sedatives (medicines that help you sleep) while using SUBOXONE or SUBUTEX. You can when you use these products with SUBOXONE or SUBUTEX. NDA -996 NDA -603 Page 29 Do not take other medicines without talking to your doctor. Other medicines include prescription and non-prescription medicines, vitamins, and herbal supplements. Be especially careful about medicines that may make you sleepy. What are the Possible Side Effects of SUBOXONE and SUBUTEX? Call your doctor or get medical help right away if You feel faint, dizzy, confused, or have any other unusual symptoms. Your breathing gets much slower than is normal for you. These can be signs of an overdose or serious problem. SUBOXONE and SUBUTEX may cause liver problems. Call your doctor right away if: Your skin or the white part of your eyes turns yellow (jaundice). Your urine turns dark. Your bowel movements (stools) turn light in color. You don t feel like eating much food for several days or longer. You feel sick to your stomach (nausea). You have lower stomach pain. Your doctor will do blood tests while you are taking SUBOXONE or SUBUTEX to make sure your liver is okay. SUBOXONE and SUBUTEX can cause your blood pressure to drop. This can make you feel dizzy if you get up too fast from sitting or lying down. SUBOXONE and SUBUTEX can cause allergic reactions that can make it hard for you to breathe. Other symptoms of a bad allergic reaction include hives, swelling of your face, asthma (wheezing) or shock (loss of blood pressure and consciousness). Call a doctor or get emergency help right away if you get any of these symptoms. You may have withdrawal symptoms when you start treatment with SUBOXONE or SUBUTEX. You can develop dependence from taking SUBOXONE or SUBUTEX, and so you may get withdrawal symptoms when you stop taking SUBOXONE or SUBUTEX. There is also a chance that you may abuse or get addicted to SUBOXONE or SUBUTEX because SUBOXONE and SUBUTEX are treatments for other drug addictions. Some of the common side effects of SUBOXONE and SUBUTEX are headache, pain, problems sleeping, nausea, sweating, stomach pain, and constipation. These are not all the possible side effects of SUBOXONE or SUBUTEX. For a complete list, ask your doctor or pharmacist. NDA 65-429 NDA 83-655 Page 30 GENERAL INFORMATION ABOUT THE SAFE AND EFFECTIVE USE OF SUBOXONE and SUBUTEX. Medicines are sometimes prescribed for conditions that are not mentioned in patient information leaflets. Do not use SUBOXONE or SUBUTEX for conditions for which they were not prescribed. Do not give SUBOXONE or SUBUTEX to other people, even if they have the same symptoms you have. Sharing is illegal and may cause severe medical problems. Keep SUBOXONE and SUBUTEX out of the reach of children. Accidental overdose in children is dangerous and can result in . This leaflet summarizes the most important information about SUBOXONE and SUBUTEX. If you would like more information, talk with your doctor. Also, you can ask your pharmacist or doctor for information about SUBOXONE and SUBUTEX that is written for health professionals. For more information call 7-460[employer] ( ), or visit our Web site, www.[employer]. What are the ingredients of SUBOXONE and SUBUTEX? SUBOXONE Active Ingredients: buprenorphine hydrochloride and naloxone hydrochloride dihydrate Inactive Ingredients: lactose, mannitol, cornstarch, povidone K30, citric acid, sodium citrate, FD&C Yellow No.6 color, magnesium stearate, and for flavoring, Acesulfame K sweetener and a lemon-[place]atak flavor SUBUTEX Active Ingredients: buprenorphine hydrochloride Inactive Ingredients: lactose, mannitol, cornstarch, povidone K30, citric acid, sodium citrate and magnesium stearate RX ONLY Common Side Effects of Buprenorphine Published on [employer] (http://www.buppractice.com) These Are The Common Side Effects of buprenorphine Buprenorphine is safe to use for most patients. Some people do experience side effects, but most ofbuprenorphine's side effects are not dangerous --they're just unpleasant. Common minor side effects include: Nausea Sweating Constipation Headache Drowsiness Depression Disturbed sleep If you experience any of the above, talk to your doctor. Your doctor may give you medicine to treat the side effects, or your doctor may lower your dose of buprenorphine slightly. Regardless, most minor side effects will either go away as you become used to the drug or can be treated with minor lifestyle changes. Some people with certain medical conditions are at risk for more serious side effects: Drug Interactions: Some people who take both sedatives and buprenorphine have overdosed on one or both drugs. If you have been prescribed medications, make certain your doctor knows. He or she may change how much of each drug you take. Also, while on buprenorphine, never take sedatives or other drugs except those prescribed by your doctor! Allergic reaction: If you develop hives or a rash while taking buprenorphine, you may be allergic to it. If this happens, call your doctor or go to the emergency room immediately. Also, tell your doctor if you know that you are allergic to drugs called buprenorphine or naloxone. Respiratory depression: Like prescription narcotics and heroin, buprenorphine affects the reflexes that keep you breathing. In most patients, this effect is minimal, but it can be serious in patientswho already have damaged or diseased lungs. If you have a condition that impairs your breathing, tell your doctor before beginning buprenorphine. Liver problems (hepatitis): A few people have developed problems with their livers while taking buprenorphine. Most of these people already had liver problems like hepatitis B or C or cirrhosis due to alcohol abuse. If you have had liver problems in the past, make sure that your doctor knows. Michael shannon will monitor your liver closely during your treatment. If you develop severe stomach pain, severe nausea, or jaundice (skin and/or whites of the eyes look yellow), get to the hospital as quickly as possible. Your chances of full recovery are very good if you get treatment quickly. Head injury: If you have suffered a severe head injury or have been told by a doctor that you have an intracranial lesion, tell your doctor before beginning buprenorphine. Buprenorphine causes a increase in pressure in the skull, and this can make your injury worse. Side Effect Management Published on BupPractice (http://www.buppractice.com) Constipation: This side effect is dose related. Treat with phym-hwn-eagqglc stool softeners, diet changes, and increased fluids. Seek MD advise as needed. Taste Perversion: Sensitivity to the taste of the medicine. Drink something before taking dose to increase saliva, and quicken absorption. [place] juice and soda work well. Some people break or crush tablet before putting under the tongue to quicken the process, although this is not in the product instructions. Do not put more than two large tablets or films under tongue at one time. Headache: This side effect usually resolves. Those with migraine history are more prone to this side effect. Tylenol and Ibuprofen are usually effective. If not, the physician should provide support.Taking the dose at bedtime may help. Splitting the dose is sometimes helpful. Nausea: This side effect usually resolves quickly, and is often related to the taste of the pills. Try to get the pill to dissolve more quickly (see taste perversion). Use mints, breath strips on tongue while medication under tongue, split dosing. Vomiting: This side effect occurs very early on. It is important to distinguish between a side effect and withdrawal. When it happens, it is very difficult for the patient, and can Jeopardize ability to stay on buprenorphine. Medical support is needed to assess the causes of this symptom. It usually resolves, and is not a common side effect. Medical support and help should be administered immediately. The patient may need antiemetics, hydration, support, etc. Sweating: This symptom may be a side effect of the medication, or it may be due to withdrawal. Itis important to distinguish between a side effect and withdrawal. It occurs less frequently at lower doses. Try splitting the dose to decrease sweating. Joint pain, muscle aches, low back pain, anxiety, insomnia, teary, runny nose: If all symptoms are present, the patient is most likely experiencing withdrawal. These side effects can happen later on after stabilization if patient has a medication change that is interacting or patient experiences a change in activity level. It is important to determine the cause of these symptoms. Bring attention to providers and work with the medical team to avoid relapse. If the side effects occur in the beginning, the dose will need adjusting, and the medical provider should be contacted. Pain: If this symptom begins during induction, the patient may have been sub- consciously self-medicating. This side effect should be evaluated, as sometimes buprenorphine can help a patient's pain issues. However, it is important to evaluate the etiology of the pain, first. Work with medical team to determine causes and the best treatment. Sedation: If this side effect occurs at start of treatment, the dose may be too high. Address this with medical team. Patients should not become so relaxed that they nod off on buprenorphine. Assess for polysubstance use and medication changes, especially in patients with HIV/HCV. Increase liver enzymes: This should be carefully monitored for patients with HIV and HCV. Obtain baseline LFTs as well as Hepatitis B, and C serology's. Check levels frequently during treatment. Anxiety: Patient may have been using opioids as a self-treatment for anxiety, so, with the switch to buprenorphine which is less sedating, the anxiety may be felt again The patient should be seen by a psychiatrist and evaluated to avoid relapse. The patient should avoid benzodiazapines if at all possible and if there is a history of abuse. Rash, Hives, Pruritis (itching): This is an allergic reaction. In this instance, treatment may needto be discontinued. Seek medical provider attention. Insomnia: There may be a prior history of insomnia. It can also be a sign of continued withdrawal in the early stages of induction, and should resolve. Assess if patient had history of insomnia priorto drug use. If so, the patient may need to be evaluated and treated for insomnia. Decreased Libido: May be dose related. May resolve. If it doesn't resolve, seek medical support, possible testosterone and LH testing. Adapted from materials produced by Sada Bill RN at [facility] Ways to Save Money on Buprenorphine Treatment 15 Ways to Save Money on Buprenorphine Treatment Visit the National [place] of Advocates for Buprenorphine Treatment's web site at: http://www.naabt.org/newsletter// The Free Drug Card Program was developed to help uninsured and under insured Americans afford theirprescription needs. It offers a free Prescription Drug Card that can be taken to a pharmacy to lower prescription drug costs. http://RadioRxcard.us/ The Needymeds website provides information on the Suboxone assistance program, a program that offers free suboxone medication to low-income patients who meet all eligibility requirements. It also includes important contact information, suboxone doses that are part of the program, the roles of the physician and patient in the application process, and application requirements. http://www.needWILEXeds.org/ Fuel Conversion Technician's discount card for suboxone film strip. http://www.suboxone.com/treatment-plan/savings-card Web sites and descriptions taken with slight adaptation from www.buppractice.com Wallet card: Available to print, along with other resources, at https://www.naabt.org/education/literature.cfm Project POONAM - Free Narcan (Opioid Reversal Drug) [facility] [address] [address] TUESDAYS 3pm - 6pm (every hour on the hour) Michael Bojorquez [address] [place], [place] [address] THURSDAYS 9am - 11am (every hour on the hour) Follow up appointment with your doctor/loan review manager - Keep next scheduled appointment on 08/31/24 Activity - Normal Activity Call your doctor/loan review manager if you have: - leaking fluid - vaginal bleeding - regular contractions: Every 5 minutes or closer for one hour - decreased movement - worsening abdominal (belly) pain - headache, blurry vision, increased swelling, upper abdominal pain If you are going home with contractions that are uncomfortable/painful- we recommend these coping strategies: rhythmic breathing, hydrotherapy, imagery or visualization, gentle massage, walking and changing your position. Treatment Verification: Skylar Landry was assessed on Labor and Delivery for a relatedvisit on 08/30/24 . Mercedez Villegas DO [facility] documented in this [facility]03-19-2025 Plan of care note* Care Plan - Angelia Jarvis RN - 08/25/2024 1:56 AM EDT Problem: Antepartum Goal: Maintain as long as maternal and/or condition is stable Outcome: Progressing Problem: Pain - Adult Goal: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 Not on file Food Insecurity: Food Insecurity Present (08/22/2024) Hunger Vital Sign Worried About Running Out of Food in the Last Year: Often true Ran Out of Food in the Last Year: Often true Transportation Needs: Unmet Transportation Needs (08/22/2024) PRAPARE - Transportation Lack of Transportation (Medical): Yes Lack of Transportation (Non-Medical): Yes Physical Activity: Not on file Stress: Not on file Social Connections: Not on file Intimate Partner Violence: Not At Risk (08/22/2024) Humiliation, Afraid, Rape, and Kick questionnaire Fear of Current or Ex-Partner: No Emotionally Abused: No Physically Abused: No Sexually Abused: No Housing Stability: High Risk (08/22/2024) Housing Stability Vital Sign Unable to Pay for Housing in the Last Year: Yes Number of Times Moved in the Last Year: 6 Homeless in the Last Year: Yes Family History: No family history on file. Medications Prior to Admission: Medications Prior to Admission Medication Sig Dispense Refill Last Dose/Taking methadone (Dolophine) 10 MG tablet Take 140 mg by mouth daily. 08/19/2024 REVIEW OF SYSTEMS: Review of Systems Labs: CBC, CMP, T&S PHYSICAL EXAM: Vitals: 08/22/24 2354 BP: 96/60 Patient Position: Lying Pulse: 96 Resp: 20 Temp: 36.6 C (97.8 F) TempSrc: Temporal SpO2: 100% General appearance: awake, alert, cooperative, no apparent distress, and appears stated age Neurologic: Awake, alert, oriented to name, place and time. Lungs: No increased work of breathing, good air exchange Abdomen: Soft, non tender, gravid, consistent with her gestational age Cervix: 1 cm, posterior Contraction frequency: TBD Fetus: Presentation: vtx by U/S ASSESSMENT AND PLAN: LABOR DELIVERY ??? SCD's ONLY (labor through ambulation) SCD's PLUS Prophylactic Anticoagulation until discharge SCD's PLUS Prophylactic Anticoagulation for 6 weeks SCD's PLUS Therapeutic Anticoagulation for 6 weeks Vaginal Delivery [] BMI >= 40 kg/m2 Delivery All patients Vaginal Delivery [] BMI >= 40 kg/m2 AND [] Antepartum hospitalization >= 72 hours within the past month Delivery 1 Major Risk Factor: [] BMI >= 35 kg/m2 [] Low Risk Thrombophilia [] PPH+RBCs, IR, or operation [] Infection+Antibiotics [] Antepartum hospitalization >= 72 hours within the past month [] PMH: Sickle Cell, SLE, Cardiac Dz, Active IBD, Active Cancer, Nephrotic Syndrome OR 2 Minor Risk Factors: [] Multiple gestation [] Age > 40 [] PPH >= 1,000cc [] (+)FMH of VTE [] Smoker [] Preeclampsia [] BMI >= 40 kg/m2 AND [] Low Risk Thrombophilia OR ANY OF THE FOLLOWING: [] High Risk Thrombophilia without prior VTE [] Low Risk Thrombophilia with (+)FMH of VTE [] Any single prior VTE ANY OF THE FOLLOWING: [] Already on LMWH/UFH [] Multiple prior VTE [] High Risk Thrombophilia with prior VTE Low Risk Thrombophilia: FVL (heterozygous), Prothrombin (heterozygous), Protein C, Protein S High Risk Thrombophilia: FVL (homozygous), Prothrombin (homozygous), FVL+Prothrombin (heterozygous), Antithrombin III, APLS VTE Prophylaxis: Not indicated Admission: Admit to FHR: Category 1, heart monitoring CEFM Labs: GBS collected GC/CT collected Urine collected FFN not obtained Type&Screen ordered, but not yet obtained Serum Labs CBC, CMP Consults: MFM Imaging: Growth US Diet: General Medications: Neuroprotection Not indicated Tocolysis Not indicated Antibiotics Not indicated Steroids: Betamethasone - Not indicated Substance use - Hx fentanyl use, last use a few months ago in early - On methadone, 140 mg daily, follows in [facility] however recently moved to [place] and 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 - Last methadone dose 08/20 - Reports she is starting to have some withdrawal symptoms and irritability - Reports she had regular care in [place], unable to access these records - NOB labs ordered on admission - Growth US ordered for the AM - Comfort meds ordered - Addiction medicine consulted, appreciate recommendations Abdominal pain Hx nephrolithiasis Hx medullary sponge kidney dx - Reports she was diagnosed with kidney stones 2 wks ago, did not have any signs of infection at that time - Previously followed with Nephrology, has not established care here - Has required B/L stent and PNT in the past - Vitals stable, afebrile - Left CVA ttp on admission however patient has diffuse abdominal tenderness, difficult to discern if related to withdrawal - SVE 1 cm on admission, unchanged from 2 wks ago per pt - Retroperitoneal US ordered - Urine culture, CBC, and CMP ordered on admission IUP @ 29w5d - Dating by LMP - Vtx on 08/22 - Monitoring: CEFM - Diet: General - BMZ deferred Discussed with Dr Dawkins, who agrees with plan. Lacey Flower DO 08/23/2024, 12:43 AM Cc: Gemini Elise DO Cosigned by Ele Dawkins DO at 08/23/2024 1:20 PM EDT Associated attestation - Ele Dawkins DO - 08/23/2024 1:20 PM EDT Attending Supervising Physician's Attestation Statement Patient admitted while I was enterprise resource planning consultant. I discussed the management with the resident physician. I reviewed and agree with the findings and plan as documented in the note. [facility] Phone: [phone] Note Attestation signed by Ele Dawkins DO at 08/23/2024 1:20 PM Attending Supervising Physician's Attestation Statement Patient admitted while I was enterprise resource planning consultant. I discussed the management with the resident physician. I reviewed and agree with the findings and plan as documented in the note. [facility] History and Physical CHIEF COMPLAINT: Substance use HISTORY OF PRESENT ILLNESS: The patient is a 34 y.o. female at 29w5d. OB History 7 Para 3 Term AB Living 3 SAB IAB Ectopic Multiple Live Births Patient presents with a chief complaint as above and is being admitted for substance use. Pt presented to OSH reporting abdominal pain. Has hx of fentanyl use, last use a few months ago, was early during this . She was then started on methadone, currently taking 140 mg daily. She recently moved from [place] to [place] and reports that she ran out of methadone 2 days ago. She has a hx of kidney stones, was told she had stones again 2 wks ago. Does not believe she passed the stones and is having worsening back pain. Transport: Yes Prior Hospitalizations: No Estimated Due Date: Estimated Date of Delivery: 11/03/24 CARE: Complications: See below Past Medical History: Past Medical History: Diagnosis Date Colitis Kidney disease Past Surgical History: Past Surgical History: Procedure Laterality Date IR NEPHROSTOMY TUBE PLACEMENT STENT INSERTION (HISTORICAL) 2023 kidneys Allergies: Toradol [ketorolac tromethamine] Social History: Social History Socioeconomic History Marital status: Not on file Spouse name: Not on file Number of children: Not on file Years of education: Not on file Highest education level: Not on file Occupational History Not on file Tobacco Use Smoking status: Never Smokeless tobacco: Never Vaping Use Vaping status: Never Used Substance and Sexual Activity Alcohol use: Not Currently Drug use: Yes Comment: percocet, xanax Sexual activity: Not on file Other Topics Concern Not on file Social History Narrative Not on file Social Drivers of Health Financial Resource Strain: Not on file Food Insecurity: Food Insecurity Present (08/22/2024) Hunger Vital Sign Worried About Running Out of Food in the Last Year: Often true Ran Out of Food in the Last Year: Often true Transportation Needs: Unmet Transportation Needs (08/22/2024) PRAPARE - Transportation Lack of Transportation (Medical): Yes Lack of Transportation (Non-Medical): Yes Physical Activity: Not on file Stress: Not on file Social Connections: Not on file Intimate Partner Violence: Not At Risk (08/22/2024) Humiliation, Afraid, Rape, and Kick questionnaire Fear of Current or Ex-Partner: No Emotionally Abused: No Physically Abused: No Sexually Abused: No Housing Stability: High Risk (08/22/2024) Housing Stability Vital Sign Unable to Pay for Housing in the Last Year: Yes Number of Times Moved in the Last Year: 6 Homeless in the Last Year: Yes Family History: No family history on file. Medications Prior to Admission: Medications Prior to Admission Medication Sig Dispense Refill Last Dose/Taking methadone (Dolophine) 10 MG tablet Take 140 mg by mouth daily. 08/19/2024 REVIEW OF SYSTEMS: Review of Systems Labs: CBC, CMP, T&S PHYSICAL EXAM: Vitals: 08/22/24 2354 BP: 96/60 Patient Position: Lying Pulse: 96 Resp: 20 Temp: 36.6 ?C (97.8 ?F) TempSrc: Temporal SpO2: 100% General appearance: awake, alert, cooperative, no apparent distress, and appears stated age Neurologic: Awake, alert, oriented to name, place and time. Lungs: No increased work of breathing, good air exchange Abdomen: Soft, non tender, gravid, consistent with her gestational age Cervix: 1 cm, posterior Contraction frequency: TBD Fetus: Presentation: vtx by U/S ASSESSMENT AND PLAN: LABOR DELIVERY ??? SCD's ONLY (labor through ambulation) SCD's PLUS Prophylactic Anticoagulation until discharge SCD's PLUS Prophylactic Anticoagulation for 6 weeks SCD's PLUS Therapeutic Anticoagulation for 6 weeks Vaginal Delivery [] BMI >= 40 kg/m2 Delivery All patients Vaginal Delivery [] BMI >= 40 kg/m2 AND [] Antepartum hospitalization >= 72 hours within the past month Delivery 1 Major Risk Factor: [] BMI >= 35 kg/m2 [] Low Risk Thrombophilia [] PPH+RBCs, IR, or operation [] Infection+Antibiotics [] Antepartum hospitalization >= 72 hours within the past month [] PMH: Sickle Cell, SLE, Cardiac Dz, Active IBD, Active Cancer, Nephrotic Syndrome OR 2 Minor Risk Factors: [] Multiple gestation [] Age > 40 [] (more content not included)...[facility] [id number] History and physical note* Lacey Flower DO - 08/23/2024 12:42 AM EDT Images from the original note were not included. [facility] History and Physical CHIEF COMPLAINT: Substance use HISTORY OF PRESENT ILLNESS: The patient is a 34 y.o. female at 29w5d. OB History 7 Para 3 Term AB Living 3 SAB IAB Ectopic Multiple Live Births Patient presents with a chief complaint as above and is being admitted for substance use. Pt presented to OSH reporting abdominal pain. Has hx of fentanyl use, last use a few months ago, was early during this . She was then started on methadone, currently taking 140 mg daily. She recently moved from [place] to [place] and reports that she ran out of methadone 2 days ago. She has a hxof kidney stones, was told she had stones again 2 wks ago. Does not believe she passed the stones and is having worsening back pain. Transport: Yes Prior Hospitalizations: No Estimated Due Date: Estimated Date of Delivery: 11/03/24 CARE: Complications: See below Past Medical History: Past Medical History: Diagnosis Date Colitis Kidney disease Past Surgical History: Past Surgical History: Procedure Laterality Date IR NEPHROSTOMY TUBE PLACEMENT STENT INSERTION (HISTORICAL) 2023 kidneys Allergies: Toradol [ketorolac tromethamine] Social History: Social History Socioeconomic History Marital status: Not on file Spouse name: Not on file Number of children: Not on file Years of education: Not on file Highest education level: Not on file Occupational History Not on file Tobacco Use Smoking status: Never Smokeless tobacco: Never Vaping Use Vaping status: Never Used Substance and Sexual Activity Alcohol use: Not Currently Drug use: Yes Comment: percocet, xanax Sexual activity: Not on file Other Topics Concern Not on file Social History Narrative Not on file Social Drivers of Health Financial Resource Strain: Not on file Food Insecurity: Food Insecurity Present (08/22/2024) Hunger Vital Sign Worried About Running Out of Food in the Last Year: Often true Ran Out of Food in the Last Year: Often true Transportation Needs: Unmet Transportation Needs (08/22/2024) PRAPARE - Transportation Lack of Transportation (Medical): Yes Lack of Transportation (Non-Medical): Yes Physical Activity: Not on file Stress: Not on file Social Connections: Not on file Intimate Partner Violence: Not At Risk (08/22/2024) Humiliation, Afraid, Rape, and Kick questionnaire Fear of Current or Ex-Partner: No Emotionally Abused: No Physically Abused: No Sexually Abused: No Housing Stability: High Risk (08/22/2024) Housing Stability Vital Sign Unable to Pay for Housing in the Last Year: Yes Number of Times Moved in the Last Year: 6 Homeless in the Last Year: Yes Family History: No family history on file. Medications Prior to Admission: Medications Prior to Admission Medication Sig Dispense Refill Last Dose/Taking methadone (Dolophine) 10 MG tablet Take 140 mg by mouth daily. 08/19/2024 REVIEW OF SYSTEMS: Review of Systems Labs: CBC, CMP, T&S PHYSICAL EXAM: Vitals: 08/22/24 2354 BP: 96/60 Patient Position: Lying Pulse: 96 Resp: 20 Temp: 36.6 C (97.8 F) TempSrc: Temporal SpO2: 100% General appearance: awake, alert, cooperative, no apparent distress, and appears stated age Neurologic: Awake, alert, oriented to name, place and time. Lungs: No increased work of breathing, good air exchange Abdomen: Soft, non tender, gravid, consistent with her gestational age Cervix: 1 cm, posterior Contraction frequency: TBD Fetus: Presentation: vtx by U/S ASSESSMENT AND PLAN: LABOR DELIVERY ??? SCD's ONLY (labor through ambulation) SCD's PLUS Prophylactic Anticoagulation until discharge SCD's PLUS Prophylactic Anticoagulation for 6 weeks SCD's PLUS Therapeutic Anticoagulation for 6 weeks Vaginal Delivery [] BMI >= 40 kg/m2 Delivery All patients Vaginal Delivery [] BMI >= 40 kg/m2 AND [] Antepartum hospitalization >= 72 hours within the past month Delivery 1 Major Risk Factor: [] BMI >= 35 kg/m2 [] Low Risk Thrombophilia [] PPH+RBCs, IR, or operation [] Infection+Antibiotics [] Antepartum hospitalization >= 72 hours within the past month [] PMH: Sickle Cell, SLE, Cardiac Dz, Active IBD, Active Cancer, Nephrotic Syndrome OR 2 Minor Risk Factors: [] Multiple gestation [] Age > 40 [] PPH >= 1,000cc [] (+)FMH of VTE [] Smoker [] Preeclampsia [] BMI >= 40 kg/m2 AND [] Low Risk Thrombophilia OR ANY OF THE FOLLOWING: [] High Risk Thrombophilia without prior VTE [] Low Risk Thrombophilia with (+)FMH of VTE [] Any single prior VTE ANY OF THE FOLLOWING: [] Already on LMWH/UFH [] Multiple prior VTE [] High Risk Thrombophilia with prior VTE Low Risk Thrombophilia: FVL (heterozygous), Prothrombin (heterozygous), Protein C, Protein S High Risk Thrombophilia: FVL (homozygous), Prothrombin (homozygous), FVL+Prothrombin (heterozygous), Antithrombin III, APLS VTE Prophylaxis: Not indicated Admission: Admit to FHR: Category 1, heart monitoring CEFM Labs: GBS collected GC/CT collected Urine collected FFN not obtained Type&Screen ordered, but not yet obtained Serum Labs CBC, CMP Consults: MFM Imaging: Growth US Diet: General Medications: Neuroprotection Not indicated Tocolysis Not indicated Antibiotics Not indicated Steroids: Betamethasone - Not indicated Substance use - Hx fentanyl use, last use a few months ago in early - On methadone, 140 mg daily, follows in [facility] however recently moved to [place] and 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 - Last methadone dose 08/20 - Reports she is starting to have some withdrawal symptoms and irritability - Reports she had regular care in [place], unable to access these records - NOB labs ordered on admission - Growth US ordered for the AM - Comfort meds ordered - Addiction medicine consulted, appreciate recommendations Abdominal pain Hx nephrolithiasis Hx medullary sponge kidney dx - Reports she was diagnosed with kidney stones 2 wks ago, did not have any signs of infection at that time - Previously followed with Nephrology, has not established care here - Has required B/L stent and PNT in the past - Vitals stable, afebrile - Left CVA ttp on admission however patient has diffuse abdominal tenderness, difficult to discern if related to withdrawal - SVE 1 cm on admission, unchanged from 2 wks ago per pt - Retroperitoneal US ordered - Urine culture, CBC, and CMP ordered on admission IUP @ 29w5d - Dating by LMP - Vtx on 08/22 - Monitoring: CEFM - Diet: General - BMZ deferred Discussed with Dr Dawkins, who agrees with plan. Lacey Flower DO 08/23/2024, 12:43 AM Cc: Gemini Elise DO Cosigned by Ele Dawkins DO at 08/23/2024 1:20 PM EDT Associated attestation - Ele Dawkins DO - 08/23/2024 1:20 PM EDT Attending Supervising Physician's Attestation Statement Patient admitted while I was enterprise resource planning consultant. I discussed the management with the resident physician. I reviewed and agree with the findings and plan as documented in the note. documented in this [facility]03-16-2025 History and physical note Author Fartun Licona [facility] Note Date/Time August 22, 2024 7:4 4pm [facility] Medical Records Department [address] [place] [address] OB Triage Physician Note 08/22/241922 MR#: [id number] Acct: [id number] Name: SKYLAR LANDRY Rep #: [id number] : 1990 34 From: Fartun Licona MD PCP: Care Physician,No Primary Status :REG CLI Y Location: [place] [address] HPI - General General Date of Admission: 08/22/24 Date of Service: 08/22/24 Chief Complaint: Abdominal pain HPI Narrative SKYLAR LANDRY, is a 34 F who presents presents c/o abdominal pain. Nausea and emesis now. [place]. Patient notes that she has been on methadone this . 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 She states her last 3 years ago she used Percocet intermittently during the but she did not have any withdrawal during the when she was not using Percocet and neither did the . However, between pregnancies her Percocet use escalated and then she began using fentanyl and during this she started in a methadone treatment program in [place]. However 7 days ago she took her last dose of methadone in [place] and started traveling to [place]. She had some Percocet and Xanax that were prescribed for her per her report that shefinished about 3 days ago. 2 days ago she had 1 last dose of methadone that shehad brought with her and she took that. She took that because she was starting to have some withdrawal symptoms. Patient states she was seen 2 weeks ago for some abdominal pain and kidney stones and threatened labor. Patient reports she was 1 cm and 30% effaced. Patient states she has had care in [place] including 28-week labs and she does not have the results of the 28-week labs but reports that she did do the Glucola challenge and have the blood work drawn. Past medical history significant for colitis but she is not on any treatment forthis. Medullary sponge kidney and kidney stones Medications during the include Xanax, methadone and prenatals Maternal Data Information Final KWAKU: 11/02/[birth year] Gestational age: 29 5/7 [facility] Home Medications ?Medication ?Instructions ?Recorded ?Last Taken ?Type alprazolam 0.25 mg tablet (Xanax) 0.25 mg PO BID PRN a nxiety 08/22/24 08/20/24 History methadone 40 mg soluble tablet 140 mg PO DAILY 5 08/20/24 History Allergy/AdvReac Type Severity Reaction Status Date / Time ketorolac (From Toradol) Allergy Intermediate Hives Verified 08/22/24 18:28 Physical Exam Narrative Awake, alert, no acute distress Abdomen soft, nondistended, gravid, mild tenderness suprapubic Extremities trace edema no clubbing or cyanosis NST FHR Rate Baby A Baseline: 140 Variability:: Moderate Accelerations:: 10 x 10 Decelerations:: Variable NST Reactive:: Appropriate for gestational age Uterine Activity:: no regular ctxs Assessment & Plan (1) 29 weeks gestation of : (2) High risk multigravida in third trimester: (3) Medullary sponge kidney: (4) Opioid use disorder: (5) Abdominal pain affecting , antepartum: PLAN: no evidence of PTL. Clinically consistent with opiod withdrawal. Has h/ochronic kidney stones as well. Will discuss w/ MFM to formulate a plan, possible transport to [facility] d/w her no methadone clinic locally, likely will need to be in treatment programwith suboxone will need to establish care for OB care Will determine what labs need to be done after discuss w/ MFM 08/22/241943 <Electronically signed by Fartun bojorquez MD> Date _ Fartun Licona MD Cosigner Signature (if applicable): Date CC: Dr. Fartun Licona MD; No Primary Care Physician ~ Signed [facility] Work Phone: [phone]) 807-554803-16-2025 Evaluation note* Diagnosis Onset Date Resolution Status Admit Date 29 weeks gestation of acut e August 22, 2024 6:05pm Abdominal pain affecting , antepartum acute August 6:05pm High risk multigravida in th ird trimester acute August 22, 2024 6:05pm Medullary sponge kidney acute 2024 6:05pm Opioid use disorder acute August 22, 2024 6:05pm [facility] Work Phone: [phone]) 100-248803-16-2025 History and physical note [facility] Medical Records Department [address] [place] [id number] OB Triage Physician Note 08/22/241922 MR#: [id number] Acct: [id number] Name: SKYLAR ALNDRY Rep #: [id number] : 1990 34 From: Fartun Licona MD PCP: Care Physician,No Primary Status :REG CLI Y Location: [id number] HPI - General General Date of Admission: 08/22/24 Date of Service: 08/22/24 Chief Complaint: Abdominal pain HPI Narrative SKYLAR LANDRY, is a 34 F who presents presents c/o abdominal pain. Nausea and emesis now. [place]. Patient notes that she has been on methadone this . 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 She states her last 3 years ago she used Percocet intermittently during the but she did not have any withdrawal during the when she was not using Percocet and neither did the . However, between pregnancies her Percocet use escalated and then she began using fentanyl and during this she started in a methadone treatment program in [place]. However 7 days ago she took her last do se of methadone in [place] and started traveling to [place]. She had some Percocet and Xanax that wereprescribed for her per her report that shefinished about 3 days ago. 2 days ago she had 1 last doseof methadone that shehad brought with her and she took that. She took that because she was startingto have some withdrawal symptoms. Patient states she was seen 2 weeks ago for some abdominal pain and kidney stones and threatened labor. Patient reports she was 1 cm and 30% effaced. Patient states she has had care in [place] including 28-week labs and she does not have the results of the 28-week labs but reports that she did do the Glucola challenge and have the blood work drawn. Past medical history significant for colitis but she is not on any treatment forthis. Medullary sponge kidney and kidney stones Medications during the include Xanax, methadone and prenatals Maternal Data Information Final KWAKU: [birth year]02[birth year] Gestational age: 29 5/7 [facility] Home Medications ?Medication ?Instructions ?Recorded ?Last Taken ?Type alprazolam 0.25 mg tablet (Xanax) 0.25 mg PO BID PRN a nxiety 08/22/24 08/20/24 History methadone 40 mg soluble tablet 140 mg PO DAILY 5 08/20/24 History Allergy/AdvReac Type Severity Reaction Status Date / Time ketorolac (From Toradol) Allergy Intermediate Hives Verified 08/22/24 18:28 Physical Exam Narrative Awake, alert, no acute distress Abdomen soft, nondistended, gravid, mild tenderness suprapubic Extremities trace edema no clubbing or cyanosis NST FHR Rate Baby A Baseline: 140 Variability:: Moderate Accelerations:: 10 x 10 Decelerations:: Variable NST Reactive:: Appropriate for gestational age Uterine Activity:: no regular ctxs Assessment & Plan (1) 29 weeks gestation of : (2) High risk multigravida in third trimester: (3) Medullary sponge kidney: (4) Opioid use disorder: (5) Abdominal pain affecting , antepartum: PLAN: no evidence of PTL. Clinically consistent with opiod withdrawal. Has h/ochronic kidney stonesas well. Will discuss w/ MFM to formulate a plan, possible transport to [facility] d/w her no methadone clinic locally, likely will need to be in treatment programwith suboxone will need to establish care for OB care Will determine what labs need to be done after discuss w/ MFM 08/22/24 194 > Date _ Fartun Licona MD Cosigner Signature (if applicable): Date CC: Dr. Fartun Licona MD; No Primary Care Physician ~ [facility] Diagnosis Substance abuse affecting , antepartum (HCC)- Primary Drug use affecting in third trimester Anxiety and depression Pain of left lower extremity Severe opioid use disorder (HCC) state, incidental Polysubstance abuse (CMS/HCC) (HCC) Other, mixed, or unspecified nondependent drug abuse, unspecified Anxiety and depression Drug use affecting in third trimester Pain of left lower extremity Urinary tract infection Urinary tract infection, site not specified [facility] Diagnosis Severe opioid use disorder (HCC)- Primary Anxiety and depression Drug use affecting in third trimester [facility] Diagnosis 31 weeks gestation of - Primary [facility] Diagnosis Severe opioid use disorder (HCC)- Primary Drug use affecting in third trimester Anxiety and depression [facility] Diagnosis Supervision of normal intrauterine in multigravida in third trimester [facility] Diagnosis 32 weeks gestation of - Primary care, subsequent in third trimester [facility] Diagnosis Encounter for monitoring Suboxone maintenance therapy- Primary Anxiety and depression Severe opioid use disorder (HCC) Drug use affecting in third trimester [facility] Diagnosis Severe opioid use disorder (HCC)- Primary [facility] Diagnosis Encounter for monitoring Suboxone maintenance therapy- Primary Anxiety and depression Severe opioid use disorder (HCC) Drug use affecting in third trimester [facility] Diagnosis Urinary tract infection without hematuria, site unspecified- Primary Drug use affecting in third trimester Anxiety and depression Polysubstance abuse (HCC) Other, mixed, or unspecified nondependent drug abuse, unspecified Encounter for monitoring Suboxone maintenance therapy- Primary Severe opioid use disorder on maintenance therapy (HCC) Drug use affecting in third trimester Severe opioid use disorder (HCC) Urinary tract infection without hematuria, site unspecified [facility]* Diagnosis Urinary tract infection without hematuria, site unspecified- Primary Drug use affecting in third trimester Anxiety and depression Polysubstance abuse (HCC) Other, mixed, or unspecified nondependent drug abuse, unspecified [facility]* Diagnosis 31 weeks gestation of Urinary tract infection without hematuria, site unspecified- Primary Drug use affecting in third trimester Anxiety and depression Polysubstance abuse (HCC) Other, mixed, or unspecified nondependent drug abuse, unspecified [facility]* Diagnosis 31 weeks gestation of Severe opioid use disorder (HCC) Urinary tract infection without hematuria, site unspecified- Primary Drug use affecting in third trimester Anxiety and depression Polysubstance abuse (HCC) Other, mixed, or unspecified nondependent drug abuse, unspecified [facility] Diagnosis Urinary tract infection without hematuria, site unspecified- Primary Drug use affecting in third trimester Anxiety and depression Polysubstance abuse (HCC) Other, mixed, or unspecified nondependent drug abuse, unspecified [facility]* Diagnosis Urinary tract infection without hematuria, site unspecified- Primary Drug use affecting in third trimester Anxiety and depression Polysubstance abuse (HCC) Other, mixed, or unspecified nondependent drug abuse, unspecified Severe opioid use disorder on maintenance therapy (HCC) [facility] Diagnosis 32 weeks gestation of - Primary care, subsequent in third trimester Supervision of high risk due to social problems in third trimester Urinary tract infection without hematuria, site unspecified- Primary Drug use affecting in third trimester Anxiety and depression Polysubstance abuse (HCC) Other, mixed, or unspecified nondependent drug abuse, unspecified [facility] Diagnosis Urinary tract infection without hematuria, site unspecified- Primary Drug use affecting in third trimester Anxiety and depression Polysubstance abuse (HCC) Other, mixed, or unspecified nondependent drug abuse, unspecified Encounter for monitoring Suboxone maintenance therapy- Primary Severe opioid use disorder on maintenance therapy (HCC) Anxiety and depression Drug use affecting in third trimester [facility] Diagnosis Urinary tract infection without hematuria, site unspecified- Primary Drug use affecting in third trimester Anxiety and depression Polysubstance abuse (HCC) Other, mixed, or unspecified nondependent drug abuse, unspecified 31 weeks gestation of [facility] Diagnosis Urinary tract infection without hematuria, site unspecified- Primary Drug use affecting in third trimester Anxiety and depression Polysubstance abuse (HCC) Other, mixed, or unspecified nondependent drug abuse, unspecified Encounter for monitoring Suboxone maintenance therapy- Primary Severe opioid use disorder on maintenance therapy (HCC) Anxiety and depression Drug use affecting in third trimester [facility] Diagnosis Urinary tract infection without hematuria, site unspecified- Primary Drug use affecting in third trimester Anxiety and depression Polysubstance abuse (HCC) Other, mixed, or unspecified nondependent drug abuse, unspecified Supervision of high risk due to social problems in third trimester- Primary Drug use affecting in third trimester [facility] Diagnosis Urinary tract infection without hematuria, site unspecified- Primary Drug use affecting in third trimester Anxiety and depression Polysubstance abuse (HCC) Other, mixed, or unspecified nondependent drug abuse, unspecified Supervision of high risk due to social problems in third trimester- Primary Drug use affecting in third trimester Acute cystitis without hematuria- Primary Supervision of high risk due to social problems, third trimester Drug use affecting in third trimester Anxiety and depression [facility] Diagnosis Urinary tract infection without hematuria, site unspecified- Primary Drug use affecting in third trimester Anxiety and depression Polysubstance abuse (HCC) Other, mixed, or unspecified nondependent drug abuse, unspecified Supervision of high risk due to social problems in third trimester- Primary Drug use affecting in third trimester 31 weeks gestation of Acute cystitis without hematuria- Primary Supervision of high risk due to social problems, third trimester Drug use affecting in third trimester Anxiety and depression [facility]* Diagnosis Urinary tract infection without hematuria, site unspecified- Primary Drug use affecting in third trimester Anxiety and depression Polysubstance abuse (HCC) Other, mixed, or unspecified nondependent drug abuse, unspecified Supervision of high risk due to social problems in third trimester- Primary Drug use affecting in third trimester Acute cystitis without hematuria- Primary Supervision of high risk due to social problems, third trimester Drug use affecting in third trimester Anxiety and depression UTI due to extended-spectrum beta lactamase (ESBL) producing Escherichia coli- Primary [facility]* Diagnosis Urinary tract infection without hematuria, site unspecified- Primary Drug use affecting in third trimester Anxiety and depression Polysubstance abuse (HCC) Other, mixed, or unspecified nondependent drug abuse, unspecified Supervision of high risk due to social problems in third trimester- Primary Drug use affecting in third trimester Indication for care in labor and delivery, antepartum- Primary Unspecified indication for care or intervention related to labor and delivery, antepartum Anxiety and depression Severe opioid use disorder on maintenance therapy (HCC) care following vaginal delivery Severe opioid use disorder on maintenance therapy (HCC) Acute cystitis without hematuria- Primary Supervision of high risk due to social problems, third trimester Drug use affecting in third trimester Anxiety and depression [facility]* Diagnosis Urinary tract infection without hematuria, site unspecified- Primary Drug use affecting in third trimester Anxiety and depression Polysubstance abuse (HCC) Other, mixed, or unspecified nondependent drug abuse, unspecified Supervision of high risk due to social problems in third trimester- Primary Drug use affecting in third trimester Acute cystitis without hematuria- Primary Supervision of high risk due to social problems, third trimester Drug use affecting in third trimester Anxiety and depression [facility] Diagnosis Urinary tract infection without hematuria, site unspecified- Primary Drug use affecting in third trimester Anxiety and depression Polysubstance abuse (HCC) Other, mixed, or unspecified nondependent drug abuse, unspecified Acute cystitis without hematuria- Primary Supervision of high risk due to social problems, third trimester Drug use affecting in third trimester Anxiety and depression Encounter for monitoring Suboxone maintenance therapy- Primary Severe opioid use disorder on maintenance therapy (HCC) Severe opioid use disorder, in early remission (HCC) Anxiety and depression [facility]* Diagnosis Nipple pain- Primary Mastodynia [facility] Diagnosis Acute cystitis without hematuria- Primary Supervision of high risk due to social problems, third trimester Drug use affecting in third trimester Anxiety and depression Encounter for monitoring Suboxone maintenance therapy- Primary Severe opioid use disorder on maintenance therapy (HCC) Severe opioid use disorder, in early remission (HCC) Anxiety and depression documented [facility] noteNo assessment information availableWSt. Elizabeth Hospital Work Phone: Evaluation note* Diagnosis Acute cystitis without hematuria- Primary Supervision of high risk due to social problems, third trimester Drug use affecting in third trimester Anxiety and depression Severe opioid use disorder on maintenance therapy (HCC) Anxiety and depression [facility] Diagnosis Acute cystitis without hematuria- Primary Supervision of high risk due to social problems, third trimester Drug use affecting in third trimester Anxiety and depression Severe opioid use disorder on maintenance therapy (HCC) Anxiety and depression [facility]* Diagnosis Acute cystitis without hematuria- Primary Supervision of high risk due to social problems, third trimester Drug use affecting in third trimester Anxiety and depression Severe opioid use disorder on maintenance therapy (HCC) [facility]* Diagnosis Acute cystitis without hematuria- Primary Supervision of high risk due to social problems, third trimester Drug use affecting in third trimester Anxiety and depression Encounter for monitoring Suboxone maintenance therapy- Primary Severe opioid use disorder on maintenance therapy (HCC) [facility] Diagnosis Acute cystitis without hematuria- Primary Supervision of high risk due to social problems, third trimester Drug use affecting in third trimester Anxiety and depression Encounter for monitoring Suboxone maintenance therapy- Primary Severe opioid use disorder on maintenance therapy (HCC) Severe opioid use disorder, in early remission (HCC) Anxiety and depression [facility] Dis[facility] instructionsAdditional Instructions Your urinalysis was not highly consistent with urinary tract infection given your symptoms and your history of medullary sponge kidney will treat you with antibiotics. Urine culture was sent. Take Tylenol as needed for pain. If you can tolerate [id number] ibuprofen/Aleve may also take that for pain. If your symptoms worsen please return the emergency room for further evaluation.[facility] Work Phone: Regowm for referral (narrative)No reason for referral information availableWSt. Elizabeth Hospital Work Phone: Reason for visit Narrative* Auth/Cert (Routine) Specialty Diagnoses / Procedures Referred By Contac t Referred To Contact Diagnoses Indication for care in labor and delivery, antepartum Procedures O75.9 Brianna Tipton MD [address] [address] Phone: tel: fax: [facility] [address] [place] [address] Phone: tel: Referral ID Status Reason Start Date Expiration Date Visits Re quested Visits Authorized [id number] 1 1 [facility] Advance Directives Date Activated Date Inactivated Comments 08/23/2024 12:40 AM 08/30/2024 6:18 PM Date Activated Date Inactivated Comments 08/23/2024 12:40 AM 08/30/2024 6:18 PM Date Activated Date Inactivated Comments 10/18/2024 10:04 AM Date Activated Date Inactivated Comments 08/23/2024 12:40 AM 08/30/2024 6:18 PM Date Activated Date Inactivated Comments 10/18/2024 10:04 AM 10/22/2024 12:03 AM Date Activated Date Inactivated Comments 08/23/2024 12:40 AM 08/30/2024 6:18 PM Date Activated Date Inactivated Comments 10/18/2024 10:04 AM 10/22/2024 12:03 AM Advance Directive Response Recorded Date/ Time Do you have a Healthcare Power of Brushing Machine Operator? No December 29, 2024 10:07am Advance Directive Response Recorded Date/ Time Do you have a Healthcare Power of Brushing Machine Operator? No December 29, 2024 10:07am Do you have a Healthcare Power of Brushing Machine Operator? No February 04, 2025 1:07pm Chief Complaint and Reason for Visit Chief Complaint Admit Date RULE OUT LABOR August 22, 2024 6:05pm Reason for Visit Admit Date 29 weeks gestation of August 222024 6:05pm Abdominal pain affecting , ante August 22, 2024 6:05pm High risk multigravida in third trimeste r August 22, 2024 6:05pm Medullary sponge kidney August 22, 2024 6:05pm Opioid use disorder August 22, 2024 6:0 5pm Chief Complaint Admit Date FEMALE C/O December 29, 2024 9:57 am Chief Complaint Admit Date FEMALE C/O December 29, 2024 9:57 am urinary symptoms February 04, 2025 12 :49pm Summary Purpose Family History No Family History Records FoundNo Family History Records FoundNo Family History Records Found Additional Source Comments Reason for Visit (unrecogniz ed section and content) Reason Comments Other Detox from methadone Specialty Diagnoses / Procedures Referred By Conthillary t Referred To Contact Diagnoses Substance use disorder Procedures . Gemini Elise W, DO [address] [address] Phone: tel: fax: [facility] [address] [place] [address] Phone: tel: Referral ID Status Reason Start Date Expiration Date Visits Re quested Visits Authorized [id number] 1 Reason Comments Addiction Problem Reason Comments Routine Visit Pt requesting ano ther urine cx. Reason Comments Follow-up Reason Comments Initial Visit setter automatic spinning lathe Reason Comments Non-stress Test Reason Comments Other Multiple complaints- sent in from the office Reason Onset Date Comments Medication Problem 09/28/2024 Reason Comments Routine Visit Reason Comments Contractions Rupture of Membranes Reason Onset Date Comments Contractions 10/08/2024 Reason Onset Date Comments Scheduled Induction 10/11/2024 Reason Onset Date Comments Problem 09/24/2024 Reason Onset Date Comments Problem 10/06/2024 Reason Comments Rash Possible yeast/thrus h on breast nipples Reason Onset Date Comments Med Refill 01/05/2025 Reason Comments Addiction Problem Scheduled Active and Recently Administ ered Medications (unrecognized section and content) Medication Order 08/28/2024 08/29/2024 08/30/2024 buprenorphine-naloxon e (Suboxone) 2-0.5 MG per sublingual film 1 Film (COMPLETED)(Linked Group 1) 1 Film, SubLINGual, 2 times daily, First dose on 08/27/24 at 1500, For 2 doses 0630 (Given - Provider: Abigail Bell, ARTIE) buprenorphine-naloxon e (Suboxone) 2-0.5 MG per sublingual film 2 Film (COMPLETED)(Linked Group 1) 2 Film, SubLINGual, 2 times daily, First dose on Fri08/28/24 at 1500, For 2 doses 1516 (Given - Provider: Gage Banda RN) 0641 (Given - Provider: Malinda Fierro, ARTIE) buprenorphine-naloxon e (Suboxone) 8-2 MG per sublingual film 1 Film 1 Film, SubLINGual, 2 times daily, First dose on Fri08/29/24 at 1215 1333 (Given - Provider: Latonia Park RN - Comment: Okay to give per Dr. Park) 0611 (Given - Provider: Kashif Moe)1522 (Given - Provider: Gemini Martinez, ARTIE) cephalexin (Keflex) capsule 500 mg (CANCELED) 500 mg, Oral, 4 times daily, First dose (after last modification) on Kirsten 08/26/24 at 2100, For 7 days, Suspected Indication (Select all that apply): Urinary Tract Infection 0933 (Given - Provider: Joann Alicea RN)1247 (Given - Provider: Joann Alicea RN)1722 (Given - Provider: Joann Alicea RN)2131 (Given - Provider: Malinda Fierro RN) 0919 (Given - Provider: Valeria Cano, ARTIE)1323 (Given - Provider: Latonia Park RN)1724 (Given - Provider: Valeria Cano, ARTIE)2116 (Given - Provider: Kashif Moe) 0923 (Given - Provider: Tasha Edward, RN)1358 (Given - Provider: Tasha Edward, ARTIE) enoxaparin (Lovenox) syringe 40 mg 40 mg, SubCUTAneous, Every 24 hours, First dose on Fri08/25/24 at 1100, Indication of Use: Prophylaxis-DVT/PE 1108 (Given - Provider: Joann Alicea RN - Comment: per pt request) 1144 (Given - Provider: Valeria Cano, ARTIE) 1017 (Given - Provider: Tasha Edward, ARTIE) famotidine (Pepcid) tablet 20 mg 20 mg, Oral, 2 times daily, First dose on Fri08/26/24 at 1615 0933 (Given - Provider: Joann Alicea RN)213 (Given - Provider: Malinda Fierro, ARTIE) 09 (Given - Provider: Valeria Cano, ARTIE)2116 (Given - Provider: Kashif Moe) 0923 (Given - Provider: Tasha Edward, ARTIE) fosfomycin (Monurol) packet 3 g (COMPLETED) 3 g, Oral, Once, On Fri08/30/24 at 1545, For 1 dose, Suspected Indication (Select all that apply): Urinary Tract Infection 1539 (Given - Provid er: Gemini Martinez RN) lactated ringers bolus 500 mL (COMPLETED) 500 mL, IntraVENous, at 250 mL/hr, Administer over 2 Hours, Once, On Fri08/29/24 at 1345, For 1 dose 1340 (New Bag - Provider: Latonia Park, ARTIE)1540 (Stopped - Provider: Valeria Cano, ARTIE) Lidocaine 4 % patch 1 patch 1 patch, TransDERmal, Administer over 12 Hours, Daily, First dose on Fri08/23/24 at 1500, Apply patch to low back. Patch may remain in place for up to 12 hours in any 24 hour period. 0930 (Medication Applied - Provider: Joann Alicea RN)2129 (Medication Removed - Provider: Malinda Fierro RN) 919 (Medication Applied - Provider: Valeria Cano RN)2120 (Medication Removed - Provider: Scarlett Hanson RN) 0924 (Medication Applied - Provider: Tasha Edward, RN)1555 (Due: Medication Removed - Provider: Automatic Discharge Provider - Comment: Time automatically adjusted from order being discontinued) Lidocaine 4 % patch 1 patch 1 patch, TransDERmal, Administer over 12 Hours, Daily, First dose on Fri08/27/24 at 1845, Apply patch to left leg. Patch may remain in place for up to 12 hours in any 24 hour period. 0650 (Medication Removed - Provider: Abigail Bell RN)0931 (Medication Applied - Provider: Joann Alicea RN)2131 (Medication Removed - Provider: Malinda Fierro RN) 0900 (Not Given - Provider: Valeria Cano RN - Reason: Patient/family refused) 0900 (Not Given - Provider: Tasha Edward RN - Reason: Patient/family refused) methadone (Dolophine) 10 MG/ML solution 60 mg (COMPLETED)(Linked Group 2) 60 mg, Oral, Every 24 hours, First dose (after last modification) on Fri08/29/24 at 0945, For 1 dose 0930 (Given - Provider: Valeria Cano, ARTIE) methadone (Dolophine) 10 MG/ML solution 80 mg (COMPLETED) 80 mg, Oral, Every 24 hours, First dose on Fri08/28/24 at 0945, For 1 dose 0936 (Given - Provider: Joann Alicea RN) vitamin tablet 1 tablet, Oral, Daily, First dose on Fri08/23/24 at 0900 0933 (Given - Provider: Joann Alicea RN) 0919 (Given - Provider: Valeria Cano, ARTIE) 0923 (Given - Provider: Tasha Edward, ARTIE) sertraline (Zoloft) tablet 50 mg 50 mg, Oral, Daily, First dose on Fri08/24/24 at 1100 0933 (Given - Provider: Joann Alicea RN) 0919 (Given - Provider: Valeria Cano, ARTIE) 0923 (Given - Provider: Tasha Edward, ARTIE) sodium chloride 0.9% (NS) flush 10 mL 10 mL, IntraVENous, Every 12 hours scheduled (2 times per day), First dose on Fri08/23/24 at 0900 0951 (Given - Provider: Joann Alicea, ARTIE)2130 (Given - Provider: Malinda Fierro RN) 09 (Given - Provider: Valeria Cano, ARTIE)2119 (Given - Provider: Kashif Moe) 0927 (Given - Provider: Tasha Edward, RN) PRN Medication Order 08/28/2024 08/29/2024 08/30/2024 acetaminophen (Tylenol) tablet 1,000 mg 1,000 mg, Oral, Every 6 hours PRN, mild pain (1-3), Starting on Fri08/23/24 at 0104, Maximum dose of acetaminophen is 4000 mg from all sources in 24 hours. 193 (Given - Provider: Malinda Fierro RN) 1139 (Given - Provider: Valeria Cano, ARTIE) cyclobenzaprine (Flexeril) tablet 10 mg 10 mg, Oral, 3 times daily PRN, muscle spasms, Starting on Fri08/27/24 at 1302 0950 (Given - Provider: Joann Alicea RN)1937 (Given - Provider: Malinda Fierro RN) 1140 (Given - Provider: Valeria Cano, ARTIE)2127 (Given - Provider: Kashif Moe) 0938 (Given - Provider: Tasha Edward, ARTIE) dicyclomine (Bentyl) capsule 10 mg 10 mg, Oral, 4 times daily PRN, GI upset, Starting on Fri08/23/24 at 0038 diphenhydrAMINE (BENADryl) tablet/capsule 25 mg 25 mg, Oral, Every 6 hours PRN, itching, Starting on Fri08/23/24 at 0038 1329 (Given - Provider: Latonia Park, ARTIE) hydrOXYzine pamoate (Vistaril) capsule 25 mg 25 mg, Oral, Every 6 hours PRN, anxiety, Starting on Fri08/23/24 at 0038 0950 (Given - Provider: Joann Alicea RN) 114 (Given - Provider: Valeria Cano, ARTIE)2127 (Given - Provider: Kashif Moe) 0937 (Given - Provider: Tasha Edward, ARTIE) naloxone (Narcan) injection 0.4 mg 0.4 mg, IntraVENous, Every 5 min PRN, opioid reversal, respiratory depression, Starting on Fri08/23/24 at 1026, +++ For RR <10, pinpoint pupils, over sedation for opioid reversal - MUST notify enterprise resource planning consultant provider immediately after first dose, may give IM or SQ if no IV access +++ ondansetron (Zofran) injection 4 mg 4 mg, IntraVENous, Every 8 hours PRN, nausea, vomiting, Starting on Fri08/23/24 at 0038, 1st Line. If inadequate response within 60 minutes, proceed to next-line agent or contact provider if no further options ordered. Patient should allow tablet to dissolve on tongue. Do not remove from blister pack until just before administering. 0808 (Given - Provider: Joann Alicea RN) 0935 (Given - Provider: Valeria Cano, ARTIE)2128 (Given - Provider: Kashif Moe) promethazine (Phenergan) tablet 12.5 mg 12.5 mg, Oral, Every 6 hours PRN, nausea, vomiting, 2nd line, Starting on Fri08/23/24 at 0038 1246 (Given - Provider: Joann Alicea RN) QUEtiapine (SEROquel) tablet 50 mg 50 mg, Oral, Nightly PRN, Insomnia/sleep, Starting on Fri08/28/24 at 1431 2141 (Given - Provider: Malinda Fierro, ARTIE) 2117 (Given - Provider: Kashif Moe) sodium chloride 0.9 % infusion 5-250 mL/hr, IntraVENous, PRN, if patient receiving piggyback infusions and maintenance fluids are not ordered OR KVO fluids to protect IV site / prevent frequent line interruptions/ long duration, Starting on Fri08/23/24 at 0037, For piggyback infusion, administer at same rate as piggyback for a total of 25 mL. Enter 25 mL into dose field and piggyback rate into rate field of order. If piggyback is infusing at a rate less than 100 mL/hr, enter 25 mL into dose field and 100 mL/hr into rate field of order. For KVO fluids, enter rate of 20 mL/hr or less into rate field of order. sodium chloride 0.9% (NS) flush 10 mL 10 mL, IntraVENous, PRN, line care, Starting on Fri08/23/24 at 0037, After every IV line use Linked Groups Order Group 1: buprenorphine-naloxone (Suboxone) 2-0.5 MG per sublingual film 0.25 Film (COMPLETED) 0.25 Film, SubLINGual, 2 times daily, First dose on 08/25/24 at 1500, For 2 doses Followed by buprenorphine-naloxone (Suboxone) 2-0.5 MG per sublingual film 0.5 Film (COMPLETED) 0.5 Film, SubLINGual, 2 times daily, First dose on Kirsten 08/26/24 at 1500, For 2 doses Followed by buprenorphine-naloxone (Suboxone) 2-0.5 MG per sublingual film 1 Film (COMPLETED)Jump to med 1 Film, SubLINGual, 2 times daily, First dose on Fri08/27/24 at 1500, For 2 doses Followed by buprenorphine-naloxone (Suboxone) 2-0.5 MG per sublingual film 2 Film (COMPLETED)Jump to med 2 Film, SubLINGual, 2 times daily, First dose on 08/28/24 at 1500, For 2 doses Followed by buprenorphine-naloxone (Suboxone) 2-0.5 MG per sublingual film 3 Film (CANCELED) 3 Film, SubLINGual, 2 times daily, First dose on 08/29/24 at 1500, For 2 doses Group 2: methadone (Dolophine) 10 MG/ML solution 60 mg (COMPLETED)Jump to med 60 mg, Oral, Every 24 hours, First dose (after last modification) on 08/29/24 at 0945, For 1 dose Followed by methadone (Dolophine) 10 MG/ML solution 40 mg (CANCELED) 40 mg, Oral, Every 24 hours, First dose on 08/30/24 at 0945, For 1 dose Scheduled Medication Order 09/23/2024 09/24/2024 09/25/2024 acetaminophen (Tylenol) tablet 1,000 mg (COMPLETED) 1,000 mg, Oral, Once, On Fri09/24/24 at 2245, For 1 dose, Maximum dose of acetaminophen is 4000 mg from all sources in 24 hours. 2247 (Given - Provider: Hannah Skowronski, RN) fosfomycin (Monurol) packet 3 g (COMPLETED) 3 g, Oral, Once, On Fri09/24/24 at 2245, For 1 dose, Suspected Indication (Select all that apply): Urinary Tract Infection 2352 (Given - Provider: Hannah Alves RN) Lidocaine 4 % patch 1 patch 1 patch, TransDERmal, Administer over 12 Hours, Daily, First dose (after last modification) on Fri09/24/24 at 2245, Apply patch to affected area. Patch may remain in place for up to 12 hours in any 24 hour period. 224 (Medication Applied - Provider: Hannah Alves RN) 0013 (Due: Medication Removed - Provider: Automatic Discharge Provider - Comment: Time automatically adjusted from order being discontinued) Scheduled Medication Order 10/06/2024 10/07/2024 10/08/2024 acetaminophen (Tylenol) tablet 1,000 mg (COMPLETED) 1,000 mg, Oral, Once, On Fri10/08/24 at 2130, For 1 dose, Maximum dose of acetaminophen is 4000 mg from all sources in 24 hours. 2140 (Given - Provid er: Sandra Perez LPN) Scheduled Medication Order 10/19/2024 10/20/2024 10/21/2024 acetaminophen (Tylenol) tablet 1,000 mg 1,000 mg, Oral, Every 6 hours, First dose (after last modification) on Fri10/20/24 at 1600, Give in addition to any other pain medication ordered at same time for any pain indication. Maximum dose of acetaminophen is 4000 mg from all sources in 24 hours. Alternate ibuprofen and acetaminophen every 3 hours. Give ibuprofen first in the sequence. 1701 (Given - Provider: Jerrica Dickerson RN) 0213 (Given - Provider: Oralia Rosales, ARTIE)1010 (Given - Provider: Amanda Petersen, ARTIE)1015 (Due - Provider: Oralia Rosales, ARTIE)1755 (Given - Provider: Amanda Petersen RN)2306 (Not Given - Provider: Oralia Rosales, ARTIE - Reason: Order parameters not met) acetaminophen (Tylenol) tablet 650 mg (CANCELED) 650 mg, Oral, Every 6 hours, First dose (after last modification) on Fri10/20/24 at 1000, Give in addition to any other pain medication ordered at same time for any pain indication. Maximum dose of acetaminophen is 4000 mg from all sources in 24 hours. Alternate ibuprofen and acetaminophen every 3 hours. Give ibuprofen first in the sequence. 1052 (Given - Provider: Jerrica Dickerson RN) buprenorphine-naloxone (Suboxone) 8-2 MG per sublingual film 1 Film (CANCELED) 1 Film, SubLINGual, 2 times daily, First dose on Fri10/18/24 at 1015 0819 (Given - Provider: Sabina Falcon, ARTIE) buprenorphine-naloxone (Suboxone) 8-2 MG per sublingual film 1 Film (COMPLETED) 1 Film, SubLINGual, Once, On Fri10/19/24 at 2100, For 1 dose 2030 (Given - Provider: Elma Diez RN) buprenorphine-naloxone (Suboxone) 8-2 MG per sublingual film 2 Film 2 Film, SubLINGual, Daily, First dose (after last modification) on Fri10/20/24 at 0900 0845 (Given - Provider: Jerrica Dickerson RN) 0928 (Given - Provider: Amanda Petersen RN) cyclobenzaprine (Flexeril) tablet 5 mg (COMPLETED) 5 mg, Oral, Once, On Fri10/19/24 at 1345, For 1 dose 1449 (Given - Provider: Sabina Falcon, ARTIE) cyclobenzaprine (Flexeril) tablet 5 mg 5 mg, Oral, 3 times daily, First dose on Fri10/20/24 at 0900 0844 (Given - Provider: Jerrica Dickerson RN)1416 (Given - Provider: Jerrica Dickerson RN)2157 (Given - Provider: Oralia Rosales, ARTIE) 0602 (Given - Provider: Oralia Rosales, ARTIE)1200 (Canceled Entry - Provider: Oralia Rosales, RN)1401 (Canceled Entry - Provider: Oralia Rosales, ARTIE)1755 (Given - Provider: Amanda Petersen RN)2306 (Not Given - Provider: Oralia Rosales, ARTIE - Reason: Order parameters not met) ferrous sulfate tablet 325 mg 325 mg, Oral, 2 times daily with meals, First dose on Fri10/19/24 at 0800, , Start if Hgb less than 10. Hold oral ferrous sulfate dose if receiving IV iron sucrose (Venofer) 0851 (Not Given - Provider: Sabina Falcon RN - Reason: Order parameters not met)1627 (Not Given - Provider: Sabina Falcon RN - Reason: Order parameters not met) 0743 (Not Given - Provider: Jerrica Dickerson RN - Reason: Order parameters not met)1614 (Not Given - Provider: Jerrica Dickerson RN - Reason: Order parameters not met) 0731 (Not Given - Provider: Amanda Petersen RN - Reason: Order parameters not met)1623 (Not Given - Provider: Amanda Petersen RN - Reason: Order parameters not met) ibuprofen tablet 600 mg 600 mg, Oral, Every 6 hours, First dose (after last modification) on Fri10/20/24 at 1200, Alternate ibuprofen and acetaminophen every 3 hours. Give ibuprofen first in the sequence. 1416 (Given - Provider: Jerrica Dickerson RN - Comment: pt states ok to take motrin with allergy to toradol)1938 (Given - Provider: Oralia Rosales RN) 0213 (Given - Provider: Oralia Rosales RN)0928 (Given - Provider: Amanda Petersen RN)1610 (Given - Provider: Amanda Petersen RN)2215 (Given - Provider: Oralia Rosales RN) Lidocaine 4 % patch 1 patch (CANCELED) 1 patch, TransDERmal, Administer over 12 Hours, Daily, First dose on Fri10/19/24 at 1345, Apply patch to back. Patch may remain in place for up to 12 hours in any 24 hour period. 1450 (Medication Applied - Provider: Sabina Falcon RN) 0125 (Medication Removed - Provider: Elma Diez RN) Lidocaine 4 % patch 1 patch 1 patch, TransDERmal, Administer over 12 Hours, 2 times daily, First dose on Fri10/20/24 at 0645, Apply patch to back. Patch may remain in place for up to 12 hours in any 24 hour period. 0845 (Medication Applied - Provider: Jerrica Dickerson RN)1459 (Due: Medication Removed - Provider: Jerrica Dickerson RN)1500 (Due) 0914 (Not Given - Provider: Amanda Petersen RN - Reason: Patient/family refused)1415 (Not Given - Provider: Amanda Petersen RN - Reason: Patient/family refused) measles, mumps and rubella (MMR) vaccine 0.5 mL 0.5 mL, SubCUTAneous, Prior to discharge, Starting on Fri10/19/24 at 0532, For 1 dose, , Administer if Rubella non-immune or equivocal Vaccine is a vial of powder. Reconstitute with the available diluent for this vaccine. Barcode scan vaccine vial for Vaccine Record sertraline (Zoloft) tablet 50 mg 50 mg, Oral, Daily, First dose on Fri10/18/24 at 1015 0819 (Given - Provider: Sabina Falcon, ARTIE) 0844 (Given - Provider: Jerrica Dickerson RN) 0928 (Given - Provider: Amanda Petersen RN) Tdap (BoostRIX) vaccine 0.5 mL 0.5 mL, IntraMUSCular, Prior to discharge, Starting on Fri10/19/24 at 0532, For 1 dose, If not previously administered during at 27-36 weeks as recommended by CDC. Tdap. Not to be confused with look-alike/sound-alike product DTaP. Continuous Medication Order 10/19/2024 10/20/2024 10/21/2024 lactated ringers infusion 125 mL/hr, IntraVENous, Continuous, Starting on Fri10/18/24 at 1015, Pre-Delivery oxytocin (Pitocin) 30 units in 500 mL infusion 1-2 norberto-units/min (1-2 mL/hr), IntraVENous, Continuous, Starting on Fri10/18/24 at 1145, Begin infusion at 1 norberto-unit/min (1 norberto-unit per min = 1 mL per hour) and increase by 1 norberto-unit/min after 30 minutes. Maintain at 2 norberto-unit/min until judd bulb comes out. Notify provider when judd bulb comes out. oxytocin (Pitocin) 30 units in 500 mL infusion 1-20 norberto-units/min (1-20 mL/hr), IntraVENous, Continuous, Starting on Fri10/18/24 at 1345, Begin infusion at 1 norberto-unit/min (1 norberto-unit per min = 1 mL per hour) and increase by 1 norberto-unit/min after 30 minutes. Then increase by 2 norberto-units/min as needed, no faster than every 30 minutes, until labor is achieved. Labor is defined as contractions every 2-3 minutes with cervical changes or [place] units (MVU) greater than 200 in a 10-minute window. Maximum infusion rate: 20 norberto-unit/min. Contact provider if maximum rate does not achieve desired response. Provider may order alternative titration goal or other clinically appropriate goal of titration rate (s). Smaller titration increments of 1 norberto-units/min, not faster than every 30 minutes, may be used when approaching therapeutic goal. ropivacaine (Naropin) 0.2 % (OB) epidural infusion(Linked Group 1) 8 mL/hr, Epidural, Continuous, Starting on Fri10/18/24 at 1600, Pre-Delivery, PCEA Basal Infusion ropivacaine 0.2 % in sodium chloride 0.9 % (OB) epidural syringe(Linked Group 1) Epidural, Continuous, Starting on Fri10/18/24 at 1600, Pre-Delivery, PCEA patient controlled syringe Pt. Controlled Dose: 5 ml Lockout Interval: 10 min One Hour Limit: 15 mL PRN Medication Order 10/19/2024 10/20/2024 10/21/2024 acetaminophen (Tylenol) tablet 650 mg (CANCELED) 650 mg, Oral, Every 6 hours PRN, mild pain (1-3), moderate pain (4-6), severe pain (7-10), Starting on Fri10/19/24 at 0014, Give in addition to any other pain medication ordered at same time for any pain indication. Maximum dose of acetaminophen is 4000 mg from all sources in 24 hours. Alternate ibuprofen and acetaminophen every 3 hours. Give ibuprofen first in the sequence. 0029 (Given - Provider: Swati Oakes RN)1233 (Given - Provider: Sabina Falcon RN)2030 (Given - Provider: Elma Diez RN) 042 (Given - Provider: Elma Diez RN) benzocaine 20% containing (Dermoplast) spray Topical, As needed, pain, , Starting on Fri10/19/24 at 0532, , Apply to perineal area. Patient is capable and may self administer at bedside. docusate sodium (Colace) capsule 100 mg 100 mg, Oral, 2 times daily PRN, constipation, Vaginal Delivery, Starting on Fri10/19/24 at 0532, Do not crush or break. 0819 (Given - Provider: Sabina Falcon, ARTIE) 0844 (Given - Provider: Jerrica Dickerson, ARTIE)1938 (Given - Provider: Oralia Rosales, RN) 2051 (Given - Provider: Oralia Rosales, RN) famotidine (Pepcid) tablet 20 mg 20 mg, Oral, 2 times daily PRN, heartburn, Starting on Fri10/19/24 at 0532, , Renal dose per pharmacy for peptic ulcer prophylaxis. ibuprofen tablet 600 mg (CANCELED) 600 mg, Oral, Every 6 hours PRN, mild pain (1-3), moderate pain (4-6), severe pain (7-10), Starting on Fri10/19/24 at 0014, Alternate ibuprofen and acetaminophen every 3 hours. Give ibuprofen first in the sequence. 0029 (Given - Provider: Swati Oakes RN)0819 (Given - Provider: Sabina Falcon, ARTIE)1449 (Given - Provider: Sabina Falcon, ARTIE) 0125 (Given - Provider: Elma Diez, ARTIE) lanolin (Lansinoh) cream Topical, As needed, dry skin, nipple discomfort, Starting on Fri10/19/24 at 0532, , Apply to affected area. naloxone (Narcan) injection 0.4 mg 0.4 mg, IntraVENous, Every 5 min PRN, opioid reversal, respiratory depression, Starting on Fri10/18/24 at 1005, +++ For RR <10, pinpoint pupils, over sedation for opioid reversal - MUST notify enterprise resource planning consultant provider immediately after first dose, may give IM or SQ if no IV access +++ ondansetron (Zofran) injection 4 mg(Linked Group 2) 4 mg, IntraVENous, Every 6 hours PRN, nausea, vomiting, Starting on Fri10/19/24 at 0532, 1st Line. Give IV if patient is unable to take orally. If inadequate response within 60 minutes, proceed to next-line agent or contact provider if no further options ordered. ondansetron ODT (Zofran-ODT) disintegrating tablet 4 mg(Linked Group 2) 4 mg, Oral, Every 8 hours PRN, nausea, vomiting, Starting on Fri10/19/24 at 0532, 1st Line. If inadequate response within 60 minutes, proceed to next-line agent or contact provider if no further options ordered. Patient should allow tablet to dissolve on tongue. Do not remove from blister pack until just before administering. oxyCODONE (Roxicodone) immediate release tablet 5 mg (COMPLETED) 5 mg, Oral, Once PRN, severe pain (7-10), Starting on Fri10/19/24 at 0532, For 1 dose, , Indications: Acute Pain 2107 (Given - Provider: Elma Diez RN) oxyCODONE (Roxicodone) immediate release tablet 5 mg 5 mg, Oral, Every 6 hours PRN, severe pain (7-10), Starting on Fri10/20/24 at 1241 1330 (Given - Provider: Jerrica Dickerson RN)1938 (Given - Provider: Oralia Rosales RN) 0213 (Given - Provider: Oralia Rosales RN)0801 (Given - Provider: Amanda Petersen RN)1403 (Given - Provider: Amanda Petersen RN)2052 (Given - Provider: Oralia Rosales, ARTIE) oxytocin (Pitocin) 30 units in 500 mL infusion 250-999 norberto-units/min (250-999 mL/hr), IntraVENous, Continuous PRN, bleeding, Starting on Fri10/18/24 at 1003, For Immediate Post Use Only. Give after delivery of placenta. Bag 1 of 2: Bolus for bag to infuse at 999 ml/hour for 15 minutes (15 units in 250cc). After initial bolus then decrease rate to 250cc/hr for 1 hour. Then discontinue QUEtiapine (SEROquel) tablet 50 mg 50 mg, Oral, Nightly PRN, Insomnia/sleep, Starting on Fri10/18/24 at 0959 witch ho-glycerin (Tucks) pad Topical, As needed, hemorrhoids, For perineal pain or discomfort, Starting on Fri10/19/24 at 0532, , Apply to perineal area. Patient is capable and may self administer at bedside. Linked Groups Order Group 1: ropivacaine (Naropin) 0.2 % (OB) epidural infusionJump to med 8 mL/hr, Epidural, Continuous, Starting on Fri10/18/24 at 1600, Pre-Delivery, PCEA Basal Infusion And ropivacaine 0.2 % in sodium chloride 0.9 % (OB) epidural syringeJump to med Epidural, Continuous, Starting on Fri10/18/24 at 1600, Pre-Delivery, PCEA patient controlled syringe Pt. Controlled Dose: 5 ml Lockout Interval: 10 min One Hour Limit: 15 mL Group 2: ondansetron ODT (Zofran-ODT) disintegrating tablet 4 mgJump to med 4 mg, Oral, Every 8 hours PRN, nausea, vomiting, Starting on Fri10/19/24 at 0532, 1st Line. If inadequate response within 60 minutes, proceed to next-line agent or contact provider if no further options ordered. Patient should allow tablet to dissolve on tongue. Do not remove from blister pack until just before administering. Or ondansetron (Zofran) injection 4 mgJump to med 4 mg, IntraVENous, Every 6 hours PRN, nausea, vomiting, Starting on Fri10/19/24 at 0532, 1st Line. Give IV if patient is unable to take orally. If inadequate response within 60 minutes, proceed to next-line agent or contact provider if no further options ordered. Care Teams (unrecognized sec tion and content) Team Status: Active Member Role Status Dates No Primary Care Physician Primary Care Provider Active Team Status: Inactive Member Role Status Dates No Primary Care Physician Primary Care Provider Active Start: August 22, 2024 End: August 22, 2024 Dr. Fartun Licona MD Attending Provider Active Start: August 22, 2024 End: August 22, 2024 Team Status: Active Member Role/Relationship Status Dates No Primary Care Physician Primary Care Provider Active Team Status: Inactive Member Role/Relationship Status Dates No Primary Care Physician Primary Care Provider Active Start: December 29, 2024 End: December 29, 2024 Dr. Avis Martel DO Emergency Provider Active Start: December 29, 2024 End: December 29, 2024 Team Status: Inactive Member Role/Relationship Status Dates No Primary Care Physician Primary Care Provider Active Start: December 29, 2024 End: December 29, 2024 Dr. Avis Martel DO Attending Provider Active Start: December 29, 2024 End: December 29, 2024 Dr. Avis Martel , DO Emergency Provider Active Start: December 29, 2024 End: December 29, 2024 Team Status: Inactive Member Role/Relationship Status Dates No Primary Care Physician Primary Care Provider Active Start: February 04, 2025 End: February 04, 2025 Dr. Neto Boo , DO Emergency Provider Active Start: February 04, 2025 End: February 04, 2025 Goals (unrecognized section and content) Goals may be documented in a n alternate sectionGoals may be documented in an alternate sectionGoals may be documented in an alternate section Source Comments (unrecognize d section and content) In the event this informatio n is protected by the Federal Confidentiality of Alcohol and Drug Abuse Patient Records regulations: The Federal rules restrict any use of the information to criminally investigate or prosecute any alcohol or drug abuse patient.[facility] INFORMATION SOURCE (unrecogn ized section and content) DATE CREATED AUTHOR 12/05/2024 [facility] DATE CREATED AUTHOR AUTHOR'S ORGANIZ ATION 02/12/2025 [facility] DATE CREATED AUTHOR AUTHOR'S ORGANIZ ATION 03/12/2025 [facility] FOR RECORDS PERTAINING TO PATIENTS WHO ARE OR HAVE BEEN ENROLLED IN A CHEMICAL DEPENDENCY/SUBSTANCEABUSE PROGRAM, SOME INFORMATION MAY BE OMITTED. This clinical summary was aggregated from multiple sources. Caution should be exercised in using it in the provision of clinical care. This summary normalizes information from multiple sources, and as a consequence, information in this document may materially change the coding, format and clinical context of patient data. In addition, data may be omitted in some cases. CLINICAL DECISIONS SHOULD BE BASED ON THE PRIMARY CLINICAL RECORDS. [employer] [facility]. provides no warranty or guarantee of the accuracy or completeness of information in this document.
--- NOTE | 2025-03-27 12:48 | EDS_ITS ---
HPI History of Present Illness Chief Complaint: Substance Abuse Detail of Chief Complaint: Substance abuse Informant: patient Narrative Narrative: Patient presents to the emergency department complaint of substance abuse this morning. Patient states that she had been clean for 7 months and relapsed this morning by smoking fentanyl and methamphetamines. She done thought that may be the drugs will get out of her system quickly if she took Suboxone which she did. She then developed abdominal cramping as well as diarrhea. Complaining of pain all over. She denies dysuria. She denies fever. Complains now of whole body pain. [facility] Medical History (Updated 03/27/25 @ 14:[address] Pasquale Aguilar, DO) Medullary sponge kidney Home Medications ?Medication ?Instructions ?Recorded ?Last Taken ?Type alprazolam 0.25 mg tablet (Xanax) 0.25 mg PO BID PRN a nxiety 08/22/24 08/20/24 History methadone 40 mg soluble tablet 140 mg PO DAILY 5 08/20/24 History buprenorphine 8 mg-naloxone 2 mg 0 ea sublingual 12/29 Unknown History sublingual film phenazopyridine 200 mg tablet 200 mg PO TID PRN pain 6 doses #6 12/29/24 Unknown Rx (Pyridium) tabs sertraline 100 mg tablet 100 mg PO DAILY 12/29/24 Unk nown History sulfamethoxazole 800 1 tab PO BID 5 days #10 tabs 12/29/24 Unknown Rx mg-trimethoprim 160 mg tablet (Bactrim DS) Allergy/AdvReac Type Severity Reaction Status Date / Time ketorolac (From Toradol) Allergy Intermediate Hives Verified 02/04/25 12:49 Surgical History (Updated 02/04/25 @ 13:[address] Neto Boo, ) H/O insertion of nephrostomy tube H/O placement of ureteral stent Social History Smoking Status: Current some day smoker tobacco type: cigarettes ROS ROS ED Review of Systems ROS Unobtainable: other Constitutional Constitutional ED: Reports lethargy; Denies chills, fever(s), sweats or weight loss Eyes Eyes: Denies blurry vision, change in vision or diplopia ENT ENT ED: Denies rhinorrhea or sore throat Cardiovascular Cardiovascular: Denies chest pain, orthopnea or racing heartbeat Respiratory/Chest Respiratory/Chest: Denies cough, dyspnea, dyspnea on exertion, orthopnea or sputum Gastrointestinal Gastrointestinal: Reports abdominal pain, diarrhea and nausea; Denies vomiting Genitourinary Genitourinary ED: Denies dysuria, hematuria or urinary frequency Musculoskeletal Musculoskeletal: Reports other Details: Myalgias ; Denies arthralgias, back pain, myalgias or neck pain Integumentary Denies abscess, Abrasions or rash Neurologic Neurologic: Denies headache(s) or weakness Psychiatric Psychiatric: Denies anxiety, depression or suicidal thoughts Endocrine Endocrinology: Denies polydipsia, polyphagia or polyuria Hematologic/Lymphatic Hematologic/Lymphatic: Denies easy bleeding, easy bruising or lymphadenopathy Allergic/Immunologic Allergic/Immunologic ED: Denies mouth swelling, tongue swelling or urticaria EXAM Physical Exam Const Vital Signs: 03/27/25 12:04 03/27/25 13:24 Temperature 98.4 F Temperature Source Oral Pulse Rate 97 Respiratory Rate 18 Blood Pressure 158/100 H 134/97 H Blood Pressure Mean 119 109 Pulse Ox 100 Oxygen Delivery Method Room Air Positive well nourished and well developed General Appearance ED: well developed and NAD HEENT Reports TM's clear and moist mucous membranes normocephalic and atraumatic; Negative for trauma or tenderness Tympanic Membrane ED: Yes TM's clear Eyes PERRL and EOMs intact bilaterally General Eye ED: Negative for pale conjunctiva or scleral icterus Neck no lymphadenopathy, supple and no JVD General: Negative for tenderness Chest Wall inspection of chest normal and palpation of chest normal Chest: Negative for tenderness Resp normal respiratory effort and clear to auscultation bilaterally Effort and Inspection: Negative for respiratory distress or pain with movement Auscultation: Negative for rhonchi, wheezes or diminished lung sounds Cardio regular rate, regular rhythm, S1 normal heart sound, S2 normal heart sound and no murmurs Peripheral Pulses: pulses 2+ throughout GI normal to inspection, nondistended, normoactive bowel sounds, soft to palpation, non-tender, non-distended and no masses Back/Spine no CVA tenderness and no thoracic nor lumbar tenderness Extremity normal to inspection General Extremety ED: Negative for edema General Extremity: Negative for edema Neuro oriented x3, CN's II-XII intact bilaterally, no sensory deficits noted and gait normal Sensorium / Orientation: awake, alert, oriented to person, oriented to place and oriented to time Motor Exam: strength 5/5 throughout and strength abnormal Psych mental status grossly normal Skin no rashes or lesions noted and no wounds MDM MDM MDM Narrative Medical decision making narrative: Patient presents with multiple complaints that are vague with diarrhea and abdominal pain and cramping and whole body pain. She relapsed by smoking fentanyl and meth today. Had been clean for 7 months. She then took Suboxone. Denies feeling suicidal or homicidal. IV line established. She was medicated with Ativan 2 mg IV. CBC with differential obtained showed a normal white count of 7.0 with hemoglobin 13.5 and platelet count of 154. Chemistries unremarkable. Urinalysis unremarkable. Toxicology screen positive for buprenorphine phone and fentanyl. Alcohol was negative. After treatment with Ativan felt markedly improved. At this point we will discharge to home. Advised her to discontinue opiate use and discontinue methamphetamines Lab Data Attestation: I reviewed the patient's lab results. Labs: Laboratory Results - last 24 hr 03/27/25 03/27/25 03/27/25 12:10 12:55 13:50 WBC 7.0 RBC 4.91 Hgb 13.5 Hct 39.1 MCV 79.6 L MCH 27.5 MCHC 34.5 RDW Std Deviation 37.2 RDW Coeff of Mellissa 13.0 Plt Count 154 MPV 11.2 Immature Gran % (Auto) 0.300 Neut % (Auto) 76.3 H Lymph % (Auto) 15.5 L [place] % (Auto) 7.3 Eos % (Auto) 0.0 Baso % (Auto) 0.6 Absolute Neuts (auto) 5.3 Absolute Lymphs (auto) 1.08 Nucleated RBC % 0 Sodium 135 Potassium 3.7 Chloride 101 Carbon Dioxide 18.8 L Anion Gap 15 BUN 10 Creatinine 0.59 L Estim Creat Clear Calc 151.57 Est GFR (MDRD) Non-Af 123 BUN/Creatinine Ratio 17.0 Glucose 123 H Calcium 10.0 Urine Color Straw Urine Clarity Clear Urine pH 8.0 Ur Specific [place] 1.030 Urine Protein 15 H Urine Glucose (UA) Normal Urine Ketones 50 H Urine Occult Blood Negative Urine Nitrite Negative Urine Bilirubin Negative Urine Urobilinogen Normal Ur Leukocyte Esterase 25 H Urine RBC 0 SEEN Urine WBC 0-5 SEEN Ur Squamous Epith Cells 0-5 SEEN Urine Bacteria 0 SEEN Urine Mucus 0 SEEN Urine Test Negative Urine Opiates Screen NEGATIVE U Buprenorphine Qual PRESUMPTIVE POSITIVE Ur Oxycodone Screen NEGATIVE Urine Methadone Screen NEGATIVE Urine Fentanyl Screen PRESUMPTIVE POSITIVE Ur Barbiturates Screen NEGATIVE Ur Phencyclidine Scrn NEGATIVE Ur Amphetamines Screen NEGATIVE U Benzodiazepines Scrn NEGATIVE Urine Cocaine Screen NEGATIVE U Cannabinoids Screen NEGATIVE Ethyl Alcohol < 10.1 Discharge Plan Triage Chief Complaint: Substance Abuse ED Provider: Pasquale Aguilar Dx/Rx/DC Orders Clinical Impression: Substance abuse Instructions: ED Drug Abuse, ED Opiate Abuse Prescriptions: No Action alprazolam [Xanax] 0.25 mg tablet 0.25 mg PO BID PRN (Reason: anxiety) methadone 40 mg tablet,soluble 140 mg PO DAILY sertraline 100 mg tablet 100 mg PO DAILY buprenorphine-naloxone 8-2 mg film 0 ea sublingual sulfamethoxazole-trimethoprim [Bactrim DS] 800-160 mg tablet 1 tab PO BID 5 Days Qty: 10 0RF phenazopyridine [Pyridium] 200 mg tablet 200 mg PO TID PRN (Reason: pain) Qty: 6 0RF Primary Care Provider: Care Physician,No Primary Referrals: Martínez Castillo MD [Med Staff - Active Staff, Family Practice] - 3-5 Days Care Physician,No Primary [Primary Care Provider, Medical] Print Language: Frisian Disposition Disposition: Home, Self Care
[2025-03-27 12:55] LABS: Hematocrit 39.1 % (37-47); Hemoglobin 13.5 g/dL (12.0-15.0); Immature Granulocytes Count 0.020 X10^3/uL (0.0-0.0); Mean Corp Hgb Conc 34.5 g/dL (32-36); Mean Corpuscular Volume 79.6 fL (81-99); Mean Platelet Vol. 11.2 fl (6.2-12.0); NRBC Flagged by Analyzer 0 % (0-5); Platelet Count 154 K/mm3 (150-450); RBC Distribution Width CV 13.0 % (11.6-14.6); RBC Distribution Width SD 37.2 fl (35.1-43.9); Red Blood Count 4.91 M/mm3 (4.2-5.4); White Blood Count 7.0 K/mm3 (4.4-11.0)
[2025-03-27] MEDS: 0.9% Normal Saline (1000mL) 1,000 ML 150 ML IV (13:17)
[2025-03-27 13:24] VITALS: BP 134/97
[2025-03-27 13:25] LABS: Anion Gap 15 (5-15); BUN 10 mg/dL (4-19); BUN/Creat Ratio 17.0 RATIO (10-20); Calcium,Total 10.0 mg/dL (7.6-11.0); Carbon Dioxide 18.8 mmol/L (21.0-32.0); Chloride 101 mmol/L (98-108); Estimated Creatinine Clearance 151.57 ml/min (50-250); Glucose 123 mg/dL (70-99); Potassium 3.7 mmol/L (3.3-5.1)
[2025-03-27 13:27] LABS: Alcohol, Blood (Medical)-Serum < 10.1 mg/dL (<=10.0)
[2025-03-27 13:56] LABS: Mucous, Urine 0 SEEN /hpf (<or=2+); Red Blood Cells-Urine 0 SEEN /hpf (0-5)
[2025-03-27 13:59] LABS: Color, Urine Straw (Yellow); Glucose, Dipstick Normal (Normal); Ketone-Dipstick 50 mg/dl (Negative); Leukocyte Esterase-Dipstick 25 /ul (Negative); Nitrite-Dipstick Negative (Negative); Occult Blood-Urine Negative /ul (Negative); Protein-Dipstick 15 mg/dl (Negative); Specific Gravity, Urine 1.030 (1.002-1.030); Urine Bilirubin Dipstick Negative (Negative)
[2025-03-27 14:08] LABS: Squamous Epithelial Cells - UA 0-5 SEEN /hpf (5-10)
[2025-03-27 14:09] LABS: Internal QC Validated? YES +Cl - CLEAR BKGD; Pregnancy, Urine Negative Negative; Record Kit Lot#,Urine Preg 0000980607
[2025-03-27 14:33] LABS: Barbiturate Urine NEGATIVE (< 200 ng/mL); Benzodiazepine Urine NEGATIVE (< 200 ng/mL); PCP Urine NEGATIVE (< 25 ng/mL); THC Urine NEGATIVE (< 50 ng/mL)
[2025-03-27 15:06] VITALS: BP 131/70; PULSE 110; RESP 18; TEMP 36.8; O2SAT 94
--- NOTE | 2025-03-27 15:15 | CM.ED ---
Social Work Date of referral: 03/27/25 Reason for referral: Resources/support Referred by: Social Work Identification Patient provided consent to social work visit. Patient was observed to be in a lot of distress and was crying and talking about feeling bad for her relapse and wanting her baby (4 month old daughter). Area Secretary was told by patient's nurse that someone is currently caring for her baby. Area Secretary stayed with the EMT and offered comfort and support to patient and helped patient slow her breathing. (12:28) Area Secretary checked on patient again, inquired about baby's whereabouts at which point patient stated baby is being taken care of baby's grandmother. Patient denied any other current needs at this time and had calmed some. (13:54) Area Secretary made phone contact with Mellisa with [facility] and made a referral due to concerns of patient having a 4 month old at home, possible PPD, as well as drug abuse. Details of supports are unknown and 's safety may need to be further assessed. Mellisa requested a call back once social media assistant knows if patient us going to be admitted or discharged which social media assistant agreed to do. (14:08) Area Secretary met with patient again, provided written resources for mental health services and addiction and also provided patient with paper scrubs and socks as patient stated she was brought to the hospital from the shower and does not have any clothing/socks. Patient stated she and her daughter live with her daughter's paternal grandmother who is the person who is taking care of her baby right now. Patient denied any other needs/concerns, stated she is already connected to [facility] and is supposed to start another program this coming week. Area Secretary offered patient words of encouragement and support and wished patient well. (15:07) Area Secretary called back Mellisa with [facility] and spoke with Mellisa to notify her of patient's discharge. (15:15) Silvia Quintero, [employer], SOLUTION ENGINEER
== END 2025-03-27 15:10 | disposition home or self-care (01) ==
PROVIDERS: Emergency Provider Emergency Medicine; Visit Provider Emergency Medicine
DX: F11.10 Opioid abuse, uncomplicated (principal); F17.210 Nicotine dependence, cigarettes, uncomplicated
CPT/HCPCS: 80048; 80307; 81001; 81025; 82077; 85025; 96361; 96374; 96375; 99284; A4216; J2405